=== PATIENT | female | born 1935 | race Caucasian/White ===

== ENCOUNTER → 2017-01-01 | Outpatient (CLI) | payer MEDICARE ==
[~2017-01-01] MED LIST: ASP81CT PO; ATOR40TA PO; BPR150TCR PO; BUPR300T PO; CARV12.53 PO; CLON0.5T3 PO; CLPD75T PO; DIGOXIN PO; ERGO400C PO; FOLI1TAB7 PO; FURO20TA4 PO; HYDR-34 PO; INSU100I23 SQ; INSU100V6 SC; LIOT25TA3 PO; LIOT25TA4 PO; LVT.112T PO; NAPR220T76 PO; NPH,100V SC; OMG1KC PO; RAMI10CA PO; VENL150C PO
--- NOTE | 2017-01-01 19:13 | Diagnostic Imaging Report ---
Bilateral hand radiographs. INDICATION: Pain. Arthritis. Three views of each hand performed. FINDINGS: There is prominent degenerative change at the DIP joints in the left hand with advanced osteoarthritic change at the carpometacarpal joint at the base of the thumb. Also in the left hand, there are arthritic changes at the PIP joint of the middle finger with subchondral erosions. The right hand demonstrates minimal osteoarthritic changes at the DIP joints and moderate OA at the interphalangeal joint of the thumb. There is moderate to severe osteoarthritis of the carpometacarpal joint. IMPRESSION: Osteoarthritis changes as described more prominent in the left hand. There is erosive component arthritic change at the PIP joint of the left middle finger. This could relate to secondary osteoarthritis from prior trauma or possible element of a monoarticular inflammatory arthritis. Dictated by: Dictated on workstation # [id number]
== END ==
LOC: RAD 14:23
PROVIDERS: ATTEND Internal Medicine
DX: M19.041 Primary osteoarthritis, right hand (principal); M19.042 Primary osteoarthritis, left hand

== ENCOUNTER 2018-11-11 11:00 | Outpatient (RCR) | payer MEDICARE | END 2018-11-11 11:17 | disposition home or self-care (01) | PROVIDERS: ATTEND Internal Medicine | DX: R33.9 Retention of urine, unspecified (principal) ==

== ENCOUNTER → 2018-11-18 | Outpatient (CLI) | payer MEDICARE ==
--- NOTE | 2018-11-18 16:29 | Diagnostic Imaging Report ---
Indication: Shortness breath PA and lateral chest Heart size and pulmonary vascular normal. Lungs are clear. There are no effusions or pneumothoraces. Impression: Negative chest Dictated by: Dictated on workstation # [id number]
[2018-11-18 16:36] LABS: HEMOGLOBIN 13.6 G/DL (11.5-16.0); MEAN PLATELET VOLUME 11.6 FL (7.4-10.4); RED CELL DISTRIBUTION WIDTH 12.9 % (10.0-14.5); WHITE BLOOD COUNT 10.2 10^3/uL (4.3-11.0)
[2018-11-18 16:43] LABS: BILIRUBIN,URINE NEGATIVE (NEGATIVE); CLARITY,URINE CLEAR; COLOR,URINE YELLOW; GLUCOSE, URINE (UA) NEGATIVE (NEGATIVE); KETONES,URINE NEGATIVE (NEGATIVE); LEUKOCYTE ESTERASE ,URINE 3+ (NEGATIVE); NITRITE,URINE NEGATIVE (NEGATIVE); PH,URINE 6.5 (5-9); PROTEIN,URINE NEGATIVE (NEGATIVE); UROBILINOGEN,URINE NORMAL (NORMAL)
[2018-11-18 16:53] LABS: ALBUMIN 4.1 GM/DL (3.2-4.5); BILIRUBIN,TOTAL 0.9 MG/DL (0.1-1.0); CALCIUM 10.6 MG/DL (8.5-10.1); CREATININE SERUM 1.48 MG/DL (0.60-1.30); POTASSIUM 4.6 MMOL/L (3.6-5.0); TOTAL PROTEIN 8.3 GM/DL (6.4-8.2)
[2018-11-18 16:54] LABS: BACTERIA,URINE MODERATE /HPF; WBC,URINE 25-50 /HPF
== END ==
LOC: RAD 16:10
PROVIDERS: ATTEND Physician Assistant
DX: R06.02 Shortness of breath (principal); R05 Cough
CPT/HCPCS: 36415; 71046; 80053; 81000; 85027; 86141; 87088

== ENCOUNTER 2018-11-25 10:06 | Outpatient (CLI) | payer MEDICARE ==
[~2018-11-25] VITALS: Ht 162.6 cm; Wt 59.2 kg
[2018-11-25] MEDS ORDERED: NS IV 1000 ML 1,000 ML ONE (10:31)
[2018-11-25 11:45] VITALS: BP 143/62
[2018-11-25] MEDS ORDERED: NS IV 1000 ML 1,000 ML IV ONE (13:00)
== END 2018-11-25 11:45 | disposition home or self-care (01) ==
LOC: SDC 10:06
PROVIDERS: ATTEND Nurse Practitioner
DX: N39.0 Urinary tract infection, site not specified (principal)
CPT/HCPCS: 96360

== ENCOUNTER → 2019-01-18 | Outpatient (CLI) | payer MEDICARE | LOC: CARD 08:29 | PROVIDERS: ATTEND Internal Medicine Cardiovascular Disease | DX: I42.9 Cardiomyopathy, unspecified (principal); I50.9 Heart failure, unspecified; E11.9 Type 2 diabetes mellitus without complications; I08.3 Combined rheumatic disorders of mitral, aortic and tricuspid valves | CPT/HCPCS: 93306 ==

== ENCOUNTER → 2019-01-20 | Outpatient (CLI) | payer MEDICARE ==
[~2019-01-20] VITALS: Ht 157.5 cm; Wt 58.5 kg
[~2019-01-20] MED LIST changes: +CATHETER FLUSH 10 ML SYR IV PRN; +REGADENOSON 0.4 MG/5 ML SYR (LEXISCAN) IV ONE
[2019-01-20 09:53] VITALS: BP 149/54
--- NOTE | 2019-01-20 15:34 | STRESS TEST ---
DATE OF SERVICE: 01/20/2019 LEXISCAN MYOVIEW STRESS TEST REPORT REFERRING PHYSICIAN: Dr. Brothers. Baseline heart rate is 81, baseline blood pressure is 157/72. Baseline EKG is sinus rhythm with left bundle branch block. In summary, the patient was injected with 10.24 mCi of technetium-99 Myoview and the resting images were obtained. Then, the patient received 0.4 mg of Lexiscan followed by 28.7 mCi of technetium-99 Myoview. Throughout the test, there were no EKG changes. The resting and stress images were reviewed and compared in the short axis, horizontal long axis, and vertical long axis views. Review of the images showed reversible decreased uptake involving the mid to apical anterior wall, true apex, anterior septum with mild reversibility. SSS is 12, SDS 5, TID value 0.96. On the gated images, the left ventricle is prominent with diffuse left ventricular hypokinesia, calculated ejection fraction 23%. CONCLUSION: 1. The patient tolerated Lexiscan well. 2. Decreased uptake involving the mid to apical anterior wall, true apex, anterior septum with mild reversibility. 3. Dilated left ventricle with diffuse left ventricular hypokinesia, calculated ejection fraction 23%. Job ID: [id number] DocumentID: [id number] Dictated Date: 01/20/2019 13:14:04 [employer] Room Date: 01/20/2019 15:33:52 Dictated By: LUISA MEADE MD
== END ==
LOC: RAD 07:05
PROVIDERS: ATTEND Internal Medicine Cardiovascular Disease
DX: I42.9 Cardiomyopathy, unspecified (principal); I50.9 Heart failure, unspecified; E11.9 Type 2 diabetes mellitus without complications; I51.89 Other ill-defined heart diseases; I51.7 Cardiomegaly
CPT/HCPCS: 78452; 93017

== ENCOUNTER 2019-04-02 11:13 | Outpatient (RCR) | payer MEDICARE ==
[~2019-04-02 11:13] MED LIST changes: +ACET-77 PO; +ARIP15TA4 PO; +ASPI-586 PO; +ATOR80TA76 PO; +BUPR300T43 PO; +CALC-823 PO; -CATHETER FLUSH 10 ML SYR IV PRN; +CHOL400C9 PO; +CLON0.5T13 PO; +CLOP75TA28 PO; +DIGO0.12 PO; +DIGO125T PO; +GABA-486 PO; +INSU100I14 SQ; +INSU100I32 SQ; +LEVO125T PO; +MULT-1112 PO; +NAPR-1033 PO; +PANT40SU PO; +POTA10TA10 PO; -REGADENOSON 0.4 MG/5 ML SYR (LEXISCAN) IV ONE; +SACU1TAB7 PO; +VENL150C98 PO
== END 2019-04-02 11:46 | disposition home or self-care (01) ==
PROVIDERS: ATTEND Internal Medicine
DX: R32 Unspecified urinary incontinence (principal)

== ENCOUNTER 2019-05-17 13:49 | Outpatient (RCR) | payer MEDICARE | END 2019-05-20 10:28 | disposition home or self-care (01) | PROVIDERS: ATTEND Anesthesiology Pain Medicine | DX: M19.90 Unspecified osteoarthritis, unspecified site (principal); M79.18 Myalgia, other site; E11.9 Type 2 diabetes mellitus without complications; M54.5 Low back pain; Z79.4 Long term (current) use of insulin; Z87.81 Personal history of (healed) traumatic fracture; Z96.641 Presence of right artificial hip joint; Z95.828 Presence of other vascular implants and grafts ==

== ENCOUNTER 2019-06-21 10:13 | Outpatient (RCR) | payer MEDICARE ==
[~2019-06-21 10:13] MED LIST changes: -ACET-77 PO; +ACET-78 PO; -CLON0.5T13 PO; +CLON0.5T4 PO; -DIGO125T PO; +DIGO125T3 PO
== END 2019-06-22 | disposition home or self-care (01) ==
LOC: CR 10:13
PROVIDERS: ATTEND Internal Medicine Cardiovascular Disease
DX: Z48.812 Encounter for surgical aftercare following surgery on the circulatory system (principal); Z98.61 Coronary angioplasty status
CPT/HCPCS: 82962; 93798

== ENCOUNTER 2019-07-05 10:26 | Outpatient (RCR) | payer MEDICARE | END 2019-09-21 | disposition home or self-care (01) | LOC: CR 10:26 | PROVIDERS: ATTEND Internal Medicine Cardiovascular Disease | DX: Z48.812 Encounter for surgical aftercare following surgery on the circulatory system (principal); Z98.61 Coronary angioplasty status | CPT/HCPCS: 93798 ==

== ENCOUNTER → 2019-08-20 | Outpatient (CLI) | payer MEDICARE ==
[2019-08-20 10:36] LABS: BILIRUBIN,URINE NEGATIVE (NEGATIVE); CLARITY,URINE CLEAR; COLOR,URINE YELLOW; GLUCOSE, URINE (UA) NEGATIVE (NEGATIVE); KETONES,URINE NEGATIVE (NEGATIVE); LEUKOCYTE ESTERASE ,URINE 1+ (NEGATIVE); NITRITE,URINE NEGATIVE (NEGATIVE); PROTEIN,URINE TRACE (NEGATIVE)
[2019-08-20 10:49] LABS: BACTERIA,URINE NEGATIVE /HPF; RBC,URINE RARE /HPF; SQUAMOUS EPITHELIAL CELL,UR 0-2 /HPF; WBC,URINE 0-2 /HPF
== END ==
LOC: MERGE 10:00 → LABNPT 10:00
PROVIDERS: ATTEND Internal Medicine
DX: R39.15 Urgency of urination (principal)
CPT/HCPCS: 81000

== ENCOUNTER 2020-01-01 12:01 | Inpatient (IN) | payer MEDICARE ==
[2020-01-01] VITALS (12 sets, daily range): BP systolic 136–166; BP diastolic 51–87
[~2020-01-01] VITALS: Ht 162.6 cm; Wt 60.2 kg
--- OUTSIDE RECORDS SUMMARY | 2020-01-01 12:07 | XMS REPORT | Encounter Summary ---
Author Author [facility] Organization [facility] Address Unknown Phone Unavailable Care Team Providers Care Heading Machine Operator Name Role Phone PCP Unavailable Encounter Details Care Team Description Date Type Department 02/25/2004 [facility] Visit Social History Date Tobacco Use Types Packs/Day Years Used Never Assessed Sex Assigned at Date Recorded Not on file Industry Job Start Date Occupation Not on file Not on file Not on file Travel End Travel History Travel Start No recent travel history available. documented as of this encounter Plan of Treatment Not on filedocumented as of this encounter Visit Diagnoses Not on filedocumented in this encounter
--- OUTSIDE RECORDS SUMMARY | 2020-01-01 12:07 | XMS REPORT | Encounter Summary ---
Author Author [facility] Organization [facility] Address Unknown Phone Unavailable Care Team Providers Care Worm Grower Name Role Phone PCP Unavailable Encounter Details Care Team Description Date Type Department 12/17/2010 [facility] [...]
--- OUTSIDE RECORDS SUMMARY | 2020-01-01 12:07 | XMS REPORT | Encounter Summary ---
Author Author [facility] Organization [facility] Address Unknown Phone Unavailable Care Team Providers Care Compounding Pharmacy Technician Name Role Phone PCP Unavailable Encounter Details Care Team Description Date Type Department 02/29/2004 [facility] [...]
--- OUTSIDE RECORDS SUMMARY | 2020-01-01 12:07 | XMS REPORT | Encounter Summary ---
Author Author [facility] Address Unknown Phone Unavailable Care Team Providers Care Ice House Supervisor Name Role Phone PCP Unavailable Encounter Details Care Team Description Date Type Department Sandeep Hewitt MD [address] [facility] [address] [place] [address] [phone] 11/15/2010 [facility] [...]
--- OUTSIDE RECORDS SUMMARY | 2020-01-01 12:07 | XMS REPORT | Encounter Summary ---
Author Author [facility] Address Unknown Phone Unavailable Care Team Providers Care Service Station Manager Name Role Phone PCP Unavailable Encounter Details Care Team Description Date Type Department Kwame Juarez MD [address] [facility] [address] [place] [address] [phone] 11/18/2010 [facility] [...]
--- OUTSIDE RECORDS SUMMARY | 2020-01-01 12:07 | XMS REPORT | Encounter Summary ---
Author Author [facility] Address Unknown Phone Unavailable Care Team Providers Care Counseling Specialist Name Role Phone PCP Unavailable Encounter Details Care Team Description Date Type Department Sandeep Hewitt MD [address] [facility] [address] [place] [address] [phone] 12/18/2010 [facility] [...]
--- OUTSIDE RECORDS SUMMARY | 2020-01-01 12:07 | XMS REPORT | Encounter Summary ---
Author Author [facility] Address Unknown Phone Unavailable Care Team Providers Care Patent Law Specialist Name Role Phone PCP Unavailable Encounter Details Care Team Description Date Type Department Tish Shea, RN ACNS- No Forwarding Address 12/19/2010 [facility] Visit Social History Date [...]
--- OUTSIDE RECORDS SUMMARY | 2020-01-01 12:07 | XMS REPORT | Encounter Summary ---
Author Author [facility] Address Unknown Phone Unavailable Care Team Providers Care Cupola Mechanic Name Role Phone PCP Unavailable Encounter Details Care Team Description Date Type Department Jose Manuel Godfrey MD No Forwarding Address 12/12/2010 [facility] Visit Social History Date [...]
--- OUTSIDE RECORDS SUMMARY | 2020-01-01 12:07 | XMS REPORT | Encounter Summary ---
Author Author [facility] Address Unknown Phone Unavailable Care Team Providers Care Robotype Operator Name Role Phone PCP Unavailable Encounter Details Care Team Description Date Type Department Gerson Skinner MD [address] [facility] [address] [place] [address] [phone] 12/18/2010 [facility] [...]
--- OUTSIDE RECORDS SUMMARY | 2020-01-01 12:07 | XMS REPORT | Encounter Summary ---
Author Author [facility] Organization [facility] Address Unknown Phone Unavailable Care Team Providers Care Optical Manager Name Role Phone PCP Unavailable Encounter Details Care Team Description Date Type Department Jose Manuel Godfrey MD No Forwarding Address 12/17/2010 [facility] - Hist [facility] Visit Social History Date Tobacco Use Types Packs/Day Years Used Never Assessed Sex Assigned at Date Recorded Not on file Industry Job Start Date Occupation Not on file Not on file Not on file Travel End Travel History Travel Start No recent travel history available. documented as of this encounter Last Filed Vital Signs Reading Time Taken Comments Vital Sign 134/68 12/17/2010 9:00 AM CDT Blood Pressure 69 12/17/2010 9:00 AM CDT Pulse - - Temperature - - Respiratory Rate - - Oxygen Saturation - - Inhaled Oxygen Concentration 59 kg (130 lb) 12/17/2010 9:00 AM CDT normal Weight 162.6 cm (5' 4") 12/17/2010 9:00 AM CDT Height 22.31 12/17/2010 9:00 AM CDT Body Mass Index documented in this encounter Progress Notes * Jose Manuel Godfrey MD - 12/17/2010 9:00 AM CDT [place] Office [address] [place] [id number] December 17, 2010 Mario Salinas MD [address] [facility] [address] [place] [address] RE: EDIE GONSALES : 1935 Chart #: [id number] Visit provider: Jose Manuel Godfrey M.D. Visit location: [place] office Dear Dr. Salinas: I had the pleasure of seeing EDIE GONSALES in the office today. She is 75 year s of age and presents with the following chief complaints: Chest pain, shortnes s of breath, and abnormal stress test. HPI: I had an opportunity to see her today in consultation regarding possible cardiac catheterization to define her coronary anatomy and left ventricular systolic fu nction and possible coronary intervention. As you know, she has a history of un derlying coronary artery disease and underwent drug-eluting stents with four minal nts in the LAD and a single drug-eluting stent to the right coronary artery in by Dr. Braxton Hubbard. You have followed her for a nonischemic cardiomyop athy even prior to the development of her underlying coronary disease. In 07/20 , I did call your office because her nuclear imaging revealed ischemia that was moderate in the septal and apical regions. Because of increasing chest pain and anginal symptoms, you recommended cardiac catheterization. She does describe chest pain with two episodes that she had while gardening that she felt very poorly with. She has some other left shoulder pain that appears to be musculoskeletal in nature. Problem List: LBBB 02/24/2004 PCI DELISA X4 to LAD from ostium to distal LAD, DELISA to RCA. Cardiomyopathy -Non-ischemic DM Type 2 11/18/2010 Dyslipidemia Hypertension Past Medical History: Enlarged thyroid Cardiomyopathy DM Manic-depressive disorder Past Surgical History: Cholecystectomy T & A 1944 Cyst removed 1957 Final Medications: Furosemide 20 Mg take 1 tablet (20MG) by oral route every other day Plavix 75 Mg take 1 tablet (75MG) by oral route every day Ramipril 10 Mg take 1 capsule (10MG) by oral route every day Bupropion HCl 150 Mg take 1 tablet (150MG) by oral route 2 times every day Effexor XR 150 Mg take 1 capsule (150MG) by oral route every day Clonazepam 1 Mg take 1/2 tablet by oral route in the evening Synthroid 112 Mcg take 1 tablet (112MCG) by oral route every day Digoxin 250 Mcg take 1 tablet (250MCG) by oral route every day Carvedilol 25 Mg take 1/2 tablet (12.5MG) by oral route 2 times every day with food Lipitor 40 Mg take 1 tablet (40MG) by oral route every day Humalog 100/ml inject by subcutaneous route as per insulin sliding scale protocol Lantus 100/ml inject by subcutaneous route as per insulin protocol Aspirin 81 Mg take 1 tablet (81MG) by oral route every day Aleve 220 Mg take 1 tablet (220MG) by oral route every 12 hours as needed Vitamin D 2000 Unit take 1 Tablet by Oral route every day Fish Oil 360-1200mg Centrum Silver Allergies/Intolerances: No Known Allergies Family History: Family history was reviewed today. Social History: Marital Status: Children: 3 Occupation: - Retired Advance Directives: The patient has a living will that was executed on 7 Diet: Low salt Exercise: Active Lifestyle. House/garden work, physical therapy, walks Smoking: Non-smoker Alcohol: Does not drink Comments: One child is . ROS: 12-point review of systems is negative with the following exceptions: Constitutional: Fatigue, Night sweats Pulmonary: Snore, Daytime drowsiness, Wake up unrefreshed Cardiovascular: Chest Discomfort, Shortness of breath /DELINQUENCY COUNSELOR: Postmenopausal Neuro: Numbness/Weakness, Disequilibrium Musculoskeletal/Dermatology: Myalgias, Arthralgias Hematology: Bleed or bruise easily Endocrine/Psych: Excessive thirst, Feeling depressed Physical Exam: Vital Signs The patient is 5ft 4in tall, and weighs 130lbs. The BMI is 22.30. B lood pressure taken in the left arm is 134/68 mmHg in the sitting position. The pulse is 69. The rhythm is regular. Const The patient is a well-developed, well-nourished female. HEENT The patient's neck veins are flat. Pulm Lungs are clear to auscultation. Cardiac The point of maximal impulse is normal. S1 is normal. S2 is normal. T here is no S3 gallop. There is no S4 gallop. No extra heart sounds are detected by auscultation. There is a 2/6 systolic ejection murmur. Abd The patient has no abdominal tenderness to palpation. The abdominal aorta i s not palpable. There is no abdominal aortic bruit detected by auscultation. Vasc The right and left carotid upstrokes are normal. There are normal right an d left femoral pulses. There are normal right and left posterior tibial pulses. The right and left dorsalis pedis pulses are normal. There is a right carotid bruit pres ent. EXT There is no edema noted. Skin The skin is warm and dry. Neuro/Psych The patient is alert and oriented to time, person and place. The pa tient's mood is normal. No aphasia is apparent by exam. EKG: Result: No change since last visit. Rhythm: Sinus Rate: 69 AV Conduction: Left bundle branch block Most Recent Lipids Available for Review: Date Collected: 12/17/2010 Fasting: Fasting ALT 22 Impression and Plan: 1. Increased anginal symptoms with abnormal myocardial perfusion imaging suggest ing septal and apical ischemia. Mildly depressed left ventricular systolic function. Your becky lópez is faxing over those records although they did read the reports to me in your letter over the phone. At this point I have recommended that she proceed with the cardiac catheterization that you have rec ommended to define her coronary anatomy and possible coronary intervention. I have explain ed to her the risks and benefits. She voices understanding and wishes to proceed. 2. Nonischemic cardiomyopathy that predates her underlying coronary artery disea se. She appears to be Class II. 3. Diabetes mellitus. 4. Dyslipidemia. 5. Hypertension. Follow up: Jose Manuel Godfrey M.D. 1 Year Thank you for allowing me to participate in EDIE GONSALES's care. If I can be of any further assistance, please do not hesitate to contact me. Sincerely, Jose Manuel LUCIO/mandy , 9:28 a.m. , 10:53 a.m. F: 12/17/2010 documented in this encounter Plan of Treatment Not on filedocumented as of this encounter Visit Diagnoses Not on filedocumented in this encounter
--- OUTSIDE RECORDS SUMMARY | 2020-01-01 12:07 | XMS REPORT | Clinical Summary ---
Author Author [facility] Organization [facility] Address Unknown Phone Unavailable Care Team Providers Care Classification Analyst Name Role Phone PCP Unavailable Allergies Not on File Medications Not on file Active Problems Not on file Family History Medical History Relation Name Comments Other Brother Diagnosed with CAD, Other Mother Diagnosed with CAD, Other Sister Diagnosed with CAD, Relation Name Status Comments Brother Cause of was MS at age 55. (Age 55) Brother Cause of was MS at age 65. (Age 65) Brother Cause of was MS at age 75. (Age 75) Brother Father Cause of was Cancer at age 70. (Age 70) Mother Cause of was MS at age 61. (Age 61) Sister Social History Date Tobacco Use Types Packs/Day Years Used Never Assessed Sex Assigned at Date Recorded Not on file Industry Job Start Date Occupation Not on file Not on file Not on file Travel End Travel History Travel Start No recent travel history available. Last Filed Vital Signs Reading Time Taken [...] 12/17/2010 9:00 AM CDT Body Mass Index Plan of Treatment Health Maintenance Due Date Last Done Comments Td # 1935 Zoster Vaccine# (1 of 2) 09/20/1987 Fall Risk Assessment # 2002 Osteoporosis Screening 2002 Influenza Vaccine (#1) 2020 04/02/2018, 05/14/2017, 05/19/2016, Additional history exists Results Not on filefrom Last 3 Months Advance Directives For more information, please contact: [phone] Patient Ham Sawyer Explanation Type Date Recorded Health Care 09/20/2013 9:58 PM Directive
--- OUTSIDE RECORDS SUMMARY | 2020-01-01 12:07 | XMS REPORT | Encounter Summary ---
Author Author [facility] Organization [facility] Address Unknown Phone Unavailable Care Team Providers Care Internet Marketer Name Role Phone PCP Unavailable Encounter Details Care Team Description Date Type Department [facility] Provider, MD Simi 12/14/2009 [facility] Result Social History Date Tobacco Use Types Packs/Day Years Used Never Assessed Sex Assigned at Date Recorded Not on file Industry Job Start Date Occupation Not on file Not on file Not on file Travel End Travel History Travel Start No recent travel history available. documented as of this encounter Plan of Treatment Not on filedocumented as of this encounter Procedures Comments Procedure Name Priority Date/Time Associated Diag nosis ECHO HISTORICAL Routine 12/14/2009 documented in this encounter Results * Echo historical (12/14/2009) Specimen Narrative Performed At Procedure Category: Echo NEXTGEN Procedure: 2D echo Procedure Summary: Left ventricular sys tolic dysfunction. Dyssynchronous septal wall motion, normal PAP, no sign ificant valvular dysfunction. Normal right ventricular function. EF=45-50% . Outside report. Procedure Note Interface, Rad Conversion - 12/27/2014 11:12 PM CDT Procedure Category: Echo Procedure: 2D echo Procedure Summary: Left ventricular systolic dysfunction. Dyssynchronous septal wall motion, normal PAP, no significant valvular dysfunction. Normal right ventricular function. EF=45-50%. Outside report. Performing Organization Address City/State/Zipcode Ph one Number NEXTGEN documented in this encounter Visit Diagnoses Not on filedocumented in this encounter
--- OUTSIDE RECORDS SUMMARY | 2020-01-01 12:07 | XMS REPORT | Encounter Summary ---
Author Author [facility] Address Unknown Phone Unavailable Care Team Providers Care Movement Therapist Name Role Phone PCP Unavailable Encounter Details Care Team Description Date Type Department Sandeep Hewitt MD [address] [facility] [address] [place] [address] [phone] 11/19/2010 [facility] [...]
--- OUTSIDE RECORDS SUMMARY | 2020-01-01 12:07 | XMS REPORT | Encounter Summary ---
Author Author [facility] Address Unknown Phone Unavailable Care Team Providers Care Hotel Manager Name Role Phone PCP Unavailable Encounter Details Care Team Description Date Type Department Jose Manuel Godfrey MD No Forwarding Address 12/11/2010 [facility] Visit Social History [...]
--- OUTSIDE RECORDS SUMMARY | 2020-01-01 12:07 | XMS REPORT | Encounter Summary ---
Author Author [facility] Address Unknown Phone Unavailable Care Team Providers Care Construction Representative Name Role Phone PCP Unavailable Encounter Details Care Team Description Date Type Department Jose Manuel Godfrey MD No Forwarding Address 01/18/2011 [facility] - Hist [facility] Visit Social History [...]
--- OUTSIDE RECORDS SUMMARY | 2020-01-01 12:07 | XMS REPORT | Encounter Summary ---
Author Author [facility] Address Unknown Phone Unavailable Care Team Providers Care Catering Staff Member Name Role Phone PCP Unavailable Encounter Details Care Team Description Date Type Department Gerson Skinner MD [address] [facility] [address] [place] [address] [phone] Yogesh Hewitt MD [address] [facility] [address] [place] [address] [phone] Coronary atherosclerosis of [place] coron reena [facility] Social History Date Tobacco Use Types Packs/Day Years Used Never Assessed Sex Assigned at Date Recorded Not on file Industry Job Start Date Occupation Not on file Not on file Not on file Travel End Travel History Travel Start No recent travel history available. documented as of this encounter Discharge Summaries * Tish Shea RN ACNS-BC - 08/07/2013 1:07 AM SAP FUNCTIONAL ANALYST REPORT Name: LAMAR GONSALES Date of : 1935 Attending Physician: YOGESH HEWITT Date of Admission: 12/17/2010 Date of Discharge: 12/18/[address] Salinas, I had the pleasure of participating in the dismissal of your patient from the [facility] [place] as directed by Dr. Gerson Skinner. The patient was admitted electively on December 17, 2010 to undergo cardiac catheterization and possible percutaneous revascularization. As you know, the patient was seen by Dr. Jose Manuel Godfrey on December 17, 2010 for an office evaluation. The patient described recent onset exertional angina and had an abnormal myocardial perfusion scan performed in July 2010. This demonstrated moderate ischemia in the septal and apical regions. Given her history of coronary artery disease and ischemic cardiomyopathy, it was decided that she would proceed with an invasive evaluation and possible percutaneous revascularization. The procedure was performed on 12/17/[address] Gerson Skinner and the following anatomy was identified: 1. Left main: Ostial 30% stenosis. 2. Left anterior descending: Proximal previously placed stent patent in this segment. Mid LAD with a 30% in-stent restenosis. There was a second lesion with an 80% stenosis and a third lesion that was 70% at the origin of the LAD second diagonal. 3. Left anterior descending second diagonal: 70% stenosis at the ostium. 4. Ramus intermedius: Proximal 60% stenosis. 5. Right coronary artery: Zero percent in-stent restenosis in the mid segment at the site of a prior stent. Fractional flow reserve was performed in the LAD to further evaluate the patient's hemodynamics. The FFR was 0.75 indicating that the 80% mid LAD lesion was hemodynamically significant. In the same setting, percutaneous revascularization was performed. The 80% lesion in the LAD was stented with a 2.5 x 12 mm Promus drug-eluting stent. This was deployed at maximum inflation of 16 hemispheres. The patient did remain hospitalized until dismissal in stable condition on the morning of 12/18/2010. She remains in a left bundle branch block, rate of 65 beats per minute without acute ischemic change. Blood pressure 148/45 with a systolic range in the 140s during the postprocedure time frame. Temperature 97.5. Right radial access site was stable. The patient did have a positive radial patency test. She denies pain or paresthesia. DISCHARGE LABORATORY STUDIES: CK-MB 3. Sodium 139, potassium 3.8, creatinine 0.8, GFR 70. Hemoglobin 9.5 (admission hemoglobin 10.3), platelets 227. Total cholesterol 143, triglycerides 142, HDL 41, LDL 74. Glucose 105. AST 26. DISCHARGE MEDICATIONS: 1. Aspirin 325 mg daily. 2. Plavix 75 mg daily x12 months. 3. Nitrostat 0.4 mg sublingual p.r.n. chest pain. 4. Multivitamin daily. 5. Effexor-XR 150 mg b.i.d. 6. Humalog 8 units a.c. t.i.d. 7. Lantus 28 units at bedtime. 8. Lipitor 40 mg daily. 9. Synthroid 112 mcg daily. 10. Vitamin D3 2000 international units daily. 11. Bupropion 150 mg b.i.d. 12. Coreg 12.5 mg b.i.d. 13. Clonazepam 0.5 mg at bedtime. 14. Digoxin 250 mcg daily. 15. Fish oil 1200 mg daily. 16. Lasix 20 mg daily. 17. Ramipril 10 mg daily. DISCHARGE DIAGNOSES: 1. Coronary artery disease with class II anginal symptoms and abnormal myocardial perfusion scan. 2. Dyslipidemia. 3. Hypertension. 4. Adult onset diabetes type 2. 5. Anemia. 6. Manic depression. PRINCIPAL PROCEDURES: Cardiac catheterization/percutaneous coronary intervention. DISCHARGE PLAN: Discharge plan is as directed by Dr. Gerson Skinner. The dismissal plan is as follows: 1. Dual antiplatelet therapy with aspirin 325 mg daily and Plavix 75 mg daily x12 months. This regimen is to prevent subacute thrombosis that can occur in drug-eluting stents. It is recommended that the patient defer any elective surgery for 12 months. If surgery is necessary, then consideration must be given to performing the surgery on antiplatelet therapy. At the time of the patient's annual evaluation, a decision will be made regarding the need to continue chronic dual antiplatelet therapy. 2. Antianginal/hypertension regimen. Continue beta aruna and PAMELA inhibitor. 3. Lipids. Goal LDL below 70. Continue statin and fish oil. 4. Cardiac rehabilitation prescription given. 5. Normocytic anemia. Referred to primary care physician for management. 6. Adult onset diabetes managed by primary care physician. 7. Office visit with primary endocrinology teacher in 7 to 14 days to assess the right radial access site. A CD of the procedure was given to the patient to give to her primary endocrinology teacher. Dr. Dr. Salinas, it has been a pleasure to be involved in this patient's care. Please feel free to contact Dr. Gerson Skinner or myself with questions or concerns. Dismissal coordination time was greater than 30 minutes. Tish Shea RN,ACNS- cc: Mario Salinas MD, [address] [facility], [address], [place] [id number] FUNCTIONAL ANALYST documented in this encounter Medications at Time of Discharge Start Date End Date Medication Sig Dispensed Refills 12/13/2010 01/10/2015 aspirin 81 MG EC tablet take 1 tablet 0 (81MG) by oral route every day 12/13/2010 01/13/2015 atorvastatin (LIPITOR) 40 take 1 tablet 0 MG tablet (40MG) by oral route every day 12/13/2010 01/13/2015 buPROPion (WELLBUTRIN SR) take 1 tablet 0 150 MG SR 12 hr tablet (150MG) by oral route 2 times every day 12/13/2010 01/13/2015 carvedilol (COREG) 25 MG take 1/2 0 0 tablet tablet (12.5MG) by oral route 2 times every day with food 12/13/2010 01/13/2015 cholecalciferol, vitamin take 1 Tablet 0 D3, (VITAMIN D3) 2,000 by Oral route unit Tab every day 12/13/2010 01/13/2015 clonazePAM (KLONOPIN) 1 take 1/2 0 0 MG tablet tablet by oral route in the evening 12/13/2010 01/13/2015 clopidogrel (PLAVIX) 75 take 1 tablet 0 mg tablet (75MG) by oral route every day 12/13/2010 01/13/2015 digoxin (LANOXIN) 250 mcg take 1 tablet 0 tablet (250MCG) by oral route every day 12/13/2010 01/13/2015 furosemide (LASIX) 20 MG take 1 tablet 0 0 tablet (20MG) by oral route every other day 12/13/2010 01/13/2015 insulin glargine (LANTUS) inject by 0 100 unit/mL injection subcutaneous route as per insulin protocol 12/13/2010 01/13/2015 insulin lispro (HUMALOG) inject by 0 100 unit/mL injection subcutaneous route as per insulin sliding scale protocol 12/13/2010 01/13/2015 levothyroxine (SYNTHROID) take 1 tablet 0 112 MCG tablet (112MCG) by oral route every day 12/13/2010 01/13/2015 tmigtooe-pnagyyk-ytea-lut 0 ein (CENTRUM SILVER ULTRA WOMEN'S) Tab 12/13/2010 01/13/2015 naproxen sodium (ALEVE) take 1 tablet 0 220 MG tablet (220MG) by oral route every 12 hours as needed 12/13/2010 01/13/2015 omega-3 fatty acids-fish 0 oil (FISH OIL) 360-1,200 mg cap 12/13/2010 01/13/2015 ramipril (ALTACE) 10 MG take 1 0 capsule capsule (10MG) by oral route every day 12/13/2010 01/13/2015 venlafaxine (EFFEXOR XR) take 1 0 150 MG ER 24 hr capsule capsule (150MG) by oral route every day documented as of this encounter Plan of Treatment Not on filedocumented as of this encounter Procedures Comments Procedure Name Priority Date/Time Associated Diag nosis GLUCOSE POINT OF CARE Routine 12/18/2010 7:27 AM CDT PLATELET Routine 12/18/2010 5:21 AM CDT LIPID PANEL Routine 12/18/2010 5:21 AM CDT HEMOGLOBIN AND HEMATOCRIT Routine 12/18/2010 5:21 AM CDT ELECTROLYTES Routine 12/18/2010 5:21 AM CDT CREATININE Routine 12/18/2010 5:21 AM CDT BLOOD UREA NITROGEN Routine 12/18/2010 5:21 AM CDT ASPARTATE Routine 12/18/2010 AMINOTRANSFERASE 5:21 AM CDT CK-MB Routine 12/17/2010 9:55 PM CDT GLUCOSE POINT OF CARE Routine 12/17/2010 5:40 PM CDT GLUCOSE POINT OF CARE Routine 12/17/2010 3:58 PM CDT INVASIVE CARDIOLOGY Routine 12/17/2010 REPORT 2:33 PM CDT GLUCOSE POINT OF CARE Routine 12/17/2010 11:29 AM CDT PROTHROMBIN TIME/INR Routine 12/17/2010 10:20 AM CDT POTASSIUM Routine 12/17/2010 10:20 AM CDT GLUCOSE Routine 12/17/2010 10:20 AM CDT CREATININE Routine 12/17/2010 10:20 AM CDT COMPLETE BLOOD COUNT Routine 12/17/2010 10:20 AM CDT documented in this encounter Results * Glucose Point of Care (12/18/2010 7:27 AM CDT) Only the most recent of 4 results within the time period is included. Glucose 105 (H) 65 - 100 MG/DL SUNQUEST Specimen Blood Performing Organization Address [facility] one Number [id number] [phone] SUNQUEST * Hemoglobin and Hematocrit (12/18/2010 5:21 AM CDT) Hemoglobin 9.5 (L) 12.0 - 15.0 G/DL SUNQUEST Hematocrit 30 (L) 36 - 45 % SUNQUEST Specimen Blood Performing Organization Address [facility] one Number [id number] [phone] 11 SUNQUEST * Platelet (12/18/2010 5:21 AM CDT) Platelet Count 227 140 - 400 TH/UL SUNQUEST Specimen Blood Performing Organization Address [facility] one Number [id number] [place] [phone] 11 SUNQUEST * Blood Urea Nitrogen (12/18/2010 5:21 AM CDT) Blood Urea 15 8 - 26 MG/DL SUNQUEST Nitrogen Specimen Blood Performing Organization Address [facility] one Number [id number] [phone] 11 SUNQUEST * Creatinine (12/18/2010 5:21 AM CDT) Only the most recent of 2 results within the time period is included. Creatinine 0.8 0.4 - 1.1 MG/DL SUNQUEST eGFR Female 70 SUNQUEST Non-AA Comment: Chronic Kidney Disease less than 60 mL/min/1.73 sq.m Kidney failure less than 15 mL/min/1.73 sq.m eGFR Female AA 84 SUNQUEST Comment: Chronic Kidney Disease less than 60 mL/min/1.73 sq.m Kidney failure less than 15 mL/min/1.73 sq.m Specimen Blood Performing Organization Address [facility] one Number [id number] [place] [phone] 11 SUNQUEST * Electrolytes (12/18/2010 5:21 AM CDT) Sodium 139 134 - 144 MEQ/L SUNQUEST Potassium 3.8 3.5 - 5.1 MEQ/L SUNQUEST Chloride 105 101 - 111 MEQ/L SUNQUEST Carbon Dioxide 28 23 - 32 MEQ/L SUNQUEST Anion Gap 6 3 - 15 SUNQUEST Specimen Blood Performing Organization Address [facility] one Number [id number] [place] [phone] 11 SUNQUEST * Aspartate Aminotransferase (12/18/2010 5:21 AM CDT) Aspartate 26 15 - 41 IU/L SUNQUEST Aminotransferas e Specimen Blood Performing Organization Address [facility] one Number [id number] [phone] 11 SUNQUEST * Lipid Panel (12/18/2010 5:21 AM CDT) Cholesterol 143 100 - 200 MG/DL SUNQUEST Triglycerides 142 0 - 150 MG/DL SUNQUEST HDL Cholesterol 41 40 - 110 MG/DL SUNQUEST LDL Cholesterol 74 0 - 99 MG/DL SUNQUEST Cholesterol/HDL 3.5 0.0 - 4.5 SUNQUEST Ratio Hours 12 SUNQUEST Postprandial Non-HDL 102 0 - 130 MG/DL SUNQUEST Cholesterol Specimen Blood Performing Organization Address [facility] one Number [id number] [phone] 11 SUNQUEST * CK-MB (12/17/2010 9:55 PM CDT) CK MB 3.0 0.0 - 6.3 NG/ML SUNQUEST Specimen Blood Performing Organization Address [facility] one Number [id number] [phone] 11 SUNQUEST * Invasive Cardiology Report (12/17/2010 2:33 PM CDT) Specimen Narrative Performed At [facility] , Complete Report Name:LAMAR GONSALES : 1935 Age: 75 years Gender: Female SSN: Study date: 12/17/2010 CPI number: [id number] CV Cath number: [id number] CLAIM ADJUSTER: Gerson Skinner M.D. VISUAL BASIC DEVELOPER: Julio Covarrubias M.D. INTERVENTIONAL FELLOW: Black Dallas M.D. INDICATIONS: Angina/NV: unstable angina . PROCEDURES PERFORMED: -- Left coronary angiography. -- Right coronary angiography. -- Intervention on mid LAD: stent ins ertion. PROCEDURE: The risks, benefits and alte rnatives of the procedure and conscious sedation were reviewed with the patient and informed consent was obtained. The patient was brought to the cardiac laborer driver and placed on the table. The planned access sites were prepped and d raped in the usual sterile fashion. Oxygen 2 L/min. -- Right radial artery access. The ac cess site was infiltrated with local anesthetic. The vessel was accessed usi ng the modified Seldinger technique, a wire was threaded into the vessel, and a catheter was advanced over the wire into the vessel. -- Left coronary artery angiography. A JL4 catheter was advanced to the aorta and positioned in the vessel ostium und er fluoroscopic guidance. Angiography was performed in multiple projections u sing hand-injection of contrast. -- Right coronary artery angiography. A JR4 catheter was advanced to the aorta and positioned in the vessel ostium und er fluoroscopic guidance. Angiography was performed in multiple projections u sing hand-injection of contrast. -- Sheath exchange. The sheath in the right radial artery was exchanged. LESION INTERVENTION: A stent insertion was performed on the 80 % lesion in the mid LAD. Following intervention there w as a 0 % residual stenosis. This was an ACC/AHA "non-high risk" lesion for inte rvention. There was KRYS 3 flow before the procedure and KRYS 3 flow after the procedure. There was no acute vessel closure. There was no perforation. Ther e was no dissection. -- A 6F EBU3.[address] was used to cannulate the vessel. -- Coronary flow reserve was measured . A Aeris 175 cm Pressure Doppler flow wire was advanced across the stenosis. -- A 2.5X12 Promus Monorail drug-elut ing stent was deployed in the lesion at a maximum inflation pressure of 16 poly. Lesion (initial) Lesion length 10 mm PROCEDURAL DATA: No significant blood l oss. TIMING: Test started at 14:34. Test concluded at 15:39. HEMOSTASIS: The sheath was removed. The site was compressed manually. Hemostasis was successful. MEDICATIONS GIVEN: Midazolam, 1 mg, IV, at 14:39. Fentanyl, 50 mcg, IV, at 14:39. Verapamil (Isoptin, Calan, Cover a), 3 mg IA, at 14:44. Nitroglycerin, 150 mcg intracoronary, at 14:57. Verapa mil (Isoptin, Calan, Covera), 2 mg IA, at 15:01. Adenosine (Adenocard), IV, in fusion rate of 297 ml/hr, at 15:18. Nitroglycerin, 150 mcg intracoronary, a t 15:19. Nitroglycerin, 150 mcg intracoronary, at 15:30. Verapamil (Iso ptin, Calan, Covera), 3 mg IA, at 15:33. Aspirin, 325 mg, PO, last dose at 12:23 . Clopidogrel (Plavix), 75 mg, PO, last dose at 12:24. Heparin, 3000 units, IV, last dose at 14:44. Heparin, 500 units, IV, last dose at 15:19. 2% Lidocaine, 3 ml subcutaneously, at 14:42. CONTRAST GIVEN: Visipaque 175 ml. CORONARY ANGIOGRAPHY: The coronary circ ulation is right dominant. Ostial left main: There was a 30 % stenosis. Proxim al LAD: There was a previously placed patent stent in the segment. Mid LAD: A ngiography showed moderate atherosclerosis. There was a previously placed patent stent in the segment 30 % stenosis. There was KRYS grade 3 flow t hrough the vessel (brisk flow). In a second lesion, there was a 80 % stenosi s. In a third lesion, there was a 70 % stenosis at the origin of D2. Distal LA D: The vessel was small sized. Angiography showed moderate atheroscler osis. 2nd diagonal: There was a 70 % stenosis at the ostium of the vessel se gment. Proximal ramus intermedius: There was a 60 % stenosis. Mid RCA: There was a previously placed patent stent in the segment. SUMMARY: -- 1ST LESION INTERVENTIONS: -- A stent insertion was performed on the 80 % lesion in the mid LAD. Following intervention there was a 0 % residual stenosis. IMPRESSIONS: Exertional angina and new onset left shoulder pain. Abnormal outside stress test with apical ischemi a. FFR in LAD = 0.75. PCI to mid LAD with 2.5 mm DELISA. FFR likely reflects hilliard m total of LAD lesions. Did not treat more distal bifurcation lesion. I performed the entire procedure and/or supervised the Fellow for guillen portions of the procedure performed by Black vernon M.D.. I interpreted all test results for this procedure and did not participate in any overlapping procedures. I performed the entire procedure and/or supervised the Fellow for guillen portions of the procedure performed by Julio Velasquez ch, M.D.. I interpreted all test results for this procedure and did not particip ate in any overlapping procedures. Authenticated by Gerson Skinner M.D. Signed 12/17/2010 15:51:31 HEMODYNAMIC TABLES Pressures: NO PHASE Pressures: - HR: 72 Pressures: - Rhythm: Pressures: -- Aortic Pressure (S/D/M) : 157/58/95 Outputs: NO PHASE Outputs: -- CALCULATIONS: [age] Outputs: -- CALCULATIONS: Body Surfac e Area: 1.62 Outputs: -- CALCULATIONS: Height in c m: 163.00 Outputs: -- CALCULATIONS: Sex: Female Outputs: -- CALCULATIONS: Weight in k .00 Procedure Note Interface, Rad Conversion - 08/17/2013 1:11 PM CDT REPORT , Complete Report Name:LAMAR GONSALES : 1935 Age: 75 years Gender: Female SSN: Study date: 12/17/2010 CPI number: [id number] CV Cath number: [id number] CLAIM ADJUSTER: Gerson Skinner M.D. VISUAL BASIC DEVELOPER: Julio Covarrubias M.D. INTERVENTIONAL FELLOW: Black Dallas M.D. INDICATIONS: Angina/NV: unstable angina. PROCEDURES PERFORMED: -- Left coronary angiography. -- Right coronary angiography. -- Intervention on mid LAD: stent inser tion. PROCEDURE: The risks, benefits and alternatives of the procedure and conscious sedation were reviewed with the patient and informed consent was obtained. The patient was brought to the cardiac laborer driver and placed on the table. The planned access sites were prepped and draped in the usual sterile fashion. Oxygen 2 L/min. -- Right radial artery access. The [facility] site was infiltrated with local anesthetic. The vessel was accessed using the modified Seldinger technique, a wire was threaded into the vessel, and a catheter was advanced over the wire into the vessel. -- Left coronary artery angiography. A JL4 catheter was advanced to the aorta and positioned in the vessel ostium under fluoroscopic guidance. Angiography was performed in multiple projections using hand-injection of contrast. -- Right coronary artery angiography. A JR4 catheter was advanced to the aorta and positioned in the vessel ostium under fluoroscopic guidance. Angiography was performed in multiple projections using hand-injection of contrast. -- Sheath exchange. The sheath in the r ight radial artery was exchanged. LESION INTERVENTION: A stent insertion was performed on the 80 % lesion in the mid LAD. Following intervention there was a 0 % residual stenosis. This was an ACC/AHA "non-high risk" lesion for intervention. There was KRYS 3 flow before the procedure and KRYS 3 flow after the procedure. There was no acute vessel closure. There was no perforation. There was no dissection. -- A 6F EBU3.5 Launcher guiding cathete r was used to cannulate the vessel. -- Coronary flow reserve was measured. A Aeris 175 cm Pressure Doppler flow wire was advanced across the stenosis. -- A 2.5X12 Promus Monorail drug-elutin g stent was deployed in the lesion at a maximum inflation pressure of 16 poly. Lesion (initial) Lesion length 10 mm PROCEDURAL DATA: No significant blood loss. TIMING: Test started at 14:34. Test concluded at 15:39. HEMOSTASIS: The sheath was removed. The site was compressed manually. Hemostasis was successful. MEDICATIONS GIVEN: Midazolam, 1 mg, IV, at 14:39. Fentanyl, 50 mcg, IV, at 14:39. Verapamil (Isoptin, Calan, Covera ), 3 mg IA, at 14:44. Nitroglycerin, 150 mcg intracoronary, at 14:57. Verapam il (Isoptin, Calan, Covera), 2 mg IA, at 15:01. Adenosine (Adenocard), IV, infusion rate of 297 ml/hr, at 15:18. Nitroglycerin, 150 mcg intracoronary, at 15:19. Nitroglycerin, 150 mcg intracoronary, at 15:30. Verapamil (Isoptin, Calan, Covera), 3 mg IA, at 15:33. Aspirin, 325 mg, PO, last dose at 12:23. Clopidogrel (Plavix), 75 mg, PO, last dose at 12:24. Heparin, 3000 units, IV, last dose at 14:44. Heparin, 500 units, IV, last dose at 15:19. 2% Lidocaine, 3 ml subcutaneously, at 14:42. CONTRAST GIVEN: Visipaque 175 ml. CORONARY ANGIOGRAPHY: The coronary circulation is right dominant. Ostial left main: There was a 30 % stenosis. Proximal LAD: There was a previously placed patent stent in the segment. Mid LAD: Angiography showed moderate atherosclerosis. There was a previously placed patent stent in the segment 30 % stenosis. There was KRYS grade 3 flow through the vessel (brisk flow). In a second lesion, there was a 80 % stenosis. In a third lesion, there was a 70 % stenosis at the origin of D2. Distal LAD: The vessel was small sized. Angiography showed moderate atherosclerosis. 2nd diagonal: There was a 70 % stenosis at the ostium of the vessel segment. Proximal ramus intermedius: There was a 60 % stenosis. Mid RCA: There was a previously placed patent stent in the segment. SUMMARY: -- 1ST LESION INTERVENTIONS: -- A stent insertion was performed on t he 80 % lesion in the mid LAD. Following intervention there was a 0 % residual stenosis. IMPRESSIONS: Exertional angina and new onset left shoulder pain. Abnormal outside stress test with apical ischemia. FFR in LAD = 0.75. PCI to mid LAD with 2.5 mm DELISA. FFR likely reflects sum total of LAD lesions. Did not treat more distal bifurcation lesion. I performed the entire procedure and/or supervised the Fellow for guillen portions of the procedure performed by Black Dallas M.D.. I interpreted all test results for this procedure and did not participate in any overlapping procedures. I performed the entire procedure and/or supervised the Fellow for guillen portions of the procedure performed by Julio Covarrubias M.D.. I interpreted all test results for this procedure and did not participate in any overlapping procedures. Authenticated by Gerson Skinner M.D. Signed 12/17/2010 15:51:31 HEMODYNAMIC TABLES Pressures: NO PHASE Pressures: - HR: 72 Pressures: - Rhythm: Pressures: -- Aortic Pressure (S/D/M): 157/58/95 Outputs: NO PHASE Outputs: -- CALCULATIONS: [age] Outputs: -- CALCULATIONS: Body Surface Area: 1.62 Outputs: -- CALCULATIONS: Height in cm: 163.00 Outputs: -- CALCULATIONS: Sex: Female Outputs: -- CALCULATIONS: Weight in k.00 Performing Organization Address [facility] one Number [facility] [address] [place] [address] * Complete Blood Count (12/17/2010 10:20 AM CDT) WBC 6.54 4.00 - 11.00 TH/UL SUNQUEST RBC 3.39 (L) 4.00 - 5.00 MIL/UL SUNQUEST Hemoglobin 10.0 (L) 12.0 - 15.0 G/DL SUNQUEST Hematocrit 31 (L) 36 - 45 % SUNQUEST MCV 91 80 - 99 FL SUNQUEST MCH 30 27 - 34 PG SUNQUEST MCHC 33 32 - 36 % SUNQUEST RDW 15.5 (H) 9.0 - 14.5 % SUNQUEST Platelet Count 259 140 - 400 TH/UL SUNQUEST MPV 11.7 9.4 - 12.3 FL SUNQUEST Specimen Blood Performing Organization [facility] one Number RL [phone] [phone] SUNQUEST * Glucose (12/17/2010 10:20 AM CDT) Glucose 193 (H) 65 - 100 MG/DL SUNQUEST Specimen Blood Performing Organization [facility] one Number RL [phone] [phone] SUNQUEST * Potassium (12/17/2010 10:20 AM CDT) Potassium 4.0 3.5 - 5.1 MEQ/L SUNQUEST Specimen Blood Performing Organization [facility] one Number [id number] [phone] SUNQUEST * Prothrombin Time/INR (12/17/2010 10:20 AM CDT) Protime 14.6 (H) 11.7 - 14.3 SEC SUNQUEST INR 1.2 (H) 0.9 - 1.1 SUNQUEST Specimen Blood Performing Organization Address City/State/Zipcode Ph one Number SLRL [address] [place], [place] [address] SUNQUEST documented in this encounter Visit Diagnoses Diagnosis Coronary atherosclerosis of [place] tri nary artery documented in this encounter
--- OUTSIDE RECORDS SUMMARY | 2020-01-01 12:08 | XMS REPORT | Encounter Summary ---
Author Author [facility] Address Unknown Phone Unavailable Care Team Providers Care Clinical Appeals Specialist Name Role Phone PCP Unavailable Encounter Details Care Team Description Date Type Department Quita Brown MD [address] [facility] [address] [place] [address] [phone] CORON ATHEROSCL [place] CORON VESSEL 02/24/2004 [facility] al - Encounter 02/25/2004 Social History Date Tobacco Use Types Packs/Day Years Used Never Assessed Sex Assigned at Date Recorded Not on file Industry Job Start Date Occupation Not on file Not on file Not on file Travel End Travel History Travel Start No recent travel history available. documented as of this encounter Miscellaneous Notes * Operative Note - Braxton Hubbard MD - 08/07/2013 5:08 PM RESOURCE ROOM SPECIAL EDUCATION TEACHER Report Name: EDIE GONSALES MRN/Unit #: [id number] Attending Physician: QUITA BROWN MD Date of : 1935 CV LAB NUMBER: DATE: 02/24/2004 PROCEDURE PERFORMED: Left heart catheterization, coronary angiogram, stenting of the left anterior descending and stenting of the right coronary artery. MANAGER TELEMARKETING: Braxton Hubbard M.D. DESCRIPTION OF PROCEDURE: Initial diagnostic procedure was done with 7 Barbadian catheters from the right femoral artery. There was no technical difficulty encountered. HEMODYNAMICS: Left ventricular end-diastolic pressure was 15 mmHg. No gradient across the aortic valve. LEFT VENTRICULOGRAM: The left ventricle was normal in size. It contracts symmetrically. I would bill clerk the ejection fraction to be in the range of 50%. CORONARY ANGIOGRAM: 1. Left main coronary artery - normal. 2. Left anterior descending - there were two sequential lesions of the proximal and mid left anterior descending narrowing the lumen by 80%. 3. Left circumflex - normal. 4. Right coronary artery - this vessel had a long zone of diffuse disease in its middle third. The distal vessel was normal. We did proceed ahead with stenting of the left anterior descending. The vessel was engaged with an SL4 #8 Barbadian guiding catheter. We crossed the lesion with an Asahi soft wire, and predilated with a 3 mm balloon. Following an initial inflation of the balloon in the more distal lesion, there was some intimal splitting of the vessel, which was very localized. We proceed ahead with stenting, deploying a 3.0 x 13 mm Cypher stent in the more distal lesion and a 3.0 x 18 mm Cypher in the more proximal lesion, deploying both stents at 14 atmospheres. There was some intimal dissection between the two stents, such that we placed a 3.0 x 8 mm Cypher drug eluting stent to cover the dissected zone and this was successfully achieved, and the result initially appeared satisfactory; however, with further angulated views, we did also note some dissection proximal to the most proximally deployed stent, and on the basis of this dissection, I elected to place a 3.0 x 18 mm Cypher stent from the ostium of the left anterior descending to the mid vessel, overlapping the previously deployed 3.0 x 18 Cypher stent. The final results after these four stents were placed, were satisfactory with good patency. There was still persisting, minimal edge dissection distal to the most distal stent. The runoff; however, to the left anterior descending did appear to be satisfactory. We then engaged the right coronary artery with a 6 Barbadian JR4 #8 Barbadian guiding catheter, and across the lesion of the mid vessel with an Asahi soft wire. We predilated with a 2.5 mm balloon, and then deployed a 2.5 x 28 mm Cypher drug eluting stent, deploying the stent at 10 atmospheres. Results were satisfactory with good patency and good runoff to the distal right coronary. Throughout this fairly complex procedure, the patient remained stable. She was returned to the floor in stable condition. Braxton Hubbard M.D. Dictated By: cc: URCE ROOM SPECIAL EDUCATION TEACHER documented in this encounter Plan of Treatment Not on filedocumented as of this encounter Procedures Comments Procedure Name Priority Date/Time Associated Diag nosis GLUCOSE POINT OF CARE Routine 02/25/2004 11:27 AM CDT CK-MB Routine 02/25/2004 8:00 AM CDT GLUCOSE POINT OF CARE Routine 02/25/2004 7:34 AM CDT PLATELET Routine 02/25/2004 4:30 AM CDT HEMOGLOBIN AND HEMATOCRIT Routine 02/25/2004 4:30 AM CDT ELECTROLYTES Routine 02/25/2004 4:30 AM CDT CREATININE Routine 02/25/2004 4:30 AM CDT BLOOD UREA NITROGEN Routine 02/25/2004 4:30 AM CDT CK-MB Routine 02/24/2004 11:55 PM CDT GLUCOSE POINT OF CARE Routine 02/24/2004 11:05 PM CDT PLATELET Routine 02/24/2004 7:20 PM CDT HEMOGLOBIN AND HEMATOCRIT Routine 02/24/2004 7:20 PM CDT ACTIVATED CLOTTING TIME Routine 02/24/2004 7:20 PM CDT GLUCOSE POINT OF CARE Routine 02/24/2004 6:20 PM CDT GLUCOSE POINT OF CARE Routine 02/24/2004 4:49 PM CDT GLUCOSE POINT OF CARE Routine 02/24/2004 4:20 PM CDT GLUCOSE POINT OF CARE Routine 02/24/2004 3:56 PM CDT GLUCOSE POINT OF CARE Routine 02/24/2004 2:09 PM CDT GLUCOSE POINT OF CARE Routine 02/24/2004 11:54 AM CDT documented in this encounter Results * Glucose Point of Care (02/25/2004 11:27 AM CDT) Only the most recent of 9 results within the time period is included. Glucose 181 (H) 65 - 100 MG/DL SUNQUEST Specimen Blood Performing Organization Address [facility] one Number [facility]RL [address] [address] SUNQUEST * CK-MB (02/25/2004 8:00 AM CDT) Only the most recent of 2 results within the time period is included. CK MB 10.6 (H) 0.0 - 5.0 NG/ML SUNQUEST Specimen Blood Performing Organization Address [facility] one Number [facility]RL [address] [phone] SUNQUEST * Electrolytes (02/25/2004 4:30 AM CDT) Sodium 139 134 - 144 MEQ/L SUNQUEST Potassium 3.8 3.6 - 5.0 MEQ/L SUNQUEST Chloride 102 98 - 107 MEQ/L SUNQUEST Carbon Dioxide 30 23 - 32 MEQ/L SUNQUEST Anion Gap 7 3 - 15 SUNQUEST Specimen Blood Performing Organization Address [facility] one Number [facility]RL [address] [address] SUNQUEST * Platelet (02/25/2004 4:30 AM CDT) Only the most recent of 2 results within the time period is included. Platelet Count 256 140 - 400 TH/UL SUNQUEST Specimen Blood Performing Organization Address [facility] one Number [address]RL [address] [address] SUNQUEST * Hemoglobin and Hematocrit (02/25/2004 4:30 AM CDT) Only the most recent of 2 results within the time period is included. Hemoglobin 11.8 (L) 12.0 - 15.0 G/DL SUNQUEST Hematocrit 35 (L) 36 - 45 % SUNQUEST Specimen Blood Performing Organization Address [facility] one Number [address] [address] SUNQUEST * Creatinine (02/25/2004 4:30 AM CDT) Creatinine 1.0 0.5 - 1.5 MG/DL SUNQUEST Specimen Blood Performing Organization Address [facility] Ph one Number SLRL [address] [address] SUNQUEST * Blood Urea Nitrogen (02/25/2004 4:30 AM CDT) Blood Urea 12 5 - 20 MG/DL SUNQUEST Nitrogen Specimen Blood Performing Organization Address [facility] one Number [facility] [address] SUNQUEST * Activated Clotting Time (02/24/2004 7:20 PM CDT) Activated 191 (H) 99 - 130 SEC SUNQUEST Clotting Time Specimen Blood Performing Organization Address [facility] one Number [address] [address] SUNQUEST documented in this encounter Visit Diagnoses Diagnosis Coronary atherosclerosis of [place] tri nary artery documented in this encounter
--- OUTSIDE RECORDS SUMMARY | 2020-01-01 12:08 | XMS REPORT | Encounter Summary ---
Author Author [facility] Organization [facility] Address Unknown Phone Unavailable Care Team Providers Care Fixed Income Director Name Role Phone PCP Unavailable Encounter Details Care Team Description Date Type Department [facility] Provider, MD Simi 06/09/1985 [facility]IC [facility] C Result Social History Date [...] Procedure Name Priority Date/Time Associated Diag nosis CATHETERIZATION Routine 06/09/1985 HISTORICAL documented in this encounter Results * Catheterization historical (06/09/1985) Specimen Narrative Performed At Procedure Category: Invasive NEXTGEN Procedure: Cardiac cath Procedure Summary: Normal coronaries. Procedure Note Interface, Rad Conversion - 12/27/2014 11:26 PM CDT Procedure Category: Invasive Procedure: Cardiac cath Procedure Summary: Normal coronaries. Performing Organization Address City/State/Zipcode Ph one Number NEXTGEN documented in this encounter Visit Diagnoses Not on filedocumented in this encounter
--- OUTSIDE RECORDS SUMMARY | 2020-01-01 12:08 | XMS REPORT | Encounter Summary ---
Author Author [facility] Organization [facility] Address Unknown Phone Unavailable Care Team Providers Care Mold Blower Name Role Phone PCP Unavailable Encounter Details Care Team Description Date Type Department [facility] Provider, MD Simi 02/24/2004 [facility]I C Result Social History [...] Priority Date/Time Associated Diag nosis CATHETERIZATION Routine 02/24/2004 HISTORICAL documented in this encounter Results * Catheterization historical (02/24/2004) Specimen Narrative Performed At Procedure Category: Invasive NEXTGEN Procedure: PCI Procedure Summary: DELISA -Cypher stent to th LAD and RCA. eft main coronary artery - normal. Left anterior descending - there were two sequential lesions of the proximal and mid left anterior desc ending narrowing the lumen by 80%. Left circumflex - normal. Right coronary artery - thi s vessel had a long zone of diffuse disease in its middle third. The dist al vessel was normal. Procedure Note Interface, Rad Conversion - 12/27/2014 11:26 PM CDT Procedure Category: Invasive Procedure: PCI Procedure Summary: DELISA -Cypher stent to th LAD and RCA. eft main coronary artery - normal. Left anterior descending - there were two sequential lesions of the proximal and mid left anterior descending narrowing the lumen by 80%. Left circumflex - normal. Right coronary artery - this vessel had a long zone of diffuse disease in its middle third. The distal vessel was normal. Performing Organization Address City/State/Zipcode Ph one Number NEXTGEN documented in this encounter Visit Diagnoses Not on filedocumented in this encounter
--- OUTSIDE RECORDS SUMMARY | 2020-01-01 12:08 | XMS REPORT | Encounter Summary ---
Author Author [facility] Organization [facility] Address Unknown Phone Unavailable Care Team Providers Care Plastic Tubing Insulation Supervisor Name Role Phone PCP Unavailable Encounter Details Care Team Description Date Type Department 02/24/2004 [facility] [...]
--- OUTSIDE RECORDS SUMMARY | 2020-01-01 12:08 | XMS REPORT | Clinical Summary ---
Author Author [facility] Organization [facility] Address Unknown Phone Unavailable Care Team Providers Care Signal Mechanic Name Role Phone Katya Olivares MD Unavailable Shaq Brothers MD PCP Arti Chase RN Unavailable Unavailable Marcela Reyes PA-C Unavailable Source Comments Some departments are not documenting in the electronic medical record. If you d o not see the information that you expected, contact Release of Information in [facility] [employer] Information Management department at [phone] for further assistan ce in locating additional records.[facility] Allergies Comments Active Allergy Reactions Severity Noted Date Pt reported Morphine HALLUCINATION High 10/20/2015 S Medications End Date Status Medication Sig Dispensed Refills Start Date Active atorvastatin (LIPITOR) 40 Take 80 mg by 0 mg tablet mouth daily. Active buPROPion SR(+) Take 150 mg 0 (WELLBUTRIN-SR) 150 mg by mouth tablet twice daily. Active carvedilol (COREG) 12.5 Take 12.5 mg 0 mg tablet by mouth twice daily with meals. Active clonazePAM (KLONOPIN) 0.5 Take 0.25 mg 0 mg tablet by mouth at bedtime daily. Active digoxin (LANOXIN) 125 mcg Take 0.125 mg 0 tablet by mouth daily. Active furosemide (LASIX) 20 mg Take 20 mg by 0 tablet mouth daily. Active potassium chloride(+) Take 10 mEq 0 (MICRO-K) 10 mEq capsule by mouth daily. Active ramipril (ALTACE) 10 mg Take 10 mg by 0 capsule mouth daily. Active cholecalciferol (VITAMIN Take 1,000 0 D-3) 1,000 units tablet Units by mouth daily. Active polyethylene glycol 3350 Take 17 g by 0 (GLYCOLAX; MIRALAX) 17 mouth at gram/dose powder bedtime as needed. Active acetaminophen (TYLENOL) Take 500 mg 0 500 mg tablet by mouth every 6 hours as needed for Pain. Active insulin aspart (NOVOLOG) Inject 12 0 100 unit/mL Units under flexPENIndications: 12-17 the skin UNITS three times daily with meals. Indications: 12-17 UNITS Active insulin glargine (LANTUS Inject 30 0 SOLOSTAR) 100 unit/mL (3 Units under mL) injection the skin at PENIndications: LEVEMIR bedtime FLEX' daily. Indications: LEVEMIR FLEX' Active venlafaxine XR (EFFEXOR Take 150 mg 0 XR) 150 mg capsule by mouth three times daily. Active Neabomqd-Rlsilvp-Lwsa-Lut Take 1 Tab by 0 ein tab mouth daily with breakfast. Active levothyroxine (SYNTHROID) Take 112 mcg 0 150 mcg tablet by mouth daily. Active aspirin EC 81 mg tablet Take 1 Tab by 90 Tab 3 mouth at 6 bedtime daily. Resume after Lovenox and Aspirin 325mg courses. 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 05/01/2015 coma Hypercholesteremia 05/01/2015 Essential hypertension 05/01/2015 Hypothyroidism 05/01/2015 Bipolar disorder, current episode mixed, mild 2014 Systolic congestive heart failure 05/01/2015 Cardiomyopathy 05/01/2015 Family History Medical History Relation Name Comments Stroke Brother Cancer Father Stroke Father Relation Name Status Comments Brother Father Social History Date Tobacco Use Types Packs/Day Years Used Never Smoker Smokeless Tobacco: Never Used Tobacco Cessation: Counseling Given: Yes Drinks/Week oz/Week Comments Alcohol Use 0 Standard drinks or equivalent 0.0 No Sex Assigned at Date Recorded Not on file Industry Job Start Date Occupation Not on file Not on file Not on file Travel End Travel History Travel Start No recent travel history available. Last Filed Vital Signs Reading Time Taken Comments Vital Sign 112/64 07/10/2016 1:07 PM ALMOND CUTTING MACHINE TENDER Blood Pressure 90 07/10/2016 1:07 PM ALMOND CUTTING MACHINE TENDER Pulse 36.5 C (97.7 F) 10/24/2015 5:32 AM CDT Temperature - - Respiratory Rate 92% 10/24/2015 1:40 PM CDT Oxygen Saturation - - Inhaled Oxygen Concentration 57.2 kg (126 lb) 07/10/2016 1:07 PM ALMOND CUTTING MACHINE TENDER Weight 162.6 cm (5' 4") 07/10/2016 1:07 PM ALMOND CUTTING MACHINE TENDER Height 21.63 07/10/2016 1:07 PM ALMOND CUTTING MACHINE TENDER Body Mass Index Plan of Treatment Health Maintenance Due Date Last Done Comments MEDICARE ANNUAL WELLNESS 1935 VISIT DTAP/TDAP VACCINES (1 - 09/20/1955 Tdap) PHYSICAL (COMPREHENSIVE) 09/20/1955 EXAM SHINGLES RECOMBINANT 09/20/1987 VACCINE (1 of 2) OSTEOPOROSIS 2002 SCREENING/MONITORING PNEUMONIA (PPSV23) 2002 VACCINE (1 of 1 - PPSV23) INFLUENZA VACCINE 03/09/2020 Implants Device Identifier Shelf Expiration Date Model / Serial / L ot Implanted Type Area Manufactur er 03/08/2025140 / NA / [id number] Dis Tap Ivan Hip Right: Hip Depuy Implanted: Qty: 1 on 10/20/2015 by Orthopedic Katya Olivares MD at [facility] 03/08/2025 [id number] / NA / [id number] Can Gregg Scr Right: Hip JandJ:DEPU Implanted: Qty: 1 on 10/20/2015 by Y:Katya Pelaez MD at [facility] 09/06/2020 [id number] / NA / [id number] Get Tatiana Right: Hip JandJ:DEPU Implanted: Qty: 1 on 10/20/2015 by Y:Katya Pelaez MD at [facility] 09/06/2025 [id number] / NA / [id number] Get She Sec Ii Right: Hip JandJ:DEPU Implanted: Qty: 1 on 10/20/2015 by Y:Katya Pelaez MD at [facility] 08/06/2020 [id number] / NA / [id number] Head Fem +1.5mm /14 36mm Hip Right: Hip JandJ: DEPU Implanted: Qty: 1 on 10/20/2015 by Y:Katya Pelaez MD at [facility] 08/06/2025 [id number] / NA / [id number] Body Bone 95x24 Proximal Hip Right: Hip JandJ:DE PU Implanted: Qty: 1 on 10/20/2015 by Y:Katya Pelaez MD at [facility] 08/06/2025 [id number] / NA / [id number] Elmntr Hl Drlc Pncl Hip Mrthn Right: Hip JandJ:D EPU Implanted: Qty: 1 on 10/20/2015 by Y:Katya Pelaez MD at [facility] Results Not on filefrom Last 3 Months Insurance Type Payer Benefit Subscriber ID Effective Phone Address Plan / Dates Group Medicare MEDICARE MEDICARE xxxxxxxxxx 2015- PART A AND Present B Medicare BCBS CHANDA BCBS xxxxxxxxxxxx 2014-P SUPPLEMENT resent [id number] Advance Directives Patient Denial Management Representative Explanation Type Date Recorded ImageNow Scan Advance 10/20/2015 6:03 AM Directive/DPOA Date Inactivated Comments Code Status Date Activated 10/24/2015 4:21 PM Full Code 10/20/2015 3:01 PM Provider has discussed Code Status No, discussion no t w/Patient or Family? necessary based on Dx
--- OUTSIDE RECORDS SUMMARY | 2020-01-01 12:08 | XMS REPORT | Encounter Summary ---
Author Author [facility] Organization [facility] Address Unknown Phone Unavailable Care Team Providers Care Top Former Name Role Phone PCP Unavailable Encounter Details Care Team Description Date Type Department [facility] Provider, MD Simi 01/09/2004 [facility]IC [facility]I C Result Social History [...] Procedure Name Priority Date/Time Associated Diag nosis CV MPI SPECT HISTORICAL Routine 01/09/2004 documented in this encounter Results * CV MPI SPECT historical (01/09/2004) Specimen Narrative Performed At Procedure Category: NUC NEXTGEN Procedure: Cardiolite Procedure Summary: Outside Report. An terior-anteroseptal infarct with rj-infarct ischemia. EF=43%. Hypo kinesia of left anterior wall and anteroseptal wall. Procedure Note Interface, Rad Conversion - 12/27/2014 11:26 PM CDT Procedure Category: NUC Procedure: Cardiolite Procedure Summary: Outside Report. Anterior-anteroseptal infarct with jr- infarct ischemia. EF=43%. Hypokinesia of left anterior wall and anteroseptal wall. Performing Organization Address City/State/Zipcode Ph one Number NEXTGEN documented in this encounter Visit Diagnoses Not on filedocumented in this encounter
--- OUTSIDE RECORDS SUMMARY | 2020-01-01 12:08 | XMS REPORT | Encounter Summary ---
Author Author [facility] Organization [facility] Address Unknown Phone Unavailable Care Team Providers Care Vmware Administrator Name Role Phone PCP Unavailable Encounter Details Care Team Description Date Type Department [facility] Provider, MD Simi 09/15/2003 [facility]OR[facility] C Result Social History Date [...] Date/Time Associated Diag nosis ECHO HISTORICAL Routine 09/15/2003 documented in this encounter Results * Echo historical (09/15/2003) Specimen Narrative Performed At Procedure Category: Echo NEXTGEN Procedure: 2D echo Procedure Summary: LVH associated with diastolic dysfunction, global systolic dysfunction with an EF=30-40%. Mild l eft atrial enlargement. No pulmonary hypertension. Outside report. Procedure Note Interface, Rad Conversion - 12/27/2014 11:26 PM CDT Procedure Category: Echo Procedure: 2D echo Procedure Summary: LVH associated with diastolic dysfunction, global systolic dysfunction with an EF=30-40%. Mild left atrial enlargement. No pulmonary hypertension. Outside report. Performing Organization Address City/State/Zipcode Ph one Number NEXTGEN documented in this encounter Visit Diagnoses Not on filedocumented in this encounter
--- OUTSIDE RECORDS SUMMARY | 2020-01-01 12:08 | XMS REPORT | Continuity of Care Document ---
Author Organization Unknown Address Unknown Phone Unavailable Allergies Active Description Code Type Severity Reaction Onset Reported/Identified Relationship to Patient Clinical Status Yes No Known Drug Allergies [id number] Drug Allergy Unknown N/A 07/19/2010 Medications There is no data. Problems Date Dx Coded Attending Type Code Diagnosis Diagnosed By 05/08/1027 ANGELA SANCHES MD, Ot E11.9 TYPE 2 DIABETES MELLITUS WITHOUT COMPLIC 05/08/1027 ANGELA SANCHES MD, Ot M19.90 UNSPECIFIED OSTEOARTHRITIS, UNSPECIFIED 05/08/1027 ANGELA SANCHES MD, Ot M54.5 LOW BACK PAIN 05/08/1027 ANGELA SANCHES MD, Ot M79.18 MYALGIA, OTHER SITE 05/08/1027 ANGELA SANCHES MD, Ot Z79.4 SENIOR LIVING (CURRENT) USE OF INSULIN 05/08/1027 ANGELA SANCHES MD, Ot Z87.81 PERSONAL HISTORY OF (HEALED) TRAUMATIC F 05/08/1027 ANGELA SANCHES MD Ot Z95.82 8 PRESENCE OF OTHER VASCULAR IMPLANTS AND 05/08/1027 ANGELA SANCHES MD Ot Z96.64 1 PRESENCE OF RIGHT ARTIFICIAL HIP JOINT 05/08/1116 ANGELA TELLO MD Ot R33.9 RETENTION OF URINE, UNSPECIFIED 05/08/1145 ANGELA TELLO MD Ot R32 UNSPECIFIED URINARY INCONTINENCE 04/22/2014 YOGESH LEACH MD Ot 719. 45 04/22/2014 YOGESH LEACH MD Ot 721. 3 04/22/2014 YOGESH LEACH MD Ot 722. 52 07/18/2014 TONY MINOR MD Ot 729.5 07/18/2014 TOYN MINOR MD Ot 790.6 07/20/2014 TONY MINOR MD Ot 729.5 07/20/2014 TONY MINOR MD Ot 790.6 10/10/2014 TONY MINOR MD Ot 719.45 JOINT PAIN-PELVIS 10/10/2014 IVÁN AGUILERA, TONY Allen Ot 780.79 OTH MALAISE FATIGUE 10/10/2014 IVÁN AGUILERA, TONY Allen Ot V57.1 PHYSICAL THERAPY NEC 10/11/2014 TONY MINOR MD Ot 719.45 10/11/2014 TONY MINOR MD Ot 780.79 10/11/2014 TONY MINOR MD Ot V57.1 02/20/2015 ANGELA TELLO MD Ot V76.1 2 02/23/2015 ANGELA TELLO MD Ot V76.1 2 03/08/2015 ANGELA TELLO MD Ot V76.1 2 04/10/2015 ANGELA TELLO MD Ot M25.5 51 04/10/2015 ANGELA TELLO MD Ot M79.6 04 04/10/2015 ANGELA TELLO MD Ot Z96.6 52 04/13/2015 ANGELA TELLO MD Ot M25.5 51 04/13/2015 ANGELA TELLO MD Ot M79.6 04 04/13/2015 ANGELA TELLO MD Ot Z96.6 52 05/09/2015 ANGELA TELLO MD Ot R60.0 05/09/2015 ANGELA TELLO MD Ot R61 05/11/2015 ANGELA TELLO MD Ot R60.0 05/11/2015 ANGELA TELLO MD Ot R61 05/17/2015 ALPHONSE GAMBLE MD Ot R93. 8 05/24/2015 DEISY BIRCH DO Ot G47. 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 8 01/07/2017 ANGELA TELLO MD Ot M19.0 41 PRIMARY OSTEOARTHRITIS, RIGHT HAND 01/07/2017 ANGELA TELLO MD Ot M19.0 42 PRIMARY OSTEOARTHRITIS, LEFT HAND 01/31/2017 ANGELA TELLO MD Ot M19.0 41 PRIMARY OSTEOARTHRITIS, RIGHT HAND 01/31/2017 ANGELA TELLO MD Ot M19.0 42 PRIMARY OSTEOARTHRITIS, LEFT HAND 02/03/2017 ANGELA TELLO MD Ot M19.0 41 PRIMARY OSTEOARTHRITIS, RIGHT HAND 02/03/2017 ANGELA TELLO MD Ot M19.0 42 PRIMARY OSTEOARTHRITIS, LEFT HAND 10/27/2018 ANGELA TELLO MD Ot R33.9 RETENTION OF URINE, UNSPECIFIED 10/27/2018 ANGELA TELLO MD Ot R33.9 RETENTION OF URINE, UNSPECIFIED 10/27/2018 TONY MINOR MD Ot 719.45 JOINT PAIN-PELVIS 10/27/2018 TONY MINOR MD Ot 807.01 FRACTURE ONE RIB-CLOSED 10/27/2018 TONY MINOR MD Ot E000.8 OTHER EXTERNAL CAUSE STATUS 10/27/2018 TONY MINOR MD Ot E849.0 ACCIDENT IN HOME 10/27/2018 TONY MINOR MD Ot E888.9 FALL NOS 10/27/2018 TONY MINOR MD Ot V43.64 HIP JOINT REPLACEMENT STATUS 10/27/2018 TONY MINOR MD Ot 719.45 JOINT PAIN-PELVIS 10/27/2018 TONY MINOR MD Ot V15.51 PERSONAL HISTORY OF TRAUMATIC FRACTURE 10/27/2018 TONY MINOR MD Ot V76.12 OTH SCREEN MAMMO-MALIGN NEOPLASM OF [place] 10/27/2018 YOGESH LEACH MD Ot 719. 45 JOINT PAIN-PELVIS 10/27/2018 YOGESH LEACH MD Ot 721. 3 LUMBOSACRAL SPONDYLOSIS 10/27/2018 YOGESH LEACH MD Ot 722. 52 LUMB/LUMBOSAC DISC DEGEN 10/27/2018 TONY MINOR MD Ot 729.5 PAIN IN LIMB 10/27/2018 TONY MINOR MD Ot 790.6 ABN BLOOD CHEMISTRY NEC 10/27/2018 ANGELA TELLO MD Ot V76.1 2 OTH SCREEN MAMMO-MALIGN NEOPLASM OF [place] 10/27/2018 ANGELA TELLO MD Ot M25.5 51 PAIN IN RIGHT HIP 10/27/2018 ANGELA TELLO MD Ot M79.6 04 PAIN IN RIGHT LEG 10/27/2018 ANGELA TELLO MD Ot Z96.6 52 PRESENCE OF LEFT ARTIFICIAL KNEE JOINT 10/27/2018 ANGELA TELLO MD Ot R60.0 LOCALIZED EDEMA 10/27/2018 ANGELA TELLO MD Ot R61 GENERALIZED HYPERHIDROSIS 10/27/2018 MAVIS AGUILERA, ALPHONSE Monteiro Ot R93. 8 ABNORMAL FINDINGS ON DIAGNOSTIC IMAGING 10/27/2018 ANGELA TELLO MD Ot M19.0 41 PRIMARY OSTEOARTHRITIS, RIGHT HAND 10/27/2018 ANGELA TELLO MD Ot M19.0 42 PRIMARY OSTEOARTHRITIS, LEFT HAND 10/27/2018 ANGELA TELLO MD Ot R33.9 RETENTION OF URINE, UNSPECIFIED 11/11/2018 ANGELA TELLO MD Ot R33.9 RETENTION OF URINE, UNSPECIFIED 11/22/2018 JANEY KAMARA L Ot R 05 COUGH 11/22/2018 JANEY KAMARA Ot R06.02 SHORTNESS OF BREATH 11/24/2018 JENNIFER KAMARAEN L Ot R 05 COUGH 11/24/2018 JENNIFER KAMARAEN Sonia Ot R06.02 SHORTNESS OF BREATH 11/25/2018 KAYLIN MONAHAN APRN Ot N39.0 URINARY TRACT INFECTION, SITE NOT SPECIF 12/14/2018 JANEY KAMARA Ot R 05 COUGH 12/14/2018 JANEY KAMARA Ot R06.02 SHORTNESS OF BREATH 12/16/2018 JANEY KAMARA Ot R 05 COUGH 12/16/2018 JENNIFER KAMARAEN Sonia Ot R06.02 SHORTNESS OF BREATH 01/20/2019 LUISA MEADE MD Ot E11. 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 9 CARDIOMYOPATHY, UNSPECIFIED 01/20/2019 LUISA MEADE MD Ot I50. 9 HEART FAILURE, UNSPECIFIED 01/25/2019 TONY MINOR MD Ot 719.45 JOINT PAIN-PELVIS 01/25/2019 TONY MINOR MD Ot V15.51 PERSONAL HISTORY OF TRAUMATIC FRACTURE 01/25/2019 TONY MINOR MD Ot V76.12 OTH SCREEN MAMMO-MALIGN NEOPLASM OF [place] 01/25/2019 YOGESH LEACH MD Ot 719. 45 JOINT PAIN-PELVIS 01/25/2019 YOGESH LEACH MD Ot 721. 3 LUMBOSACRAL SPONDYLOSIS 01/25/2019 YOGESH LEACH MD Ot 722. 52 LUMB/LUMBOSAC DISC DEGEN 01/25/2019 TONY MINOR MD Ot 729.5 PAIN IN LIMB 01/25/2019 TONY MINOR MD Ot 790.6 ABN BLOOD CHEMISTRY NEC 01/25/2019 ANGELA TELLO MD Ot V76.1 2 OTH SCREEN MAMMO-MALIGN NEOPLASM OF [place] 01/25/2019 ANGELA TELLO MD Ot M25.5 51 PAIN IN RIGHT HIP 01/25/2019 ANGELA TELLO MD Ot M79.6 04 PAIN IN RIGHT LEG 01/25/2019 ANGELA TELLO MD Ot Z96.6 52 PRESENCE OF LEFT ARTIFICIAL KNEE JOINT 01/25/2019 ANGELA TELLO MD Ot R60.0 LOCALIZED EDEMA 01/25/2019 ANGELA TELLO MD, Ot R61 GENERALIZED HYPERHIDROSIS 01/25/2019 MAVIS AGUILERA, ALPHONSE Monteiro Ot R93. 8 ABNORMAL FINDINGS ON DIAGNOSTIC IMAGING 01/25/2019 ANGELA TELLO MD Ot M19.0 41 PRIMARY OSTEOARTHRITIS, RIGHT HAND 01/25/2019 ANGELA TELLO MD Ot M19.0 42 PRIMARY OSTEOARTHRITIS, LEFT HAND 01/25/2019 LUISA MEADE MD Ot E11. 9 TYPE 2 DIABETES MELLITUS WITHOUT COMPLIC 01/25/2019 LUISA MEADE MD Ot I42. 9 CARDIOMYOPATHY, UNSPECIFIED 01/25/2019 LUISA MEADE MD Ot I50. 9 HEART FAILURE, UNSPECIFIED 01/25/2019 LUISA MEADE MD Ot I51. 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 9 CARDIOMYOPATHY, UNSPECIFIED 01/25/2019 LUISA MEADE MD Ot I50. 9 HEART FAILURE, UNSPECIFIED 01/25/2019 JANEY KAMARA Ot R 05 COUGH 01/25/2019 JANEY KAMARA Ot R06.02 SHORTNESS OF BREATH 01/26/2019 LUISA MEADE MD Ot E11. 9 TYPE 2 DIABETES MELLITUS WITHOUT COMPLIC 01/26/2019 LUISA MEADE MD Ot I42. 9 CARDIOMYOPATHY, UNSPECIFIED 01/26/2019 LUISA MEADE MD Ot I50. 9 HEART FAILURE, UNSPECIFIED 01/26/2019 LUISA MEADE MD Ot I51. 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 9 DISORDER OF THYROID, UNSPECIFIED 01/28/2019 LUISA MEADE MD Ot E11. 40 TYPE 2 DIABETES MELLITUS WITH DIABETIC N 01/28/2019 LUISA MEADE MD Ot E78. 5 HYPERLIPIDEMIA, UNSPECIFIED 01/28/2019 LUISA MEADE MD Ot F32. 9 MAJOR DEPRESSIVE DISORDER, SINGLE EPISOD 01/28/2019 LUISA MEADE MD Ot F41. 9 ANXIETY DISORDER, UNSPECIFIED 01/28/2019 LUISA MEADE MD Ot I11. 9 HYPERTENSIVE HEART DISEASE WITHOUT HEART 01/28/2019 LUISA MEADE MD Ot I25. 10 ATHSCL HEART DISEASE OF [place] CORONARY 01/28/2019 LUISA MEADE MD Ot I42. 9 CARDIOMYOPATHY, UNSPECIFIED 01/28/2019 LUISA MEADE MD Ot J30. 9 ALLERGIC RHINITIS, UNSPECIFIED 01/28/2019 LUISA MEADE MD Ot L01. 00 IMPETIGO, UNSPECIFIED 01/28/2019 LUISA MEADE MD Ot M19. 90 UNSPECIFIED OSTEOARTHRITIS, UNSPECIFIED 01/28/2019 LUISA MEADE MD Ot M48.061 SPINAL STENOSIS, LUMBAR REGION WITHOUT N 01/28/2019 LUISA MEADE MD Ot R06. 02 SHORTNESS OF BREATH 01/28/2019 LUISA MEADE MD Ot Z79. 82 HIGH RISK OB (CURRENT) USE OF ASPIRIN 01/28/2019 LUISA MEADE MD Ot Z79.899 OTHER HIGH RISK OB (CURRENT) DRUG THERAPY 01/28/2019 LUISA MEADE MD Ot Z80. 9 FAMILY HISTORY OF MALIGNANT NEOPLASM, UN 01/28/2019 LUISA MEADE MD Ot Z82. 49 FAMILY HX OF ISCHEM HEART DIS AND OTH DI 01/28/2019 LUISA MEADE MD Ot Z82. 69 FAMILY HISTORY OF DISEASES OF THE MS SYS 02/02/2019 LUISA MEADE MD Ot E07. 9 DISORDER OF THYROID, UNSPECIFIED 02/02/2019 LUISA MEADE MD Ot E11. 40 TYPE 2 DIABETES MELLITUS WITH DIABETIC N 02/02/2019 LUISA MEADE MD Ot E78. 5 HYPERLIPIDEMIA, UNSPECIFIED 02/02/2019 LUISA MEADE MD Ot F32. 9 MAJOR DEPRESSIVE DISORDER, SINGLE EPISOD 02/02/2019 LUISA MEADE MD Ot F41. 9 ANXIETY DISORDER, UNSPECIFIED 02/02/2019 LUSIA MEADE MD Ot I11. 9 HYPERTENSIVE HEART DISEASE WITHOUT HEART 02/02/2019 LUISA MEADE MD Ot I25. 10 ATHSCL HEART DISEASE OF [place] CORONARY 02/02/2019 LUISA MEADE MD Ot I42. 9 CARDIOMYOPATHY, UNSPECIFIED 02/02/2019 LUISA MEADE MD Ot J30. 9 ALLERGIC RHINITIS, UNSPECIFIED 02/02/2019 LUISA MEADE MD Ot L01. 00 IMPETIGO, UNSPECIFIED 02/02/2019 LUISA MEADE MD Ot M19. 90 UNSPECIFIED OSTEOARTHRITIS, UNSPECIFIED 02/02/2019 LUISA MEADE MD Ot M48.061 SPINAL STENOSIS, LUMBAR REGION WITHOUT N 02/02/2019 LUISA MEADE MD Ot R06. 02 SHORTNESS OF BREATH 02/02/2019 LUISA MEADE MD Ot Z79. 82 SENIOR LIVING (CURRENT) USE OF ASPIRIN 02/02/2019 LUISA MEADE MD Ot Z79.899 OTHER SENIOR LIVING (CURRENT) DRUG THERAPY 02/02/2019 LUISA MEADE MD Ot Z80. 9 FAMILY HISTORY OF MALIGNANT NEOPLASM, UN 02/02/2019 LUISA MEADE MD Ot Z82. 49 FAMILY HX OF ISCHEM HEART DIS AND OTH DI 02/02/2019 LUISA MEADE MD Ot Z82. 69 FAMILY HISTORY OF DISEASES OF THE MS SYS 02/11/2019 LUISA MEADE MD Ot E11. 9 TYPE 2 DIABETES MELLITUS WITHOUT COMPLIC 02/11/2019 LUISA MEADE MD Ot I08. 3 COMB RHEUMATIC DISORD OF MITRAL, AORTIC 02/11/2019 LUISA MEADE MD Ot I42. 9 CARDIOMYOPATHY, UNSPECIFIED 02/11/2019 LUISA MEADE MD Ot I50. 9 HEART FAILURE, UNSPECIFIED 02/11/2019 LUISA MEADE MD Ot E11. 9 TYPE 2 DIABETES MELLITUS WITHOUT COMPLIC 02/11/2019 LUISA MEADE MD Ot I42. 9 CARDIOMYOPATHY, UNSPECIFIED 02/11/2019 LUISA MEADE MD Ot I50. 9 HEART FAILURE, UNSPECIFIED 02/11/2019 LUISA MEADE MD Ot I51. 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 9 CARDIOMYOPATHY, UNSPECIFIED 02/18/2019 LUISA MEADE MD Ot I50. 9 HEART FAILURE, UNSPECIFIED 02/18/2019 LUISA MEADE MD Ot E11. 9 TYPE 2 DIABETES MELLITUS WITHOUT COMPLIC 02/18/2019 LUISA MEADE MD Ot I42. 9 CARDIOMYOPATHY, UNSPECIFIED 02/18/2019 LUISA MEADE MD Ot I50. 9 HEART FAILURE, UNSPECIFIED 02/18/2019 LUISA MEADE MD Ot I51. 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 05/20/2019 ANGELA SANCHES MD Ot E11.9 TYPE 2 DIABETES MELLITUS WITHOUT COMPLIC 05/20/2019 ANGELA SANCHES MD Ot M19.90 UNSPECIFIED OSTEOARTHRITIS, UNSPECIFIED 05/20/2019 ANGELA SANCHES MD Ot M54.5 LOW BACK PAIN 05/20/2019 ANGELA SANCHES MD Ot M79.18 MYALGIA, OTHER SITE 05/20/2019 ANGELA SANCHES MD Ot Z79.4 HIGH RISK OB (CURRENT) USE OF INSULIN 05/20/2019 ANGELA SANCHES MD Ot Z87.81 PERSONAL HISTORY OF (HEALED) TRAUMATIC F 05/20/2019 ANGELA SANCHES MD Ot Z95.82 8 PRESENCE OF OTHER VASCULAR IMPLANTS AND 05/20/2019 ANGELA SANCHES MD Ot Z96.64 1 PRESENCE OF RIGHT ARTIFICIAL HIP JOINT 06/11/2019 LUISA MEADE MD Ot Z48.812 ENCNTR FOR SURGICAL AFTCR FOLLOWING SURG 06/11/2019 LUISA MEADE MD Ot 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 61 CORONARY ANGIOPLASTY STATUS Procedures There is no data. Results Test Result Range Automated blood complete blood count (he mogram) panel - 11/18/18 16:30 Blood leukocytes automated count (number/volume) 10.2 10*3/uL 4.3-11.0 Blood erythrocytes automated count (number/volume) 4.63 10*6/uL 4.35-5.85 Venous blood hemoglobin measurement (mass/volume) 13.6 g/dL 11.5-16.0 Blood hematocrit (volume fraction) 42 % 35-52 Automated erythrocyte mean corpuscular volume 90 [ foz_us] 80-99 Automated erythrocyte mean corpuscular h emoglobin (mass per erythrocyte) 29 pg 25-34 Automated erythrocyte mean corpuscular h emoglobin concentration measurement (mass/volume) 33 g/dL 32-36 Automated erythrocyte distribution width ratio 12. 9 % 10.0- 14.5 Automated blood platelet count (count/volume) 318 10*3/uL 130-400 Automated blood platelet mean volume measurement 11.6 [foz_us] 7.4-10.4 Comprehensive metabolic panel - 11/18/18 16:30 Serum or plasma sodium measurement (moles/volume) 139 mmol/L 135-145 Serum or plasma potassium measurement (moles/volume) 4.6 mmol/L 3.6-5.0 Serum or plasma chloride measurement (moles/volume) 98 mmol/L 98-107 Carbon dioxide 28 mmol/L 21-32 Serum or plasma anion gap determination (moles/volume) 13 mmol/L 5-14 Serum or plasma urea nitrogen measurement (mass/volume ) 21 mg/dL 7-18 Serum or plasma creatinine measurement (mass/volume) 1.48 mg/dL 0.60-1.30 Serum or plasma urea nitrogen/creatinine mass ratio 14 NRG Serum or plasma creatinine measurement w ith calculation of estimated glomerular filtration rate 34 NRG Serum or plasma glucose measurement (mass/volume) 161 mg/dL 70-105 Serum or plasma calcium measurement (mass/volume) 10.6 mg/dL 8.5-10.1 Serum or plasma total bilirubin measurement (mass/volu me) 0.9 mg/dL 0.1-1.0 Serum or plasma alkaline phosphatase aisha surement (enzymatic activity/volume) 93 U/L 40-136 Serum or plasma aspartate aminotransfera se measurement (enzymatic activity/volume) 25 U/L 5-34 Serum or plasma alanine aminotransferase measurement (enzymatic activity/volume) 21 U/L 0-55 Serum or plasma protein measurement (mass/volume) 8.3 g/dL 6.4-8.2 Serum or plasma albumin measurement (mass/volume) 4.1 g/dL 3.2-4.5 CALCIUM CORRECTED 10.5 mg/dL 8.5-10.1 Serum or plasma C reactive protein measu rement (mass/volume) - 11/18/18 16:30 Serum or plasma C reactive protein measurement (mass/v olume) 0.14 mg/dL 0.00-0.50 Complete urinalysis with reflex to cultu re - 11/18/18 16:35 Urine color determination YELLOW NRG Urine clarity determination CLEAR NR G Urine pH measurement by test strip 6.5 5-9 Specific gravity of urine by test strip 1.010 1.016-1.022 Urine protein assay by test strip, semi-quantitative NEGATIVE NEGATIVE Urine glucose detection by automated test strip NE GATIVE NEGATIVE Erythrocytes detection in urine sediment by light micr oscopy 1+ NEGATIVE Urine ketones detection by automated test strip NE GATIVE NEGATIVE Urine nitrite detection by test strip NEGATIVE NEGATIVE Urine total bilirubin detection by test strip NEGA TIVE NEGATIVE Urine urobilinogen measurement by automated test strip (mass/volume) NORMAL NORMAL Urine leukocyte esterase detection by dipstick 3+ NEGATIVE Automated urine sediment erythrocyte cou nt by microscopy (number/high power field) NONE NRG Automated urine sediment leukocyte count by microscopy (number/high power field) [HPF] NRG Bacteria detection in urine sediment by light microsco py MODERATE NRG Squamous epithelial cells detection in u rine sediment by light microscopy 2-5 NRG Crystals detection in urine sediment by light microsco py NONE NRG Casts detection in urine sediment by light microscopy NONE NRG Mucus detection in urine sediment by light microscopy NEGATIVE NRG Complete urinalysis with reflex to culture YES NRG Bacterial urine culture - 11/18/18 16:35 Bacterial urine culture 3 OR MORE NRG COLONY COUNT 30,000 CFU/ML NRG FTX;REPORTABLE GRAM POSITIVES, SUGGESTING PROBABLE NRG FREE TEXT ENTRY 2 COLLECTION CONTAMINATION WITH SK IN NRG FREE TEXT ENTRY 3 JOCE. NO SUSCEPTIBILITY PERFOR MED. NRG Automated blood complete blood count (he mogram) panel - 01/27/19 08:48 Blood leukocytes automated count (number/volume) 5.7 10*3/uL 4.3-11.0 Blood erythrocytes automated count (number/volume) 4.30 10*6/uL 4.35-5.85 Venous blood hemoglobin measurement (mass/volume) 12.6 g/dL 11.5-16.0 Blood hematocrit (volume fraction) 39 % 35-52 Automated erythrocyte mean corpuscular volume 90 [ foz_us] 80-99 Automated erythrocyte mean corpuscular h emoglobin (mass per erythrocyte) 29 pg 25-34 Automated erythrocyte mean corpuscular h emoglobin concentration measurement (mass/volume) 33 g/dL 32-36 Automated erythrocyte distribution width ratio 13. 6 % 10.0- 14.5 Automated blood platelet count (count/volume) 234 10*3/uL 130-400 Automated blood platelet mean volume measurement 11.4 [foz_us] 7.4-10.4 PT panel in platelet poor plasma by coag ulation assay - 01/27/19 08:48 Prothrombin time (PT) in platelet poor plasma by coagu lation assay 13.6 s 12.2-14.7 INR in platelet poor plasma or blood by coagulation as say 1.0 0.8-1.4 Activated partial thromboplastin time (a PTT) in platelet poor plasma bycoagulation assay - 01/27/19 08:48 Activated partial thromboplastin time (a PTT) in platelet poor plasma bycoagulation assay 46 s 24-35 Comprehensive metabolic panel - 01/27/19 08:48 Serum or plasma sodium measurement (moles/volume) 141 mmol/L 135-145 Serum or plasma potassium measurement (moles/volume) 4.0 mmol/L 3.6-5.0 Serum or plasma chloride measurement (moles/volume) 103 mmol/L 98-107 Carbon dioxide 30 mmol/L 21-32 Serum or plasma anion gap determination (moles/volume) 8 mmol/L 5-14 Serum or plasma urea nitrogen measurement (mass/volume ) 19 mg/dL 7-18 Serum or plasma creatinine measurement (mass/volume) 1.43 mg/dL 0.60-1.30 Serum or plasma urea nitrogen/creatinine mass ratio 13 NRG Serum or plasma creatinine measurement w ith calculation of estimated glomerular filtration rate 35 NRG Serum or plasma glucose measurement (mass/volume) 116 mg/dL 70-105 Serum or plasma calcium measurement (mass/volume) 9.9 mg/dL 8.5-10.1 Serum or plasma total bilirubin measurement (mass/volu me) 1.1 mg/dL 0.1-1.0 Serum or plasma alkaline phosphatase aisha surement (enzymatic activity/volume) 84 U/L 40-136 Serum or plasma aspartate aminotransfera se measurement (enzymatic activity/volume) 27 U/L 5-34 Serum or plasma alanine aminotransferase measurement (enzymatic activity/volume) 20 U/L 0-55 Serum or plasma protein measurement (mass/volume) 7.9 g/dL 6.4-8.2 Serum or plasma albumin measurement (mass/volume) 4.0 g/dL 3.2-4.5 CALCIUM CORRECTED 9.9 mg/dL 8.5-10.1 Lipid 1996 panel - 01/27/19 08:48 Serum or plasma triglyceride measurement (mass/volume) 174 mg/dL <150 Serum or plasma cholesterol measurement (mass/volume) 143 mg/dL < 200 Serum or plasma cholesterol in HDL measurement (mass/v olume) 38 mg/dL 40-60 Cholesterol in LDL [mass/volume] in serum or plasma by direct assay 70 mg/dL 1-129 Serum or plasma cholesterol in VLDL measurement (mass/ volume) 35 mg/dL 5-40 Methicillin resistant Staphylococcus aur eus (MRSA) screening culture - 01/27/19 08:48 Methicillin resistant Staphylococcus aureus (MRSA) scr eening culture NEG NRG Capillary blood glucose measurement by g lucometer (mass/volume) - 01/27/19 17:48 Capillary blood glucose measurement by glucometer (mas s/volume) 61 mg/dL 70-110 Capillary blood glucose measurement by g lucometer (mass/volume) - 01/27/19 20:04 Capillary blood glucose measurement by glucometer (mas s/volume) 233 mg/dL 70-110 Automated blood complete blood count (he mogram) panel - 01/28/19 03:10 Blood leukocytes automated count (number/volume) 7.2 10*3/uL 4.3-11.0 Blood erythrocytes automated count (number/volume) 3.94 10*6/uL 4.35-5.85 Venous blood hemoglobin measurement (mass/volume) 11.5 g/dL 11.5-16.0 Blood hematocrit (volume fraction) 36 % 35-52 Automated erythrocyte mean corpuscular volume 91 [ foz_us] 80-99 Automated erythrocyte mean corpuscular h emoglobin (mass per erythrocyte) 29 pg 25-34 Automated erythrocyte mean corpuscular h emoglobin concentration measurement (mass/volume) 32 g/dL 32-36 Automated erythrocyte distribution width ratio 13. 3 % 10.0- 14.5 Automated blood platelet count (count/volume) 193 10*3/uL 130-400 Automated blood platelet mean volume measurement 11.8 [foz_us] 7.4-10.4 Whole blood basic metabolic panel - 01/08 07/28 03:10 Serum or plasma sodium measurement (moles/volume) 139 mmol/L 135-145 Serum or plasma potassium measurement (moles/volume) 3.5 mmol/L 3.6-5.0 Serum or plasma chloride measurement (moles/volume) 103 mmol/L 98-107 Carbon dioxide 25 mmol/L 21-32 Serum or plasma anion gap determination (moles/volume) 11 mmol/L 5-14 Serum or plasma urea nitrogen measurement (mass/volume ) 19 mg/dL 7-18 Serum or plasma creatinine measurement (mass/volume) 1.23 mg/dL 0.60-1.30 Serum or plasma urea nitrogen/creatinine mass ratio 15 NRG Serum or plasma creatinine measurement w ith calculation of estimated glomerular filtration rate 42 NRG Serum or plasma glucose measurement (mass/volume) 133 mg/dL 70-105 Serum or plasma calcium measurement (mass/volume) 8.9 mg/dL 8.5-10.1 Capillary blood glucose measurement by g lucometer (mass/volume) - 06/16/19 10:04 Capillary blood glucose measurement by glucometer (mas s/volume) 170 mg/dL 70-110 Complete urinalysis with reflex to cultu re - 08/20/19 10:00 Urine color determination YELLOW NRG Urine clarity determination CLEAR NR G Urine pH measurement by test strip 7.0 5-9 Specific gravity of urine by test strip <= 1.016-1.022 Urine protein assay by test strip, semi-quantitative TRACE NEGATIVE Urine glucose detection by automated test strip NE GATIVE NEGATIVE Erythrocytes detection in urine sediment by light micr oscopy TRACE-I NEGATIVE Urine ketones detection by automated test strip NE GATIVE NEGATIVE Urine nitrite detection by test strip NEGATIVE NEGATIVE Urine total bilirubin detection by test strip NEGA TIVE NEGATIVE Urine urobilinogen measurement by automated test strip (mass/volume) 0.2 mg/dL < = 1.0 Urine leukocyte esterase detection by dipstick 1+ NEGATIVE Automated urine sediment erythrocyte cou nt by microscopy (number/high power field) RARE NRG Automated urine sediment leukocyte count by microscopy (number/high power field) [HPF] NRG Bacteria detection in urine sediment by light microsco py NEGATIVE NRG Squamous epithelial cells detection in u rine sediment by light microscopy 0-2 NRG Crystals detection in urine sediment by light microsco py NONE NRG Casts detection in urine sediment by light microscopy NONE NRG Mucus detection in urine sediment by light microscopy NEGATIVE NRG Complete urinalysis with reflex to culture NO NRG Encounters ACCT No. Visit Date/Time Discharge Status Pt. Type Provider Facility Loc./Unit Complaint [id number] 07/05/2019 10:26:00 00:01:00 DIS Outpatient LUISA MEADE MD [facility] CR PTCA [id number] 06/21/2019 10:13:00 00:01:00 DIS Outpatient LUISA MEADE MD [facility] CR PTCA [id number] 05/17/2019 13:49:00 10:28:00 DIS Outpatient ANGELA SANCHES MD [facility] REHAB LOW BACK PAIN [id number] 04/02/2019 11:13:00 11:46:00 DIS Outpatient ANGELA TELLO MD [facility] REHAB URINARY INCONTINENCE [id number] 01/27/2019 07:59:00 08:55:00 DIS Outpatient LUISA MEADE MD [facility] CATH ABN STRESS TEST [id number] 01/20/2019 07:05:00 23:59:59 CLS Outpatient LUISA MEADE MD [facility] CARD CARDIOMYOPATHY [id number] 01/18/2019 08:29:00 23:59:59 CLS Outpatient LUISA MEADE MD [facility] CARD CARDIOMYOPATHY [id number] 11/25/2018 10:06:00 11:45:00 DIS Outpatient KAYLIN MONAHAN APRN [facility] SDC UTI [id number] 11/18/2018 16:10:00 23:59:59 CLS Outpatient JANEY KAMARA [facility] RAD SOB [id number] 11/11/2018 11:00:00 11:17:00 DIS Outpatient ANGELA TELLO MD [facility] REHAB URINARY INCONTINENCE [id number] 01/01/2017 14:23:00 23:59:59 CLS Outpatient ANGELA TELLO MD [facility] RAD B HAND ARTHRITIS [id number] 05/23/2015 21:20:00 07:19:00 DIS Outpatient DEISY BIRCH DO [facility] SLEEP SNORING,ISCHEMIC HEART DISEASE,HTN [id number] 04/25/2015 15:51:00 23:59:59 CLS Outpatient ALPHONSE GAMBLE MD [facility] RAD EDEMA [id number] 04/14/2015 14:35:00 23:59:59 CLS Outpatient ANGELA TELLO MD [facility] RAD EDEMA [id number] 03/15/2015 14:47:00 23:59:59 CLS Outpatient ANGELA TELLO MD [facility] RAD HIP AND LEG PAIN [id number] 02/15/2015 09:33:00 23:59:59 CLS Outpatient ANGELA TELLO MD [facility] RAD SCREENING [id number] 09/30/2014 14:23:00 15:46:00 DIS Outpatient TONY MINOR MD [facility] REHAB WEAKNESS AND HI P PAIN [id number] 06/23/2014 16:17:00 23:59:59 CLS Outpatient TONY MINOR MD [facility] RAD ELEVATED D-DIME R [id number] 04/28/2014 14:25:00 014 23:59:59 CLS Preadmit TONY MINOR MD [facility] REHAB [id number] 03/21/2014 15:35:00 23:59:59 CLS Outpatient HANY AGUILERA, YOGESH Leonard [facility] CARD DDD [id number] 02/02/2014 09:02:00 23:59:59 CLS Outpatient TONY MINOR MD [facility] RAD SCREENING,RIGHT HIP PAIN [id number] 06/22/2013 14:20:00 23:59:59 CLS Outpatient TONY MINOR MD [facility] RAD R HIP PAIN, R R IB PAIN/FALL [id number] 02/01/2013 10:29:00 23:59:59 CLS Outpatient [id number] 01/24/2013 22:35:00 01:30:00 DIS Emergency [id number] 11/05/2012 13:56:00 013 14:58:00 DIS Outpatient [id number] 08/20/2019 10:00:00 Document Registration [id number] 08/20/2019 10:00:00 020 23:59:59 CLS Outpatient ELISHA AGUILERA, ANGELA Gomez [facility] LABT
--- OUTSIDE RECORDS SUMMARY | 2020-01-01 12:08 | XMS REPORT | Encounter Summary ---
Author Author [facility] Address Unknown Phone Unavailable Care Team Providers Care Team Manager Name Role Phone PCP Unavailable Encounter Details Care Team Description Date Type Department Jose Manuel Godfrey MD No Forwarding Address 02/24/2004 [facility] [address] [place] [address] Social History Date Tobacco Use Types Packs/Day [...] Invasive NEXTGEN Procedure: PCI Procedure Summary: DELISA X4 to LAD from o stium to distal LAD, DELISA to RCA. Procedure Note Interface, Rad Conversion - 12/27/2014 11:10 PM CDT Procedure Category: Invasive Procedure: PCI Procedure Summary: DELISA X4 to LAD from ostium to distal LAD, DELISA to RCA. Performing Organization Address [place] [place] NEXTGEN documented in this encounter Visit Diagnoses Not on filedocumented in this encounter
[2020-01-01] MEDS ORDERED: ASPIRIN 81 MG CHEW (CHILDREN'S ASA) PO ONE (12:15)
--- NOTE | 2020-01-01 12:42 | ED Chest Pain ---
General Stated Complaint: CHEST TIGHTNESS / SOA Source: patient Exam Limitations: no limitations History of Present Illness Date Seen by Provider: Jan 01, 2020 Time Seen by Provider: 12:39 Initial Comments To ER with chest tightness and shortness of breath. The chest tightness began last night at about 6 pm While at rest. The shortness of breath has been getting progressively worse over the past few days, she has also noticed some increased swelling in her lower extremities. No fevers no cough no exposure to known ill contacts and she has not left her house in several weeks she states. She follows with Dr. Lorenzo for known congestive heart failure/CAD Timing/Duration: changing over time Severity/Quality: moderate Location: central Radiation: no radiation Activities at Onset: none ASA po JEWEL BEARING MAKER: No NTG SL JEWEL BEARING MAKER: No Associated Symptoms: shortness of breath Allergies and Home Medications Allergies Coded Allergies: No Known Drug Allergies (Unverified , 07/19/10) Home Medications Acetaminophen 500 Mg Tablet, 500 MG PO Q6H PRN for PAIN-MILD, (Reported) Aripiprazole 15 Mg Tablet, 15 MG PO DAILY, (Reported) Aspirin 81 Mg Tablet.dr, 81 MG PO HS, (Reported) Atorvastatin Calcium 80 Mg Tablet, 80 MG PO HS, (Reported) Bupropion HCl 300 Mg Tab.er.24h, 300 MG PO DAILY, (Reported) Calcium Carbonate 500 Mg Tablet, 500 MG PO DAILY, (Reported) Carvedilol 12.5 Mg Tablet, 12.5 MG PO BID, (Reported) Cholecalciferol (Vitamin D3) 400 Unit Capsule, 400 UNIT PO DAILY, (Reported) Clonazepam 0.5 Mg Tablet, 0.25 MG PO HS, (Reported) Clopidogrel Bisulfate 75 Mg Tablet, 75 MG PO DAILY Prescribed by: LUISA LORENZO on 01/28/19 0748 Digoxin 125 Mcg Tablet, 125 MCG PO DAILY, (Reported) Furosemide 20 Mg Tablet, 20 MG PO DAILY, (Reported) Gabapentin 100 Mg Capsule, 100 MG PO DAILY PRN for NERVE PAIN, (Reported) Insulin Aspart 300 Units/3 Ml Solution, 1 UNITS SQ TIDWM, (Reported) USES PER SLIDING SCALE Insulin Degludec 100 Unit/1 Ml Insuln.pen, 20 UNIT SQ HS, (Reported) Levothyroxine Sodium 125 Mcg Tablet, 125 MCG PO DAILY, (Reported) TAKES 1 HOUR BEFORE BREAKFAST Multivit-Min/Iron/Folic/Vit K1 1 Each Tab.chew, 1 EACH PO DAILY, (Reported) Naproxen Sodium 220 Mg Tablet, 220 MG PO DAILY PRN for PAIN-MILD, (Reported) Pantoprazole Sodium 40 Mg Granpkt.dr, 40 MG PO DAILY Prescribed by: LUISA LORENZO on 01/28/19 0748 Potassium Chloride 10 Meq Tablet.er, 10 MEQ PO DAILY, (Reported) Sacubitril/Valsartan 1 Each Tablet, 1 TAB PO BID, (Reported) Venlafaxine HCl 150 Mg Cap.er.24h, 150 MG PO DAILY, (Reported) Patient Home Medication List Home Medication List Reviewed: Yes Review of Systems Review of Systems Constitutional: see HPI; No chills, No diaphoresis, No fever EENTM: See HPI Respiratory: Denies See HPI, Denies Cough; Orthopnea, Shortness of Air, SOA With Exertion Cardiovascular: See HPI, Chest Pain, Edema Gastrointestinal: No Symptoms Reported Genitourinary: No Symptoms Reported Musculoskeletal: no symptoms reported Skin: no symptoms reported Psychiatric/Neurological: No Symptoms Reported Endocrine: No Symptoms Reported Hematologic/Lymphatic: No Symptoms Reported Past Keghzer-Ysxtwa-Xwhtsc Hx Patient Social History 2nd Hand Smoke Exposure: No Recent Foreign Travel: No Contact w/Someone Who Travel: No Recent Hopitalizations: No Immunizations Up To Date Date of Pneumonia Vaccine: Jan 27, 2017 Past Medical History Gallbladder Respiratory: No Sleep Apnea Currently Using CPAP: No (not for 4 years ) Currently Using BIPAP: No Cardiac: Yes Coronary Artery Disease, High Cholesterol, Hypertension Neurological: No Genitourinary: No Gastrointestinal: No Arthritis Diabetes, Insulin dep, Hypothyroidsim Cancer: No Anxiety, Depression Blood Disorders: No Adverse Reaction/Blood Tranf: No Physical Exam Vital Signs Vital Signs - First Documented 01/01/20 12:35 Pulse 96 Resp 29 Pulse Ox 96 O2 Flow Rate 50.00 Capillary Refill : Height, Weight, BMI Height: 5'2.00" Weight: 129lbs. 0.0oz. 58.817469xs; 23.6 BMI Method: General Appearance: No Apparent Distress, WD/WN, Other (and oriented speaks in full sentences. Oxygen is 71-72% on room air upon arrival. Increased to 91% on 8 L by nasal cannula. Transitioned to BiPAP settings 12/650% FiO2 and her oxygen is up to 96% SPO2 she is tolerating it well and feels better.) Neck: Full Range of Motion, Normal Inspection Respiratory: No Accessory Muscle Use, Crackles Cardiovascular: Regular Rate, Rhythm, Normal Peripheral Pulses Gastrointestinal: Normal Bowel Sounds, Non Tender, Soft Neurologic/Psychiatric: Alert, Oriented x3 Skin: Normal Color, Warm/Dry Progress/Results/Core Measures Results/Orders Lab Results Laboratory Tests Test 01/01/20 12:22 Range/Units My Orders Orders - QUYNH MAO APRN Cbc With Automated Diff (01/01/20 12:04) Magnesium (01/01/20 12:04) Chest 1 View, Ap/Pa Only (01/01/20 12:04) Ekg Tracing (01/01/20 12:04) Comprehensive Metabolic Panel (01/01/20 12:04) Myoglobin Serum (01/01/20 12:04) Protime With Inr (01/01/20 12:04) Partial Thromboplastin Time (01/01/20 12:04) O2 (01/01/20 12:04) Monitor-Rhythm Ecg Trace Only (01/01/20 12:04) Lipid Panel (01/02/20 06:00) Ed Iv/Invasive Line Start (01/01/20 12:04) BNP (01/01/20 12:04) Troponin I (01/01/20 12:04) Aspirin Chewable Tablet (Baby Aspirin Ch (01/01/20 12:15) Furosemide Injection (Lasix Injection) (01/01/20 13:00) Bipap (Bilevel) Set Up (01/01/20 12:51) Fibrin Degradation Products (01/01/20 12:22) Troponin I (01/01/20 12:22) Medications Given in ED Current Medications Medications Dose Ordered Sig/Amy Route Start Time Stop Time Status Last Admin Dose Admin Aspirin 324 mg ONCE ONCE PO 01/01/20 12:15 01/01/20 12:16 DC 01/01/20 12:49 324 MG Furosemide 40 mg ONCE ONCE IVP 01/01/20 13:00 01/01/20 13:01 DC 01/01/20 12:57 40 MG Vital Signs/I&O 01/01/20 12:35 Pulse 96 Resp 29 Pulse Ox 96 O2 Flow Rate 50.00 Diagnostic Imaging Diagonstic Imaging: Xray Plain Films/CT/US/NM/MRI: chest Comments NAME: LAMAR GONSALES [facility] REC#: [id number] PT STATUS: REG ER : 1935 PHYSICIAN: QUYNH MAO APRN ADMIT DATE: 01/01/20/ER Draft Date of Exam:01/01/20 CHEST 1 VIEW, AP/PA ONLY INDICATION: Chest pain COMPARISON: 01/27/2019 TECHNIQUE: Single radiograph of the chest dated January 01, 2020. FINDINGS: The cardiac silhouette is enlarged. Increased central pulmonary vascular congestion. Diffuse prominence of the pulmonary interstitium with Tres B lines bilaterally. Small bibasilar pleural effusions. No pneumothorax. Vascular calcifications within the carotid bulbs. No acute osseous abnormality. IMPRESSION: Constellation of findings is felt to relate to congestive heart failure with associated interstitial edema and small bibasilar pleural effusions. Dictated on workstation # [id number] Dict: 01/01/20 1250 Trans: 01/01/20 1258 [facility] [id number] Interpreted by: PAUL DALEY MD Electronically signed by: Departure Impression Primary Impression: Acute exacerbation of congestive heart failure Additional Impression: Hypoxia Disposition: ADMITTED INPATIENT Condition: Stable Admissions Decision to Admit Reason: Admit from ER (General) Decision to Admit/Date: Jan 01, 2020 Time/Decision to Admit Time: 12:50 Departure-Patient Inst. Referrals: ANGELA TELLO MD (PCP/Family) Primary Care Physician QUYNH MAO APRN Jan 01, 2020 12:42
--- NOTE | 2020-01-01 12:59 | Diagnostic Imaging Report ---
INDICATION: Chest pain COMPARISON: 01/27/2019 TECHNIQUE: Single radiograph of the chest dated January 01, 2020. FINDINGS: The cardiac silhouette is enlarged. Increased central pulmonary vascular congestion. Diffuse prominence of the pulmonary interstitium with Tres B lines bilaterally. Small bibasilar pleural effusions. No pneumothorax. Vascular calcifications within the carotid bulbs. No acute osseous abnormality. IMPRESSION: Constellation of findings is felt to relate to congestive heart failure with associated interstitial edema and small bibasilar pleural effusions. Dictated by: Dictated on workstation # [id number]
[2020-01-01] MEDS ORDERED: FUROSEMIDE 40 MG/4 ML INJ (LASIX) IVP ONE ×2 (13:00→14:15)
[2020-01-01 13:05] LABS: BASOPHILS # (AUTO) 0.1 10^3/uL (0.0-0.1); BASOPHILS % (AUTO) 1 % (0-10); EOSINOPHILS # (AUTO) 0.1 10^3/uL (0.0-0.3); EOSINOPHILS % (AUTO) 1 % (0-10); HEMATOCRIT 38 % (35-52); HEMOGLOBIN 12.5 G/DL (11.5-16.0); LYMPHOCYTES # (AUTO) 0.9 X 10^3 (1.0-4.0); LYMPHOCYTES % (AUTO) 6 % (12-44); MEAN CORPUSCULAR HEMOGLOBIN 30 PG (25-34); MEAN CORPUSCULAR HGB CONC 33 G/DL (32-36); MEAN CORPUSCULAR VOLUME 90 FL (80-99); MEAN PLATELET VOLUME 11.2 FL (7.4-10.4); MONOCYTES # (AUTO) 0.9 X 10^3 (0.0-1.0); MONOCYTES % (AUTO) 7 % (0-12); NEUTROPHILS # (AUTO) 11.6 X 10^3 (1.8-7.8); NEUTROPHILS % (AUTO) 85 % (42-75); PLATELET COUNT 319 10^3/uL (130-400); RED CELL DISTRIBUTION WIDTH 13.6 % (10.0-14.5); WHITE BLOOD COUNT 13.6 10^3/uL (4.3-11.0)
[2020-01-01 13:18] LABS: ALBUMIN 3.7 GM/DL (3.2-4.5)
[2020-01-01 13:19] LABS: POTASSIUM 3.5 MMOL/L (3.6-5.0)
[2020-01-01 13:20] LABS: FIBRIN DEGRADATION PRODUCTS 0.74 UG/ML (0.00-0.49); INR 1.1 (0.8-1.4); PROTHROMBIN TIME PATIENT 14.2 SEC (12.2-14.7)
[2020-01-01 13:21] LABS: TOTAL PROTEIN 7.7 GM/DL (6.4-8.2)
[2020-01-01 13:23] LABS: BILIRUBIN,TOTAL 1.1 MG/DL (0.1-1.0)
[2020-01-01 13:25] LABS: CREATININE SERUM 1.3 MG/DL (0.60-1.30)
[2020-01-01 13:26] LABS: EOSINOPHILS % (MANUAL) 1 %; LYMPHOCYTES % (MANUAL) 5 %; MONOCYTES % (MANUAL) 9 %; NEUTROPHILS % (MANUAL) 85 %; POIKILOCYTOSIS SLIGHT; SPHEROCYTES SLIGHT
[2020-01-01] MEDS ORDERED: KCL 10 MEQ TAB (MICRO K) PO ONE (14:15)
[2020-01-01] MEDS ORDERED: ENOXAPARIN 80 MG/0.8 ML (LOVENOX) SYR SC ONE (14:15)
[2020-01-01] MEDS ORDERED: RT-ALBUTEROL/IPRATROPIUM 3 ML (DUONEB) VIAL INH PRN (16:00)
[2020-01-01] MEDS ORDERED: ENOXAPARIN 40 MG/0.4 ML (LOVENOX) SYR SQ SCH (17:00)
--- NOTE | 2020-01-01 17:09 | NUR ---
PT ARRIVED TO CU8 VIA STRETCHER FROM ED WITH BIPAP IN PLACE. PT TRANSFERRED TO BED BY STAFF. PT ALERT AND ORIENTED, LABOR/EXCAVATOR EQUAL, DENIES PAIN OR DISCOMFORT AT THIS TIME. DENIES DIFFICULTY BREATHING OR SOA. ODEN CATHETER INSERTED PER DR. YAN ORDER. PT BELONGINGS INCLUDED: GLASSES, SHIRT, SHOES, AND CANE. PT SISTER AT BEDSIDE. PT AND SISTER EDUCATED ON VISITOR POLICY AND VERBALIZED UNDERSTANDING.
[2020-01-01] MEDS ORDERED: ONDANSETRON 4 MG/2 ML (SDV) Z0FRAN ONE ×2 (20:02→21:14)
[2020-01-01] MEDS ORDERED: meTOprolol TARTRATE 25 MG (LOPRESSOR) TABLET PO SCH (21:00)
[2020-01-01] MEDS: SACUBITRIL/VALSARTAN 24/26 MG (ENTRESTO) TABLET PO SCH (21:19)
[2020-01-01] MEDS: clonazePAM 0.5 MG (KlonoPIN) TAB PO SCH (21:19)
[2020-01-01] MEDS: CARVEDILOL 12.5 MG (COREG) TABLET PO SCH (21:19)
[2020-01-01] MEDS: ENOXAPARIN 40 MG/0.4 ML (LOVENOX) SYR SQ SCH (21:23)
[2020-01-01] MEDS: RT-ALBUTEROL/IPRATROPIUM 3 ML (DUONEB) VIAL INH SCH (21:36)
[2020-01-02] VITALS (15 sets, daily range): BP systolic 123–160; BP diastolic 43–91
--- NOTE | 2020-01-02 00:37 | NUR ---
Zofran pulled from [employer] on this patient but was intended for patient in ICU room 7. Zofran returned to [employer] and non-admin for this patient.
[2020-01-02] MEDS: RT-ALBUTEROL/IPRATROPIUM 3 ML (DUONEB) VIAL INH SCH ×4 (02:23→21:15)
[2020-01-02] MEDS ORDERED: DEXTROSE 50% 50 ML (IMS) SYR ONE (03:21)
--- NOTE | 2020-01-02 03:21 | NUR ---
Critical Glucose of 40 per finger stick called to E ICU, amp D50% administered.
[2020-01-02] MEDS ORDERED: DEXTROSE 50% 50 ML (IMS) SYR IV ONE (03:30)
[2020-01-02 03:37] LABS: BASOPHILS # (AUTO) 0.1 10^3/uL (0.0-0.1); BASOPHILS % (AUTO) 1 % (0-10); EOSINOPHILS # (AUTO) 0.2 10^3/uL (0.0-0.3); EOSINOPHILS % (AUTO) 2 % (0-10); HEMATOCRIT 38 % (35-52); HEMOGLOBIN 12.5 G/DL (11.5-16.0); LYMPHOCYTES # (AUTO) 1.6 X 10^3 (1.0-4.0); LYMPHOCYTES % (AUTO) 14 % (12-44); MEAN CORPUSCULAR HEMOGLOBIN 30 PG (25-34); MEAN CORPUSCULAR HGB CONC 33 G/DL (32-36); MEAN CORPUSCULAR VOLUME 90 FL (80-99); MEAN PLATELET VOLUME 11.4 FL (7.4-10.4); MONOCYTES # (AUTO) 1.2 X 10^3 (0.0-1.0); MONOCYTES % (AUTO) 11 % (0-12); NEUTROPHILS # (AUTO) 8.7 X 10^3 (1.8-7.8); NEUTROPHILS % (AUTO) 73 % (42-75); PLATELET COUNT 316 10^3/uL (130-400); RED CELL DISTRIBUTION WIDTH 13.6 % (10.0-14.5); WHITE BLOOD COUNT 11.9 10^3/uL (4.3-11.0)
[2020-01-02 03:42] LABS: POTASSIUM 2.9 MMOL/L (3.6-5.0)
[2020-01-02 03:43] LABS: ALBUMIN 3.5 GM/DL (3.2-4.5)
[2020-01-02 03:44] LABS: CALCIUM 9.1 MG/DL (8.5-10.1)
[2020-01-02 03:45] LABS: TOTAL PROTEIN 7.6 GM/DL (6.4-8.2)
[2020-01-02 03:47] LABS: BILIRUBIN,TOTAL 1.4 MG/DL (0.1-1.0)
[2020-01-02 03:49] LABS: CREATININE SERUM 1.22 MG/DL (0.60-1.30)
--- NOTE | 2020-01-02 04:06 | NUR ---
Am lab 2.9 potassium reported to E ICU at this time.
[2020-01-02] MEDS ORDERED: KCL 20 MEQ TAB (K-DUR) PO ONE (04:15)
[2020-01-02] MEDS: KCL 20 MEQ TAB (K-DUR) PO SCH (06:19)
[2020-01-02] MEDS: VENlafaxine XR 75 MG (EFFEXOR XR) CAP PO SCH (06:20)
[2020-01-02] MEDS: LEVOTHYROXINE 125 MCG (LEVOTHROID) TABLET PO SCH (06:20)
--- NOTE | 2020-01-02 06:37 | Diagnostic Imaging Report ---
EXAM: Portable erect AP chest at 3:24 AM INDICATION: CHF exacerbation FINDINGS: The appearance of the chest has improved since the prior exam of 01/01/2020 as there is much less pulmonary congestion. The central pulmonary vascularity remains only mildly prominent. The heart is also less striking than on the prior exam. There is still a moderate left pleural effusion present as well as a small amount of fluid in the right lung base. The mediastinum has not widened. The osseous structures are intact. IMPRESSION: The appearance of the chest has improved as there is much less pulmonary congestion and the heart has decreased in size. A follow-up study would be recommended for continued evaluation. Dictated by: Dictated on workstation # [id number]
[2020-01-02] MEDS: SACUBITRIL/VALSARTAN 24/26 MG (ENTRESTO) TABLET PO SCH ×2 (07:49→22:13)
[2020-01-02] MEDS: buPROPion SR 150 MG (WELLBUTRIN SR) TAB PO SCH ×2 (07:49→22:14)
[2020-01-02] MEDS: CARVEDILOL 12.5 MG (COREG) TABLET PO SCH ×2 (07:49→22:13)
[2020-01-02] MEDS: ASPIRIN 81 MG CHEW (CHILDREN'S ASA) PO SCH (07:49)
[2020-01-02] MEDS: DIGOXIN 0.125 MG (LANOXIN) TAB PO SCH (07:49)
[2020-01-02] MEDS: CLOPIDOGREL 75 MG (PLAVIX) TABLET PO SCH (07:49)
[2020-01-02] MEDS: ENOXAPARIN 40 MG/0.4 ML (LOVENOX) SYR SQ SCH (07:50)
[2020-01-02] MEDS ORDERED: FUROSEMIDE 40 MG/4 ML INJ (LASIX) IV SCH (09:00)
--- NOTE | 2020-01-02 12:41 | Consultation-Cardiology ---
HPI-Cardiology Cardiology Consultation: Date of Consultation 01/02/20 Time Seen by a Provider: 12:35 Date of Admission Attending Physician Xiomy Hooper MD Admitting Physician Shaq Brothers MD Consulting Physician DANISHA STEEN MD, MA, FACP, FACC, FSCAI, CCDS HPI: Chief Complaint: CC: Chest discomfort and shortness of breath HPI 84 yo woman with several days of increasing shortness of breath and vague chest discomfort that got worse on the evening of 12/31/19 and she came to the hospital on 01/01/20. Was treated for decompensated CHF and that has resulted in resolution of all symptoms. Feels better now than has felt in weeks/months. Denies fever or chills. Denies cough or sputum production. Denies change of smell or taste. Has noted mild ankle swelling that has resolved since hospitalization. Review of Systems-Cardiology Review of Systems Constitutional: malaise, tiredness; No weight loss, No weight gain Ears/Nose/Throat: No ear discharge, No nasal drainage, No recent hearing loss Respiratory: As described under HPI Cardiovascular: As described under HPI Gastrointestinal: No constipation, No diarrhea, No nausea, No vomiting Genitourinary: No dysuria, No hematuria, No urine frequency changes Musculoskeletal: joint pain (chronic) Skin: No rash, No rash on exposed areas Psychiatric/Neurological: No seizure, No focal weakness, No syncope Hematologic: No bleeding abnormalities WVA-Znjoqk-Ipivnm Hx Patient Social History 2nd Hand Smoke Exposure: No Recent Foreign Travel: No Immunizations Up To Date Date of Pneumonia Vaccine: Jan 27, 2017 Past Medical History PMH As described under Assessment. Family Medical History Family Medical History: Does not report fam h/o early CAD Allergies and Home Medications Allergies Coded Allergies: No Known Drug Allergies (Unverified , 07/19/10) Home Medications Acetaminophen 500 Mg Tablet, 500 MG PO Q6H PRN for PAIN-MILD, (Reported) Aripiprazole 15 Mg Tablet, 15 MG PO DAILY, (Reported) Aspirin 81 Mg Tablet.dr, 81 MG PO HS, (Reported) Atorvastatin Calcium 80 Mg Tablet, 80 MG PO HS, (Reported) Bupropion HCl 300 Mg Tab.er.24h, 300 MG PO DAILY, (Reported) Calcium Carbonate 500 Mg Tablet, 500 MG PO DAILY, (Reported) Carvedilol 12.5 Mg Tablet, 12.5 MG PO BID, (Reported) Cholecalciferol (Vitamin D3) 400 Unit Capsule, 400 UNIT PO DAILY, (Reported) Clonazepam 0.5 Mg Tablet, 0.25 MG PO HS, (Reported) Clopidogrel Bisulfate 75 Mg Tablet, 75 MG PO DAILY Prescribed by: LUISA LORENZO on 01/28/19747 Digoxin 125 Mcg Tablet, 125 MCG PO DAILY, (Reported) Furosemide 20 Mg Tablet, 20 MG PO DAILY, (Reported) Gabapentin 100 Mg Capsule, 100 MG PO DAILY PRN for NERVE PAIN, (Reported) Insulin Aspart 300 Units/3 Ml Solution, 1 UNITS SQ TIDWM, (Reported) USES PER SLIDING SCALE Insulin Degludec 100 Unit/1 Ml Insuln.pen, 20 UNIT SQ HS, (Reported) Levothyroxine Sodium 125 Mcg Tablet, 125 MCG PO DAILY, (Reported) TAKES 1 HOUR BEFORE BREAKFAST Multivit-Min/Iron/Folic/Vit K1 1 Each Tab.chew, 1 EACH PO DAILY, (Reported) Naproxen Sodium 220 Mg Tablet, 220 MG PO DAILY PRN for PAIN-MILD, (Reported) Pantoprazole Sodium 40 Mg Granpkt.dr, 40 MG PO DAILY Prescribed by: LUISA LORENZO on 01/28/19747 Potassium Chloride 10 Meq Tablet.er, 10 MEQ PO DAILY, (Reported) Sacubitril/Valsartan 1 Each Tablet, 1 TAB PO BID, (Reported) Venlafaxine HCl 150 Mg Cap.er.24h, 150 MG PO DAILY, (Reported) Patient Home Medication List Home Medication List Reviewed: Yes Physical Exam-Cardiology Physical Exam Vital Signs/I&O 01/02/20 01/02/20 01/02/20 01/02/20 01:00 01:00 02:00 02:23 Pulse 80 70 63 60 Resp 18 17 15 B/P (MAP) 148/54 (85) 146/52 (83) Pulse Ox 97 96 97 O2 Delivery NIV Bilevel NIV Bilevel O2 Flow Rate 35.00 35.00 30.00 01/02/20 01/02/20 01/02/20 01/02/20 03:00 03:30 03:40 04:00 Temp 36.5 Pulse 56 73 Resp 15 19 B/P (MAP) 150/54 (86) 157/60 (92) Pulse Ox 97 98 97 O2 Delivery NIV Bilevel High Flow N/C High Flow N/C High Flow N/C O2 Flow Rate 35.00 4.00 4.00 4.00 01/02/20 01/02/20 01/02/20 01/02/20 04:44 05:00 06:00 06:31 Pulse 79 72 Resp 13 13 B/P (MAP) 151/61 (91) 134/49 (77) Pulse Ox 97 97 97 O2 Delivery High Flow N/C High Flow N/C High Flow N/C High Flow N/C O2 Flow Rate 2.00 2.00 2.00 2.00 01/02/20 01/02/20 01/02/20 01/02/20 07:00 07:00 08:00 08:00 Temp 37.6 Pulse 79 76 67 Resp 15 31 B/P (MAP) 151/58 (89) 154/63 (93) Pulse Ox 96 94 O2 Delivery High Flow N/C High Flow N/C O2 Flow Rate 2.00 2.00 01/02/20 01/02/20 01/02/20 01/02/20 08:38 09:00 09:00 10:00 Pulse 75 75 Resp 13 B/P (MAP) 123/43 (69) 128/60 (82) Pulse Ox 91 95 O2 Delivery High Flow N/C High Flow N/C High Flow N/C High Flow N/C O2 Flow Rate 2.00 2.00 2.00 2.00 01/02/20 01/02/20 01/02/20 01/02/20 10:52 11:00 11:03 11:45 Pulse 75 Resp 20 B/P (MAP) 143/49 (80) Pulse Ox 94 96 O2 Delivery High Flow N/C Room Air Room Air Room Air O2 Flow Rate 2.00 01/02/20 01/02/20 12:00 12:00 Temp 37.0 Pulse 79 Resp 20 B/P (MAP) Pulse Ox 92 O2 Delivery Room Air 01/02/20 00:00 Intake Total 800 ml Output Total 3305 ml Balance -2505 ml Capillary Refill : Less Than 3 Seconds Constitutional: AAO x 3, well-developed, well-nourished HEENT: EOMI, hearing is well preserved; No xanthelasmas are seen Neck: carotid pulses are 2 + bilaterally, with good upstrokes Respiratory: No accessory muscle use; other (good bilat air entry, a few basal crackles (fine and coarse)) Cardiovascular: regular rate-rhythm, S1 and S2, systolic murmur (soft KHANG at card base) Gastrointestinal: No tender; soft; No guarding, No rebound; audible bowel sounds Extremities: No clubbing, No cyanosis, No significant edema Neurologic/Psychiatric: oriented x 3, other (moves all limbs equally) Skin: No rash on exposed areas, No ulcerations on exposed areas Data Review Labs Laboratory Tests 01/01/20 17:53: 01/01/20 17:56: Troponin I 0.511*H 01/01/20 21:11: Glucometer 128H 01/02/20 03:10: Troponin I 0.560*H, White Blood Count 11.9H, Red Blood Count 4.20L, Hemoglobin 1 2.5, Hematocrit 38, Mean Corpuscular Volume 90, Mean Corpuscular Hemoglobin 30, Mean Corpuscular Hemoglobin Concent 33, Red Cell Distribution Width 13.6, Platelet Count 316, Mean Platelet Volume 11.4H, Neutrophils (%) (Auto) 73, Lymphocytes (%) (Auto) 14, Monocytes (%) (Auto) 11, Eosinophils (%) (Auto) 2, Basophils (%) (Auto) 1, Neutrophils # (Auto) 8.7H, Lymphocytes # (Auto) 1.6, Monocytes # (Auto) 1.2H, Eosinophils # (Auto) 0.2, Basophils # (Auto) 0.1, Sodium Level 141, Potassium Level 2.9L, Chloride Level 102, Carbon Dioxide Level 27, Anion Gap 12, Blood Urea Nitrogen 21H, Creatinine 1.22, Estimat Glomerular Filtration Rate 42, BUN/Creatinine Ratio 17, Glucose Level 32*L, Calcium Level 9.1, Corrected Calcium 9.5, Total Bilirubin 1.4H, Aspartate Amino Transf (AST/SGOT) 34, Alanine Aminotransferase (ALT/SGPT) 27, Alkaline Phosphatase 94, Total Protein 7.6, Albumin 3.5, Triglycerides Level 68, Cholesterol Level 124, LDL Cholesterol Direct 63, VLDL Cholesterol 14, HDL Cholesterol 47 01/02/20 03:21: Glucometer 40*L 01/02/20 03:44: Glucometer 157H 01/02/20 05:24: Glucometer 95 01/02/20 11:02: Glucometer 206H Laboratory Tests 01/01/20 12:22 01/02/20 03:10 A/P-Cardiology Assessment/Admission Diagnosis Ac systolic CHF Mild troponin elevation, likely related to CHF (type 2 [place]) Ischemic cardiomyopathy. LVEF 35-40 percent per echo in January 2019 Coronary artery disease, had multiple interventions in 1999 for in [facility] a total of 5 stents, cardiac catheterization done in 2014 showing riev-yt-cmunozbc disease. Most recent cardiac catheterization done January 27, 2019: multiple stents in the proximal, mid and distal LAD with multiple segment of severe in- stent restenosis, successful balloon angioplasty. Mild disease in the distal LAD. Long stent in the mid small nondominant right coronary artery which is patent with mild disease proximal to stent nonobstructive disease. Dominant circumflex artery with mild to moderate disease nonobstructive disease Chronic stable angina Chronic LBBB. QRS 165. Dr Lorenzo has discussed the possibility of biventricular pacemaker Hypertension Diabetes mellitus II, insulin requiring CKD 4, likely due to diabetic nephropathy H/o hypothyroidism Hyperlipidemia, treated with statin therapy Moderate bilateral carotid stenosis per u/s of October 2018 Degenerative joint disease, monitored and managed by primary care physician Discussion and Recomendations * Increase carvedilol * Continue sacubitril/valsartan * D/c NSAIDs in home regimen * Change furosemide to oral * Replenish K * She would like to be managed conservatively. That appears reasonable to do, given CKD-4 and that meds have controlled symptoms * Monitor labs Clinical Quality Measures AMI/AHF: ASA po Prior to arrival: No DVT/VTE Risk/Contraindication: Risk Factor Score Per Nursin RFS Level Per Nursing on Admit: 3=High DANISHA STEEN MD FACP FAC CCDS Jan 02, 2020 12:41
[2020-01-02] MEDS ORDERED: ENOXAPARIN 40 MG/0.4 ML (LOVENOX) SYR SQ SCH (14:00)
--- NOTE | 2020-01-02 14:01 | NUR ---
PT TRANSFERRED TO ROOM 408 VIA W/ STAFF AND PERSONAL BELONGINGS. REPORT GIVEN TO GEOVANNY DAS. NO QUESTIONS/CONCERNS VOICED.
--- NOTE | 2020-01-02 14:10 | NUR ---
TRANSFERRED FROM ICU TO ROOM 408. ALERT AND COOPERATIVE. COLOR ASHEN. RESP. REGULAR. LUNGS DIMINISHED BARBARA. HEART RATE REGULAR AND WEAK. . AT BEDSIDE. TELEMETRY IN PLACE. LEFT AC SALINE LOCK SITE CLEAR. ODEN CATH WITH LT. SHARON URINE. O2 SAT 93 % ON R/A. SCD'S ON. DENIES DISCOMFORT AT THIS TIME.
--- NOTE | 2020-01-02 14:15 | History & Physical-Hospitalist ---
History of Present Illness HPI/Chief Complaint Edie Gallo is an 84-year-old female with past medical history of hypertension, hyperlipidemia, coronary artery disease, hypothyroidism, atrial fibrillation, who presented with shortness of breath. She reports that this has been worsening over the recent weeks. She also reports having chest tightness. She denies any radiation of the chest tightness to her neck or her arm. She denies any associated nausea or vomiting. She denies any associated diaphoresis. She does report orthopnea and PND. She reports increased leg swelling. She has been compliant with her medications including her Lasix. She has not noticed any change in her urination. She does not weigh herself daily. She says that she has been drinking more water lately as well as a eating tomatoes and watermelon with salt added. Source: patient, family Date Seen 01/02/20 Time Seen by a Provider: 11:00 Attending Physician Karyna Yan MD PCP Shaq Brothers MD Referring Physician Date of Admission Jan 01, 2020 at 13:57 Home Medications & Allergies Home Medications Reviewed patient Home Medication Reconciliation performed by pharmacy medication reconciliations manufacturing technician and/or nursing. Patients Allergies have been reviewed. Allergies Allergies Coded Allergies No Known Drug Allergies (Unverified07/19/10) Past Rkzruia-Sszqqm-Eafhrd Hx Past Med/Social Hx: Reviewed Nursing Past Med/Soc Hx Patient Social History 2nd Hand Smoke Exposure: No Recent Foreign Travel: No Contact w/other who traveled: No Recent Hopitalizations: No Immunizations Up To Date Date of Pneumonia Vaccine: Jan 27, 2017 Past Medical History Surgeries: Gallbladder Currently Using CPAP: No (not for 4 years ) Currently Using BIPAP: No Cardiac: Coronary Artery Disease, High Cholesterol, Hypertension : No Musculoskeletal: Arthritis Endocrine: Diabetes, Insulin dep, Hypothyroidsim Psychosocial: Anxiety, Depression History of Blood Disorders: No Adverse Reaction to Blood Hodges: No Review of Systems Constitutional: no symptoms reported EENTM: no symptoms reported Respiratory: orthopnea, short of breath Cardiovascular: chest pain Gastrointestinal: no symptoms reported Genitourinary: no symptoms reported Musculoskeletal: no symptoms reported Skin: no symptoms reported Psychiatric/Neurological: No Symptoms Reported Physical Exam Physical Exam Vital Signs Vital Signs - First Documented 01/01/20 01/01/20 01/01/20 01/01/20 12:35 15:06 15:42 19:29 Temp 37.0 Pulse 96 Resp 29 B/P (MAP) 159/70 Pulse Ox 96 O2 Delivery NIV Bilevel O2 Flow Rate 50.00 FiO2 50 Capillary Refill : Less Than 3 Seconds Height, Weight, BMI Height: 5'2.00" Weight: 129lbs. 0.0oz. 58.384674oj; 22.31 BMI Method: General Appearance: No Apparent Distress, WD/WN HEENT: PERRL/EOMI, Pharynx Normal Neck: Normal Inspection, Supple Respiratory: Lungs Clear, Normal Breath Sounds, No Respiratory Distress Cardiovascular: Regular Rate, Rhythm, No Edema, No Murmur Gastrointestinal: Normal Bowel Sounds, Non Tender, Soft Extremity: Normal Inspection, Non Tender, No Pedal Edema Neurologic/Psychiatric: Alert, No Motor/Sensory Deficits, Normal Mood/Affect Skin: Normal Color, Warm/Dry Results Results/Procedures Labs Laboratory Tests 01/01/20 12:22 01/02/20 03:10 Patient resulted labs reviewed. Imaging: Reviewed Imaging Report Assessment/Plan Admission Diagnosis Acute on chronic heart failure with reduced ejection fraction Admission Status: Inpatient Order (span 2 midnights) Reason for Inpatient Admission: Heart failure requiring further evaluation and treatment Assessment and Plan Acute on chronic heart failure with reduced ejection fraction NSTEMI Coronary artery disease Hypertension Hyperlipidemia Chest x-ray with pulmonary congestion BNP elevated at 1100, unknown baseline, partially elevated due to Entresto Started on IV Lasix Down 2500 mL since admission Transitioned to oral Lasix Troponin elevated, likely type II NSTEMI Continue Coreg and Entresto for heart failure Continue aspirin and Plavix for coronary artery disease Continue Lipitor for hyperlipidemia Type II diabetes mellitus with hypoglycemia Blood sugar down in 30s this morning Started on decreased dose of Levemir last night Decrease to Levemir 6 units nightly Sliding scale insulin A Hypothyroidism Continue levothyroxine DVT prophylaxis: Lovenox Diagnosis/Problems Diagnosis/Problems (1) Acute on chronic HFrEF (heart failure with reduced ejection fraction) Status: Acute (2) NSTEMI (non-ST elevation myocardial infarction) Status: Acute (3) Coronary artery disease Status: Chronic (4) Hypertension Status: Chronic (5) Hyperlipidemia Status: Chronic (6) Hypothyroidism Status: Chronic (7) T2DM (type 2 diabetes mellitus) Status: Chronic Qualifiers: Diabetes mellitus terminologist insulin use: with terminologist use Diabetes mellitus complication status: with hypoglycemia Diabetes mellitus complication detail: without coma Qualified Codes: E11.649 - Type 2 diabetes mellitus with hypoglycemia without coma; Z79.4 - intermediate (current) use of insulin Clinical Quality Measures AMI/AHF: ASA po Prior to arrival: No DVT/VTE Risk/Contraindication: Risk Factor Score Per Nursin RFS Level Per Nursing on Admit: 3=High KARYNA YAN MD Jan 02, 2020 14:15
[2020-01-02] MEDS: FUROSEMIDE 40 MG (LASIX) TAB PO SCH (16:40)
[2020-01-02] MEDS: inSUlin ASPART (NovoLOG) 1 UNIT/0.01 ML (CHARGE PER UNIT) SC SCH (20:33)
[2020-01-02] MEDS: clonazePAM 0.5 MG (KlonoPIN) TAB PO SCH (22:15)
[2020-01-03] VITALS: BP 140/60
[2020-01-03] MEDS: RT-ALBUTEROL/IPRATROPIUM 3 ML (DUONEB) VIAL INH SCH ×2 (02:48→09:44)
[2020-01-03 04:00] VITALS: BP 120/57
[2020-01-03 05:28] LABS: BASOPHILS # (AUTO) 0.1 10^3/uL (0.0-0.1); BASOPHILS % (AUTO) 1 % (0-10); EOSINOPHILS # (AUTO) 0.2 10^3/uL (0.0-0.3); EOSINOPHILS % (AUTO) 2 % (0-10); HEMATOCRIT 36 % (35-52); HEMOGLOBIN 11.6 G/DL (11.5-16.0); LYMPHOCYTES # (AUTO) 1.6 X 10^3 (1.0-4.0); LYMPHOCYTES % (AUTO) 17 % (12-44); MEAN CORPUSCULAR HEMOGLOBIN 29 PG (25-34); MEAN CORPUSCULAR HGB CONC 32 G/DL (32-36); MEAN CORPUSCULAR VOLUME 90 FL (80-99); MEAN PLATELET VOLUME 11.4 FL (7.4-10.4); MONOCYTES # (AUTO) 1.4 X 10^3 (0.0-1.0); MONOCYTES % (AUTO) 15 % (0-12); NEUTROPHILS # (AUTO) 6.1 X 10^3 (1.8-7.8); NEUTROPHILS % (AUTO) 65 % (42-75); PLATELET COUNT 261 10^3/uL (130-400); RED CELL DISTRIBUTION WIDTH 13.6 % (10.0-14.5); WHITE BLOOD COUNT 9.3 10^3/uL (4.3-11.0)
[2020-01-03 05:38] LABS: POTASSIUM 3.3 MMOL/L (3.6-5.0)
[2020-01-03 05:40] LABS: CALCIUM 8.7 MG/DL (8.5-10.1)
[2020-01-03 05:44] LABS: CREATININE SERUM 1.37 MG/DL (0.60-1.30)
[2020-01-03 05:47] LABS: MAGNESIUM 1.7 MG/DL (1.6-2.4)
[2020-01-03] MEDS: inSUlin ASPART (NovoLOG) 1 UNIT/0.01 ML (CHARGE PER UNIT) SC SCH (05:49)
[2020-01-03] MEDS: FUROSEMIDE 40 MG (LASIX) TAB PO SCH (06:26)
[2020-01-03] MEDS: KCL 20 MEQ TAB (K-DUR) PO SCH (06:27)
[2020-01-03] MEDS: LEVOTHYROXINE 125 MCG (LEVOTHROID) TABLET PO SCH (06:27)
[2020-01-03] MEDS: VENlafaxine XR 75 MG (EFFEXOR XR) CAP PO SCH (06:27)
[2020-01-03 08:00] VITALS: BP 124/69
[2020-01-03] MEDS: DIGOXIN 0.125 MG (LANOXIN) TAB PO SCH (08:06)
[2020-01-03] MEDS: SACUBITRIL/VALSARTAN 24/26 MG (ENTRESTO) TABLET PO SCH (08:06)
[2020-01-03] MEDS: buPROPion SR 150 MG (WELLBUTRIN SR) TAB PO SCH (08:06)
[2020-01-03] MEDS: ASPIRIN 81 MG CHEW (CHILDREN'S ASA) PO SCH (08:07)
[2020-01-03] MEDS: CARVEDILOL 12.5 MG (COREG) TABLET PO SCH (08:07)
[2020-01-03] MEDS: CLOPIDOGREL 75 MG (PLAVIX) TABLET PO SCH (08:15)
[2020-01-03] MEDS ORDERED: PATIENT MAY USE OWN MED,SINGLE MED PO SCH (08:30)
[2020-01-03] MEDS ORDERED: ENOXAPARIN 30 MG/0.3 ML (LOVENOX) SYR SC SCH (09:00)
[2020-01-03] MEDS ORDERED: busPIRone 10 MG (BUSPAR) TAB PO SCH (09:00)
[2020-01-03] MEDS ORDERED: KCL 20 MEQ TAB (K-DUR) PO ONE (09:30)
--- NOTE | 2020-01-03 09:36 | Progress Note - Cardiology ---
Cardiology SOAP Progress Note Subjective: Notes significant improvement of stamina and exertional shortness of breath No cp or palp or syncope or shortness of breath at rest No focal weakness No n/v/d A sister who was by her bedside today that Mrs Gallo drinks large quantities of water to keep bowel regulated Objective: I&O/Vital Signs 01/03/20 01/03/20 01/03/20 01/03/20 00:00 01:00 02:49 04:00 Temp 36.7 36.8 Pulse 82 79 67 Resp 19 19 B/P (MAP) 140/60 (86) 120/57 (78) Pulse Ox 92 90 95 O2 Delivery Room Air Room Air Room Air 01/03/20 01/03/20 07:00 08:00 Temp 36.4 Pulse 73 68 Resp 18 B/P (MAP) 124/69 (87) Pulse Ox 93 O2 Delivery Room Air 01/03/20 00:00 Intake Total 1820 ml Output Total 1875 ml Balance -55 ml Weight (Pounds): 129 Weight (Ounces): 0.0 Weight (Calculated Kilograms): 58.434758 Constitutional: AAO x 3, well-developed, well-nourished Respiratory: No accessory muscle use; other (good bilat air entry, a few basal crackles (fine and coarse)) Cardiovascular: regular rate-rhythm, S1 and S2, systolic murmur (soft KHANG at card base) Gastrointestional: No tender; soft; No guarding, No rebound; audible bowel sounds Extremities: No clubbing, No cyanosis, No significant edema Neurologic/Psychiatric: oriented x 3, other (moves all limbs equally) Skin: No rash on exposed areas, No ulcerations on exposed areas Results/Procedures: Labs Laboratory Tests 01/02/20 11:02: Glucometer 206H 01/02/20 16:12: Glucometer 145H 01/02/20 20:30: Glucometer 184H 01/03/20 04:50: White Blood Count 9.3, Red Blood Count 3.98L, Hemoglobin 11.6, Hematocrit 36, Mean Corpuscular Volume 90, Mean Corpuscular Hemoglobin 29, Mean Corpuscular Hemoglobin Concent 32, Red Cell Distribution Width 13.6, Platelet Count 261, Mean Platelet Volume 11.4H, Neutrophils (%) (Auto) 65, Lymphocytes (%) (Auto) 17, Monocytes (%) (Auto) 15H, Eosinophils (%) (Auto) 2, Basophils (%) (Auto) 1, Neutrophils # (Auto) 6.1, Lymphocytes # (Auto) 1.6, Monocytes # (Auto) 1.4H, Eosinophils # (Auto) 0.2, Basophils # (Auto) 0.1, Sodium Level 134L, Potassium Level 3.3L, Chloride Level 96L, Carbon Dioxide Level 28, Anion Gap 10, Blood Urea Nitrogen 17, Creatinine 1.37H, Estimat Glomerular Filtration Rate 37, BUN/Creatinine Ratio 12, Glucose Level 135H, Calcium Level 8.7, Magnesium Level 1.7, Digoxin Level 0.53L 01/03/20 06:05: Glucometer 122H Laboratory Tests 01/01/20 12:22 01/02/20 03:10 01/03/20 04:50 A/P: Assessment: Ac systolic CHF Mild troponin elevation, likely related to CHF (type 2 CT) Ischemic cardiomyopathy. LVEF 35-40 percent per echo in January 2019 Coronary artery disease, had multiple interventions in 1999 for in [facility]'s a total of 5 stents, cardiac catheterization done in 2014 showing [id number] disease. Most recent cardiac catheterization done January 27, 2019: multiple stents in the proximal, mid and distal LAD with multiple segment of severe in- stent restenosis, successful balloon angioplasty. Mild disease in the distal LAD. Long stent in the mid small nondominant right coronary artery which is patent with mild disease proximal to stent nonobstructive disease. Dominant circumflex artery with mild to moderate disease nonobstructive disease Chronic stable angina Chronic LBBB. QRS 165. Dr Lorenzo has discussed the possibility of biventricular pacemaker Hypertension Diabetes mellitus II, insulin requiring CKD 4, likely due to diabetic nephropathy H/o hypothyroidism Hyperlipidemia, treated with statin therapy Moderate bilateral carotid stenosis per u/s of October 2018 Degenerative joint disease, monitored and managed by primary care physician Plan: * I had a long and detailed discussion with her regarding fluid management. She drinks large amounts of water at home to keep bowels regulated. We have advised her thirst to direct water intake and to avoid large quantities of water intake just for perceived health benefits of water * Carvedilol and furosemide increased during this hospitalization * Continue sacubitril/valsartan * D/c NSAIDs in home regimen * Replenish K * She would like to be managed conservatively. That appears reasonable to do, given CKD-4 and that meds have controlled symptoms * Ok to d/c on current cardiac regimen. We have advised closed outpt cardiac f/u (with Dr Lorenzo) * I discussed her case with Dr Urban this am Clinical Quality Measures AMI/AHF: ASA po Prior to arrival: DANISHA Mccann MD FACP FAC CCDS Jan 03, 2020 09:36
--- NOTE | 2020-01-03 10:11 | Discharge Summary ---
Diagnosis/Chief Complaint Date of Admission Jan 01, 2020 at 13:57 Date of Discharge Discharge Date: Jan 03, 2020 Admission Diagnosis Acute on chronic heart failure with reduced ejection fraction Primary Care Shaq Brothers MD Discharge Diagnosis (1) Acute on chronic HFrEF (heart failure with reduced ejection fraction) Status: Acute (2) NSTEMI (non-ST elevation myocardial infarction) Status: Acute (3) Coronary artery disease Status: Chronic (4) Hypertension Status: Chronic (5) Hyperlipidemia Status: Chronic (6) Hypothyroidism Status: Chronic (7) T2DM (type 2 diabetes mellitus) Status: Chronic Discharge Summary Discharge Physical Exam Allergies: Coded Allergies: No Known Drug Allergies (Unverified , 07/19/10) Vitals & I&Os Vital Signs Date Time Temp Pulse Resp B/P (MAP) Pulse Ox O2 Delivery O2 Flow Rate FiO2 01/03/20 13:10 36.6 80 16 149/70 97 Room Air 2.00 01/01/20 23:25 35 General Appearance: No Apparent Distress, WD/WN Cardiovascular: Regular Rate, Rhythm, No Murmur Neurologic/Psychiatric: Alert, Oriented x3 Hospital Course Pt [facility] an 84[facility] who was admitted for acutely decompensated heart failure. She was treated with IV Lasix and did very well. She had an uneventful hospital stay and as transitioned to oral medications. Her home lasix was increased for discharge. She was discharged home in stable condition to follow up this hospital stay with her primary care doctor and with her primary clinical lab specialist Dr Lorenzo. Labs (last 24 hrs) Patient resulted labs reviewed. Pending Labs Imaging: Reviewed Imaging Report Discussion & Recommendations Discharge Planning: >30 minutes discharge planning Discharge Home Medications: Active Scripts Active Furosemide 20 Mg Tablet 40 Mg PO DAILY Reported Claritin (Loratadine) 10 Mg Tablet 10 Mg PO DAILY Vitamin C (Ascorbic Acid) 250 Mg Tab 250 Mg PO 1200 Calcium 500 + Vit D Caplet (Calcium Carbonate/Vitamin D3) 1 Each Tablet 1 Each PO 1200 Tylenol Arthritis (Acetaminophen) 650 Mg Tablet.er 650 Mg PO Q8H PRN Vitamin D-400 (Cholecalciferol (Vitamin D3)) 10 Mcg Tablet 10 Mcg PO 1200 K-Tab ER (Potassium Chloride) 10 Meq Tablet.er 10 Meq PO DAILY Buspirone HCl 10 Mg Tablet 20 Mg PO BID Carbidopa-Levodopa 25-100 Tab (Carbidopa/Levodopa) 1 Each Tablet 2 Each PO TID Miralax (Polyethylene Glycol 3350) 17 Gm Powd.pack 17 Gm PO 1200,HS Amlodipine Besylate 5 Mg Tablet 5 Mg PO DAILY Clopidogrel (Clopidogrel Bisulfate) 75 Mg Tablet 75 Mg PO DAILY Entresto 49 mg-51 mg Tablet (Sacubitril/Valsartan) 1 Each Tablet 1 Tab PO BID Latuda (Lurasidone HCl) 40 Mg Tablet 40 Mg PO DAILY Pantoprazole Sodium 40 Mg Tablet.dr 40 Mg PO HS Novolog Flexpen (Insulin Aspart) 300 Units/3 Ml Solution 4 Units SQ 1200,1800 Carvedilol 25 Mg Tablet 25 Mg PO BID Bupropion Xl (Bupropion HCl) 150 Mg Tab.er.24h 450 Mg PO DAILY TAKES 3 150MG TABLETS DAILY Digoxin 125 Mcg Tablet 125 Mcg PO DAILY Centrum Chewables Adults Tab (Multivit-Min/Iron/Folic/Vit K1) 1 Each Tab.chew 1 Each PO 1200 Tresiba Flextouch U-100 (Insulin Degludec) 100 Unit/1 Ml Insuln.pen 20 Unit SQ DAILY Novolog Flexpen (Insulin Aspart) 300 Units/3 Ml Solution 14 Units SQ DAILY 14 UNITS IN THE MORNING AND 4 UNITS AT NOON AND BEDTIME Atorvastatin Calcium 80 Mg Tablet 80 Mg PO DAILY Venlafaxine HCl ER (Venlafaxine HCl) 150 Mg Cap.er.24h 150 Mg PO DAILY Clonazepam 0.5 Mg Tablet 0.25 Mg PO DAILY TAKES HALF A OF TABLET ONCE DAILY Aspir 81 (Aspirin) 81 Mg Tablet.dr 81 Mg PO HS Synthroid (Levothyroxine Sodium) 125 Mcg Tablet 125 Mcg PO HS Instructions to patient/family Please see electronic discharge instructions given to patient. 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
--- NOTE | 2020-01-03 11:03 | Discharge Inst-Simple/Standard ---
Discharge Inst-Standard Patient Instructions/Follow Up Plan of Care/Instructions/FU: Please continue to take your medications as written. Please follow up with your primary care doctor, Dr Brothers, and with your terrazzo worker apprentice, Dr Lorenzo, within the next 1-2 weeks. Activity as Tolerated: Yes Discharge Diet: Low Sodium Diet, Cardiac Diet Return to The Hospital For: Chest pain, shortness of breath, leg swelling or weight gain, heart racing, if you feel you are getting worse. ZACHARY MITCHELL MD Jan 03, 2020 11:03
--- NOTE | 2020-01-03 11:25 | Physical Therapy Evaluation ---
PT Evaluation-General Medical Diagnosis Admission Date Jan 01, 2020 at 13:57 Medical Diagnosis: CHF exacerbation Onset Date: Jan 01, 2020 Therapy Diagnosis Therapy Diagnosis: debility Height/Weight Height (Feet): 5 Height (Inches): 2.00 Weight (Pounds): 129 Weight (Ounces): 0.0 Precautions Precautions/Isolations: Fall Prevention, Standard Precautions Weight Bear Status Right Lower Extremity: Right Weight Bearing/Tolerated Left Lower Extremity: Left Weight Bearing/Tolerated Referral Physician: Wilmar Reason for Referral: Evaluation/Treatment Medical History Pertinent Medical History: CAD, DM, Heart Failure, HTN, Hypothroidism Current History ER secondary to chest tightness and SOA Reviewed History: Yes Social History Home: Single Level Current Living Status: Spouse Entry Into Home: Stairs With Railing PT Steps Into Home: 2 Prior Prior Level of Function SCALE: Activities may be completed with or without assistive devices. 8-Jybylulyyi-okqltwh completes the activity by him/herself with no assistance from a helper. 5-Set-up or Clean-up Assistance-helper sets up or cleans up; patient completes activity. [place] assists only prior to or following the activity. 4-Supervision or Touching Assistance-helper provides verbal cues and/or touching/steadying and/or contact guard assistance as patient completes activity. Assistance may be provided throughout the activity or intermittently. 3-Partial/Moderate Assistance-helper does LESS THAN HALF the effort. [place] lifts, holds or supports trunk or limbs, but provides less than half the effort. 2-Substantial/Maximal Assistance-helper does MORE THAN HALF the effort. [place] lifts or holds trunk or limbs and provides more than half the effort. 3-Docdaxmkd-rbpvzp does ALL the effort. Patient does none of the effort to complete the activity. Or, the assistance of 2 or more helpers is required for the patient to complete the activity. If activity was not attempted, code reason: 7-Patient Refused. 9-Not Applicable-not attempted and the patient did not perform the activity before the current illness, exacerbation or injury. 10-Not Attempted due to Environmental Limitations-(lack of equipment, weather restraints, etc.). 88-Not Attempted due to Medical Conditions or Safety Concerns. Bed Mobility: 6 Transfers (B,C,W/C): 6 Gait: 6 Stairs: 5 Indoor Mobility (Ambulation): Independent Stairs: Independent Prior Devices Use: Walker PT Evaluation-Current Subjective Patient agrees to PT. She report she is going home today. Sister present and confirms. Pain Numeric Pain Scale: 0-No Pain Location: No Pain Reported Objective Patient Orientation: Normal For Age Attachments: Flower Catheter ROM/Strength ROM Lower Extremities bilateral LE WFL Strength Lower Extremities 4/5 grossly bilateral LE Integumentary/Posture Integumentary refer to nursing notes Bowel Incontinence: No Bladder Incontinence: Flower Cath Posture WFL Neuromuscular (Tone, Coordination, Reflexes) grossly intact Sensory Vision: Wears Glasses Hearing: Functional Sensation Right Lower Extremit: Intact Sensation Left Lower Extremity: Intact Transfers Roll Left to Right (QC): 6 Sit to Lying (QC): 6 Lying to Sitting/Side of Bed(Q: 6 Sit to Stand (QC): 6 Chair/Sxb-sc-Pzztc Xfer(QC): 6 Gait Does the Patient Walk?: Yes Mode of Locomotion: Walk Anticipated Mode of Locomotion: Walk Walk 10 feet (QC): 6 Walk 50 ft with 2 Turns(QC): 6 Walk 150 ft (QC): 6 Gait Assistive Device: FWW Comments/Gait Description safe and functional with no deviation Balance Sitting Static: Normal Sitting Dynamic: Normal Standing Static: Normal Standing Dynamic: Normal Assessment/Needs 84 y.o. female, is currently at [facility] with all gross motor skills and will dismiss to home on this date. Rehab Potential: Fair PT Plan Treatment/Plan Treatment Plan: Discontinue PT, goals met Treatment Duration: Jan 03, 2020 Frequency: 1 time per week Estimated Hrs Per Day: .25 hour per day Patient and/or Family Agrees t: Yes Time/GCodes Time In: 1026 Time Out: 1036 Total Billed Treatment Time: 10 Total Billed Treatment 1 visit EVLowC 10 min VALENCIA MOMIN PT Jan 03, 2020 11:24
[2020-01-03 11:58] VITALS: BP 149/70
[2020-01-03] MEDS ORDERED: PANT40TA3 PO (12:06)
[2020-01-03] MEDS ORDERED: LURA40TA3 PO (12:06)
[2020-01-03] MEDS ORDERED: SACU1TAB7 PO (12:06)
[2020-01-03] MEDS ORDERED: BUPR150T7 PO (12:06)
[2020-01-03] MEDS ORDERED: CLOP75TA28 PO (12:06)
[2020-01-03] MEDS ORDERED: CARV25TA PO (12:06)
[2020-01-03] MEDS ORDERED: AMLO5TAB9 PO (12:06)
[2020-01-03] MEDS ORDERED: INSU100I14 SQ (12:06)
[2020-01-03] MEDS ORDERED: BUSP10TA95 PO (12:10)
[2020-01-03] MEDS ORDERED: POLY17PO6 PO (12:10)
[2020-01-03] MEDS ORDERED: CARB1TAB19 PO (12:10)
[2020-01-03] MEDS ORDERED: POTA10TA PO (12:15)
[2020-01-03] MEDS ORDERED: ACET-2650 PO (12:18)
[2020-01-03] MEDS ORDERED: ASCO250T16 PO (12:18)
[2020-01-03] MEDS ORDERED: CALC-78 PO (12:18)
[2020-01-03] MEDS ORDERED: LORA10TA76 PO (12:18)
[2020-01-03] MEDS ORDERED: CHOL400T29 PO (12:18)
--- NOTE | 2020-01-03 12:19 | NUR ---
I TALKED WITH THE PATIENT AND HER SISTER, WENT THROUGH THE MED LIST THEY PROVIDED, CALLED THEIR MAIN [facility] HERE IN [place], AND WENT THROUGH THE EXTERNAL MED HISTORY TO COMPLETE THE MED REC. 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
[2020-01-03] MEDS ORDERED: FURO20TA4 PO (12:47)
[2020-01-03 13:10] VITALS: BP 149/70
--- NOTE | 2020-01-03 15:27 | NUR ---
"RD ASSESSMENT PMHx: HLD; HTN; CAD; hypothyroidism; afib; DM; PT INTERACTION: Pt was awake and pleasant during nutrition assessment. Pt states current appetite is good. Note avg PO intake 50-75% x2d, per chart review. Pt following regular diet at home, and has no issues with chewing/swallowing food. Pt states no recent issues with nausea, vomiting, or constipation. Pt states some recent issues with constipation. Note last BM was 01/01, and pt not currently on bowel regimen per chart review. Pt states no recent wt changes. Note unable to determine recent wt hx, per chart review. Pt states current DM management is pretty good. Note unable to determine recent HbA1c, per chart review. ABNORMAL NUTRITION-RELATED LAB VALUES LOW: Na 134; K 3.3; Cl 96 HIGH: cr 1.37; glu 135 Est. kcal needs: 1500 kcal | 25 kcal/kg Est. Pro needs: 60 g Pro | 1.0 g Pro/kg PES STATEMENT: Inadequate oral intake (NI-2.1) related to constipation as evidenced by pt interview | avg PO intake 50-75% x2d INTERVENTION: Continue with current diet order of 2000mg Na diet. Pt may benefit from consistent CHO restriction if blood glucose levels become elevated. Discussed and reinforced DM management education on portion control and CHO counting. Pt verbalized understanding of material presented. Will continue to follow and reassess as pt needs, intake, and status change. MONITOR/EVALUATE: PO Intake; Plan of Care; Hydration Status; Weight Status; Lab Values Yasmani Moon, MS, RD, LD"
== END 2020-01-03 13:12 | disposition home or self-care (01) | DRG 280 ==
LOC: EDUNIT# 12:01 → ER 12:03 → ICU 13:57 → 4TH 01-02 14:00
PROVIDERS: ADMIT Internal Medicine; ATTEND Internal Medicine
DX: I13.0 Hypertensive heart and chronic kidney disease with heart failure and stage 1 through stage 4 chronic kidney disease, or unspecified chronic kidney disease (principal); I50.23 Acute on chronic systolic (congestive) heart failure; I21.A1 Myocardial infarction type 2; N18.4 Chronic kidney disease, stage 4 (severe); I25.5 Ischemic cardiomyopathy; I25.10 Atherosclerotic heart disease of native coronary artery without angina pectoris; I25.110 Atherosclerotic heart disease of native coronary artery with unstable angina pectoris; I44.7 Left bundle-branch block, unspecified; E11.22 Type 2 diabetes mellitus with diabetic chronic kidney disease; M19.90 Unspecified osteoarthritis, unspecified site; Z95.0 Presence of cardiac pacemaker
CPT/HCPCS: 36415; 71045; 80048; 80053; 80061; 80162; 82962; 83036; 83735; 83874; 83880; 84484; 85007; 85025; 85027; 85379; 85610; 85730; 93005; 93306; 94640; 94660

== ENCOUNTER 2020-01-29 12:37 | Observation (INO) | payer MEDICARE ==
[~2020-01-29] VITALS: Ht 160 cm; Wt 55.9 kg
[~2020-01-29 12:37] MED LIST changes: +ACET-2650 PO; +AMLO5TAB9 PO; +ASCO250T16 PO; +BUPR150T7 PO; +BUSP10TA95 PO; +CALC-78 PO; +CARB1TAB19 PO; +CARV25TA PO; +CHOL400T29 PO; +LORA10TA76 PO; +LURA40TA3 PO; +PANT40TA3 PO; +POLY17PO6 PO; +POTA10TA PO
[2020-01-29] MEDS ORDERED: D5 NS 1000 ML IV SOLUTION 1,000 ML IV ONE (12:42)
[2020-01-29 12:52] LABS: BASOPHILS # (AUTO) 0.1 10^3/uL (0.0-0.1); BASOPHILS % (AUTO) 1 % (0-10); EOSINOPHILS # (AUTO) 0.2 10^3/uL (0.0-0.3); EOSINOPHILS % (AUTO) 2 % (0-10); HEMATOCRIT 36 % (35-52); HEMOGLOBIN 11.9 G/DL (11.5-16.0); LYMPHOCYTES # (AUTO) 1.1 X 10^3 (1.0-4.0); LYMPHOCYTES % (AUTO) 14 % (12-44); MEAN CORPUSCULAR HEMOGLOBIN 30 PG (25-34); MEAN CORPUSCULAR HGB CONC 33 G/DL (32-36); MEAN CORPUSCULAR VOLUME 89 FL (80-99); MEAN PLATELET VOLUME 11.2 FL (7.4-10.4); MONOCYTES # (AUTO) 0.8 X 10^3 (0.0-1.0); MONOCYTES % (AUTO) 11 % (0-12); NEUTROPHILS # (AUTO) 5.4 X 10^3 (1.8-7.8); NEUTROPHILS % (AUTO) 72 % (42-75); PLATELET COUNT 239 10^3/uL (130-400); WHITE BLOOD COUNT 7.5 10^3/uL (4.3-11.0)
--- NOTE | 2020-01-29 12:52 | ED General ---
General Chief Complaint: Glucose Problems Stated Complaint: HYPOGLYCEMIA Nursing Triage Note: Patient brought in by EMS, as her reports patient was having a hypoglycemic emergency. EMS reported that glucose was 20 on their arrival. Patient alert and oriented on arrival to ER. Nursing Sepsis Screen: No Definite Risk Source of Information: Patient, EMS Exam Limitations: Other History of Present Illness Date Seen by Provider: Jan 29, 2020 Time Seen by Provider: 12:32 Initial Comments Patient arrives the ER by EMS from her house where she was noted to be having a hypoglycemic episode. She takes Tresiba and usually 4-14 units of short-acting insulin. She notes that her sugars lately have been normal and she's not had any low or significantly high. She cannot recall her latest fasting blood sugars nor can she recall her A1c. She denies having any pain nausea fever chills, dysuria, diarrhea. She says 3 weeks ago she was in the hospital for a heart attack and had a stent placed. She follows with Dr. Iglesias and Dr. Tello. EMS reports when they arrived her blood sugar was 20 and after getting some D5 her sugar was up to 99. They said she had normal vital signs and was not mentating normally but improving by the time they arrived to the hospital. Allergies and Home Medications Allergies Coded Allergies: No Known Drug Allergies (Unverified , 07/19/10) Home Medications Acetaminophen 650 Mg Tablet.er, 650 MG PO Q8H PRN for PAIN-MILD (1-4), (Reported) Amlodipine Besylate 5 Mg Tablet, 5 MG PO DAILY, (Reported) Ascorbic Acid 250 Mg Tab, 250 MG PO 1200, (Reported) Aspirin 81 Mg Tablet.dr, 81 MG PO HS, (Reported) Atorvastatin Calcium 80 Mg Tablet, 80 MG PO DAILY, (Reported) Bupropion HCl 150 Mg Tab.er.24h, 450 MG PO DAILY, (Reported) TAKES 3 150MG TABLETS DAILY Buspirone HCl 10 Mg Tablet, 20 MG PO BID, (Reported) Calcium Carbonate/Vitamin D3 1 Each Tablet, 1 EACH PO 1200, (Reported) Carbidopa/Levodopa 1 Each Tablet, 2 EACH PO TID, (Reported) Carvedilol 25 Mg Tablet, 25 MG PO BID, (Reported) Cholecalciferol (Vitamin D3) 10 Mcg Tablet, 10 MCG PO 1200, (Reported) Clonazepam 0.5 Mg Tablet, 0.25 MG PO DAILY, (Reported) TAKES HALF A OF TABLET ONCE DAILY Clopidogrel Bisulfate 75 Mg Tablet, 75 MG PO DAILY, (Reported) Digoxin 125 Mcg Tablet, 125 MCG PO DAILY, (Reported) Furosemide 20 Mg Tablet, 40 MG PO DAILY Prescribed by: ZACHARY MITCHELL on 01/03/20 1247 Insulin Aspart 300 Units/3 Ml Solution, 14 UNITS SQ DAILY, (Reported) 14 UNITS IN THE MORNING AND 4 UNITS AT NOON AND BEDTIME Insulin Aspart 300 Units/3 Ml Solution, 4 UNITS SQ 1200,1800, (Reported) Insulin Degludec 100 Unit/1 Ml Insuln.pen, 20 UNIT SQ DAILY, (Reported) Levothyroxine Sodium 125 Mcg Tablet, 125 MCG PO HS, (Reported) Loratadine 10 Mg Tablet, 10 MG PO DAILY, (Reported) Lurasidone HCl 40 Mg Tablet, 40 MG PO DAILY, (Reported) Multivit-Min/Iron/Folic/Vit K1 1 Each Tab.chew, 1 EACH PO 1200, (Reported) Pantoprazole Sodium 40 Mg Tablet.dr, 40 MG PO HS, (Reported) Polyethylene Glycol 3350 17 Gm Powd.pack, 17 GM PO 1200,HS, (Reported) Potassium Chloride 10 Meq Tablet.er, 10 MEQ PO DAILY, (Reported) Sacubitril/Valsartan 1 Each Tablet, 1 TAB PO BID, (Reported) Venlafaxine HCl 150 Mg Cap.er.24h, 150 MG PO DAILY, (Reported) Patient Home Medication List Home Medication List Reviewed: Yes Review of Systems Review of Systems Constitutional: see HPI; No chills, No diaphoresis EENTM: No ear discharge, No ear pain Respiratory: No cough, No short of breath Cardiovascular: No chest pain, No edema; Hx of Intervention; No palpitations, No syncope; vascular heart diseas Gastrointestinal: No abdominal pain, No constipation, No diarrhea, No nausea Genitourinary: No discharge, No dysuria Musculoskeletal: No back pain, No joint pain Skin: No pruritus, No rash All Other Systems Reviewed Negative Unless Noted: Yes Past Wagyvqc-Uyimsl-Funsqt Hx Patient Social History Alcohol Use: Denies Use Recreational Drug Use: No 2nd Hand Smoke Exposure: No Recent Foreign Travel: No Contact w/Someone Who Travel: No Recent Infectious Disease Expo: No Recent Hopitalizations: No Immunizations Up To Date Date of Pneumonia Vaccine: Jan 27, 2017 Past Medical History Surgeries: Yes (Hi) Gallbladder Respiratory: No Sleep Apnea Currently Using CPAP: No (not for 4 years ) Currently Using BIPAP: No Cardiac: Yes Coronary Artery Disease, High Cholesterol, Hypertension Neurological: No Sexually Transmitted Disease: No HIV/AIDS: No Genitourinary: No Gastrointestinal: No Musculoskeletal: Yes Arthritis Endocrine: Yes Diabetes, Insulin dep, Hypothyroidsim Cancer: No Psychosocial: Yes Anxiety, Depression Integumentary: No Blood Disorders: No Adverse Reaction/Blood Tranf: No Physical Exam Vital Signs Vital Signs - First Documented 01/29/20 12:41 Temp 36.6 Pulse 67 Resp 18 B/P (MAP) 141/58 (85) Pulse Ox 97 O2 Delivery Room Air Capillary Refill : Less Than 3 Seconds Height, Weight, BMI Height: 5'2.00" Weight: 129lbs. 0.0oz. [id number]; 24.00 BMI Method: General Appearance: WD/WN, Mild Distress Eyes: Bilateral Eye Normal Inspection, Bilateral Eye PERRL, Bilateral Eye EOMI HEENT: PERRL/EOMI, TMs Normal, Normal ENT Inspection; No Pharynx Normal, No Moist Mucous Membranes Neck: Full Range of Motion, Normal Inspection Respiratory: Lungs Clear, Normal Breath Sounds, No Accessory Muscle Use, No Respiratory Distress Cardiovascular: Regular Rate, Rhythm, No Murmur, Normal Peripheral Pulses Gastrointestinal: Normal Bowel Sounds, Non Tender, Soft Back: Normal Inspection, No Vertebral Tenderness Extremity: Normal Capillary Refill, Normal Inspection, Non Tender, No Calf Tenderness, No Pedal Edema Neurologic/Psychiatric: Alert, Oriented x3, No Motor/Sensory Deficits, Normal Mood/Affect, 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 Says that she routinely does take him) Skin: Normal Color, Damp Progress/Results/Core Measures Suspected Sepsis Recent Fever Within 48 Hours: No Infection Criteria Present: None New/Unexplained Altered Menta: No Sepsis Screen: No Definite Risk SIRS Temperature: Pulse: 67 Respiratory Rate: 18 Laboratory Tests 01/29/20 12:40: White Blood Count 7.5 Blood Pressure 141 /58 Mean: 85 Laboratory Tests 01/29/20 12:40: Creatinine 1.41H, INR Comment 1.1, Platelet Count 239, Total Bilirubin 0.5 Results/Orders Lab Results Laboratory Tests Test 01/29/20 12:40 01/29/20 14:00 Range/Units White Blood Count 7.5 4.3-11.0 10^3/uL Red Blood Count 4.04 L 4.35-5.85 10^6/uL Hemoglobin 11.9 11.5-16.0 G/DL Hematocrit 36 35-52 % Mean Corpuscular Volume 89 80-99 FL Mean Corpuscular Hemoglobin 30 25-34 PG Mean Corpuscular Hemoglobin Concent 33 32-36 G/DL Red Cell Distribution Width 12.7 10.0-14.5 % Platelet Count 239 130-400 10^3/uL Mean Platelet Volume 11.2 H 7.4-10.4 FL Neutrophils (%) (Auto) 72 42-75 % Lymphocytes (%) (Auto) 14 12-44 % Monocytes (%) (Auto) 11 0-12 % Eosinophils (%) (Auto) 2 0-10 % Basophils (%) (Auto) 1 0-10 % Neutrophils # (Auto) 5.4 1.8-7.8 X 10^3 Lymphocytes # (Auto) 1.1 1.0-4.0 X 10^3 Monocytes # (Auto) 0.8 0.0-1.0 X 10^3 Eosinophils # (Auto) 0.2 0.0-0.3 10^3/uL Basophils # (Auto) 0.1 0.0-0.1 10^3/uL Prothrombin Time 14.3 12.2-14.7 SEC INR Comment 1.1 0.8-1.4 Activated Partial Thromboplast Time 48 H 24-35 SEC Sodium Level 137 135-145 MMOL/L Potassium Level 3.2 L 3.6-5.0 MMOL/L Chloride Level 99 98-107 MMOL/L Carbon Dioxide Level 30 21-32 MMOL/L Anion Gap 8 5-14 MMOL/L Blood Urea Nitrogen 22 H 7-18 MG/DL Creatinine 1.41 H 0.60-1.30 MG/DL Estimat Glomerular Filtration Rate 36 BUN/Creatinine Ratio 16 Glucose Level 139 H 70-105 MG/DL Calcium Level 8.9 8.5-10.1 MG/DL Corrected Calcium 9.3 8.5-10.1 MG/DL Magnesium Level 2.0 1.6-2.4 MG/DL Total Bilirubin 0.5 0.1-1.0 MG/DL Aspartate Amino Transf (AST/SGOT) 29 5-34 U/L Alanine Aminotransferase (ALT/SGPT) 7 0-55 U/L Alkaline Phosphatase 77 40-136 U/L Myoglobin 103.0 H 10.0-92.0 NG/ML Troponin I 0.036 H <0.028 NG/ML Total Protein 7.5 6.4-8.2 GM/DL Albumin 3.5 3.2-4.5 GM/DL Urine Color YELLOW Urine Clarity SL CLOUDY Urine pH 7.0 5-9 Urine Specific [place] 1.015 L 1.016-1.022 Urine Protein NEGATIVE NEGATIVE Urine Glucose (UA) NEGATIVE NEGATIVE Urine Ketones NEGATIVE NEGATIVE Urine Nitrite NEGATIVE NEGATIVE Urine Bilirubin NEGATIVE NEGATIVE Urine Urobilinogen 0.2 < = 1.0 MG/DL Urine Leukocyte Esterase TRACE H NEGATIVE Urine RBC (Auto) NEGATIVE NEGATIVE Urine RBC RARE /HPF Urine WBC NONE /HPF Urine Squamous Epithelial Cells NONE /HPF Urine Crystals NONE /LPF Urine Bacteria TRACE /HPF Urine Casts NONE /LPF Urine Mucus NEGATIVE /LPF Urine Culture Indicated NO My Orders Orders - STEPHANIEINOCENCIO J D5 Ns 1000 Ml Iv Solution (Dextrose 5%/0 (01/29/20 13:00) D5 Ns 1000 Ml Iv Solution (Dextrose 5%/0 (01/29/20 12:42) Cbc With Automated Diff (01/29/20 12:46) Magnesium (01/29/20 12:46) Chest 1 View, Ap/Pa Only (01/29/20 12:46) Ekg Tracing (01/29/20 12:46) Comprehensive Metabolic Panel (01/29/20 12:46) Myoglobin Serum (01/29/20 12:46) Protime With Inr (01/29/20 12:46) Partial Thromboplastin Time (01/29/20 12:46) O2 (01/29/20 12:46) Monitor-Rhythm Ecg Trace Only (01/29/20 12:46) Ed Iv/Invasive Line Start (01/29/20 12:46) Troponin I (01/29/20 12:46) Aspirin Chewable Tablet (Baby Aspirin Ch (01/29/20 13:00) Ua Culture If Indicated (01/29/20 12:46) Potassium Cl 10meq/50ml Ivpb (Kcl 10 Meq (01/29/20 13:30) Accucheck Stat ONCE (01/29/20 13:26) General/Regular (01/29/20 Lunch) Potassium Chloride (Tablet) (K Dur Table (01/29/20 13:30) Clopidogrel Tablet (Plavix Tablet) (01/29/20 13:45) Medications Given in ED Current Medications Medications Dose Ordered Sig/Amy Route Start Time Stop Time Status Last Admin Dose Admin Aspirin 324 mg ONCE ONCE PO 01/29/20 13:00 01/29/20 13:01 DC 01/29/20 12:53 324 MG Clopidogrel Bisulfate 75 mg ONCE ONCE PO 01/29/20 13:45 01/29/20 13:46 DC 01/29/20 13:59 75 MG Potassium Chloride 20 meq ONCE ONCE PO 01/29/20 13:30 01/29/20 13:31 DC 01/29/20 13:59 20 MEQ Vital Signs/I&O 01/29/20 12:41 Temp 36.6 Pulse 67 Resp 18 B/P (MAP) 141/58 (85) Pulse Ox 97 O2 Delivery Room Air Capillary Refill : Less Than 3 Seconds Blood Pressure Mean: 85 Point of Care Testing Finger Stick Blood Glucose: 138 Blood Glucose Action Taken: RN notified Progress Note #1: Time: 13:21 Progress Note Started some D5 normal saline and will check labs, urinalysis, EKG and troponin. Progress Note #2: Time: 14:26 Progress Note No source of infection discovered. Patient still in no acute distress. Plan to observe her overnight for hypoglycemia of unknown origin. Perhaps She took too much insulin but she denies anorexia, dental pain etc. Repeat blood sugar 81 despite D5 sugar water. ECG Initial ECG Impression Date: Jan 29, 2020 Initial ECG Impression Time: 12:45 Initial ECG Rate: 68 Initial ECG Rhythm: Normal Sinus Initial ECG Intervals: QT (514) Initial ECG Impression: Nonspecific Changes Comment Left bundle branch block. Negative for any Sgarbossa's criteria. No clinically relevant ST elevation or depression. Diagnostic Imaging Diagonstic Imaging: Xray Plain Films/CT/US/NM/MRI: chest (1v) Comments No acute cardiopulmonary process on one view chest x-ray. Reviewed: Reviewed by Me Consults Consults : Consulting Physician: DANISHA IGLESIAS MD FACP FAC CCDS Consults Notes He recommends that she continue to take her Plavix and aspirin daily. Departure Communication (Admissions) Time/Spoke to Admitting Phy: 14:20 Discussed the case with Dr. Hooper and he agrees to observe the patient for hypoglycemia. Impression Primary Impression: Hypoglycemia associated with diabetes Additional Impression: Status post coronary artery stent placement Disposition: ADMITTED INPATIENT Condition: Stable Admissions Decision to Admit Reason: Admit from ER (General) Decision to Admit/Date: Jan 29, 2020 Time/Decision to Admit Time: 13:15 Departure-Patient Inst. Referrals: ANGELA TELLO MD (PCP/Family) Primary Care Physician INOCENCIO BROWN Jan 29, 2020 12:52
[2020-01-29] MEDS ORDERED: D5 NS 1000 ML IV SOLUTION 1,000 ML IV SCH (13:00)
[2020-01-29] MEDS ORDERED: ASPIRIN 81 MG CHEW (CHILDREN'S ASA) PO ONE (13:00)
[2020-01-29 13:02] LABS: INR 1.1 (0.8-1.4); PROTHROMBIN TIME PATIENT 14.3 SEC (12.2-14.7)
[2020-01-29 13:16] LABS: ALBUMIN 3.5 GM/DL (3.2-4.5); BILIRUBIN,TOTAL 0.5 MG/DL (0.1-1.0); CALCIUM 8.9 MG/DL (8.5-10.1); CREATININE SERUM 1.41 MG/DL (0.60-1.30); POTASSIUM 3.2 MMOL/L (3.6-5.0); TOTAL PROTEIN 7.5 GM/DL (6.4-8.2)
[2020-01-29] MEDS ORDERED: KCL 20 MEQ TAB (K-DUR) PO ONE (13:30)
[2020-01-29] MEDS ORDERED: POTASSIUM CL 10MEQ/50ML IVPB 50 ML IV ONE (13:30)
[2020-01-29] MEDS ORDERED: CLOPIDOGREL 75 MG (PLAVIX) TABLET PO ONE (13:45)
--- NOTE | 2020-01-29 13:59 | Diagnostic Imaging Report ---
EXAM: CHEST 1 VIEW, AP/PA ONLY INDICATION: Chest pain. Low blood sugar. COMPARISON: Chest radiograph 01/02/2020. FINDINGS: Normal heart size and central pulmonary vascularity. Calcified aorta. No focal pulmonary opacity, pleural effusion or pneumothorax. No acute osseous findings. IMPRESSION: No acute cardiopulmonary findings. Dictated by: Dictated on workstation # [id number]
[2020-01-29 14:04] LABS: BILIRUBIN,URINE NEGATIVE (NEGATIVE); CLARITY,URINE SL CLOUDY; COLOR,URINE YELLOW; GLUCOSE, URINE (UA) NEGATIVE (NEGATIVE); KETONES,URINE NEGATIVE (NEGATIVE); LEUKOCYTE ESTERASE ,URINE TRACE (NEGATIVE); NITRITE,URINE NEGATIVE (NEGATIVE); PROTEIN,URINE NEGATIVE (NEGATIVE)
[2020-01-29 14:16] LABS: BACTERIA,URINE TRACE /HPF; RBC,URINE RARE /HPF
[2020-01-29 15:07] VITALS: BP 149/63
[2020-01-29 15:11] VITALS: BP 149/63
[2020-01-29] MEDS ORDERED: ACETAMINOPHEN 500 MG TAB (TYLENOL) PO PRN (15:45)
[2020-01-29] MEDS ORDERED: ONDANSETRON 4 MG/2 ML (SDV) Z0FRAN IV PRN (15:45)
[2020-01-29] MEDS: D5 NS 1000 ML IV SOLUTION 1,000 ML IV SCH (15:57)
[2020-01-29] MEDS: inSUlin ASPART (NovoLOG) 1 UNIT/0.01 ML (CHARGE PER UNIT) SC SCH ×2 (15:57→22:15)
[2020-01-29 20:26] VITALS: BP 147/61
[2020-01-29] MEDS: KCL 20 MEQ TAB (K-DUR) PO SCH (22:03)
[2020-01-30 00:09] VITALS: BP 134/54
[2020-01-30 00:55] LABS: BASOPHILS % (AUTO) 0 % (0-10); EOSINOPHILS # (AUTO) 0.1 10^3/uL (0.0-0.3); EOSINOPHILS % (AUTO) 1 % (0-10); HEMATOCRIT 33 % (35-52); HEMOGLOBIN 10.7 G/DL (11.5-16.0); LYMPHOCYTES # (AUTO) 1.6 X 10^3 (1.0-4.0); LYMPHOCYTES % (AUTO) 20 % (12-44); MEAN CORPUSCULAR HEMOGLOBIN 29 PG (25-34); MEAN CORPUSCULAR HGB CONC 33 G/DL (32-36); MEAN CORPUSCULAR VOLUME 89 FL (80-99); MEAN PLATELET VOLUME 11.1 FL (7.4-10.4); MONOCYTES % (AUTO) 13 % (0-12); NEUTROPHILS # (AUTO) 5.2 X 10^3 (1.8-7.8); NEUTROPHILS % (AUTO) 66 % (42-75); PLATELET COUNT 222 10^3/uL (130-400); WHITE BLOOD COUNT 7.9 10^3/uL (4.3-11.0)
[2020-01-30 01:11] LABS: ALBUMIN 3.1 GM/DL (3.2-4.5); BILIRUBIN,TOTAL 0.5 MG/DL (0.1-1.0); CALCIUM 8.3 MG/DL (8.5-10.1); CREATININE SERUM 1.39 MG/DL (0.60-1.30); POTASSIUM 3.5 MMOL/L (3.6-5.0); TOTAL PROTEIN 6.6 GM/DL (6.4-8.2)
[2020-01-30] MEDS: D5 NS 1000 ML IV SOLUTION 1,000 ML IV SCH ×2 (02:04→11:31)
[2020-01-30 04:00] VITALS: BP 138/66
[2020-01-30] MEDS: inSUlin ASPART (NovoLOG) 1 UNIT/0.01 ML (CHARGE PER UNIT) SC SCH ×2 (06:49→11:31)
[2020-01-30] MEDS: KCL 20 MEQ TAB (K-DUR) PO SCH (07:49)
[2020-01-30 07:50] VITALS: BP 138/56
[2020-01-30] MEDS ORDERED: CLOPIDOGREL 75 MG (PLAVIX) TABLET PO SCH (09:00)
[2020-01-30] MEDS ORDERED: ASPIRIN 81 MG CHEW (CHILDREN'S ASA) PO SCH (09:00)
[2020-01-30] MEDS ORDERED: INSU100I14 SQ (11:50)
[2020-01-30] MEDS ORDERED: INSU100I32 SQ (11:50)
[2020-01-30 13:04] VITALS: BP 138/56
--- NOTE | 2020-02-08 17:27 | Discharge Summary ---
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 Her most recent hemoglobin A1c was 5.4 percent. It appears that her blood sugars are being too well-controlled. She has likely been having intermittent hypoglycemia for some time at home. She was instructed to decrease her long-acting insulin from 20 units to 10 units daily. She had been taking NovoLog 14 units in the morning and 4 units with lunch and dinner. She was instructed to decrease this to 3 units with meals. She will also do a sliding scale with meals and at bedtime. She was instructed to follow-up with her primary care physician. She was also instructed to keep a log of her blood sugars. Labs and Pending Lab Test: Home Meds Active Tresiba Flextouch U-100 (Insulin Degludec) 100 Unit/1 Ml Insuln.pen 10 Unit SQ DAILY 30 Days Novolog Flexpen (Insulin Aspart) 300 Units/3 Ml Solution 3 Units SQ DAILY 30 Days 3 UNITS WITH MEALS PLUS SLIDING SCALE Furosemide 20 Mg Tablet 40 Mg PO DAILY Reported Claritin (Loratadine) 10 Mg Tablet 10 Mg PO DAILY Vitamin C (Ascorbic Acid) 250 Mg Tab 250 Mg PO 1200 Calcium 500 + Vit D Caplet (Calcium Carbonate/Vitamin D3) 1 Each Tablet 1 Each PO 1200 Tylenol Arthritis (Acetaminophen) 650 Mg Tablet.er 650 Mg PO Q8H PRN Vitamin D-400 (Cholecalciferol (Vitamin D3)) 10 Mcg Tablet 10 Mcg PO 1200 K-Tab ER (Potassium Chloride) 10 Meq Tablet.er 10 Meq PO DAILY Buspirone HCl 10 Mg Tablet 20 Mg PO BID Carbidopa-Levodopa 25-100 Tab (Carbidopa/Levodopa) 1 Each Tablet 2 Each PO TID Miralax (Polyethylene Glycol 3350) 17 Gm Powd.pack 17 Gm PO 1200,HS Amlodipine Besylate 5 Mg Tablet 5 Mg PO DAILY Clopidogrel (Clopidogrel Bisulfate) 75 Mg Tablet 75 Mg PO DAILY Entresto 49 mg-51 mg Tablet (Sacubitril/Valsartan) 1 Each Tablet 1 Tab PO BID Latuda (Lurasidone HCl) 40 Mg Tablet 40 Mg PO DAILY Pantoprazole Sodium 40 Mg Tablet.dr 40 Mg PO HS Carvedilol 25 Mg Tablet 25 Mg PO BID Bupropion Xl (Bupropion HCl) 150 Mg Tab.er.24h 450 Mg PO DAILY TAKES 3 150MG TABLETS DAILY Digoxin 125 Mcg Tablet 125 Mcg PO DAILY Centrum Chewables Adults Tab (Multivit-Min/Iron/Folic/Vit K1) 1 Each Tab.chew 1 Each PO 1200 Atorvastatin Calcium 80 Mg Tablet 80 Mg PO DAILY Venlafaxine HCl ER (Venlafaxine HCl) 150 Mg Cap.er.24h 150 Mg PO DAILY Clonazepam 0.5 Mg Tablet 0.25 Mg PO DAILY TAKES HALF A OF TABLET ONCE DAILY Aspir 81 (Aspirin) 81 Mg Tablet.dr 81 Mg PO HS Synthroid (Levothyroxine Sodium) 125 Mcg Tablet 125 Mcg PO HS Assessment/Pt Instructions take medications as prescribed. Decrease insulin as instructed. Closely monitor your blood sugars checking 3 times daily before meals and at bedtime. Keep a log of your blood sugars. Follow-up with your primary care physician. Discharge Planning: >30 minutes discharge planning Discharge Instructions Discharge Diet: ADA Diet Activity as Tolerated: Yes Discharge Physical Examination Allergies: Coded Allergies: No Known Drug Allergies (Unverified , 07/19/10) Discharge Summary Date of Admission Jan 29, 2020 at 15:05 Date of Discharge Jan 30, 2020 at 11:46 Discharge Date: Jan 30, 2020 Discharge Time: 11:46 Admission Diagnosis type II diabetes mellitus with hypoglycemia Discharge Diagnosis (1) T2DM (type 2 diabetes mellitus) Status: Chronic Qualifiers: Qualified Codes: E11.649 - Type 2 diabetes mellitus with hypoglycemia without coma; 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
== END 2020-01-30 11:46 | disposition home or self-care (01) ==
LOC: EDUNIT# 12:37 → ER 12:38 → UNDOADMOB 13:30 → CSD 13:30 → UNDODISOB 01-30 13:04
PROVIDERS: ADMIT Internal Medicine; ATTEND Internal Medicine
DX: E11.649 Type 2 diabetes mellitus with hypoglycemia without coma (principal); I25.10 Atherosclerotic heart disease of native coronary artery without angina pectoris; I10 Essential (primary) hypertension; E78.00 Pure hypercholesterolemia, unspecified; G47.30 Sleep apnea, unspecified; E03.9 Hypothyroidism, unspecified; M19.90 Unspecified osteoarthritis, unspecified site; F41.9 Anxiety disorder, unspecified; F32.9 Major depressive disorder, single episode, unspecified; Z79.4 Long term (current) use of insulin; Z79.899 Other long term (current) drug therapy; Z79.82 Long term (current) use of aspirin
CPT/HCPCS: 71045; 80053 ×2; 81000; 82962 ×2; 83735; 83874; 84484 ×2; 85025 ×2; 85610; 85730; 93005; 93041; 96360; 96361; 99284; G0378; 36415

== ENCOUNTER → 2020-10-24 | Outpatient (CLI) | payer MEDICARE ==
[~2020-10-24] MED LIST changes: +AMLO-250 PO; -AMLO5TAB9 PO; +BUPR150T24 PO; -BUPR150T7 PO; -PANT40TA3 PO; +PANT40TA52 PO
== END ==
LOC: CARD 09:45
PROVIDERS: ATTEND Internal Medicine Cardiovascular Disease
DX: I10 Essential (primary) hypertension (principal); I25.10 Atherosclerotic heart disease of native coronary artery without angina pectoris; I08.0 Rheumatic disorders of both mitral and aortic valves
CPT/HCPCS: 93306

== ENCOUNTER 2021-09-07 09:57 | Day surgery (SDC) | payer MEDICARE ==
[~2021-09-07] VITALS: Ht 157.5 cm; Wt 53.1 kg
[~2021-09-07 09:57] MED LIST changes: +LURA40TA2 PO; -LURA40TA3 PO
[2021-09-07] MEDS ORDERED: LACTATED RINGERS 1,000 ML IV STA (10:12)
[2021-09-07] MEDS ORDERED: LACTATED RINGERS 1,000 ML IV ONE (10:15)
[2021-09-07] MEDS ORDERED: LIDOCAINE JELLY 2% 6 ML SYRINGE MM PRN (10:15)
[2021-09-07] MEDS ORDERED: HURRICAINE EXT TUBE (BENZOCAINE) XX PRN (10:15)
[2021-09-07 10:29] VITALS: BP 171/56
[2021-09-07] MEDS ORDERED: inSUlin ASPART (NovoLOG) 1 UNIT/0.01 ML (CHARGE PER UNIT) ONE (10:52)
[2021-09-07] MEDS ORDERED: inSUlin ASPART (NovoLOG) 1 UNIT/0.01 ML (CHARGE PER UNIT) IV ONE (11:00)
--- NOTE | 2021-09-07 11:03 | Pre-Op Note & Conscious Sedat ---
Pre-Operative Progress Note H&P Reviewed The H&P was reviewed, patient examined and no changes noted. Date H&P Reviewed: Sep 07, 2021 Time H&P Reviewed: 11:03 Conscious Sedation Pre-Proced ASA Score 3 For ASA 3 and 4: Consider anesthesia and medical clearance. Also, for patients with a history of failed moderate sedation consider anesthesia. Airway Lungs Heart ASA score ASA 1: a normal healthy patient ASA 2: a patient with a mild systemic disease (mid diabetes, controlled hypertension, obesity ASA 3: a patient with a severe systemic disease that limits activity (angina, COPD, prior Myocardial infarction) ASA 4: a patient with an incapacitating disease that is a constant threat to life (CHF, renal failure) ASA 5: a moribund patient not expected to survive 24 hrs. (ruptured aneurysm) ASA 6: a declared brain- patient whose organs are being harvested. For emergent operations, add the letter E after the classification Mallampati Classification Grade 2 Sedation Plan Analgesia, Amnesia, Plan communicated to team members, Discussed options with patient/fam, Discussed risks with patient/fam The patient is an appropriate candidate to undergo the planned procedure, sedation, and anesthesia. The patient immediately re-assessed prior to indication. SELENE GUDINO MD Sep 07, 2021 11:03
[2021-09-07] MEDS ORDERED: proPOfol 200 MG/20 ML (DIPRIVAN) VIAL IV ONE (11:44)
[2021-09-07 12:06] VITALS: BP 138/62
[2021-09-07 12:10] VITALS: BP 132/59
[2021-09-07 12:36] VITALS: BP 132/59
--- NOTE | 2021-09-07 13:52 | Anesthesia-General Post-Op ---
MAC Patient Condition Mental Status/LOC: Same as Preop Cardiovascular: Satisfactory Nausea/Vomiting: Absent Respiratory: Satisfactory Pain: Controlled Complications: Absent Post Op Complications Complications None Follow Up Care/Instructions Patient Instructions None needed. Anesthesiology Discharge Order Discharge Order Patient is doing well, no complaints, stable vital signs, no apparent adverse anesthesia problems. No complications reported per nursing. ROMAN MAHAJAN CRNA Sep 07, 2021 13:52
--- NOTE | 2021-09-14 09:28 | HISTORY AND PHYSICAL ---
Date of Exam:09/10/21 CT ABDOMEN/PELVIS WO PROCEDURE: CT abdomen and pelvis without contrast. TECHNIQUE: Multiple contiguous axial images were obtained through the abdomen and pelvis without the use of intravenous contrast. Auto Exposure Controls were utilized during the CT exam to meet ALARA standards for radiation dose reduction. INDICATION: Abdominal pain and decreased appetite for 2 weeks. COMPARISON: No prior studies are available for comparison. The lung bases are clear. No discrete liver mass is detected. There is no biliary ductal dilatation. Pancreas and spleen are unremarkable. No adrenal mass is identified. The right kidney is small. Left kidney is unremarkable. No calculi or hydronephrosis is detected. Aorta and iliac vessels are heavily calcified but nonaneurysmal. Bowel loops appear to be normal caliber. There is no obstruction. No free fluid is seen. There is a cyst in the right pelvis measuring 18 mm. This may be ovarian in etiology. There is large amount of artifact through the pelvis from the patient's right hip prosthesis. Bladder is unremarkable. There appear to be healed left inferior pubic and superior pubic rami fractures. Lumbar spine demonstrates scoliotic curvature as well as multilevel degenerative disc disease. There appears to be an old compression fracture involving T12. IMPRESSION: 1. No acute feature in the abdomen or pelvis is identified. Dictated by: Dictated on workstation # [id number] Dict: 09/10/21 0927 Trans: 09/10/21 1553 Interpreted by: CYRIL BERMUDEZ MD Electronically signed by: CYRIL BERMUDEZ MD 09/10/21 1558 [facility]
--- NOTE | 2021-09-19 19:47 | OPERATIVE REPORT ---
DATE OF SERVICE: EGD SUMMARY INDICATION FOR THE PROCEDURE: Epigastric pain and anemia. DESCRIPTION OF PROCEDURE: The patient was placed in the left lateral decubitus position. The endoscope was inserted in the oral cavity and under direct visualization, esophagus was intubated. Endoscope was passed down the esophagus through stomach and second portion of the duodenum. Careful inspection was made as the endoscope was withdrawn. FINDINGS: Posterior pharynx, epiglottis, arytenoid aperture and true and false vocal folds were unremarkable to visual inspection. Proximal, mid and distal esophagus were unremarkable. There was no evidence for erosive esophagitis. There were findings compatible with lower esophageal sphincter laxity. No evidence for Clements's change was noted. There was a small amount of solid retained food in the stomach with confirmed last meal at least 14 hours prior to the procedure, suggesting a component of gastroparesis with a long-standing history of diabetes. The stomach was otherwise unremarkable with no evidence for erosions, ulcerations, or potential bleeding sites. The pylorus, pyloric channel, duodenal bulb and second portion of duodenum were unremarkable as well. ASSESSMENT: No potential bleeding sites were identified today. Exam findings are compatible with lower esophageal sphincter incompetence, but without evidence for erosive esophagitis or Clements's change. Reflux may also be aggravated by likely diabetic related gastroparesis as there was a small amount of solid food retained in the stomach, reportedly 14 hours after last solid food intake. No potential bleeding sites were identified on today's procedure as noted above. I thank you for the referral of this pleasant lady. Job ID: [id number] DocumentID: [id number] Dictated Date: 09/19/2021 15:50:35 Senior Program Analyst Date: 09/19/2021 19:46:30 Dictated By: SELENE GUDINO MD [facility]
== END 2021-09-07 12:38 | disposition home or self-care (01) ==
LOC: ENDO 09:57
PROVIDERS: ATTEND Internal Medicine
DX: R10.13 Epigastric pain (principal); D64.9 Anemia, unspecified; K31.89 Other diseases of stomach and duodenum
CPT/HCPCS: 82947

== ENCOUNTER → 2021-09-10 | Outpatient (CLI) | payer MEDICARE ==
--- NOTE | 2021-09-06 17:10 | HISTORY AND PHYSICAL ---
DATE OF SERVICE: EGD HISTORY AND PHYSICAL HISTORY OF PRESENT ILLNESS: The patient is an 85-year-old white female referred by Dr. Brothers for urgent EGD for evaluation of anemia and epigastric pain. The patient has a history of coronary artery disease, underwent cardiac stenting. She reports a total of 4, the last was over [address] Lorenzo. She takes aspirin and Plavix for this. She reports epigastric discomfort that has been intermittent for the past week. It does not wake her up at night. A little bit better after meals, worse several hours later, although as far as I can tell, she is a rather poor historian and comes with her daughter. She reports no past history of peptic ulcer disease. She is unsure as to whether or not she has had any associated weight loss. Denies melena or bright red blood per rectum. She had blood work done in Dr. Brothers's office for which we were able on 08/30/2021 and her hemoglobin was down to 10.8. Half a gram lower than it had been 2 months ago and down 1.5 grams from March of last year. Her MCV was normal at 91.2 and the remainder of her white count was normal. Her blood sugar was elevated and she has a history of type 2 diabetes at 285 with a creatinine of 1.3 and a BUN of 33. This has been at her baseline over the past several years in regards to renal function. PAST SURGICAL HISTORY: Significant for a distant history of cholecystectomy. She reports she had a colonoscopy 3 or 4 years ago that was unremarkable. PAST MEDICAL HISTORY: Rather extensive other than coronary artery disease and Parkinson's disease. She has bipolar disorder type 1, hypertension, type 2 diabetes mellitus and hyperlipidemia. FAMILY HISTORY: One brother had a stroke. She has had 3 brothers with heart disease. Three sisters with heart disease. Her father had a stroke. SOCIAL HISTORY: She is retired. No past alcohol history. She did have a past history of what sounds like an intermittent small volume smoking. PHYSICAL EXAMINATION: GENERAL: Reveals a white female, appearing pallorous with conjunctival pallor and pallor of the palms. VITAL SIGNS: Her blood pressure was 130/52 with a heart rate of 70 and regular, weight 119.4 pounds. CHEST: Clear to auscultation. CARDIOVASCULAR: Reveals a regular rate and rhythm without significant murmur, S3 or S4. She has epigastric pain to palpation without rebound or guarding. No mass or organomegaly is noted. Bowel sounds are positive. No evidence for abdominal aortic aneurysm to palpation. EXTREMITIES: Reveal no cyanosis, clubbing or edema. ASSESSMENT AND PLAN: For evaluation of epigastric pain with anemia, the patient is undergoing EGD evaluation. She is to hold aspirin and Plavix in the interim. I suspect that her hemoglobin may be lower based on physical exam findings and it was one week ago at 10.4, but she is hemodynamically stable and denying melena or bright red blood per rectum. She is to remain n.p.o. after midnight. Job ID: [id number] DocumentID: [id number] Dictated Date: 09/06/2021 16:48:36 Floor Plan Adjuster Date: 09/06/2021 17:09:32 Dictated By: SELENE GUDINO MD
--- NOTE | 2021-09-10 09:49 | Diagnostic Imaging Report ---
PROCEDURE: CT abdomen and pelvis without contrast. TECHNIQUE: Multiple contiguous axial images were obtained through the abdomen and pelvis without the use of intravenous contrast. Auto Exposure Controls were utilized during the CT exam to meet ALARA standards for radiation dose reduction. INDICATION: Abdominal pain and decreased appetite for 2 weeks. COMPARISON: No prior studies are available for comparison. The lung bases are clear. No discrete liver mass is detected. There is no biliary ductal dilatation. Pancreas and spleen are unremarkable. No adrenal mass is identified. The right kidney is small. Left kidney is unremarkable. No calculi or hydronephrosis is detected. Aorta and iliac vessels are heavily calcified but nonaneurysmal. Bowel loops appear to be normal caliber. There is no obstruction. No free fluid is seen. There is a cyst in the right pelvis measuring 18 mm. This may be ovarian in etiology. There is large amount of artifact through the pelvis from the patient's right hip prosthesis. Bladder is unremarkable. There appear to be healed left inferior pubic and superior pubic rami fractures. Lumbar spine demonstrates scoliotic curvature as well as multilevel degenerative disc disease. There appears to be an old compression fracture involving T12. IMPRESSION: 1. No acute feature in the abdomen or pelvis is identified. Dictated by: Dictated on workstation # [id number]
== END ==
LOC: RAD 08:45
PROVIDERS: ATTEND Internal Medicine
DX: R10.9 Unspecified abdominal pain (principal); Z96.641 Presence of right artificial hip joint
CPT/HCPCS: 74176

== ENCOUNTER → 2021-10-19 | Outpatient (CLI) | payer MEDICARE | LOC: CARD 14:30 | PROVIDERS: ATTEND Physician Assistant | DX: I08.0 Rheumatic disorders of both mitral and aortic valves (principal); I11.9 Hypertensive heart disease without heart failure | CPT/HCPCS: 93306 ==

== ENCOUNTER → 2021-11-06 | Outpatient (RCR) | payer MEDICARE | END | disposition home or self-care (01) | PROVIDERS: ATTEND Physician Assistant | DX: R53.1 Weakness (principal); M54.9 Dorsalgia, unspecified ==

== ENCOUNTER → 2021-12-06 | Outpatient (RCR) | payer MEDICARE | END | disposition home or self-care (01) | PROVIDERS: ATTEND Physician Assistant | DX: M62.81 Muscle weakness (generalized) (principal); E11.9 Type 2 diabetes mellitus without complications; G20 Parkinson's disease ==

== ENCOUNTER 2021-12-21 14:15 | Outpatient (RCR) | payer MEDICARE | END 2021-12-21 16:21 | disposition home or self-care (01) | PROVIDERS: ATTEND Physician Assistant | DX: M62.81 Muscle weakness (generalized) (principal); E11.9 Type 2 diabetes mellitus without complications ==

== ENCOUNTER → 2022-04-10 | Outpatient (CLI) | payer MEDICARE ==
[~2022-04-10] MED LIST changes: -CARB1TAB19 PO; +CARB1TAB32 PO
--- NOTE | 2022-04-10 15:33 | Diagnostic Imaging Report ---
INDICATION: Fall 11 days ago. Hip pain. FINDINGS: Total arthroplasty noted with long stem femoral component. There are no fractures demonstrated. No lucencies are seen that would indicate loosening of the components at this time. Knee shows good alignment with moderate arthritic change. IMPRESSION: No evidence of fractures or hardware loosening. Dictated by: Dictated on workstation # [id number]
--- NOTE | 2022-04-10 15:35 | Diagnostic Imaging Report ---
INDICATION: Fell 11 days ago. Hip pain. Patient has had revision of the arthroplasty of the hip twice. COMPARISON: 03/15/2015. FINDINGS: There has been revision in the interim. The large caliber long stem femoral component appears in good position without loosening. There are no cortical fractures. The acetabular components in good position. The femoral and acetabular components are in good alignment. No cortical fractures are seen of the pelvis. IMPRESSION: Total arthroplasty in good alignment with no fractures demonstrated. Dictated by: Dictated on workstation # [id number]
== END ==
LOC: RAD 10:45
PROVIDERS: ATTEND Internal Medicine
DX: M25.551 Pain in right hip (principal); Z96.641 Presence of right artificial hip joint; W19.XXXA Unspecified fall, initial encounter
CPT/HCPCS: 73502; 73552

== ENCOUNTER 2022-04-25 13:38 | Outpatient (RCR) | payer MEDICARE | END 2022-05-08 | disposition home or self-care (01) | PROVIDERS: ATTEND Internal Medicine | DX: M25.551 Pain in right hip (principal); M79.604 Pain in right leg ==

== ENCOUNTER 2022-09-01 17:20 | Inpatient (IN) | payer MEDICARE ==
[~2022-09-01] VITALS: Ht 157.5 cm; Wt 64.1 kg
[2022-09-01 17:45] LABS: BASOPHILS # (AUTO) 0.1 10^3/uL (0.0-0.1); BASOPHILS % (AUTO) 0 % (0-10); EOSINOPHILS % (AUTO) 0 % (0-10); HEMATOCRIT 29 % (35-52); LYMPHOCYTES # (AUTO) 0.8 10^3/uL (1.0-4.0); LYMPHOCYTES % (AUTO) 5 % (12-44); MEAN CORPUSCULAR HEMOGLOBIN 32 pg (25-34); MEAN CORPUSCULAR HGB CONC 34 g/dL (32-36); MEAN CORPUSCULAR VOLUME 93 fL (80-99); MEAN PLATELET VOLUME 11.2 fL (9.0-12.2); MONOCYTES # (AUTO) 1.9 10^3/uL (0.0-1.0); MONOCYTES % (AUTO) 12 % (0-12); NEUTROPHILS # (AUTO) 12.7 10^3/uL (1.8-7.8); NEUTROPHILS % (AUTO) 81 % (42-75); PLATELET COUNT 209 10^3/uL (130-400); WHITE BLOOD COUNT 15.6 10^3/uL (4.3-11.0)
[2022-09-01 17:54] LABS: ALBUMIN 3.5 GM/DL (3.2-4.5)
[2022-09-01 17:55] LABS: CHLORIDE 93 MMOL/L (98-107); INR 1.1 (0.8-1.4); POTASSIUM 3.5 MMOL/L (3.6-5.0); PROTHROMBIN TIME PATIENT 14.3 SEC (12.2-14.7); SODIUM 128 MMOL/L (135-145)
[2022-09-01 17:56] LABS: CALCIUM 8.9 MG/DL (8.5-10.1)
[2022-09-01 17:57] LABS: GLUCOSE 299 MG/DL (70-105); TOTAL PROTEIN 7.6 GM/DL (6.4-8.2)
[2022-09-01 17:58] LABS: CARBON DIOXIDE 21 MMOL/L (21-32)
[2022-09-01 17:59] LABS: BILIRUBIN,TOTAL 1.7 MG/DL (0.1-1.0)
[2022-09-01 18:01] LABS: ALKALINE PHOSPHATASE 76 U/L (40-136); GFR ESTIMATED 27
[2022-09-01 18:02] LABS: BUN/CREATININE RATIO 16
[2022-09-01 18:03] LABS: MAGNESIUM 1.9 MG/DL (1.6-2.4)
[2022-09-01 18:04] LABS: ALANINE AMINOTRANSFERASE < 6 U/L (0-55)
[2022-09-01 18:06] LABS: AMYLASE 33 U/L (25-125)
[2022-09-01 18:08] LABS: BAND NEUTROPHILS 1 %; BASOPHILS % (MANUAL) 0 %; EOSINOPHILS % (MANUAL) 0 %; LYMPHOCYTES % (MANUAL) 5 %; MONOCYTES % (MANUAL) 9 %; NEUTROPHILS % (MANUAL) 85 %; RBC MORPH NORMAL
--- NOTE | 2022-09-01 18:13 | ED General ---
General Chief Complaint: Chest Pain Stated Complaint: CP, SOB, WEAKNESS Nursing Triage Note: PATIENT TO ER VIA WC WITH SISTER AND W C/O CHEST PAIN THAT STARTED YESTERDAY. PATIENTS STATES IN 2003 PATIENT HAD 5 STENTS PLACED. 2010 HAD SOME REPAIR WORK ON HEART. PT TOOK EXTRA STRENGTH TYLENOL THIS AM. HX HEART DISEASE, TYPE II DIABETES, BIPOLAR, PARKINSONS. DR. MEADE IS DIRECTOR SALES AND MARKETING. SCHEDULED FOR AN ECHO ON FRIDAY. [id number] PATIENT STATES SHE'S ALSO FEELING WEEK. WEAKNESS STARTED TODAY. Source of Information: Patient History of Present Illness Date Seen by Provider: Sep 01, 2022 Time Seen by Provider: 17:55 Initial Comments PT ARRIVES VIA POV FROM HOME WITH 2 SISTERS ( PT LIVES AT HOME WITH HER , SISTERS STAY WITH HER DURING THE DAY), IN WHEELCHAIR ON ARRIVAL C/O CHEST PAIN SINCE YESTERDAY--NO PAIN AT THIS TIME C/O SHORTNESS OF BREATH C/O SWEATS, HAS NOT CHECKED TEMP NO EDEMA HAS HAD SLIGHT COUGH NO GI SYMPTOMS PT HAS HAD COVID VACCINE X 4, AND FLU [id number] PT HAS HISTORY OF CAD WITH STENTS X 5 IN 2003, AND HEART SURGERY IN 2010 Allergies and Home Medications Allergies Coded Allergies: morphine (Verified Allergy, Mild, 09/01/22) hallucinations Patient Home Medication List Acetaminophen (Tylenol Arthritis) 650 Mg Tablet.er, 650 MG PO Q8H PRN for PAIN- MILD (1-4), (Reported) Entered as Reported by: CEFERINO BENAVIDES on 01/03/20 1218 Amlodipine Besylate (Amlodipine Besylate) 5 Mg Tablet, 5 MG PO DAILY, (Reported) Entered as Reported by: CEFERINO BENAVIDES on 01/03/20 1206 Ascorbic Acid (Vitamin C) 250 Mg Tab, 250 MG PO 1200, (Reported) Entered as Reported by: CEFERINO BENAVIDES on 01/03/20 1218 Atorvastatin Calcium (Atorvastatin Calcium) 80 Mg Tablet, 80 MG PO DAILY, (Reported) Entered as Reported by: JULIANA TSANG on 01/27/19 0927 Bupropion HCl (Bupropion Xl) 150 Mg Tab.er.24h, 450 MG PO DAILY, (Reported) Entered as Reported by: CEFERINO BENAVIDES on 01/03/20 1206 Buspirone HCl (Buspirone HCl) 10 Mg Tablet, 20 MG PO BID, (Reported) Entered as Reported by: CEFERINO BENAVIDES on 01/03/20 1210 Calcium Carbonate/Vitamin D3 (Calcium 500 + Vit D Caplet) 1 Each Tablet, 1 EACH PO 1200, (Reported) Entered as Reported by: CEFERINO BENAVIDES on 01/03/20 1218 Carbidopa/Levodopa (Carbidopa-Levodopa 25-100 Tab) 1 Each Tablet, 2 EACH PO TID, (Reported) Entered as Reported by: CEFERINO BENAVIDES on 01/03/20 1210 Carvedilol (Carvedilol) 25 Mg Tablet, 25 MG PO BID, (Reported) Entered as Reported by: CEFERINO BENAVIDES on 01/03/20 1206 Cholecalciferol (Vitamin D3) (Vitamin D-400) 10 Mcg Tablet, 10 MCG PO 1200, (Reported) Entered as Reported by: CEFERINO BENAVIDES on 01/03/20 1218 Clonazepam (Clonazepam) 0.5 Mg Tablet, 0.25 MG PO DAILY, (Reported) Entered as Reported by: JULIANA TSANG on 01/27/19 09 Digoxin (Digoxin) 125 Mcg Tablet, 125 MCG PO DAILY, (Reported) Entered as Reported by: JULIANA TSANG on 01/27/19 0939 Furosemide (Furosemide) 20 Mg Tablet, 40 MG PO DAILY Prescribed by: ZACHARY MITCHELL on 01/03/20 1247 Insulin Aspart (Novolog Flexpen) 300 Units/3 Ml Solution, 3 UNITS SQ DAILY Prescribed by: KARYNA YAN on 01/30/20 1150 Insulin Degludec (Tresiba Flextouch U-100) 100 Unit/1 Ml Insuln.pen, 10 UNIT SQ DAILY Prescribed by: KARYNA YAN on 01/30/20 1150 Levothyroxine Sodium (Synthroid) 125 Mcg Tablet, 125 MCG PO HS, (Reported) Entered as Reported by: JULIANA TSANG on 01/27/19 0912 Loratadine (Claritin) 10 Mg Tablet, 10 MG PO DAILY, (Reported) Entered as Reported by: CEFERINO BENAVIDES on 01/03/20 1218 Lurasidone HCl (Latuda) 40 Mg Tablet, 40 MG PO DAILY, (Reported) Entered as Reported by: CEFERINO BENAVIDES on 01/03/20 1206 Multivit-Min/Iron/Folic/Vit K1 (Centrum Chewables Adults Tab) 1 Each Tab.chew, 1 EACH PO 1200, (Reported) Entered as Reported by: JULIANA TSANG on 01/27/19 0930 Pantoprazole Sodium (Pantoprazole Sodium) 40 Mg Tablet.dr, 40 MG PO HS, (Reported) Entered as Reported by: CEFERINO BENAVIDES on 01/03/20 1206 Polyethylene Glycol 3350 (Miralax) 17 Gm Powd.pack, 17 GM PO 1200,HS, (Reported) Entered as Reported by: CEFERINO BENAVIDES on 01/03/20 1210 Potassium Chloride (K-Tab ER) 10 Meq Tablet.er, 10 MEQ PO DAILY, (Reported) Entered as Reported by: CEFERINO BENAVIDES on 01/03/20 1215 Sacubitril/Valsartan (Entresto 49 mg-51 mg Tablet) 1 Each Tablet, 1 TAB PO BID, (Reported) Entered as Reported by: CEFERINO BENAVIDES on 01/03/20 1206 Venlafaxine HCl (Venlafaxine HCl ER) 150 Mg Cap.er.24h, 150 MG PO DAILY, (Reported) Entered as Reported by: JULIANA TSANG on 01/27/19 09 Past Hhmqwzb-[id number] Hx Patient Social History Tobacco Use?: No Substance use?: No Alcohol Use?: No Immunizations Up To Date First/Initial COVID19 Vaccinat: UNKNOWN Second COVID19 Vaccination Ramírez: YES Third COVID19 Vaccination Date: NO COVID19 Vaccine Floor Waxer: Kathleen Past Medical History Surgeries: Yes Gallbladder Respiratory: No Sleep Apnea Currently Using CPAP: No (not for 4 years ) Currently Using BIPAP: No Cardiac: Yes (RBBB) Coronary Artery Disease, High Cholesterol, Hypertension Neurological: No Sexually Transmitted Disease: No HIV/AIDS: No Genitourinary: No Gastrointestinal: No Musculoskeletal: Yes Arthritis Endocrine: Yes Diabetes, Insulin dep, Hypothyroidsim Cancer: No Psychosocial: Yes Anxiety, Depression Integumentary: No Blood Disorders: No Adverse Reaction/Blood Tranf: No Physical Exam Vital Signs Vital Signs - First Documented 09/01/22 17:27 Pulse 72 Resp 17 Pulse Ox 93 O2 Delivery Nasal Cannula O2 Flow Rate 3.00 Capillary Refill : Less Than 3 Seconds Height, Weight, BMI Height: 5'2.00" Weight: 129lbs. 0.0oz. [id number]; 22.00 BMI Method: Focused Exam Sepsis Stage: Sepsis Possible Source: Genitouriary Lactate Level 09/01/22 18:15: Lactic Acid Level 1.85 Time of Focused Exam: 19:00 Respiratory: No Accessory Muscle Use, No Respiratory Distress, Rales Cardiovascular: Regular Rate, Rhythm, No Edema Capillary Refill: Less Than 3 Seconds Skin: normal color, warm/dry Lactic Acid Level Laboratory Tests Test 09/01/22 18:15 Lactic Acid Level 1.85 MMOL/L (0.50-2.00) Within 3hrs of presentation: Admin fluids (NO AGGRESSIVE FLUIDS GIVEN DUE TO PT BEING IN OVERT CHF, WITH HYPOXIA), Admin ABX, Blood cultures prior to ABX's, Focus exam, Lactate level Progress/Results/Core Measures Suspected Sepsis SIRS Temperature: Pulse: 72 Respiratory Rate: 17 Laboratory Tests 09/01/22 17:30: White Blood Count 15.6H Blood Pressure / Mean: 09/01/22 18:15: Lactic Acid Level 1.85 Laboratory Tests 09/01/22 17:30: Creatinine 1.80H, INR Comment 1.1, Platelet Count 209, Total Bilirubin 1.7H Results/Orders Lab Results Laboratory Tests Test 09/01/22 17:30 09/01/22 17:59 09/01/22 18:13 09/01/22 18:15 Range/Units White Blood Count 15.6 H 4.3-11.0 10^3/uL Red Blood Count 3.15 L 3.80-5.11 10^6/uL Hemoglobin 10.0 L 11.5-16.0 g/dL Hematocrit 29 L 35-52 % Mean Corpuscular Volume 93 80-99 fL Mean Corpuscular Hemoglobin 32 25-34 pg Mean Corpuscular Hemoglobin Concent 34 32-36 g/dL Red Cell Distribution Width 12.0 10.0-14.5 % Platelet Count 209 130-400 10^3/uL Mean Platelet Volume 11.2 9.0-12.2 fL Immature Granulocyte % (Auto) 1 % Neutrophils (%) (Auto) 81 H 42-75 % Lymphocytes (%) (Auto) 5 L 12-44 % Monocytes (%) (Auto) 12 0-12 % Eosinophils (%) (Auto) 0 0-10 % Basophils (%) (Auto) 0 0-10 % Neutrophils # (Auto) 12.7 H 1.8-7.8 10^3/uL Lymphocytes # (Auto) 0.8 L 1.0-4.0 10^3/uL Monocytes # (Auto) 1.9 H 0.0-1.0 10^3/uL Eosinophils # (Auto) 0.0 0.0-0.3 10^3/uL Basophils # (Auto) 0.1 0.0-0.1 10^3/uL Immature Granulocyte # (Auto) 0.1 0.0-0.1 10^3/uL Neutrophils % (Manual) 85 % Lymphocytes % (Manual) 5 % Monocytes % (Manual) 9 % Eosinophils % (Manual) 0 % Basophils % (Manual) 0 % Band Neutrophils 1 % Blood Morphology Comment NORMAL Prothrombin Time 14.3 12.2-14.7 SEC INR Comment 1.1 0.8-1.4 Activated Partial Thromboplast Time 52 H 24-35 SEC D-Dimer 0.64 H 0.00-0.49 UG/ML Sodium Level 128 L 135-145 MMOL/L Potassium Level 3.5 L 3.6-5.0 MMOL/L Chloride Level 93 L 98-107 MMOL/L Carbon Dioxide Level 21 21-32 MMOL/L Anion Gap 14 5-14 MMOL/L Blood Urea Nitrogen 28 H 7-18 MG/DL Creatinine 1.80 H 0.60-1.30 MG/DL Estimat Glomerular Filtration Rate 27 BUN/Creatinine Ratio 16 Glucose Level 299 H 70-105 MG/DL Calcium Level 8.9 8.5-10.1 MG/DL Corrected Calcium 9.3 8.5-10.1 MG/DL Magnesium Level 1.9 1.6-2.4 MG/DL Total Bilirubin 1.7 H 0.1-1.0 MG/DL Aspartate Amino Transf (AST/SGOT) 20 5-34 U/L Alanine Aminotransferase (ALT/SGPT) < 6 0-55 U/L Alkaline Phosphatase 76 40-136 U/L Troponin I 1.774 *H <0.028 NG/ML B-Type Natriuretic Peptide 1329.2 H <100.0 PG/ML Total Protein 7.6 6.4-8.2 GM/DL Albumin 3.5 3.2-4.5 GM/DL Total Creatine Kinase 115 29-168 U/L Creatine Kinase MB 7.3 *H <6.6 NG/ML Amylase Level 33 25-125 U/L Lipase < 4 L 8-78 U/L Influenza Type A (RT-PCR) Not Detected Not Detecte Influenza Type B (RT-PCR) Not Detected Not Detecte SARS-CoV-2 RNA (RT-PCR) Negative Not Detecte Lactic Acid Level 1.85 0.50-2.00 MMOL/L Test 09/01/22 18:20 09/01/22 18:35 Range/Units Blood Gas Puncture Site L RAD Blood Gas Patient Temperature 36.7 Arterial Blood pH 7.44 H 7.37-7.43 Arterial Blood Partial Pressure CO2 37 35-45 MMHG Arterial Blood Partial Pressure O2 55 L 79-93 MMHG Arterial Blood HCO3 25 23-27 MMOL/L Arterial Blood Total CO2 26.2 21.0-31.0 MMOL/L Arterial Blood Oxygen Saturation 91 L 94-100 % Arterial Blood Base Excess 1.2 -2.5-2.5 MMOL/L Michael Test YES-POS Blood Gas Ventilator Setting NO Blood Gas Inspired Oxygen 5.5 L Urine Color YELLOW Urine Clarity SL CLOUDY Urine pH 5.5 5-9 Urine Specific [place] 1.025 H 1.016-1.022 Urine Protein NEGATIVE NEGATIVE Urine Glucose (UA) NEGATIVE NEGATIVE Urine Ketones TRACE H NEGATIVE Urine Nitrite NEGATIVE NEGATIVE Urine Bilirubin NEGATIVE NEGATIVE Urine Urobilinogen 0.2 < = 1.0 MG/DL Urine Leukocyte Esterase 1+ H NEGATIVE Urine RBC (Auto) TRACE-I H NEGATIVE Urine RBC RARE /HPF Urine WBC 10-25 H /HPF Urine Squamous Epithelial Cells 0-2 /HPF Urine Crystals NONE /LPF Urine Bacteria MODERATE H /HPF Urine Casts PRESENT /LPF Urine Hyaline Casts 2-5 H /LPF Urine Mucus NEGATIVE /LPF Urine Culture Indicated CULTURE PENDING My Orders Orders - INESSA BEAVER DO Bnp Alvin (09/01/22 17:54) Amylase (09/01/22 17:59) Arterial Blood Gas (09/01/22 17:59) Creatine Kinase (09/01/22 17:59) Creatine Kinase Mb (09/01/22 17:59) Fibrin Degradation Products (09/01/22 17:59) Lipase (09/01/22 17:59) Covid 19 Inhouse Test (09/01/22 17:59) Influenza A And B By Pcr (09/01/22 17:59) Isolation Central Supply Req (09/01/22 17:59) Aspirin Chewable Tablet (Baby Aspirin Ch (09/01/22 18:15) Ed Iv/Invasive Line Start (09/01/22 18:06) Ns Iv 1000 Ml (Sodium Chloride 0.9%) (09/01/22 18:15) Blood Culture (09/01/22 18:06) Sputum Culture (09/01/22 18:06) Urinalysis (09/01/22 18:06) Urine Culture (09/01/22 18:06) Ed Iv/Invasive Line Start (09/01/22 18:06) Ed Iv/Invasive Line Start (09/01/22 18:06) Vital Signs Adult Sepsis Patie Q15M (09/01/22 18:06) O2 (09/01/22 18:06) Remove Rings In Anticipation O (09/01/22 18:06) Lactic Acid Analyzer (09/01/22 18:06) Catheter(Urinary) Insert & Ass 03,15 (09/01/22 18:26) Lidocaine 2% (Urojet) (Xylocaine Urojet) (09/01/22 18:30) Furosemide Injection (Lasix Injection) (09/01/22 18:30) Furosemide Injection (Lasix Injection) (09/01/22 18:30) Enoxaparin Injection (Lovenox Injection) (09/01/22 18:30) Insulin (Regular) Human (Novolin R (Per (09/01/22 18:45) Arterial Blood Draw - Obtain (09/01/22 18:25) Ceftriaxone 1 Gm Pre-Mix (Rocephin 1 Gm (09/01/22 18:59) Medications Given in ED Current Medications Medications Dose Ordered Sig/Amy Route Start Time Stop Time Status Last Admin Dose Admin Aspirin 324 mg ONCE ONCE PO 09/01/22 18:15 09/01/22 18:16 DC 09/01/22 18:21 324 MG Enoxaparin Sodium 60 mg ONCE ONCE SC 09/01/22 18:30 09/01/22 18:31 DC 09/01/22 18:54 60 MG Furosemide 40 mg ONCE ONCE IVP 09/01/22 18:30 09/01/22 18:31 DC 09/01/22 18:55 40 MG Insulin Human Regular 10 unit ONCE ONCE IV 09/01/22 18:45 09/01/22 18:46 DC 09/01/22 18:54 10 UNIT Vital Signs/I&O 09/01/22 17:27 Pulse 72 Resp 17 B/P (MAP) Pulse Ox 93 O2 Delivery Nasal Cannula O2 Flow Rate 3.00 Capillary Refill : Less Than 3 Seconds Progress Note : Progress Note COMPLEX MANAGEMENT DUE MULTIPLE CURRENT ISSUES AND CO-MORBIDITIES: -PT WITH NSTEMI WITH SIGNIFICANT CHF WITH HYPOXIA -UNCONTROLLED DIABETES WITHOUT OVER KETOACIDOSIS, BUT HYPEROSMOLAR NON-KETOSIS--UNABLE TO DO AGGRESSIVE HYDRATION DUE TO CHF -SEPSIS WITH LEUKOCYTOSIS WITH HYPOTENSION, DUE TO UTI--UNABLE TO DO AGGRESSIVE AGGRESSIVE HYDRATION DUE TO CHF Diagnostic Imaging Comments CXR--PER RADIOLOGIST REPORT AT 1840 FINDINGS: Heart size is normal with prominence of pulmonary vasculature. There are diffuse interstitial opacities throughout both lungs. No significant pleural effusion or pneumothorax. The osseous structures are intact. IMPRESSION: Diffuse interstitial opacities throughout both lungs which is concerning for pulmonary edema or multifocal pneumonia. Reviewed: Reviewed by Tn Departure Communication (Admissions) 1826--SPOKE WITH DR. MEADE, DIRECTOR SALES AND MARKETING, WILL SEE PT IN CONSULT, RECOMMENDATIONS NOTED 1832--SPOKE WITH DR. MITCHELL, HOSPITALIST, ACCEPTS PT FOR ADMIT 1908--CALLED E-ICU TO GIVE REPORT, PHYSICIAN BUSY WITH ANOTHER PT AT THIS TIME. Impression Primary Impression: NSTEMI (non-ST elevation myocardial infarction) Additional Impressions: Acute on chronic HFrEF (heart failure with reduced ejection fraction) Acute respiratory failure Uncontrolled diabetes mellitus Electrolyte imbalance UTI (urinary tract infection) Sepsis Disposition: ADMITTED INPATIENT Condition: Stable Admissions Decision to Admit Reason: Admit from ER (General) Decision to Admit/Date: Sep 01, 2022 Time/Decision to Admit Time: 18:30 Departure-Patient Inst. Referrals: ANGELA TELLO MD (PCP/Family) Primary Care Physician INESSA BEAVER DO Sep 01, 2022 18:13
[2022-09-01 18:15] LABS: CREATINE KINASE 115 U/L (29-168); LIPASE < 4 U/L (8-78)
[2022-09-01] MEDS ORDERED: ASPIRIN 81 MG CHEW (CHILDREN'S ASA) PO ONE (18:15)
[2022-09-01] MEDS ORDERED: NS IV 1000 ML 1,000 ML IV SCH (18:15)
[2022-09-01 18:23] LABS: CREATINE KINASE MB 7.3 NG/ML (<6.6)
[2022-09-01] MEDS ORDERED: FUROSEMIDE 40 MG/4 ML INJ (LASIX) IVP ONE ×2 (18:30)
[2022-09-01] MEDS ORDERED: LIDOCAINE UROJET 2% GEL 10 ML PKG TOP ONE (18:30)
[2022-09-01] MEDS ORDERED: ENOXAPARIN 60 MG/0.6 ML (LOVENOX) SYR SC ONE (18:30)
[2022-09-01 18:33] LABS: ABG BASE EXCESS 1.2 MMOL/L (-2.5-2.5); ABG OXYGEN SATURATION 91 % (94-100); ABG PCO2 37 MMHG (35-45); ABG PH 7.44 (7.37-7.43); ABG PO2 55 MMHG (79-93); ABG TCO2 26.2 MMOL/L (21.0-31.0)
--- NOTE | 2022-09-01 18:33 | Diagnostic Imaging Report ---
EXAMINATION: Chest 1 view. HISTORY: Chest pain. COMPARISON: 01/29/2020. FINDINGS: Heart size is normal with prominence of pulmonary vasculature. There are diffuse interstitial opacities throughout both lungs. No significant pleural effusion or pneumothorax. The osseous structures are intact. IMPRESSION: Diffuse interstitial opacities throughout both lungs which is concerning for pulmonary edema or multifocal pneumonia. Dictated by: Dictated on workstation # [id number]
[2022-09-01 18:39] LABS: ALLENS TEST YES-POS; INSPIRED O2 5.5 L; PATIENT TEMP 36.7; VENTILATOR NO
[2022-09-01] MEDS ORDERED: inSUlin (REGULAR) HUMAN 1 UNIT/0.01 ML (CHARGE PER UNIT) IV ONE (18:45)
[2022-09-01 18:47] LABS: BILIRUBIN,URINE NEGATIVE (NEGATIVE); CLARITY,URINE SL CLOUDY; COLOR,URINE YELLOW; GLUCOSE, URINE (UA) NEGATIVE (NEGATIVE); KETONES,URINE TRACE (NEGATIVE); LEUKOCYTE ESTERASE ,URINE 1+ (NEGATIVE); NITRITE,URINE NEGATIVE (NEGATIVE); PH,URINE 5.5 (5-9); PROTEIN,URINE NEGATIVE (NEGATIVE)
[2022-09-01 18:56] LABS: BACTERIA,URINE MODERATE /HPF; RBC,URINE RARE /HPF; SQUAMOUS EPITHELIAL CELL,UR 0-2 /HPF
[2022-09-01] MEDS ORDERED: cefTRIAXone 1 GM PRE-MIX 50 ML IV STA (18:59)
[2022-09-01] MEDS: NS IV 1000 ML 1,000 ML IV SCH (21:15)
[2022-09-01] MEDS ORDERED: ONDANSETRON 4 MG/2 ML (SDV) Z0FRAN IVP PRN (21:15)
[2022-09-02] MEDS ORDERED: FUROSEMIDE 40 MG/4 ML INJ (LASIX) IV SCH (01:00)
[2022-09-02 04:51] LABS: BASOPHILS # (AUTO) 0.1 10^3/uL (0.0-0.1); BASOPHILS % (AUTO) 1 % (0-10); EOSINOPHILS # (AUTO) 0.1 10^3/uL (0.0-0.3); EOSINOPHILS % (AUTO) 1 % (0-10); HEMATOCRIT 28 % (35-52); HEMOGLOBIN 9.5 g/dL (11.5-16.0); LYMPHOCYTES # (AUTO) 1.9 10^3/uL (1.0-4.0); LYMPHOCYTES % (AUTO) 15 % (12-44); MEAN CORPUSCULAR HEMOGLOBIN 32 pg (25-34); MEAN CORPUSCULAR HGB CONC 35 g/dL (32-36); MEAN CORPUSCULAR VOLUME 93 fL (80-99); MEAN PLATELET VOLUME 11.4 fL (9.0-12.2); MONOCYTES # (AUTO) 1.6 10^3/uL (0.0-1.0); MONOCYTES % (AUTO) 12 % (0-12); NEUTROPHILS # (AUTO) 9.4 10^3/uL (1.8-7.8); NEUTROPHILS % (AUTO) 72 % (42-75); PLATELET COUNT 179 10^3/uL (130-400); WHITE BLOOD COUNT 13.1 10^3/uL (4.3-11.0)
[2022-09-02 05:32] LABS: ALBUMIN 2.9 GM/DL (3.2-4.5); BILIRUBIN,TOTAL 0.8 MG/DL (0.1-1.0); CALCIUM 8.4 MG/DL (8.5-10.1); CREATININE SERUM 1.65 MG/DL (0.60-1.30); MAGNESIUM 1.9 MG/DL (1.6-2.4); PHOSPHORUS 3.2 MG/DL (2.3-4.7); POTASSIUM 3.1 MMOL/L (3.6-5.0); TOTAL PROTEIN 6.5 GM/DL (6.4-8.2)
[2022-09-02] MEDS: MAGNESIUM 1 GM/100 ML IVPB 100 ML IV SCH ×3 (06:00→07:25)
[2022-09-02] MEDS: inSUlin ASPART (NovoLOG) 1 UNIT/0.01 ML (CHARGE PER UNIT) SC SCH ×4 (06:00→21:12)
[2022-09-02] MEDS: KCL 20 MEQ TAB (K-DUR) PO SCH (06:00)
[2022-09-02] MEDS: POTASSIUM CL 10MEQ/50ML IVPB 50 ML IV SCH ×9 (06:00→19:46)
[2022-09-02] MEDS ORDERED: HEParin (CATH LAB) 2,000 ML IV ONE (07:39)
[2022-09-02] MEDS ORDERED: LIDOCAINE 1% INJ 20 ML VIAL ONE (07:39)
[2022-09-02] MEDS ORDERED: MIDAZOLAM 5 MG/5 ML (VERSED) VIAL ONE (07:42)
[2022-09-02] MEDS ORDERED: fentaNYL INJ 100 MCG/2 ML AMP ONE (07:43)
--- NOTE | 2022-09-02 08:00 | Consultation-Cardiology ---
HPI-Cardiology Cardiology Consultation Date of Consultation 09/02/22 Date of Admission Time Seen by Provider: 07:55 Indication: Chest pain HPI 86-year-old lady with history of congestive heart failure, coronary artery disease, multiple intervention in the past. Has been doing well until yesterday morning when she woke up with generalized weakness, loss of energy, had some sharp chest pain, continue to deteriorate and came into the emergency room for evaluation. On arrival she was feeling better, no active chest pain, has underlying left bundle branch block, had elevation in troponin which continue to rise. On my evaluation she was feeling better, denied any active chest pain. Home Medications & Allergies Allergies: Coded Allergies: morphine (Verified Allergy, Mild, 09/01/22) hallucinations Home Medication List Reviewed: Yes PNT-Pxlief-Stkddi Hx Patient Social History Marital Status: Employed/Student: retired Smoking Status: Never a Smoker 2nd Hand Smoke Exposure: No Recent Hopitalizations: No Have you traveled recently?: No Alcohol Use?: No Immunizations Up To Date Date of Pneumonia Vaccine: Mar 09, 2019 Date of Influenza Vaccine: Mar 09, 2021 Past Medical History Discussed below Family Medical History Significant Family History: No Pertinent Family Hx Review of Systems-General Review of Systems Constitutional: no symptoms reported, see HPI, malaise, weakness EENTM: see HPI, no symptoms reported Respiratory: see HPI; No cough; dyspnea on exertion; No hemoptysis, No orthopnea, No phlegm; short of breath; No stridor, No wheezing, No other Cardiovascular: see HPI, chest pain; No edema, No Hx of Intervention, No palpitations, No syncope, No vascular heart diseas, No other Gastrointestinal: no symptoms reported, see HPI Genitourinary: no symptoms reported, see HPI Musculoskeletal: no symptoms reported, see HPI Skin: no symptoms reported, see HPI Psychiatric/Neurological: No Symptoms Reported, See HPI Reviewed Test Results Reviewed Test Results Lab Laboratory Tests Test 09/01/22 17:30 09/01/22 17:59 09/01/22 18:13 09/01/22 18:15 Range/Units White Blood Count 15.6 H 4.3-11.0 10^3/uL Red Blood Count 3.15 L 3.80-5.11 10^6/uL Hemoglobin 10.0 L 11.5-16.0 g/dL Hematocrit 29 L 35-52 % Mean Corpuscular Volume 93 80-99 fL Mean Corpuscular Hemoglobin 32 25-34 pg Mean Corpuscular Hemoglobin Concent 34 32-36 g/dL Red Cell Distribution Width 12.0 10.0-14.5 % Platelet Count 209 130-400 10^3/uL Mean Platelet Volume 11.2 9.0-12.2 fL Immature Granulocyte % (Auto) 1 % Neutrophils (%) (Auto) 81 H 42-75 % Lymphocytes (%) (Auto) 5 L 12-44 % Monocytes (%) (Auto) 12 0-12 % Eosinophils (%) (Auto) 0 0-10 % Basophils (%) (Auto) 0 0-10 % Neutrophils # (Auto) 12.7 H 1.8-7.8 10^3/uL Lymphocytes # (Auto) 0.8 L 1.0-4.0 10^3/uL Monocytes # (Auto) 1.9 H 0.0-1.0 10^3/uL Eosinophils # (Auto) 0.0 0.0-0.3 10^3/uL Basophils # (Auto) 0.1 0.0-0.1 10^3/uL Immature Granulocyte # (Auto) 0.1 0.0-0.1 10^3/uL Neutrophils % (Manual) 85 % Lymphocytes % (Manual) 5 % Monocytes % (Manual) 9 % Eosinophils % (Manual) 0 % Basophils % (Manual) 0 % Band Neutrophils 1 % Blood Morphology Comment NORMAL Prothrombin Time 14.3 12.2-14.7 SEC INR Comment 1.1 0.8-1.4 Activated Partial Thromboplast Time 52 H 24-35 SEC D-Dimer 0.64 H 0.00-0.49 UG/ML Sodium Level 128 L 135-145 MMOL/L Potassium Level 3.5 L 3.6-5.0 MMOL/L Chloride Level 93 L 98-107 MMOL/L Carbon Dioxide Level 21 21-32 MMOL/L Anion Gap 14 5-14 MMOL/L Blood Urea Nitrogen 28 H 7-18 MG/DL Creatinine 1.80 H 0.60-1.30 MG/DL Estimat Glomerular Filtration Rate 27 BUN/Creatinine Ratio 16 Glucose Level 299 H 70-105 MG/DL Calcium Level 8.9 8.5-10.1 MG/DL Corrected Calcium 9.3 8.5-10.1 MG/DL Magnesium Level 1.9 1.6-2.4 MG/DL Total Bilirubin 1.7 H 0.1-1.0 MG/DL Aspartate Amino Transf (AST/SGOT) 20 5-34 U/L Alanine Aminotransferase (ALT/SGPT) < 6 0-55 U/L Alkaline Phosphatase 76 40-136 U/L Troponin I 1.774 *H <0.028 NG/ML B-Type Natriuretic Peptide 1329.2 H <100.0 PG/ML Total Protein 7.6 6.4-8.2 GM/DL Albumin 3.5 3.2-4.5 GM/DL Total Creatine Kinase 115 29-168 U/L Creatine Kinase MB 7.3 *H <6.6 NG/ML Amylase Level 33 25-125 U/L Lipase < 4 L 8-78 U/L Influenza Type A (RT-PCR) Not Detected Not Detecte Influenza Type B (RT-PCR) Not Detected Not Detecte SARS-CoV-2 RNA (RT-PCR) Negative Not Detecte Lactic Acid Level 1.85 0.50-2.00 MMOL/L Test 09/01/22 18:20 09/01/22 18:35 09/01/22 20:53 09/01/22 21:25 Range/Units Blood Gas Puncture Site L RAD Blood Gas Patient Temperature 36.7 Arterial Blood pH 7.44 H 7.37-7.43 Arterial Blood Partial Pressure CO2 37 35-45 MMHG Arterial Blood Partial Pressure O2 55 L 79-93 MMHG Arterial Blood HCO3 25 23-27 MMOL/L Arterial Blood Total CO2 26.2 21.0-31.0 MMOL/L Arterial Blood Oxygen Saturation 91 L 94-100 % Arterial Blood Base Excess 1.2 -2.5-2.5 MMOL/L Michael Test YES-POS Blood Gas Ventilator Setting NO Blood Gas Inspired Oxygen 5.5 L Urine Color YELLOW Urine Clarity SL CLOUDY Urine pH 5.5 5-9 Urine Specific [place] 1.025 H 1.016-1.022 Urine Protein NEGATIVE NEGATIVE Urine Glucose (UA) NEGATIVE NEGATIVE Urine Ketones TRACE H NEGATIVE Urine Nitrite NEGATIVE NEGATIVE Urine Bilirubin NEGATIVE NEGATIVE Urine Urobilinogen 0.2 < = 1.0 MG/DL Urine Leukocyte Esterase 1+ H NEGATIVE Urine RBC (Auto) TRACE-I H NEGATIVE Urine RBC RARE /HPF Urine WBC 10-25 H /HPF Urine Squamous Epithelial Cells 0-2 /HPF Urine Crystals NONE /LPF Urine Bacteria MODERATE H /HPF Urine Casts PRESENT /LPF Urine Hyaline Casts 2-5 H /LPF Urine Mucus NEGATIVE /LPF Urine Culture Indicated CULTURE PENDING Troponin I 2.442 *H <0.028 NG/ML Glucometer 311 H 70-110 MG/DL Test 09/01/22 23:35 09/02/22 04:39 Range/Units Troponin I 3.007 *H <0.028 NG/ML White Blood Count 13.1 H 4.3-11.0 10^3/uL Red Blood Count 2.95 L 3.80-5.11 10^6/uL Hemoglobin 9.5 L 11.5-16.0 g/dL Hematocrit 28 L 35-52 % Mean Corpuscular Volume 93 80-99 fL Mean Corpuscular Hemoglobin 32 25-34 pg Mean Corpuscular Hemoglobin Concent 35 32-36 g/dL Red Cell Distribution Width 12.2 10.0-14.5 % Platelet Count 179 130-400 10^3/uL Mean Platelet Volume 11.4 9.0-12.2 fL Immature Granulocyte % (Auto) 1 % Neutrophils (%) (Auto) 72 42-75 % Lymphocytes (%) (Auto) 15 12-44 % Monocytes (%) (Auto) 12 0-12 % Eosinophils (%) (Auto) 1 0-10 % Basophils (%) (Auto) 1 0-10 % Neutrophils # (Auto) 9.4 H 1.8-7.8 10^3/uL Lymphocytes # (Auto) 1.9 1.0-4.0 10^3/uL Monocytes # (Auto) 1.6 H 0.0-1.0 10^3/uL Eosinophils # (Auto) 0.1 0.0-0.3 10^3/uL Basophils # (Auto) 0.1 0.0-0.1 10^3/uL Immature Granulocyte # (Auto) 0.1 0.0-0.1 10^3/uL Sodium Level 132 L 135-145 MMOL/L Potassium Level 3.1 L 3.6-5.0 MMOL/L Chloride Level 98 98-107 MMOL/L Carbon Dioxide Level 21 21-32 MMOL/L Anion Gap 13 5-14 MMOL/L Blood Urea Nitrogen 30 H 7-18 MG/DL Creatinine 1.65 H 0.60-1.30 MG/DL Estimat Glomerular Filtration Rate 30 BUN/Creatinine Ratio 18 Glucose Level 95 70-105 MG/DL Calcium Level 8.4 L 8.5-10.1 MG/DL Corrected Calcium 9.3 8.5-10.1 MG/DL Phosphorus Level 3.2 2.3-4.7 MG/DL Magnesium Level 1.9 1.6-2.4 MG/DL Total Bilirubin 0.8 0.1-1.0 MG/DL Aspartate Amino Transf (AST/SGOT) 27 5-34 U/L Alanine Aminotransferase (ALT/SGPT) 7 0-55 U/L Alkaline Phosphatase 66 40-136 U/L Total Protein 6.5 6.4-8.2 GM/DL Albumin 2.9 L 3.2-4.5 GM/DL Triglycerides Level 79 <150 MG/DL Cholesterol Level 111 < 200 MG/DL LDL Cholesterol Direct 57 1-129 MG/DL VLDL Cholesterol 16 5-40 MG/DL HDL Cholesterol 31 L 40-60 MG/DL Physical Exam Physical Exam Vital Signs Vital Signs - First Documented 09/01/22 09/01/22 17:27 19:20 Pulse 72 Resp 17 B/P (MAP) 114/88 Pulse Ox 92 O2 Delivery Nasal Cannula O2 Flow Rate 3.00 FiO2 92 Capillary Refill : Less Than 3 Seconds Height, Weight, BMI Height: 5'2.00" Weight: 129lbs. 0.0oz. [id number]; 25.39 BMI Method: General Appearance: No Apparent Distress, WD/WN Eyes: Bilateral Eye Normal Inspection, Bilateral Eye PERRL, Bilateral Eye EOMI HEENT: PERRL/EOMI, TMs Normal, Normal ENT Inspection, Pharynx Normal, Moist Mucous Membranes Neck: Full Range of Motion, Normal Inspection, Non Tender, Supple, Carotid Bruit Respiratory: No Accessory Muscle Use, No Respiratory Distress, Rales Cardiovascular: Regular Rate, Rhythm, No Edema, Systolic Murmur, Gallop/S3 Gastrointestinal: Normal Bowel Sounds, No Organomegaly, No Pulsatile Mass, Non Tender, Soft Back: Normal Inspection, No CVA Tenderness, No Vertebral Tenderness Extremity: Normal Capillary Refill, Normal Inspection, Normal Range of Motion, Non Tender, No Calf Tenderness, No Pedal Edema Neurologic/Psychiatric: Alert, Oriented x3, No Motor/Sensory Deficits, Normal Mood/Affect Skin: Normal Color, Warm/Dry Lymphatic: No Adenopathy A/P-Cardiology Admission Diagnosis Non-ST elevation myocardial infarction Coronary artery disease Congestive heart failure, acute on chronic left ventricular systolic dysfunction, dilated cardiomyopathy Acute renal failure Assessment/Plan Acute chest pain, non-ST elevation myocardial infarction, underlying left bundle branch block Continue to have rise in troponin We will proceed with cardiac catheterization possible PTCA Coronary artery disease, Had multiple interventions in [address] [facility] a total of 5 stents, Cardiac catheterization done in 2014 showing [id number] disease. Cardiac catheterization done January 27, 2019 revealing multiple stents in the proximal, mid and distal LAD with multiple segment of severe in-stent restenosis successful balloon angioplasty. Mild disease in the distal LAD. Long stent in the mid small nondominant right coronary artery which is patent with mild disease proximal to stent nonobstructive disease. Dominant circumflex artery with [id number] disease nonobstructive disease. Maintained on Plavix and aspirin. I am proceeding with cardiac catheterization possible PTCA Congestive heart failure, chronic compensated left ventricular systolic dysfunction ejection fraction. 2D echocardiogram done on October 24, 2020 showing normal LV size, EF 45 to 50%, grade 1 diastolic dysfunction, mild mitral regurgitation, aortic valve sclerosis, mild to moderate aortic regurgitation, PA pressure 45 to 50 mmHg. Improvement compared to the previous echocardiogram from December 2019 and January 2019. Maintained on Coreg 25 mg daily and Entresto 45 mg / 51 mg twice daily. I will reevaluate 2D Echo. Hypertension, patient has been borderline hypotensive, monitor blood pressure Acute on chronic renal failure, significant deterioration in renal function We discussed the possibility of progressing to end-stage kidney disease with the use of contrast and patient understand the risks and benefits of the procedure Diabetes mellitus, followed and monitored by primary care physician Diabetic neuropathy, continue to monitor Hypothyroidism, managed and followed by primary care physician Hyperlipidemia, maintained on Lipitor 40 mg daily I will evaluate lipid profile Moderate bilateral carotid stenosis, ultrasound was done in October 2021, continue to monitor Degenerative joint disease, monitored and managed by primary care physician Parkinson's, follows with Dr. Andrews Abnormal EKG with left bundle branch block, chronic, no change from baseline. Continue to monitor Generalized weakness/debility, chronic Has some deterioration yesterday morning Mild venous insufficiency, recommend compression stocking.LUISA Soliz MD Sep 02, 2022 08:00
--- NOTE | 2022-09-02 08:01 | Tele-ICU Consult ---
History of Present Illness History of Present Illness Date Seen by Provider: Sep 02, 2022 Time Seen by Provider: 07:56 History of Present Illness 86 yo F admitted with NSTEMI, has CAD with multiple stents, CXR showed pulm edema with pO2 55, given IV Lasix, BNP was 1329, trop 1.7, EKG LBBB On 4 lpm oxymask No CP today, Breathing is fair, on 7 lpm, SpO2 in low 90's, not working hard to breathe, pt is not as awake and snoring, will get ABG Mg 1.9, being replaced just came back from CCL had PCTA of LAD stent Allergies and Home Medications Allergies Coded Allergies: morphine (Verified Allergy, Mild, 09/01/22) hallucinations Home Medications Acetaminophen 650 Mg Tablet.er, 650 MG PO Q8H PRN for PAIN-MILD (1-4), (Reported) Amlodipine Besylate 5 Mg Tablet, 5 MG PO DAILY, (Reported) Ascorbic Acid 250 Mg Tab, 250 MG PO 1200, (Reported) Atorvastatin Calcium 80 Mg Tablet, 80 MG PO DAILY, (Reported) Bupropion HCl 150 Mg Tab.er.24h, 450 MG PO DAILY, (Reported) TAKES 3 150MG TABLETS DAILY Buspirone HCl 10 Mg Tablet, 20 MG PO BID, (Reported) Calcium Carbonate/Vitamin D3 1 Each Tablet, 1 EACH PO 1200, (Reported) Carbidopa/Levodopa 1 Each Tablet, 2 EACH PO TID, (Reported) Carvedilol 25 Mg Tablet, 25 MG PO BID, (Reported) Cholecalciferol (Vitamin D3) 10 Mcg Tablet, 10 MCG PO 1200, (Reported) Clonazepam 0.5 Mg Tablet, 0.25 MG PO DAILY, (Reported) TAKES HALF A OF TABLET ONCE DAILY Digoxin 125 Mcg Tablet, 125 MCG PO DAILY, (Reported) Furosemide 20 Mg Tablet, 40 MG PO DAILY Prescribed by: ZACHARY MITCHELL on 01/03/20 1247 Insulin Aspart 300 Units/3 Ml Solution, 3 UNITS SQ DAILY 3 UNITS WITH MEALS PLUS SLIDING SCALE Prescribed by: KARYNA YAN on 01/30/20 1150 Insulin Degludec 100 Unit/1 Ml Insuln.pen, 10 UNIT SQ DAILY Prescribed by: KARYNA YAN on 01/30/20 1150 Levothyroxine Sodium 125 Mcg Tablet, 125 MCG PO HS, (Reported) Loratadine 10 Mg Tablet, 10 MG PO DAILY, (Reported) Lurasidone HCl 40 Mg Tablet, 40 MG PO DAILY, (Reported) Multivit-Min/Iron/Folic/Vit K1 1 Each Tab.chew, 1 EACH PO 1200, (Reported) Pantoprazole Sodium 40 Mg Tablet.dr, 40 MG PO HS, (Reported) Polyethylene Glycol 3350 17 Gm Powd.pack, 17 GM PO 1200,HS, (Reported) Potassium Chloride 10 Meq Tablet.er, 10 MEQ PO DAILY, (Reported) Sacubitril/Valsartan 1 Each Tablet, 1 TAB PO BID, (Reported) Venlafaxine HCl 150 Mg Cap.er.24h, 150 MG PO DAILY, (Reported) Past Medical/Social/Family Hx Patient Social History Tobacco Use?: No Smoking Status: Never a Smoker Smokeless Tobacco Frequency: Never a User Use of E-Cig and/or Vaping dev: No Substance use?: No Alcohol Use?: No Pt stated abuse/neglect: No Immunizations Up To Date Influenza Vaccine Up-to-Date: Yes; Up-to-Date First/Initial COVID19 Vaccinat: UNKNOWN Second COVID19 Vaccination Ramírez: YES Tetanus Booster (TDap): More Than 5 Years Hepatitis A: No Hepatitis B: No TB Skin Test: None Date of Pneumonia Vaccine: Mar 09, 2019 Current Status status: No status: No Advance Directives: No Communicates: Verbally Primary Language: Romanian Preferred Spoken Language: Romanian Is interpretation needed?: No Sensory deficits: Vision impairment Implanted or Applied Medical D: Orthopedic hardware, Stents Focused Exam Lactate Level 09/01/22 18:15: Lactic Acid Level 1.85 Height, Weight, BMI Height: 5'2.00" Weight: 129lbs. 0.0oz. 58.456743tf; 25.39 BMI Method: Time of Focused Exam: 19:00 Exam Exam Patient acknowledged, consented, and participated in this virtual visit which was conducted using real time audio/video Vital Signs Date Time Temp Pulse Resp B/P (MAP) Pulse Ox O2 Delivery O2 Flow Rate FiO2 09/02/22 06:00 62 14 101/45 (66) 93 Nasal Cannula 5.00 09/02/22 05:31 61 15 105/48 (70) 94 Nasal Cannula 5.00 09/02/22 05:00 62 11 77/54 (66) 93 Nasal Cannula 5.00 09/02/22 04:00 94 Nasal Cannula 5.00 09/02/22 04:00 59 20 113/51 (71) 95 Nasal Cannula 5.00 09/02/22 03:00 57 13 97/46 (63) 95 Nasal Cannula 5.00 09/02/22 02:00 60 21 113/51 (69) 95 Nasal Cannula 5.00 09/02/22 01:00 60 13 114/48 (79) 96 Nasal Cannula 5.00 09/02/22 01:00 60 09/02/22 00:00 60 14 104/44 (72) 92 Nasal Cannula 5.00 09/01/22 23:59 92 Nasal Cannula 5.00 09/01/22 23:45 61 14 109/48 (79) 96 Nasal Cannula 5.00 09/01/22 23:00 65 13 95/35 (55) 95 Nasal Cannula 5.00 09/01/22 22:00 66 10 100/42 (61) 95 Nasal Cannula 5.00 09/01/22 21:41 Nasal Cannula 5.00 09/01/22 21:00 67 10 101/59 (88) 93 Nasal Cannula 5.00 09/01/22 20:45 67 12 114/47 (64) 92 Nasal Cannula 5.00 09/01/22 20:30 69 11 116/51 (69) 92 Nasal Cannula 5.00 09/01/22 20:15 70 12 112/48 (76) 93 Nasal Cannula 5.00 09/01/22 20:00 70 12 117/47 (73) 95 Nasal Cannula 5.00 09/01/22 19:45 71 16 98/50 (62) 95 Nasal Cannula 5.00 09/01/22 19:40 94 Nasal Cannula 5.00 09/01/22 19:33 71 09/01/22 19:29 82 16 108/62 (66) 95 Nasal Cannula 5.00 09/01/22 19:20 72 20 114/88 96 OxyMask 5.50 09/01/22 17:27 72 17 93 Nasal Cannula 3.00 09/01/22 17:27 92 Nasal Cannula 3.00 92 I & O 09/02/22 07:00 Intake Total 450 ml Output Total 575 ml Balance -125 ml Height & Weight Height: 5'2.00" Weight: 129lbs. 0.0oz. 58.281685xl; 25.39 BMI Method: Respiratory: No Accessory Muscle Use, No Respiratory Distress, Rales, Rhonci Cardiovascular: Regular Rate, Rhythm, No Edema Capillary Refill: Less Than 3 Seconds Gastrointestinal: normal bowel sounds, non tender, soft Extremity: Other (had CCL catheter in right groin, now our, site looks ok no bleeding) Neurologic/Psychiatric: Other (somewhat lethargic) Results Lab Laboratory Tests 09/01/22 17:30 09/02/22 04:39 Assessment/Plan Assessment/Plan NSTEMI with Hx of CAD/stents continue ASA, Lovenox, cardiology to see , Lasix PRN will get ABG for snoring, mild lethargy to re start home meds, coreg, lipitor, amlodipine, ASA, to get Plavix per cardiology note Critical Care: Critically Ill Patient SARBJIT OLIVEIRA MD Sep 02, 2022 08:01
[2022-09-02] MEDS ORDERED: NS IV 1000 ML 1,000 ML ONE (08:03)
--- NOTE | 2022-09-02 08:05 | Cardiac Procedure Note-CS/ASA ---
Pre-Procedure Note Pre-Op Procedure Note Date of Available H&P: Sep 02, 2022 Date H&P Reviewed: Sep 02, 2022 Time H&P Reviewed: 08:04 History & Physical: H&P Reviewed, Patient Examed, No changes noted Pre-Operative Diagnosis: coronary artery disease Moderate Sedation PreProcedure Time 08:04 ASA Score 3 Airway Lungs Heart ASA score ASA 1: a normal healthy patient ASA 2: a patient with a mild systemic disease (mid diabetes, controlled hypertension, obesity ASA 3: a patient with a severe systemic disease that limits activity (angina, COPD, prior Myocardial infarction) ASA 4: a patient with an incapacitating disease that is a constant threat to life (CHF, renal failure) ASA 5: a moribund patient not expected to survive 24 hrs. (ruptured aneurysm) ASA 6: a declared brain- patient whose organs are being harvested. For emergent operations, add the letter E after the classification Mallampati Classification Grade 3 Sedation Plan Analgesia, Amnesia, Plan communicated to team members, Discussed options with patient/fam, Discussed risks with patient/fam The patient is an appropriate candidate to undergo the planned procedure, sedation, and anesthesia. The patient immediately re-assessed prior to indication. LUISA MEADE MD Sep 02, 2022 08:05
[2022-09-02] MEDS ORDERED: HEParin 1000 UNIT/ML (10ML VIAL) FOR BOLUS ONE (08:23)
[2022-09-02] MEDS ORDERED: PATIENT MAY USE OWN MEDS, ALL PO SCH (08:45)
[2022-09-02] MEDS ORDERED: NS IV 1000 ML 1,000 ML IV SCH (08:45)
--- NOTE | 2022-09-02 08:46 | Cardiac Cath Report ---
Cardiac Cath Report Physician (s)/Accounting Officer (s) Physician LUISA MEADE MD Pre-Procedure Diagnosis Pre-Procedure Diagnosis: coronary artery disease Post-Procedure Note Procedure Start Date: Sep 02, 2022 Procedure Start Time: 08:40 Name of Procedure: Left heart cath PTCA to the LAD Findings/Procedure Note PROCEDURE NOTE: 86-year-old lady with history of coronary artery disease, multiple intervention, congestive heart failure, admitted with non-ST elevation myocardial infarction, cardiac catheterization was advised. After explaining the procedure to the patient, all pros and cons were explained, all questions were answered. The patient signed the consent and then she was placed in the cardiac catheterization laboratory. Groin was prepped in SL fashion local anesthesia was used. Sheath placed in the right femoral artery, Gricel right was advanced and prolapsed to the left ventricular cavity, pressure was measured, pullback LV to aorta was done, engage the right coronary artery and angiogram was done then I used Gricel left 3.5 guide and engaged the left coronary system. Angiogram was done. Patient had 95% in-stent restenosis in the mid LAD. BMW wire was attempted then I used whisper extra-support and advanced it in the LAD. Noncompliant trek 3.5 x 20 mm balloon was used, multiple inflation up to 16 poly was done. Angiogram showed excellent results. At the end of the procedure the sheath was removed. Closure device was deployed FINDINGS: Hemodynamics LV 114/21, end-diastolic pressure of 21 Aorta 111/41 mean of 63 ANATOMY: Left Main is free of obstructive disease Left Anterior Descending had multiple stents in the proximal and mid LAD, 95% stenosis within the stent in the mid LAD successful balloon angioplasty with noncompliant balloon 3.5 x 20 mm with multiple inflation with 0% residual stenosis Left Circumflex is dominant artery with 10% stenosis nonobstructive disease Right Coronary Artery is tortuous artery with patent stent in the mid right coronary artery, nondominant artery, ostial right coronary artery has 95% stenosis in proximal RCA has 70% stenosis that will be staged for intervention a t a later point LV Gram was not done, pressure was measured PERCUTANEOUS INTERVENTION: Pre stenosis 95% Post Stenosis 0% Pre KRYS flow 2 Post KRYS flow 3 Dominance left circumflex artery CONCLUSION: 95% in-stent restenosis in the mid LAD with successful balloon angioplasty with noncompliant 3.5 x 20 mm trek balloon with excellent result no residual stenosis Small nondominant right coronary artery with patent stent in the mid right coronary artery, ostial 95% stenosis and proximal 70% stenosis that will be staged at a later point due to her renal failure Dominant circumflex artery with nonobstructive disease Elevated left ventricular end-diastolic pressure DISCUSSION AND RECOMMENDATION: Patient will continue on aspirin and Plavix and continue to maximize medical therapy Arrange for intervention on the right coronary artery at a tertiary care center Anesthesia Type: Conscious Sedation Estimated blood loss (mL): 25 ml Contrast Amount: 17 ml Total Radiation Dose: 293 mGy Post-Procedure Diagnosis Post-operative diagnosis: Non-ST elevation myocardial infarction Coronary artery disease Hypotension Congestive heart failure, acute on chronic left ventricular systolic dysfunction, ischemic cardiomyopathy LUISA MEADE MD Sep 02, 2022 08:46
[2022-09-02] MEDS ORDERED: CLOPIDOGREL 300 MG (PLAVIX) TABLET PO ONE (08:49)
[2022-09-02] MEDS ORDERED: ASPIRIN 81 MG CHEW (CHILDREN'S ASA) ONE (08:49)
[2022-09-02] MEDS: CLOPIDOGREL 75 MG (PLAVIX) TABLET PO SCH (09:00)
[2022-09-02] MEDS: ASPIRIN E.C. 81 MG (ECOTRIN) TAB PO SCH (09:00)
[2022-09-02] MEDS ORDERED: ASPIRIN E.C. 81 MG (ECOTRIN) TAB PO SCH (09:00)
[2022-09-02] MEDS ORDERED: polyethylene glycoL POWDER 17 GM (MIRALAX) PACK PO PRN (09:30)
[2022-09-02] MEDS ORDERED: DOCUSATE SODIUM 100 MG (COLACE) CAP PO NR (10:00)
[2022-09-02] MEDS ORDERED: polyethylene glycoL POWDER 17 GM (MIRALAX) PACK PO NR (10:00)
[2022-09-02] MEDS ORDERED: SENNA W/DOCUSATE (SENOKOT S) TABLET PO NR (10:00)
[2022-09-02] MEDS: NS IV 1000 ML 1,000 ML IV SCH (10:30)
[2022-09-02 10:48] LABS: ABG BASE EXCESS -0.1 MMOL/L (-2.5-2.5); ABG OXYGEN SATURATION 89 % (94-100); ABG PCO2 39 MMHG (35-45); ABG PH 7.41 (7.37-7.43); ABG PO2 52 MMHG (79-93); ABG TCO2 25.3 MMOL/L (21.0-31.0); ALLENS TEST YES-POS; INSPIRED O2 7
[2022-09-02 10:49] LABS: PATIENT TEMP 36.3; VENTILATOR NO
[2022-09-02] MEDS: PANTOPRAZOLE 40 MG (PROTONIX) TAB PO SCH (11:59)
[2022-09-02] MEDS: fentaNYL INJ 100 MCG/2 ML AMP IV PRN (13:15)
[2022-09-02] MEDS ORDERED: BUPR300T98 PO (14:33)
[2022-09-02] MEDS ORDERED: OLAN7.5T18 PO (14:33)
[2022-09-02] MEDS ORDERED: LEVO125T6 PO (14:33)
[2022-09-02] MEDS ORDERED: CA C1TAB66 PO (14:33)
[2022-09-02] MEDS ORDERED: ENTA200T6 PO (14:33)
[2022-09-02] MEDS ORDERED: INSU100I32 SQ (14:33)
[2022-09-02] MEDS ORDERED: INSU100I40 SC (14:33)
[2022-09-02] MEDS ORDERED: ASPI-1238 PO (14:33)
[2022-09-02] MEDS ORDERED: VENL75CA93 PO (14:33)
[2022-09-02] MEDS ORDERED: FURO40TA4 PO (14:33)
[2022-09-02] MEDS ORDERED: CLOP75TA28 PO (14:33)
[2022-09-02] MEDS ORDERED: VITA1TAB17 PO (14:33)
[2022-09-02] MEDS ORDERED: GABA300C PO (14:33)
[2022-09-02] MEDS ORDERED: ACET-93 PO (14:33)
[2022-09-02] MEDS ORDERED: DOCU100C37 PO (14:33)
[2022-09-02] MEDS ORDERED: CETI10TA17 PO (14:33)
--- NOTE | 2022-09-02 15:27 | Tele-ICU Progress Note ---
Subjective Date Seen by a Provider: Sep 02, 2022 Time Seen by a Provider: 15:25 Subjective/Events-last exam called for increased work of breathing, wheezing, increased oxygen needs, had cardiac cath today, Will give albuterol, get CXR and if sign of CHF, give IV Eligio Oliveira MD Sepsis Event Evaluation Height, Weight, BMI Height: 5'2.00" Weight: 129lbs. 0.0oz. 58.003635ab; 25.39 BMI Method: Focused Exam Lactate Level 09/01/22 18:15: Lactic Acid Level 1.85 Time of Focused Exam: 19:00 Exam Exam Patient acknowledged, consented, and participated in this virtual visit which was conducted using real time audio/video Vital Signs Date Time Temp Pulse Resp B/P (MAP) Pulse Ox O2 Delivery O2 Flow Rate FiO2 09/02/22 15:00 77 15 125/52 (76) 95 OxyMask 15.00 09/02/22 14:00 74 12 114/46 (68) 94 OxyMask 15.00 09/02/22 13:05 70 19 106/38 (60) 90 OxyMask 15.00 09/02/22 13:00 72 28 84/65 (71) 91 OxyMask 15.00 09/02/22 13:00 72 09/02/22 12:45 72 12 133/61 (85) 94 OxyMask 15.00 09/02/22 12:00 14 118/59 (78) 91 Nasal Cannula 7.00 09/02/22 12:00 91 Nasal Cannula 7.00 09/02/22 11:00 69 8 114/59 (77) 90 Nasal Cannula 7.00 09/02/22 10:30 66 10 115/101 (106) 92 Nasal Cannula 7.00 09/02/22 10:00 63 18 104/47 (66) 95 Nasal Cannula 5.00 09/02/22 09:50 36.3 64 11 112/58 (76) 90 Nasal Cannula 7.00 09/02/22 09:35 65 10 103/58 (73) 91 Nasal Cannula 7.00 09/02/22 09:20 36.6 67 11 111/42 (65) 92 Nasal Cannula 7.00 09/02/22 09:05 66 12 86/66 (73) 86 Nasal Cannula 5.00 09/02/22 09:00 103/58 (73) Nasal Cannula 5.00 09/02/22 08:00 65 20 94 Nasal Cannula 5.00 09/02/22 07:45 93 Nasal Cannula 5.00 09/02/22 07:00 63 09/02/22 07:00 62 20 105/46 (65) 94 Nasal Cannula 5.00 09/02/22 06:00 62 14 101/45 (66) 93 Nasal Cannula 5.00 09/02/22 05:31 61 15 105/48 (70) 94 Nasal Cannula 5.00 09/02/22 05:00 62 11 77/54 (66) 93 Nasal Cannula 5.00 09/02/22 04:00 94 Nasal Cannula 5.00 09/02/22 04:00 59 20 113/51 (71) 95 Nasal Cannula 5.00 09/02/22 03:00 57 13 97/46 (63) 95 Nasal Cannula 5.00 09/02/22 02:00 60 21 113/51 (69) 95 Nasal Cannula 5.00 09/02/22 01:00 60 13 114/48 (79) 96 Nasal Cannula 5.00 09/02/22 01:00 60 09/02/22 00:00 60 14 104/44 (72) 92 Nasal Cannula 5.00 09/01/22 23:59 92 Nasal Cannula 5.00 09/01/22 23:45 61 14 109/48 (79) 96 Nasal Cannula 5.00 09/01/22 23:00 65 13 95/35 (55) 95 Nasal Cannula 5.00 09/01/22 22:00 66 10 100/42 (61) 95 Nasal Cannula 5.00 09/01/22 21:41 Nasal Cannula 5.00 09/01/22 21:00 67 10 101/59 (88) 93 Nasal Cannula 5.00 09/01/22 20:45 67 12 114/47 (64) 92 Nasal Cannula 5.00 09/01/22 20:30 69 11 116/51 (69) 92 Nasal Cannula 5.00 09/01/22 20:15 70 12 112/48 (76) 93 Nasal Cannula 5.00 09/01/22 20:00 70 12 117/47 (73) 95 Nasal Cannula 5.00 09/01/22 19:45 71 16 98/50 (62) 95 Nasal Cannula 5.00 09/01/22 19:40 94 Nasal Cannula 5.00 09/01/22 19:33 71 09/01/22 19:29 82 16 108/62 (66) 95 Nasal Cannula 5.00 09/01/22 19:20 72 20 114/88 96 OxyMask 5.50 09/01/22 17:27 72 17 93 Nasal Cannula 3.00 09/01/22 17:27 92 Nasal Cannula 3.00 92 I & O 09/02/22 07:00 Intake Total 450 ml Output Total 575 ml Balance -125 ml Height & Weight Height: 5'2.00" Weight: 129lbs. 0.0oz. 58.542499gy; 25.39 BMI Method: General Appearance: No Apparent Distress, WD/WN HEENT: PERRL/EOMI, TMs Normal, Normal ENT Inspection, Pharynx Normal, Moist Mucous Membranes Neck: Full Range of Motion, Normal Inspection, Non Tender, Supple, Carotid Bruit Respiratory: No Accessory Muscle Use, No Respiratory Distress, Rales, Rhonci Cardiovascular: Regular Rate, Rhythm, No Edema Capillary Refill: Less Than 3 Seconds Gastrointestinal: normal bowel sounds, non tender, soft Extremity: Other (had CCL catheter in right groin, now our, site looks ok no bleeding) Neurologic/Psychiatric: Other (somewhat lethargic) Skin: Normal Color, Warm/Dry Lymphatic: No Adenopathy Results Lab Laboratory Tests 09/01/22 17:30 09/02/22 04:39 Assessment/Plan Assessment/Plan chf vs bronospasm, give albuterol, get CXR, may also need lasix Critical Care: Critically Ill Patient Time spent with patient (mins): 15 SARBJIT OLIVEIRA MD Sep 02, 2022 15:27
[2022-09-02] MEDS ORDERED: RT-ALBUTEROL/IPRATROPIUM 3 ML (DUONEB) VIAL INH NR (15:45)
--- NOTE | 2022-09-02 15:52 | Diagnostic Imaging Report ---
INDICATION: Shortness of breath. Comparison is made with prior exam of 09/01/2022. FINDINGS: The heart size is normal. There is moderate central pulmonary venous congestion. No pleural effusion or pneumothorax. Mediastinum unremarkable. IMPRESSION: Moderate central pulmonary venous congestion. Dictated by: Dictated on workstation # [id number]
--- NOTE | 2022-09-02 16:12 | Tele-ICU Progress Note ---
Subjective Date Seen by a Provider: Sep 02, 2022 Time Seen by a Provider: 16:08 Subjective/Events-last exam CXR reviewed looks congested, albuterol, did not help, will give 40 mg IVP Lasix, Cr 1.63, SpO2 89% on 15 lpm oxymask, will place on BiPAP 03/13, Matty Oliveira MD Sepsis Event Evaluation Height, Weight, BMI Height: 5'2.00" Weight: 129lbs. 0.0oz. 58.119846cm; 25.39 BMI Method: Focused Exam Lactate Level 09/01/22 18:15: Lactic Acid Level 1.85 Time of Focused Exam: 19:00 Exam Exam Patient acknowledged, consented, and participated in this virtual visit which was conducted using real time audio/video Vital Signs Date Time Temp Pulse Resp B/P (MAP) Pulse Ox O2 Delivery O2 Flow Rate FiO2 09/02/22 15:50 91 OxyMask 15.00 09/02/22 15:00 77 15 125/52 (76) 95 OxyMask 15.00 09/02/22 14:00 74 12 114/46 (68) 94 OxyMask 15.00 09/02/22 13:05 70 19 106/38 (60) 90 OxyMask 15.00 09/02/22 13:00 72 28 84/65 (71) 91 OxyMask 15.00 09/02/22 13:00 72 09/02/22 12:45 72 12 133/61 (85) 94 OxyMask 15.00 09/02/22 12:00 14 118/59 (78) 91 Nasal Cannula 7.00 09/02/22 12:00 91 Nasal Cannula 7.00 09/02/22 11:00 69 8 114/59 (77) 90 Nasal Cannula 7.00 09/02/22 10:30 66 10 115/101 (106) 92 Nasal Cannula 7.00 09/02/22 10:00 63 18 104/47 (66) 95 Nasal Cannula 5.00 09/02/22 09:50 36.3 64 11 112/58 (76) 90 Nasal Cannula 7.00 09/02/22 09:35 65 10 103/58 (73) 91 Nasal Cannula 7.00 09/02/22 09:20 36.6 67 11 111/42 (65) 92 Nasal Cannula 7.00 09/02/22 09:05 66 12 86/66 (73) 86 Nasal Cannula 5.00 09/02/22 09:00 103/58 (73) Nasal Cannula 5.00 09/02/22 08:00 65 20 94 Nasal Cannula 5.00 09/02/22 07:45 93 Nasal Cannula 5.00 09/02/22 07:00 63 09/02/22 07:00 62 20 105/46 (65) 94 Nasal Cannula 5.00 09/02/22 06:00 62 14 101/45 (66) 93 Nasal Cannula 5.00 09/02/22 05:31 61 15 105/48 (70) 94 Nasal Cannula 5.00 09/02/22 05:00 62 11 77/54 (66) 93 Nasal Cannula 5.00 09/02/22 04:00 94 Nasal Cannula 5.00 09/02/22 04:00 59 20 113/51 (71) 95 Nasal Cannula 5.00 09/02/22 03:00 57 13 97/46 (63) 95 Nasal Cannula 5.00 09/02/22 02:00 60 21 113/51 (69) 95 Nasal Cannula 5.00 09/02/22 01:00 60 13 114/48 (79) 96 Nasal Cannula 5.00 09/02/22 01:00 60 09/02/22 00:00 60 14 104/44 (72) 92 Nasal Cannula 5.00 09/01/22 23:59 92 Nasal Cannula 5.00 09/01/22 23:45 61 14 109/48 (79) 96 Nasal Cannula 5.00 09/01/22 23:00 65 13 95/35 (55) 95 Nasal Cannula 5.00 09/01/22 22:00 66 10 100/42 (61) 95 Nasal Cannula 5.00 09/01/22 21:41 Nasal Cannula 5.00 09/01/22 21:00 67 10 101/59 (88) 93 Nasal Cannula 5.00 09/01/22 20:45 67 12 114/47 (64) 92 Nasal Cannula 5.00 09/01/22 20:30 69 11 116/51 (69) 92 Nasal Cannula 5.00 09/01/22 20:15 70 12 112/48 (76) 93 Nasal Cannula 5.00 09/01/22 20:00 70 12 117/47 (73) 95 Nasal Cannula 5.00 09/01/22 19:45 71 16 98/50 (62) 95 Nasal Cannula 5.00 09/01/22 19:40 94 Nasal Cannula 5.00 09/01/22 19:33 71 09/01/22 19:29 82 16 108/62 (66) 95 Nasal Cannula 5.00 09/01/22 19:20 72 20 114/88 96 OxyMask 5.50 09/01/22 17:27 72 17 93 Nasal Cannula 3.00 09/01/22 17:27 92 Nasal Cannula 3.00 92 I & O 09/02/22 07:00 Intake Total 450 ml Output Total 575 ml Balance -125 ml Height & Weight Height: 5'2.00" Weight: 129lbs. 0.0oz. 58.294818ma; 25.39 BMI Method: General Appearance: No Apparent Distress, WD/WN HEENT: PERRL/EOMI, TMs Normal, Normal ENT Inspection, Pharynx Normal, Moist Mucous Membranes Neck: Full Range of Motion, Normal Inspection, Non Tender, Supple, Carotid Bruit Respiratory: No Accessory Muscle Use, No Respiratory Distress, Rales, Rhonci Cardiovascular: Regular Rate, Rhythm, No Edema Capillary Refill: Less Than 3 Seconds Gastrointestinal: normal bowel sounds, non tender, soft Extremity: Other (had CCL catheter in right groin, now our, site looks ok no bleeding) Neurologic/Psychiatric: Other (somewhat lethargic) Skin: Normal Color, Warm/Dry Lymphatic: No Adenopathy Results Lab Laboratory Tests 09/01/22 17:30 09/02/22 04:39 Assessment/Plan Assessment/Plan CHF, will give IV Lasix 30 and BiPAP 10/5 Matty Oliveira MD Critical Care: Critically Ill Patient SARBJIT OLIVEIRA MD Sep 02, 2022 16:12
[2022-09-02 16:24] VITALS: BP 123/71
[2022-09-02] MEDS ORDERED: FUROSEMIDE 40 MG/4 ML INJ (LASIX) IVP NR ×2 (16:45→18:00)
[2022-09-02] MEDS: ENOXAPARIN 60 MG/0.6 ML (LOVENOX) SYR SC SCH (18:04)
--- NOTE | 2022-09-02 18:42 | Tele-ICU Progress Note ---
Progress Note History of Present Illness History of Present Illness History of Present Illness Date Seen by Provider: Sep 02, 2022 Time Seen by Provider: 07:56 History of Present Illness 86 yo F admitted with NSTEMI, has CAD with multiple stents, CXR showed pulm edema with pO2 55, given IV Lasix, BNP was 1329, trop 1.7, EKG LBBB On 4 lpm oxymask No CP today, Breathing is fair, on 7 lpm, SpO2 in low 90's, not working hard to breathe, pt is not as awake and snoring, will get ABG Mg 1.9, being replaced just came back from CCL had PCTA of LAD stent Allergies & Home Medications-C Allergies and Home Medications Allergies Coded Allergies: morphine (Verified Allergy, Mild, 09/01/22) hallucinations Home Medications Acetaminophen 650 Mg Tablet.er, 650 MG PO Q8H PRN for PAIN-MILD (1-4), (Reported) Amlodipine Besylate 5 Mg Tablet, 5 MG PO DAILY, (Reported) Ascorbic Acid 250 Mg Tab, 250 MG PO 1200, (Reported) Atorvastatin Calcium 80 Mg Tablet, 80 MG PO DAILY, (Reported) Bupropion HCl 150 Mg Tab.er.24h, 450 MG PO DAILY, (Reported) TAKES 3 150MG TABLETS DAILY Buspirone HCl 10 Mg Tablet, 20 MG PO BID, (Reported) Calcium Carbonate/Vitamin D3 1 Each Tablet, 1 EACH PO 1200, (Reported) Carbidopa/Levodopa 1 Each Tablet, 2 EACH PO TID, (Reported) Carvedilol 25 Mg Tablet, 25 MG PO BID, (Reported) Cholecalciferol (Vitamin D3) 10 Mcg Tablet, 10 MCG PO 1200, (Reported) Clonazepam 0.5 Mg Tablet, 0.25 MG PO DAILY, (Reported) TAKES HALF A OF TABLET ONCE DAILY Digoxin 125 Mcg Tablet, 125 MCG PO DAILY, (Reported) Furosemide 20 Mg Tablet, 40 MG PO DAILY Prescribed by: ZACHARY MITCHELL on 01/03/20 1247 Insulin Aspart 300 Units/3 Ml Solution, 3 UNITS SQ DAILY 3 UNITS WITH MEALS PLUS SLIDING SCALE Prescribed by: KARYNA YAN on 01/30/20 1150 Insulin Degludec 100 Unit/1 Ml Insuln.pen, 10 UNIT SQ DAILY Prescribed by: KARYNA YAN on 01/30/20 1150 Levothyroxine Sodium 125 Mcg Tablet, 125 MCG PO HS, (Reported) Loratadine 10 Mg Tablet, 10 MG PO DAILY, (Reported) Lurasidone HCl 40 Mg Tablet, 40 MG PO DAILY, (Reported) Multivit-Min/Iron/Folic/Vit K1 1 Each Tab.chew, 1 EACH PO 1200, (Reported) Pantoprazole Sodium 40 Mg Tablet.dr, 40 MG PO HS, (Reported) Polyethylene Glycol 3350 17 Gm Powd.pack, 17 GM PO 1200,HS, (Reported) Potassium Chloride 10 Meq Tablet.er, 10 MEQ PO DAILY, (Reported) Sacubitril/Valsartan 1 Each Tablet, 1 TAB PO BID, (Reported) Venlafaxine HCl 150 Mg Cap.er.24h, 150 MG PO DAILY, (Reported) Past Medical/Social/Family Hx Past Medical/Social/Family Hx Patient Social History Tobacco Use?: No Smoking Status: Never a Smoker Smokeless Tobacco Frequency: Never a User Use of E-Cig and/or Vaping dev: No Substance use?: No Alcohol Use?: No Pt stated abuse/neglect: No Immunizations Up To Date Influenza Vaccine Up-to-Date: Yes; Up-to-Date First/Initial COVID19 Vaccinat: UNKNOWN Second COVID19 Vaccination Ramírez: YES Tetanus Booster (TDap): More Than 5 Years Hepatitis A: No Hepatitis B: No TB Skin Test: None Date of Pneumonia Vaccine: Mar 09, 2019 Current Status status: No status: No Advance Directives: No Communicates: Verbally Primary Language: Citizen Of [place] Preferred Spoken Language: Citizen Of [place] Is interpretation needed?: No Sensory deficits: Vision impairment Implanted or Applied Medical D: Orthopedic hardware, Stents Review of Systems-Hospitalist Review of Systems Focused Exam Focused Exam Lactate Level 09/01/22 18:15: Lactic Acid Level 1.85 Height, Weight, BMI Height: 5'2.00" Weight: 129lbs. 0.0oz. 58.162651rl; 25.39 BMI Method: Time of Focused Exam: 19:00 Exam-Pulmonary/CC Exam Exam Patient acknowledged, consented, and participated in this virtual visit which was conducted using real time audio/video Vital Signs Date Time Temp Pulse Resp B/P (MAP) Pulse Ox O2 Delivery O2 Flow Rate FiO2 09/02/22 06:00 62 14 101/45 (66) 93 Nasal Cannula 5.00 09/02/22 05:31 61 15 105/48 (70) 94 Nasal Cannula 5.00 09/02/22 05:00 62 11 77/54 (66) 93 Nasal Cannula 5.00 09/02/22 04:00 94 Nasal Cannula 5.00 09/02/22 04:00 59 20 113/51 (71) 95 Nasal Cannula 5.00 09/02/22 03:00 57 13 97/46 (63) 95 Nasal Cannula 5.00 09/02/22 02:00 60 21 113/51 (69) 95 Nasal Cannula 5.00 09/02/22 01:00 60 13 114/48 (79) 96 Nasal Cannula 5.00 09/02/22 01:00 60 09/02/22 00:00 60 14 104/44 (72) 92 Nasal Cannula 5.00 09/01/22 23:59 92 Nasal Cannula 5.00 09/01/22 23:45 61 14 109/48 (79) 96 Nasal Cannula 5.00 09/01/22 23:00 65 13 95/35 (55) 95 Nasal Cannula 5.00 09/01/22 22:00 66 10 100/42 (61) 95 Nasal Cannula 5.00 09/01/22 21:41 Nasal Cannula 5.00 09/01/22 21:00 67 10 101/59 (88) 93 Nasal Cannula 5.00 09/01/22 20:45 67 12 114/47 (64) 92 Nasal Cannula 5.00 09/01/22 20:30 69 11 116/51 (69) 92 Nasal Cannula 5.00 09/01/22 20:15 70 12 112/48 (76) 93 Nasal Cannula 5.00 09/01/22 20:00 70 12 117/47 (73) 95 Nasal Cannula 5.00 09/01/22 19:45 71 16 98/50 (62) 95 Nasal Cannula 5.00 09/01/22 19:40 94 Nasal Cannula 5.00 09/01/22 19:33 71 09/01/22 19:29 82 16 108/62 (66) 95 Nasal Cannula 5.00 09/01/22 19:20 72 20 114/88 96 OxyMask 5.50 09/01/22 17:27 72 17 93 Nasal Cannula 3.00 09/01/22 17:27 92 Nasal Cannula 3.00 92 I & O 09/02/22 07:00 Intake Total 450 ml Output Total 575 ml Balance -125 ml Height & Weight Height: 5'2.00" Weight: 129lbs. 0.0oz. 58.343810kd; 25.39 BMI Method: Respiratory: No Accessory Muscle Use, No Respiratory Distress, Rales, Rhonci Cardiovascular: Regular Rate, Rhythm, No Edema Capillary Refill: Less Than 3 Seconds Gastrointestinal: normal bowel sounds, non tender, soft Extremity: Other (had CCL catheter in right groin, now our, site looks ok no bleeding) Neurologic/Psychiatric: Other (somewhat lethargic) Results Lab Laboratory Tests 09/01/22 17:30 09/02/22 04:39 Assessment/Plan Assessment/Plan Assessment/Plan NSTEMI with Hx of CAD/stents continue ASA, Lovenox, cardiology to see , Lasix PRN will get ABG for snoring, mild lethargy to re start home meds, coreg, lipitor, amlodipine, ASA, to get Plavix per cardiology note Critical Care: Critically Ill Patient Problem List Diagnosis/Problems Copy To: Copy SARBJIT OLIVEIRA MD Sep 02, 2022 08:01 Focused Exam Lactate Level 09/01/22 18:15: Lactic Acid Level 1.85 Height, Weight, BMI Height: 5'2.00" Weight: 129lbs. 0.0oz. 58.175440qx; 25.39 BMI Method: Time of Focused Exam: 19:00 SARBJIT OLIVEIRA MD Sep 02, 2022 18:42
[2022-09-02 19:09] VITALS: BP 134/74
--- NOTE | 2022-09-02 20:03 | History & Physical-Hospitalist ---
History of Present Illness HPI/Chief Complaint Edie Gallo is an 86 year old female with PMH HTN, T2DM, HLD, CAD, hypothyroidism, AFib, HFrEF, who presented with weakness. She had also been feeling fatigued. She had some chest pain. Upon my exam she is no longer having any symptoms. She denies chest pain. She denies shortness of breath. She denies nausea, vomiting, abdominal pain. She has not had any leg swelling. Source: patient Exam Limitations: no limitations Date Seen 09/02/22 Time Seen by a Provider: 09:10 Attending Physician Shaq Brothers MD PCP Admitting Physician: Gricelda Urban MD Attending Physician: Xiomy Yan MD Referring Physician Date of Admission Sep 01, 2022 at 19:24 Home Medications & Allergies Home Medications Reviewed patient Home Medication Reconciliation performed by pharmacy medication reconciliations reprographics technician and/or nursing. Patients Allergies have been reviewed. Allergies Allergies Coded Allergies morphine (Verified Allergy, Mild, 09/01/22) hallucinations Past Xekpwyt-Fxfqtp-Yqleaz Hx Patient Social History Marrital Status: Employed/Student: retired Tobacco Use?: No Smoking Status: Never a Smoker Smokeless Tobacco Frequency: Never a User Use of E-Cig and/or Vaping dev: No Substance use?: No Alcohol Use?: No Pt feels they are or have been: No Immunizations Up To Date Date of Influenza Vaccine: Mar 09, 2021 First/Initial COVID19 Vaccinat: UNKNOWN Second COVID19 Vaccination Ramírez: YES Tetanus Booster (TDap): More Than 5 Years Hepatitis A: No Hepatitis B: No Date of Pneumonia Vaccine: Mar 09, 2019 Current Status status: No status: No Advance Directives: No Communicates: Verbally Primary Language: Latvian Preferred Spoken Language: Latvian Is interpretation needed?: No Sensory deficits: Vision impairment Implanted or Applied Medical D: Orthopedic hardware, Stents Past Medical History Surgeries: Gallbladder Sleep Apnea Currently Using CPAP: No (not for 4 years ) Currently Using BIPAP: No Coronary Artery Disease, High Cholesterol, Hypertension Sexually Transmitted Disease: No HIV/AIDS: No Arthritis Diabetes, Insulin dep, Hypothyroidsim Anxiety, Depression Blood Disorders: No Adverse Reaction/Blood Tranf: No Family Medical History No Pertinent Family Hx Review of Systems Constitutional: weakness Respiratory: no symptoms reported Cardiovascular: chest pain Gastrointestinal: no symptoms reported Physical Exam Physical Exam Vital Signs Vital Signs - First Documented 09/01/22 09/01/22 09/02/22 17:27 19:20 09:20 Temp 36.6 Pulse 72 Resp 17 B/P (MAP) 114/88 Pulse Ox 92 O2 Delivery Nasal Cannula O2 Flow Rate 3.00 FiO2 92 Capillary Refill : Less Than 3 Seconds Height, Weight, BMI Height: 5'2.00" Weight: 129lbs. 0.0oz. 58.573165ny; 25.39 BMI Method: General Appearance: No Apparent Distress, WD/WN HEENT: PERRL/EOMI, Pharynx Normal Neck: Normal Inspection, Supple Respiratory: Lungs Clear, Normal Breath Sounds, No Respiratory Distress Cardiovascular: Regular Rate, Rhythm, No Edema, No Murmur Gastrointestinal: Normal Bowel Sounds, Non Tender, Soft Extremity: Normal Inspection, No Pedal Edema Neurologic/Psychiatric: Alert, No Motor/Sensory Deficits, Normal Mood/Affect Skin: Normal Color, Warm/Dry Results Results/Procedures Labs Laboratory Tests 09/01/22 17:30 09/02/22 04:39 Patient resulted labs reviewed. Imaging: Reviewed Imaging Report Assessment/Plan Admission Diagnosis NSTEMI Admission Status: Inpatient Order (span 2 midnights) Reason for Inpatient Admission: Cardiology intervention Assessment and Plan NSTEMI CAD Acute on chronic HFrEF Acute respiratory failure with hypoxia Acute postoperative respiratory insufficiency TAMMY on CKD3b HTN HLD AFib LBBB Cardiology consulted EKG with known LBBB Troponin trending up Left heart cath with 95% in-stent stenosis of LAD, stent placed Also with 70% stensosis right coronary artery, staged PCI recommended ASA Plavix Statin TeleICU consulted Stop fluids Lasix BiPAP as needed Hold sedating home meds as able UTI Rocephin T2DM Sliding scale insulin Hypothyroidism GERD Continue home meds DVT prophylaxis: Lovenox Critical Care Critically Ill Patient Diagnosis/Problems Diagnosis/Problems (1) NSTEMI (non-ST elevation myocardial infarction) Status: Acute (2) Acute on chronic HFrEF (heart failure with reduced ejection fraction) Status: Acute (3) Acute postoperative respiratory insufficiency Status: Acute (4) Acute respiratory failure with hypoxia Status: Acute (5) Acute kidney injury superimposed on chronic kidney disease Status: Acute (6) UTI (urinary tract infection) Status: Acute (7) T2DM (type 2 diabetes mellitus) Status: Chronic (8) Coronary artery disease Status: Chronic (9) Hypertension Status: Chronic (10) Hyperlipidemia Status: Chronic (11) Hypothyroidism Status: Chronic XIOMY YAN MD Sep 02, 2022 20:03
[2022-09-02] MEDS: GABAPENTIN 100 MG (NEURONTIN) CAP PO SCH (21:11)
[2022-09-02] MEDS: SENNA W/DOCUSATE (SENOKOT S) TABLET PO SCH (21:11)
[2022-09-02] MEDS: DOCUSATE SODIUM 100 MG (COLACE) CAP PO SCH (21:11)
[2022-09-02] MEDS: cefTRIAXone 1 GM IV (PRE-MIX) 50 ML IV SCH (21:11)
[2022-09-02] MEDS: SINEMET 25/100 (CARBIDOPA/LEVODOPA) TAB PO SCH (21:12)
[2022-09-02] MEDS: OLANZapine 2.5 MG (ZyPREXA) TAB PO SCH (21:12)
[2022-09-02 21:28] VITALS: BP 124/65
[2022-09-03 01:46] VITALS: BP 132/73
[2022-09-03] MEDS ORDERED: FUROSEMIDE 40 MG/4 ML INJ (LASIX) IVP ONE (03:45)
[2022-09-03] MEDS ORDERED: RT-ALBUTEROL SULF 2.5 MG/3 ML PRE-MIX VIAL INH ONE (03:45)
[2022-09-03] MEDS ORDERED: RT-ALBUTEROL SULF 2.5 MG/3 ML PRE-MIX VIAL ONE (04:05)
[2022-09-03 04:13] VITALS: BP 131/61
[2022-09-03 04:15] LABS: ABG BASE EXCESS -2.4 MMOL/L (-2.5-2.5); ABG OXYGEN SATURATION 51 % (94-100); ABG PCO2 43 MMHG (35-45); ABG TCO2 23.7 MMOL/L (21.0-31.0)
[2022-09-03 04:16] LABS: ALLENS TEST YES-POS; INSPIRED O2 60%; PATIENT TEMP 37.2; VENTILATOR NO
[2022-09-03 04:17] LABS: ABG PH 7.34 (7.37-7.43); ABG PO2 37 MMHG (79-93)
[2022-09-03] MEDS: inSUlin ASPART (NovoLOG) 1 UNIT/0.01 ML (CHARGE PER UNIT) SC SCH ×4 (05:42→21:28)
[2022-09-03] MEDS: LEVOTHYROXINE 125 MCG (LEVOTHROID) TABLET PO SCH (05:42)
[2022-09-03 05:44] LABS: BASOPHILS # (AUTO) 0.1 10^3/uL (0.0-0.1); BASOPHILS % (AUTO) 0 % (0-10); EOSINOPHILS % (AUTO) 0 % (0-10); HEMATOCRIT 29 % (35-52); HEMOGLOBIN 9.8 g/dL (11.5-16.0); LYMPHOCYTES # (AUTO) 0.6 10^3/uL (1.0-4.0); LYMPHOCYTES % (AUTO) 4 % (12-44); MEAN CORPUSCULAR HEMOGLOBIN 32 pg (25-34); MEAN CORPUSCULAR HGB CONC 34 g/dL (32-36); MEAN CORPUSCULAR VOLUME 94 fL (80-99); MEAN PLATELET VOLUME 11.7 fL (9.0-12.2); MONOCYTES # (AUTO) 1.7 10^3/uL (0.0-1.0); MONOCYTES % (AUTO) 11 % (0-12); NEUTROPHILS # (AUTO) 13.8 10^3/uL (1.8-7.8); NEUTROPHILS % (AUTO) 85 % (42-75); PLATELET COUNT 213 10^3/uL (130-400); WHITE BLOOD COUNT 16.3 10^3/uL (4.3-11.0)
[2022-09-03 05:47] LABS: ALBUMIN 3.2 GM/DL (3.2-4.5); CHLORIDE 100 MMOL/L (98-107); POTASSIUM 4.2 MMOL/L (3.6-5.0); SODIUM 130 MMOL/L (135-145)
[2022-09-03 05:48] LABS: CALCIUM 8.7 MG/DL (8.5-10.1)
[2022-09-03 05:49] LABS: GLUCOSE 217 MG/DL (70-105)
[2022-09-03 05:50] LABS: TOTAL PROTEIN 7.2 GM/DL (6.4-8.2)
[2022-09-03 05:51] LABS: BILIRUBIN,TOTAL 0.9 MG/DL (0.1-1.0); CARBON DIOXIDE 19 MMOL/L (21-32)
[2022-09-03] MEDS: KCL 20 MEQ TAB (K-DUR) PO SCH (05:51)
[2022-09-03] MEDS: POTASSIUM CL 10MEQ/50ML IVPB 50 ML IV SCH (05:51)
[2022-09-03 05:53] LABS: ALKALINE PHOSPHATASE 68 U/L (40-136); CREATININE SERUM 1.67 MG/DL (0.60-1.30); GFR ESTIMATED 30
[2022-09-03 05:54] LABS: BUN/CREATININE RATIO 20
[2022-09-03 05:56] LABS: ALANINE AMINOTRANSFERASE < 6 U/L (0-55); MAGNESIUM 2.2 MG/DL (1.6-2.4)
[2022-09-03] MEDS: MAGNESIUM 1 GM/100 ML IVPB 100 ML IV SCH (05:59)
--- NOTE | 2022-09-03 08:03 | Cardiology Progress Note ---
Subjective Date Seen by Provider: Sep 03, 2022 Time Seen by Provider: 07:58 Subjective/Events-last exam Patient has worsening shortness of breath, started on BiPAP and currently on Vapotherm Still having dyspnea with hypoxemia Review of Systems General: No Chills, No Night Sweats; Fatigue, Malaise; No Appetite, No Other HEENT: No Head Aches, No Visual Changes, No Eye Pain, No Ear Pain, No Dysphasia, No Sinus Congestion, No Post Nasal Drip, No Sore Throat, No Other Pulmonary: Dyspnea; No Cough, No Pleuritic Chest Pain, No Other Cardiovascular: No: Chest Pain, Palpitations, Orthopnea, Paroxysmal Noc. Dyspnea, Edema, Lt Headedness, Other Focused Exam Lactate Level 09/01/22 18:15: Lactic Acid Level 1.85 Time of Focused Exam: 19:00 Objective-Cardiology Exam Last Set of Vital Signs Vital Signs 09/03/22 09/03/22 09/03/22 03:41 07:00 07:11 Temp 37.0 Pulse 82 Resp 22 B/P (MAP) 129/51 (77) Pulse Ox 90 O2 Delivery Vapotherm O2 Flow Rate 35.00 FiO2 80 I&O Intake and Output 09/03/22 00:00 Intake Total 1800 ml Output Total 2750 ml Balance -950 ml Intake Oral 1200 ml IV Total 600 ml Output Urine Total 2750 ml # Bowel Movements 1 General: Alert, Oriented X3, Cooperative HEENT: Atraumatic, PERRLA Neck: Supple, No JVD, No Thyromegaly Lungs: Normal Air Movement, Other (Bilateral rhonchi) Heart: Regular Rate, Normal S1, Normal S2, No Murmurs Abdomen: Normal Bowel Sounds, Soft, No Tenderness, No Hepatosplenomegaly, No Masses Extremities: No Clubbing, No Cyanosis, Normal Pulses, No Tenderness/Swelling, Other (Mild edema) Skin: No Rashes, No Breakdown, No Significant Lesion Neuro: Normal Speech, Normal Tone, Sensation Intact Psych/Mental Status: Mental Status NL, Mood NL Results Lab Laboratory Tests 09/03/22 05:24 A/P-Cardiology Admission Diagnosis Non-ST elevation myocardial infarction Coronary artery disease Congestive heart failure, acute on chronic left ventricular systolic dysfunction, dilated cardiomyopathy Acute renal failure Assessment/Plan Acute chest pain, non-ST elevation myocardial infarction, underlying left bundle branch block Status postcardiac catheterization and balloon angioplasty to the LAD Coronary artery disease, [facility], Cardiac catheterization done in 2014 showing [id number] disease. Cardiac catheterization done January 27, 2019 revealing multiple stents in the proximal, mid and distal LAD with multiple segment of severe in-stent restenosis successful balloon angioplasty. Mild disease in the distal LAD. Long stent in the mid small nondominant right coronary artery which is patent with mild disease proximal to stent nonobstructive disease. Dominant circumflex artery with [id number] disease nonobstructive disease. Cardiac catheterization was carried out on September 02, 2022, 95% stenosis within the stent in the mid LAD successful balloon angioplasty using noncompliant balloon 3.5 x 20 mm up to 16 poly with excellent results, no residual stenosis. The right coronary artery has a patent stent, at the ostium there is 95% lesion which need to be addressed at a later point. Continue on aspirin and Plavix Acute respiratory failure, pulmonary edema. Receiving Lasix. Continue to monitor tolerance and response Currently on Vapotherm and we will try to wean her off. Congestive heart failure, chronic compensated left ventricular systolic dysfunction ejection fraction. 2D echocardiogram done on October 24, 2020 showing normal LV size, EF 45 to 50%, grade 1 diastolic dysfunction, mild mitral regurgitation, aortic valve sclerosis, mild to moderate aortic regurgitation, PA pressure 45 to 50 mmHg. Improvement compared to the previous echocardiogram from December 2019 and January 2019. Maintained on Coreg 25 mg daily and Entresto 45 mg / 51 mg twice daily. 2D echo was done on September 02, 2022 with moderate LVH, hypokinesia at the anterior wall, ejection fraction 45 to 50%, grade 2 diastolic dysfunction, mild to moderate mitral regurgitation, aortic valve sclerosis with no aortic stenosis, PA pressure 35 to 40 mmHg Receiving diuretics. Continue to monitor UTI, patient was started on Rocephin. Managed by primary care physician Hypertension, patient has been borderline hypotensive, monitor blood pressure Acute on chronic renal failure, significant deterioration in renal function We discussed the possibility of progressing to end-stage kidney disease with the use of contrast and patient understand the risks and benefits of the procedure Diabetes mellitus, followed and monitored by primary care physician Diabetic neuropathy, continue to monitor Hypothyroidism, managed and followed by primary care physician Hyperlipidemia, maintained on Lipitor 40 mg daily LDL 111. Increase Lipitor to 80 mg daily Moderate bilateral carotid stenosis, ultrasound was done in October 2021, continue to monitor Degenerative joint disease, monitored and managed by primary care physician Parkinson's, follows with Dr. Andrews Abnormal EKG with left bundle branch block, chronic, no change from baseline. Continue to monitor Generalized weakness/debility, chronic Has some deterioration yesterday morning Mild venous insufficiency, recommend compression stocking.LUISA Soliz MD Sep 03, 2022 08:03
[2022-09-03] MEDS: CLOPIDOGREL 75 MG (PLAVIX) TABLET PO SCH (08:23)
[2022-09-03] MEDS: ASPIRIN E.C. 81 MG (ECOTRIN) TAB PO SCH (08:23)
[2022-09-03] MEDS: DOCUSATE SODIUM 100 MG (COLACE) CAP PO SCH ×2 (08:23→20:46)
[2022-09-03] MEDS: SINEMET 25/100 (CARBIDOPA/LEVODOPA) TAB PO SCH ×4 (08:23→20:56)
[2022-09-03] MEDS: SENNA W/DOCUSATE (SENOKOT S) TABLET PO SCH ×2 (08:23→20:46)
[2022-09-03] MEDS: GABAPENTIN 100 MG (NEURONTIN) CAP PO SCH ×2 (08:23→20:56)
[2022-09-03] MEDS: PANTOPRAZOLE 40 MG (PROTONIX) TAB PO SCH (08:23)
[2022-09-03] MEDS ORDERED: FUROSEMIDE 40 MG/4 ML INJ (LASIX) IVP NR ×2 (08:30→15:00)
--- NOTE | 2022-09-03 08:36 | Diagnostic Imaging Report ---
EXAMINATION: Chest 1 view HISTORY: Heart failure. Respiratory distress. COMPARISON: 09/02/2022. FINDINGS: Worsening interstitial and alveolar opacities are seen throughout both lungs. Stable cardiac silhouette. Small pleural effusions are seen. No pneumothorax. IMPRESSION: 1. Findings suggestive of worsening pulmonary edema. Dictated by: Dictated on workstation # [id number]
[2022-09-03] MEDS ORDERED: FUROSEMIDE 40 MG/4 ML INJ (LASIX) IVP SCH (09:00)
[2022-09-03 09:43] VITALS: BP 129/116
[2022-09-03] MEDS ORDERED: clonazePAM 0.5 MG (KlonoPIN) TAB PO SCH (09:45)
--- NOTE | 2022-09-03 11:04 | Tele-ICU Progress Note ---
Subjective Date Seen by a Provider: Sep 03, 2022 Time Seen by a Provider: 11:04 Subjective/Events-last exam (Tele-ICU Physician , Progress Note ) Service provided via interactive audio and video telecommunications E-CARE system to a patient admitted to ICU bed in [facility]. Patient is seen today due to persistent need of ICU care Available chart/ vitals / labs / Images reviewed Video assessment done using teleICU camera, rest of exam as per RN Discussed with RN Events overnight : Afebrile hemodynamically stable Respiratory - I/O = Drips: Pressors- no Hospital course: (09/01) 86/F- C.P., Hypoxia, pna on imaging, nstemi, chf, //incr.- trop, gluc. ashly. (09/02) to CCL for successful PTCA to stenosis mid LAD A/P Acute resp failure. hypoxic - suspected pulm edema -cont diuresis with lasix - on VT 40 L 90 % to eat , now on BIPAP 15/8 70 % , rr 22 tv 500 TV 12 L CAD, NSTEMI on admission Status postcardiac catheterization and balloon angioplasty to the LAD - card follow - right coronary artery has a patent stent, at the ostium there is 95% lesion which need to be addressed at a later point. - on aspirin and Plavix Congestive heart failure, chronic compensated left ventricular systolic dysfunction ejection fraction. - as per cards - ECHO September 02, 2022 with moderate LVH, hypokinesia at the anterior wall, ejection fraction 45 to 50%, grade 2 diastolic dysfunction, mild to moderate mitral regurgitation, aortic valve sclerosis with no aortic stenosis, PA pr essure 35 to 40 mmHg UTI -Rocephin. DM II - levemir , ISS - po diet Parkinson's - mental status baseline Lines : , (Central Line Necessity Reviewed) Flower: + OG: Nutrition: PO Analgesia: Anxiety/ delirium VTE Prophylaxis: carlos 60 Stress Ulcer Prophylaxis: Plans in collaboration with bedside consultants and IM MDs. Discussed with RN to reach out if any questions or concerns Case and care daily discussed on multidisciplinary rounds ( RN, PharmD, Bag Presser , Respiratory Therapy, pin worker ) A total of 31 minutes of critical care time was devoted to this patient today, required to treat and/or prevent further deterioration of critical care condition ( as above ) . I am remotely monitoring this patient from another state. I am unable to do the bedside exam, and history/physical and pertinent information is taken from other notes in the computer and bedside staff. Sepsis Event Evaluation Height, Weight, BMI Height: 5'2.00" Weight: 129lbs. 0.0oz. 58.596177xa; 25.15 BMI Method: Focused Exam Lactate Level 09/01/22 18:15: Lactic Acid Level 1.85 Time of Focused Exam: 19:00 Exam Exam Patient acknowledged, consented, and participated in this virtual visit which was conducted using real time audio/video Vital Signs Date Time Temp Pulse Resp B/P (MAP) Pulse Ox O2 Delivery O2 Flow Rate FiO2 09/03/22 10:00 87 26 113/57 (75) 96 NIV Bilevel 70.00 09/03/22 09:43 85 21 98 70.00 09/03/22 09:30 NIV Bilevel 70.00 09/03/22 09:00 86 39 129/116 (120) 90 Vapotherm 35.00 80.00 09/03/22 08:00 93 22 140/61 (87) 90 Vapotherm 35.00 80.00 09/03/22 07:11 90 Vapotherm 35.00 80 09/03/22 07:10 Vapotherm 35.00 80.00 09/03/22 07:00 82 09/03/22 07:00 82 22 129/51 (77) 92 NIV Bilevel 70.00 09/03/22 06:00 90 20 140/69 (92) 89 NIV Bilevel 70.00 09/03/22 05:00 84 24 133/60 (84) 90 NIV Bilevel 70.00 09/03/22 04:22 NIV Bilevel 70.00 09/03/22 04:22 91 NIV Bilevel 70 09/03/22 04:13 83 87 88 60.00 09/03/22 04:00 92 21 131/65 (87) 86 NIV Bilevel 60.00 09/03/22 03:41 37.0 NIV Bilevel 60.00 09/03/22 03:32 82 High Flow N/C 15.00 09/03/22 03:00 92 20 126/43 (70) 91 NIV Bilevel 50.00 09/03/22 02:00 88 21 137/53 (81) 93 NIV Bilevel 50.00 09/03/22 01:46 88 21 94 50.00 09/03/22 01:00 90 09/03/22 01:00 90 15 132/73 (85) 96 NIV Bilevel 50.00 09/03/22 00:07 95 NIV Bilevel 50 09/03/22 00:00 83 21 134/60 (84) 96 NIV Bilevel 50.00 09/02/22 23:00 91 26 128/62 (84) 94 NIV Bilevel 50.00 09/02/22 22:36 37.2 NIV Bilevel 50.00 09/02/22 22:00 91 26 127/59 (81) 96 NIV Bilevel 50.00 09/02/22 21:28 92 23 97 50.00 09/02/22 21:00 90 15 133/58 (83) 95 NIV Bilevel 50.00 09/02/22 20:51 92 NIV Bilevel 50 09/02/22 20:00 92 15 131/72 (91) 96 NIV Bilevel 50.00 09/02/22 19:55 37.0 NIV Bilevel 50.00 09/02/22 19:09 83 17 95 50.00 09/02/22 19:00 90 09/02/22 19:00 90 15 126/54 (78) 96 NIV Bilevel 50.00 09/02/22 18:00 82 12 103/79 (87) 98 NIV Bilevel 50.00 09/02/22 17:00 82 14 121/49 (73) 99 NIV Bilevel 50.00 09/02/22 16:50 37.9 80 10 124/52 (76) 98 NIV Bilevel 50.00 09/02/22 16:32 NIV Bilevel 50.00 09/02/22 16:24 83 21 96 70.00 09/02/22 16:00 91 OxyMask 15.00 09/02/22 16:00 37.9 09/02/22 16:00 82 35 124/52 (76) 92 OxyMask 15.00 09/02/22 15:50 91 OxyMask 15.00 09/02/22 15:45 84 24 108/64 (79) 91 OxyMask 15.00 09/02/22 15:00 77 15 125/52 (76) 95 OxyMask 15.00 09/02/22 14:30 78 22 119/48 (71) 90 OxyMask 15.00 09/02/22 14:00 74 12 114/46 (68) 94 OxyMask 15.00 09/02/22 13:05 70 19 106/38 (60) 90 OxyMask 15.00 09/02/22 13:00 72 28 84/65 (71) 91 OxyMask 15.00 09/02/22 13:00 72 09/02/22 12:45 72 12 133/61 (85) 94 OxyMask 15.00 09/02/22 12:00 14 118/59 (78) 91 Nasal Cannula 7.00 09/02/22 12:00 91 Nasal Cannula 7.00 I & O 09/03/22 07:00 Intake Total 1960 ml Output Total 3200 ml Balance -1240 ml Height & Weight Height: 5'2.00" Weight: 129lbs. 0.0oz. 58.947663xt; 25.15 BMI Method: General Appearance: No Apparent Distress, WD/WN HEENT: PERRL/EOMI, Pharynx Normal Neck: Normal Inspection, Supple Respiratory: Lungs Clear, Normal Breath Sounds, No Respiratory Distress Cardiovascular: Regular Rate, Rhythm, No Edema, No Murmur Capillary Refill: Less Than 3 Seconds Gastrointestinal: normal bowel sounds, non tender, soft Extremity: Normal Inspection, No Pedal Edema Neurologic/Psychiatric: Alert, No Motor/Sensory Deficits, Normal Mood/Affect Skin: Normal Color, Warm/Dry Lymphatic: No Adenopathy Results Lab Laboratory Tests 09/01/22 17:30 09/02/22 04:39 09/03/22 05:24 Assessment/Plan Assessment/Plan 1 VASILE MCGEE MD Sep 03, 2022 11:04
--- NOTE | 2022-09-03 15:11 | Progress Note - Hospitalist ---
Subjective HPI/CC On Admission Date Seen by Provider: Sep 03, 2022 Time Seen by Provider: 09:50 Edie Gallo is an 86 year old female with PMH HTN, T2DM, HLD, CAD, hypothyroidism, AFib, HFrEF, who presented with weakness. She had also been feeling fatigued. She had some chest pain. Upon my exam she is no longer having any symptoms. She denies chest pain. She denies shortness of breath. She denies nausea, vomiting, abdominal pain. She has not had any leg swelling. Subjective/Events-last exam She is laying in bed wearing BiPAP. She is feeling better. She is not short of breath. She denies pain. Her family is at the bedside and their questions were answered and concerns addressed. Focused Exam Lactate Level 09/01/22 18:15: Lactic Acid Level 1.85 Time of Focused Exam: 19:00 Objective Exam Vital Signs Vital Signs Date Time Temp Pulse Resp B/P (MAP) Pulse Ox O2 Delivery O2 Flow Rate FiO2 09/03/22 14:14 85 29 91 70.00 09/03/22 14:00 NIV Bilevel 09/03/22 12:00 80 09/03/22 03:41 37.0 Capillary Refill : Less Than 3 Seconds General Appearance: No Apparent Distress, WD/WN Respiratory: Lungs Clear, No Respiratory Distress; No Crackles Cardiovascular: Regular Rate, Rhythm, No Murmur Gastrointestinal: Normal Bowel Sounds, Soft Extremity: Normal Inspection, No Pedal Edema Neurologic/Psychiatric: Alert, Normal Mood/Affect Skin: Normal Color, Warm/Dry Results/Procedures Lab Laboratory Tests 09/03/22 05:24 Patient resulted labs reviewed. 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 HTN HLD AFib LBBB Cardiology following s/p left heart cath 09/02 with 95% in-stent stenosis of LAD, stent placed Also with 70% stensosis right coronary artery, staged PCI recommended ASA and Plavix Statin TeleICU following Continue Lasix BiPAP as needed E coli UTI Rocephin T2DM Sliding scale insulin Hypothyroidism GERD Continue home meds DVT prophylaxis: Lovenox Critical Care Critically Ill Patient Diagnosis/Problems Diagnosis/Problems (1) NSTEMI (non-ST elevation myocardial infarction) Status: Acute (2) Acute on chronic HFrEF (heart failure with reduced ejection fraction) Status: Acute (3) Acute postoperative respiratory insufficiency Status: Acute (4) Acute respiratory failure with hypoxia Status: Acute (5) Acute kidney injury superimposed on chronic kidney disease Status: Acute (6) UTI (urinary tract infection) Status: Acute (7) T2DM (type 2 diabetes mellitus) Status: Chronic (8) Coronary artery disease Status: Chronic (9) Hypertension Status: Chronic (10) Hyperlipidemia Status: Chronic (11) Hypothyroidism Status: Chronic KARYNA YAN MD Sep 03, 2022 15:11
[2022-09-03] MEDS: clonazePAM 0.5 MG (KlonoPIN) TAB PO PRN (18:23)
[2022-09-03] MEDS: ENOXAPARIN 60 MG/0.6 ML (LOVENOX) SYR SC SCH (18:24)
[2022-09-03 18:57] VITALS: BP 145/60
[2022-09-03] MEDS: OLANZapine 2.5 MG (ZyPREXA) TAB PO SCH (20:55)
[2022-09-03] MEDS: cefTRIAXone 1 GM IV (PRE-MIX) 50 ML IV SCH (20:56)
[2022-09-03] MEDS: clonazePAM 0.5 MG (KlonoPIN) TAB PO SCH (20:56)
[2022-09-03 22:15] VITALS: BP 149/59
[2022-09-04] MEDS: clonazePAM 0.5 MG (KlonoPIN) TAB PO PRN (01:38)
[2022-09-04] MEDS ORDERED: DexMEDEtomidine 250 ML DRIP 250 ML IV ONE (03:11)
[2022-09-04] MEDS: DexMEDEtomidine 250 ML DRIP 250 ML IV SCH (03:23)
[2022-09-04 05:06] LABS: BASOPHILS # (AUTO) 0.1 10^3/uL (0.0-0.1); BASOPHILS % (AUTO) 0 % (0-10); EOSINOPHILS % (AUTO) 0 % (0-10); HEMATOCRIT 26 % (35-52); HEMOGLOBIN 8.9 g/dL (11.5-16.0); LYMPHOCYTES # (AUTO) 0.7 10^3/uL (1.0-4.0); LYMPHOCYTES % (AUTO) 4 % (12-44); MEAN CORPUSCULAR HEMOGLOBIN 31 pg (25-34); MEAN CORPUSCULAR HGB CONC 34 g/dL (32-36); MEAN CORPUSCULAR VOLUME 92 fL (80-99); MEAN PLATELET VOLUME 11.9 fL (9.0-12.2); MONOCYTES # (AUTO) 2.2 10^3/uL (0.0-1.0); MONOCYTES % (AUTO) 12 % (0-12); NEUTROPHILS # (AUTO) 14.7 10^3/uL (1.8-7.8); NEUTROPHILS % (AUTO) 83 % (42-75); PLATELET COUNT 232 10^3/uL (130-400); WHITE BLOOD COUNT 17.8 10^3/uL (4.3-11.0)
[2022-09-04 05:13] LABS: ALBUMIN 3.2 GM/DL (3.2-4.5); CHLORIDE 96 MMOL/L (98-107); POTASSIUM 3.9 MMOL/L (3.6-5.0); SODIUM 127 MMOL/L (135-145)
[2022-09-04 05:15] VITALS: BP 131/59
[2022-09-04 05:15] LABS: GLUCOSE 169 MG/DL (70-105); TOTAL PROTEIN 7.1 GM/DL (6.4-8.2)
[2022-09-04 05:17] LABS: BILIRUBIN,TOTAL 1.1 MG/DL (0.1-1.0); CARBON DIOXIDE 17 MMOL/L (21-32)
[2022-09-04 05:19] LABS: ALKALINE PHOSPHATASE 68 U/L (40-136); CREATININE SERUM 1.69 MG/DL (0.60-1.30); GFR ESTIMATED 30; PHOSPHORUS 4.2 MG/DL (2.3-4.7)
[2022-09-04 05:20] LABS: BUN/CREATININE RATIO 24
[2022-09-04 05:22] LABS: ALANINE AMINOTRANSFERASE < 6 U/L (0-55)
[2022-09-04] MEDS: MAGNESIUM 1 GM/100 ML IVPB 100 ML IV SCH (05:25)
[2022-09-04] MEDS: KCL 20 MEQ TAB (K-DUR) PO SCH (05:25)
[2022-09-04] MEDS: NS IV 500 ML 500 ML IV PRN (05:41)
[2022-09-04] MEDS: inSUlin ASPART (NovoLOG) 1 UNIT/0.01 ML (CHARGE PER UNIT) SC SCH ×4 (05:42→20:45)
[2022-09-04] MEDS: POTASSIUM CL 10MEQ/50ML IVPB 50 ML IV SCH ×3 (05:42→06:36)
[2022-09-04 07:10] VITALS: BP 118/60
--- NOTE | 2022-09-04 07:58 | Tele-ICU Progress Note ---
Subjective Date Seen by a Provider: Sep 04, 2022 Time Seen by a Provider: 11:28 Subjective/Events-last exam (Tele-ICU Physician , Progress Note ) Service provided via interactive audio and video telecommunications E-CARE system to a patient admitted to ICU bed in [facility]. Patient is seen today due to persistent need of ICU care Available chart/ vitals / labs / Images reviewed Video assessment done using teleICU camera, rest of exam as per RN She is admitted with generalized weakness and sharp chest pain and found to have a non-ST elevation myocardial infarction. She has underlying history of congestive heart failure and coronary artery disease and underwent multiple intervention in the past. She also developed atrial fibrillation. She has hx of PAF. She underwent a cardiac catheterization on 09/02/2022 and found to have LAD in-stent stenosis which was intervened with balloon angioplasty. Today she is resting well and has a atrial fibrillation with rapid ventricular rate ranging from 1 10-130. Currently denies any chest pain. She is currently on BiPAP ventilation. Impression 1. Non-ST elevation myocardial infarction. 2. Congestive heart failure acute on chronic systolic and diastolic. 3. Atrial fibrillation with rapid ventricular rate 4. Status post cardiac catheterization and dilatation of the LAD in-stent stenosis with balloon angioplasty. Acute hypoxic respiratory failure requiring BiPAP ventilation 5. Acute and chronic kidney disease 6. History of hypertension 7. History of chronic left bundle branch block. Recommendations 1. We will give him 1 dose of 4 digoxin 0.5 mg IV push and see the response 2. Continue diuretic therapy per cardiology 3. BiPAP ventilation will be continued and try to wean as much as possible 4. We will continue statins 5. Continue Rocephin for E. coli urinary tract infection 6. She will be given sliding scale with the insulin for her diabetes mellitus per primary care physician. Plans in collaboration with bedside consultants and IM MDs. Discussed with RN to reach out if any questions or concerns Case and care daily discussed on multidisciplinary rounds ( RN, PharmD, Waste Picker , Respiratory Therapy, construction worker ) I am remotely monitoring this patient from Tele icu station in [place]. I am unable to do the bedside exam, and history/physical and pertinent information is taken from other notes in the computer and bedside staff. Certain portions of this document may have been dictated utilizing voice recognition technology such as [employer] Inherent to this technology, typographical and grammatical errors may exist. As much as I am diligent to identify and correct to these mistakes, some errors may remain in the document. Critical care time due to gated to this patient today is-25 minutes approximately. Sepsis Event Evaluation Height, Weight, BMI Height: 5'2.00" Weight: 129lbs. 0.0oz. 58.548463my; 25.51 BMI Method: Focused Exam Lactate Level 09/01/22 18:15: Lactic Acid Level 1.85 Time of Focused Exam: 19:00 Exam Exam Patient acknowledged, consented, and participated in this virtual visit which was conducted using real time audio/video Vital Signs Date Time Temp Pulse Resp B/P (MAP) Pulse Ox O2 Delivery O2 Flow Rate FiO2 09/04/22 07:10 101 21 97 70.00 09/04/22 07:00 96 21 118/60 (79) 96 NIV Bilevel 70.00 09/04/22 06:54 102 09/04/22 06:40 102 09/04/22 06:00 98 21 114/54 (74) 96 NIV Bilevel 70.00 09/04/22 05:26 106 09/04/22 05:15 106 22 131/59 (84) 97 NIV Bilevel 70.00 09/04/22 05:15 108 24 97 70.00 09/04/22 05:03 108 09/04/22 05:00 107 23 128/107 (119) 94 NIV Bilevel 70.00 09/04/22 04:28 114 09/04/22 04:00 36.9 09/04/22 04:00 92 NIV Bilevel 70 09/04/22 04:00 85 10 100/75 (82) 91 NIV Bilevel 70.00 09/04/22 03:56 89 09/04/22 03:23 90 120/81 09/04/22 03:17 89 20 120/81 (85) 90 NIV Bilevel 70.00 09/04/22 03:00 90 13 82/63 (68) 91 NIV Bilevel 70.00 09/04/22 02:00 85 27 149/66 (88) 93 NIV Bilevel 70.00 09/04/22 01:57 90 09/04/22 01:00 82 16 148/68 (84) 94 NIV Bilevel 70.00 09/04/22 00:00 82 29 148/66 (93) 96 NIV Bilevel 70.00 09/04/22 00:00 36.8 09/03/22 23:59 96 NIV Bilevel 70 09/03/22 23:00 81 20 145/64 (91) 97 NIV Bilevel 70.00 09/03/22 22:15 84 26 97 70.00 09/03/22 22:00 84 25 149/59 (89) 95 NIV Bilevel 70.00 09/03/22 21:00 95 NIV Bilevel 70 09/03/22 21:00 82 29 109/65 (71) 96 NIV Bilevel 70.00 09/03/22 20:00 36.9 09/03/22 20:00 87 40 120/45 (58) 95 NIV Bilevel 70.00 09/03/22 19:00 90 09/03/22 19:00 90 37 145/60 (91) 87 NIV Bilevel 70.00 09/03/22 18:57 89 19 83 70.00 09/03/22 18:00 111 30 123/74 (90) 94 NIV Bilevel 70.00 09/03/22 17:00 125 21 123/67 (85) 96 NIV Bilevel 70.00 09/03/22 16:40 NIV Bilevel 70.00 09/03/22 16:20 Vapotherm 40.00 100 09/03/22 16:00 90 21 148/63 (91) 87 Vapotherm 40.00 100.00 09/03/22 15:09 Vapotherm 40.00 100.00 09/03/22 15:00 86 25 136/55 (82) 91 NIV Bilevel 70.00 09/03/22 14:14 85 29 91 70.00 09/03/22 14:00 89 23 98 NIV Bilevel 70.00 09/03/22 13:00 92 10 126/87 (100) 92 NIV Bilevel 70.00 09/03/22 12:35 95 09/03/22 12:00 91 23 126/90 (102) 96 NIV Bilevel 70.00 09/03/22 12:00 85 Vapotherm 40.00 80 09/03/22 11:05 147 09/03/22 11:00 89 19 117/60 (79) 96 NIV Bilevel 70.00 09/03/22 10:09 125 09/03/22 10:02 88 09/03/22 10:01 118 09/03/22 10:00 87 26 113/57 (75) 96 NIV Bilevel 70.00 09/03/22 09:43 85 21 98 70.00 09/03/22 09:30 NIV Bilevel 70.00 09/03/22 09:00 86 39 129/116 (120) 90 Vapotherm 35.00 80.00 09/03/22 08:00 93 22 140/61 (87) 90 Vapotherm 35.00 80.00 09/03/22 08:00 94 NIV Bilevel 70 I & O 09/04/22 06:59 Intake Total 1320 ml Output Total 1225 ml Balance 95 ml Height & Weight Height: 5'2.00" Weight: 129lbs. 0.0oz. 58.715941fy; 25.51 BMI Method: General Appearance: No Apparent Distress, WD/WN HEENT: PERRL/EOMI, Pharynx Normal Neck: Normal Inspection, Supple Respiratory: Lungs Clear, No Respiratory Distress; No Crackles Cardiovascular: Regular Rate, Rhythm, No Murmur Capillary Refill: Less Than 3 Seconds Gastrointestinal: normal bowel sounds, non tender, soft Extremity: Normal Inspection, No Pedal Edema Neurologic/Psychiatric: Alert, Normal Mood/Affect Skin: Normal Color, Warm/Dry Lymphatic: No Adenopathy Results Lab Laboratory Tests 09/03/22 05:24 09/04/22 04:16 Assessment/Plan Assessment/Plan as above Critical Care: Critically Ill Patient Time spent with patient (mins): 25 RK BRADY MD Sep 04, 2022 07:58
[2022-09-04] MEDS ORDERED: DIGOXIN 0.25 MG/ML (LANOXIN) 2 ML AMP IV NR (08:00)
[2022-09-04] MEDS: SENNA W/DOCUSATE (SENOKOT S) TABLET PO SCH ×2 (08:06→20:44)
[2022-09-04] MEDS: DOCUSATE SODIUM 100 MG (COLACE) CAP PO SCH ×2 (08:06→20:44)
[2022-09-04] MEDS: VENlafaxine XR 75 MG (EFFEXOR XR) CAP PO SCH (08:14)
[2022-09-04] MEDS: SINEMET 25/100 (CARBIDOPA/LEVODOPA) TAB PO SCH ×4 (08:14→20:45)
[2022-09-04] MEDS: FUROSEMIDE 40 MG/4 ML INJ (LASIX) IVP SCH ×2 (08:15→17:16)
[2022-09-04] MEDS: ASPIRIN E.C. 81 MG (ECOTRIN) TAB PO SCH (08:15)
[2022-09-04] MEDS: CLOPIDOGREL 75 MG (PLAVIX) TABLET PO SCH (08:17)
[2022-09-04] MEDS: PANTOPRAZOLE 40 MG (PROTONIX) TAB PO SCH (08:17)
[2022-09-04] MEDS: clonazePAM 0.5 MG (KlonoPIN) TAB PO SCH ×2 (08:17→20:45)
[2022-09-04] MEDS: buPROPion SR 150 MG (WELLBUTRIN SR) TAB PO SCH ×2 (08:17→20:45)
[2022-09-04] MEDS: GABAPENTIN 100 MG (NEURONTIN) CAP PO SCH ×2 (08:17→20:45)
[2022-09-04] MEDS ORDERED: dilTIAZem DRIP PRE-MIX 125 ML IV ONE (08:20)
[2022-09-04] MEDS: LEVOTHYROXINE 125 MCG (LEVOTHROID) TABLET PO SCH (08:21)
[2022-09-04] MEDS ORDERED: dilTIAZem DRIP PRE-MIX 125 ML IV SCH (08:30)
[2022-09-04 08:56] VITALS: BP 132/69
[2022-09-04] MEDS ORDERED: NON-FORMULARY MEDICATION 1 EA EA (Bupropion HCl (Bupropion Xl) 300 MG) PO SCH (09:00)
[2022-09-04] MEDS ORDERED: APIXABAN 5 MG (ELIQUIS) TABLET PO SCH (09:00)
[2022-09-04] MEDS ORDERED: FUROSEMIDE 40 MG/4 ML INJ (LASIX) ONE (09:27)
[2022-09-04] MEDS ORDERED: FUROSEMIDE 40 MG/4 ML INJ (LASIX) IVP ONE (09:30)
--- NOTE | 2022-09-04 10:22 | Cardiology Progress Note ---
Subjective Date Seen by Provider: Sep 04, 2022 Time Seen by Provider: 10:19 Subjective/Events-last exam Patient was seen at bedside, currently on BiPAP, fairly anxious. Was alternating between Vapotherm and BiPAP yesterday. Has deterioration, responding to aggressive diuresis Has been in and out of atrial fibrillation currently in atrial fibrillation with rapid ventricular response Review of Systems General: No Chills, No Night Sweats; Fatigue, Malaise; No Appetite, No Other HEENT: No Head Aches, No Visual Changes, No Eye Pain, No Ear Pain, No Dysphasia, No Sinus Congestion, No Post Nasal Drip, No Sore Throat, No Other Pulmonary: Dyspnea; No Cough, No Pleuritic Chest Pain, No Other Cardiovascular: No: Chest Pain, Palpitations, Orthopnea, Paroxysmal Noc. Dyspnea, Edema, Lt Headedness, Other Focused Exam Lactate Level 09/01/22 18:15: Lactic Acid Level 1.85 Time of Focused Exam: 19:00 Objective-Cardiology Exam Last Set of Vital Signs Vital Signs 09/04/22 09/04/22 09/04/22 04:00 08:00 10:00 Temp 37.3 Pulse 102 Resp 33 B/P (MAP) 126/57 (80) Pulse Ox 100 O2 Delivery NIV Bilevel O2 Flow Rate 70.00 FiO2 70 I&O Intake and Output 09/04/22 00:00 Intake Total 1480 ml Output Total 1925 ml Balance -445 ml Intake Oral 1280 ml IV Total 200 ml Output Urine Total 1925 ml # Bowel Movements 3 General: Alert, Oriented X3, Cooperative HEENT: Atraumatic, PERRLA Neck: Supple, No JVD, No Thyromegaly Lungs: Normal Air Movement, Other (Bilateral rhonchi) Heart: Normal S1, Normal S2, No Murmurs, Other (Atrial fibrillation) Abdomen: Normal Bowel Sounds, Soft, No Tenderness, No Hepatosplenomegaly, No Masses Extremities: No Clubbing, No Cyanosis, Normal Pulses, No Tenderness/Swelling, Other (Mild edema) Skin: No Rashes, No Breakdown, No Significant Lesion Neuro: Normal Speech, Normal Tone, Sensation Intact Psych/Mental Status: Mental Status NL, Mood NL Results Lab Laboratory Tests 09/04/22 04:16 A/P-Cardiology Admission Diagnosis Non-ST elevation myocardial infarction Coronary artery disease Congestive heart failure, acute on chronic left ventricular systolic dysfunction, dilated cardiomyopathy Acute renal failure Assessment/Plan Acute chest pain, non-ST elevation myocardial infarction, underlying left bundle branch block Status postcardiac catheterization and balloon angioplasty to the LAD Coronary artery disease, Had multiple interventions in [address] [facility] a total of 5 stents, Cardiac catheterization done in 2014 showing [id number] disease. Cardiac catheterization done January 27, 2019 revealing multiple stents in the proximal, mid and distal LAD with multiple segment of severe in-stent restenosis successful balloon angioplasty. Mild disease in the distal LAD. Long stent in the mid small nondominant right coronary artery which is patent with mild disease proximal to stent nonobstructive disease. Dominant circumflex artery with itbz-wf-mlmchfdf disease nonobstructive disease. Cardiac catheterization was carried out on September 02, 2022, 95% stenosis within the stent in the mid LAD successful balloon angioplasty using noncompliant balloon 3.5 x 20 mm up to 16 poly with excellent results, no residual stenosis. The right coronary artery has a patent stent, at the ostium there is 95% lesion, I forwarded her cath films to Richie and discussed the with Dr. Mathias. Due to the small to intermediate size of that right coronary artery recommendation is conservative management. We will continue maximizing medical therapy. Paroxysmal atrial fibrillation, started to have multiple episodes of atrial fibrillation with rapid ventricular response. I will start Cardizem drip and Eliquis Acute respiratory failure, pulmonary edema. Started on IV Lasix. We will continue monitor response closely Congestive heart failure, chronic compensated left ventricular systolic dysfunction ejection fraction. 2D echocardiogram done on October 24, 2020 showing normal LV size, EF 45 to 50%, grade 1 diastolic dysfunction, mild mitral regurgitation, aortic valve sclerosis, mild to moderate aortic regurgitation, PA pressure 45 to 50 mmHg. Improvement compared to the previous echocardiogram from December 2019 and January 2019. Maintained on Coreg 25 mg daily and Entresto 45 mg / 51 mg twice daily. 2D echo was done on September 02, 2022 with moderate LVH, hypokinesia at the anterior wall, ejection fraction 45 to 50%, grade 2 diastolic dysfunction, mild to moderate mitral regurgitation, aortic valve sclerosis with no aortic stenosis, PA pressure 35 to 40 mmHg Receiving diuretics. Continue to monitor UTI, patient was started on Rocephin. Managed by primary care physician Hypertension, patient has been borderline hypotensive, monitor blood pressure Acute on chronic renal failure, significant deterioration in renal function We discussed the possibility of progressing to end-stage kidney disease with the use of contrast and patient understand the risks and benefits of the procedure Diabetes mellitus, followed and monitored by primary care physician Diabetic neuropathy, continue to monitor Hypothyroidism, managed and followed by primary care physician Hyperlipidemia, maintained on Lipitor 40 mg daily LDL 111. Increase Lipitor to 80 mg daily Moderate bilateral carotid stenosis, ultrasound was done in October 2021, continue to monitor Anxiety, history of bipolar disorder, Parkinson, patient and family are very anxious, requesting to allow family member to stay with the patient overnight. I discussed it with the ICU supervisor dumping Degenerative joint disease, monitored and managed by primary care physician Parkinson's, follows with Dr. Andrews Abnormal EKG with left bundle branch block, chronic, no change from baseline. Continue to monitor Generalized weakness/debility, chronic Has some deterioration yesterday morning Mild venous insufficiency, recommend compression stocking.LUISA Soliz MD Sep 04, 2022 10:22
[2022-09-04] MEDS: ENTACAPONE 200 MG TABLET PO SCH ×3 (13:24→20:46)
--- NOTE | 2022-09-04 16:21 | Progress Note - Hospitalist ---
Subjective HPI/CC On Admission Date Seen by Provider: Sep 04, 2022 Time Seen by Provider: 09:10 Edie Gallo is an 86 year old female with PMH HTN, T2DM, HLD, CAD, hypothyroidism, AFib, HFrEF, who presented with weakness. She had also been feeling fatigued. She had some chest pain. Upon my exam she is no longer having any symptoms. She denies chest pain. She denies shortness of breath. She denies nausea, vomiting, abdominal pain. She has not had any leg swelling. Subjective/Events-last exam She is still feeling anxious. She is not short of breath. She is wearing BiPAP. She denies pain. Her family is at the bedside and are updated. Focused Exam Lactate Level 09/01/22 18:15: Lactic Acid Level 1.85 Time of Focused Exam: 19:00 Objective Exam Vital Signs Vital Signs Date Time Temp Pulse Resp B/P (MAP) Pulse Ox O2 Delivery O2 Flow Rate FiO2 09/04/22 16:08 36.0 09/04/22 16:00 54 18 134/53 (80) 96 Vapotherm 40.00 85.00 09/04/22 15:17 85 Capillary Refill : Less Than 3 Seconds General Appearance: No Apparent Distress, WD/WN, Anxious Respiratory: No Accessory Muscle Use, No Respiratory Distress, Crackles Cardiovascular: No Murmur, Irregularly Irregular, Tachycardia Gastrointestinal: Normal Bowel Sounds, Soft Extremity: Normal Inspection, No Pedal Edema Neurologic/Psychiatric: Alert Skin: Normal Color, Warm/Dry Results/Procedures Lab Laboratory Tests 09/04/22 04:16 Patient resulted labs reviewed. 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 HTN HLD AFib with RVR LBBB Cardiology following s/p left heart cath 09/02 with 95% in-stent stenosis of LAD, stent placed Also with 70% stensosis right coronary artery, staged PCI recommended ASA and Plavix Statin TeleICU following Continue Lasix BiPAP as needed E coli UTI Rocephin T2DM Sliding scale insulin Hypothyroidism GERD Continue home meds DVT prophylaxis: Lovenox Critical Care Critically Ill Patient Diagnosis/Problems Diagnosis/Problems (1) NSTEMI (non-ST elevation myocardial infarction) Status: Acute (2) Acute on chronic HFrEF (heart failure with reduced ejection fraction) Status: Acute (3) Acute postoperative respiratory insufficiency Status: Acute (4) Acute respiratory failure with hypoxia Status: Acute (5) Acute kidney injury superimposed on chronic kidney disease Status: Acute (6) UTI (urinary tract infection) Status: Acute (7) T2DM (type 2 diabetes mellitus) Status: Chronic (8) Coronary artery disease Status: Chronic (9) Hypertension Status: Chronic (10) Hyperlipidemia Status: Chronic (11) Hypothyroidism Status: Chronic (12) Pulmonary edema Status: Acute Qualifiers: Chronicity: acute Qualified Codes: J81.0 - Acute pulmonary edema KARYNA YAN MD Sep 04, 2022 16:21
[2022-09-04] MEDS: cefTRIAXone 1 GM IV (PRE-MIX) 50 ML IV SCH (20:43)
[2022-09-04] MEDS: APIXABAN 2.5 MG (ELIQUIS) TABLET PO SCH (20:44)
[2022-09-04] MEDS: OLANZapine 2.5 MG (ZyPREXA) TAB PO SCH (20:45)
[2022-09-04 21:45] VITALS: BP 148/129
[2022-09-05 02:33] VITALS: BP 120/52
[2022-09-05 05:40] LABS: BASOPHILS % (AUTO) 0 % (0-10); EOSINOPHILS # (AUTO) 0.1 10^3/uL (0.0-0.3); EOSINOPHILS % (AUTO) 1 % (0-10); HEMATOCRIT 24 % (35-52); HEMOGLOBIN 8.2 g/dL (11.5-16.0); LYMPHOCYTES % (AUTO) 7 % (12-44); MEAN CORPUSCULAR HEMOGLOBIN 31 pg (25-34); MEAN CORPUSCULAR HGB CONC 35 g/dL (32-36); MEAN CORPUSCULAR VOLUME 89 fL (80-99); MEAN PLATELET VOLUME 11.6 fL (9.0-12.2); MONOCYTES # (AUTO) 1.6 10^3/uL (0.0-1.0); MONOCYTES % (AUTO) 12 % (0-12); NEUTROPHILS # (AUTO) 10.5 10^3/uL (1.8-7.8); NEUTROPHILS % (AUTO) 79 % (42-75); PLATELET COUNT 255 10^3/uL (130-400); WHITE BLOOD COUNT 13.2 10^3/uL (4.3-11.0)
[2022-09-05 05:55] LABS: POTASSIUM 3.3 MMOL/L (3.6-5.0)
[2022-09-05 05:57] LABS: CALCIUM 8.5 MG/DL (8.5-10.1)
[2022-09-05 05:58] LABS: TOTAL PROTEIN 6.3 GM/DL (6.4-8.2)
[2022-09-05 06:00] LABS: BILIRUBIN,TOTAL 0.7 MG/DL (0.1-1.0)
[2022-09-05 06:02] LABS: CREATININE SERUM 1.5 MG/DL (0.60-1.30)
[2022-09-05] MEDS: MAGNESIUM 1 GM/100 ML IVPB 100 ML IV SCH (07:47)
[2022-09-05] MEDS: KCL 20 MEQ TAB (K-DUR) PO SCH (07:47)
[2022-09-05] MEDS ORDERED: FUROSEMIDE 40 MG/4 ML INJ (LASIX) IVP NR (08:00)
[2022-09-05 08:16] LABS: ALBUMIN 2.7 GM/DL (3.2-4.5)
[2022-09-05] MEDS ORDERED: KCL 20 MEQ TAB (K-DUR) PO ONE (08:30)
[2022-09-05] MEDS: inSUlin ASPART (NovoLOG) 1 UNIT/0.01 ML (CHARGE PER UNIT) SC SCH ×4 (08:31→20:24)
[2022-09-05] MEDS: ENTACAPONE 200 MG TABLET PO SCH ×4 (08:31→20:24)
[2022-09-05] MEDS: GABAPENTIN 100 MG (NEURONTIN) CAP PO SCH ×2 (08:32→20:25)
[2022-09-05] MEDS: buPROPion SR 150 MG (WELLBUTRIN SR) TAB PO SCH ×2 (08:32→20:25)
[2022-09-05] MEDS: APIXABAN 2.5 MG (ELIQUIS) TABLET PO SCH ×2 (08:33→20:25)
[2022-09-05] MEDS: VENlafaxine XR 75 MG (EFFEXOR XR) CAP PO SCH (08:33)
[2022-09-05] MEDS: LEVOTHYROXINE 125 MCG (LEVOTHROID) TABLET PO SCH (08:33)
[2022-09-05] MEDS: ASPIRIN E.C. 81 MG (ECOTRIN) TAB PO SCH (08:33)
[2022-09-05] MEDS: CLOPIDOGREL 75 MG (PLAVIX) TABLET PO SCH (08:33)
[2022-09-05] MEDS: PANTOPRAZOLE 40 MG (PROTONIX) TAB PO SCH (08:33)
[2022-09-05] MEDS: clonazePAM 0.5 MG (KlonoPIN) TAB PO SCH ×2 (08:33→20:26)
[2022-09-05] MEDS: SINEMET 25/100 (CARBIDOPA/LEVODOPA) TAB PO SCH ×4 (08:33→20:25)
[2022-09-05] MEDS: SENNA W/DOCUSATE (SENOKOT S) TABLET PO SCH ×2 (08:34→20:48)
[2022-09-05] MEDS: DOCUSATE SODIUM 100 MG (COLACE) CAP PO SCH ×2 (08:34→20:48)
[2022-09-05] MEDS: POTASSIUM CL 10MEQ/50ML IVPB 50 ML IV SCH (08:35)
--- NOTE | 2022-09-05 08:43 | Diagnostic Imaging Report ---
EXAMINATION: Chest 1 view HISTORY: Pulmonary edema COMPARISON: 09/03/2022 FINDINGS: There are severe bilateral interstitial and airspace opacities. Many of these opacities appear nodular in the right lung. There are small pleural effusions. No pneumothorax. Heart size is enlarged. IMPRESSION: 1. Severe bilateral interstitial opacities with many of these opacities appearing nodular. Differential includes multifocal pneumonia and edema but underlying metastatic process could also be considered. Dictated by: Dictated on workstation # [id number]
--- NOTE | 2022-09-05 10:38 | Cardiology Progress Note ---
Subjective Date Seen by Provider: Sep 05, 2022 Time Seen by Provider: 10:34 Subjective/Events-last exam Patient was seen at bedside, currently on Vapotherm Feeling better, reporting improvement in her symptoms. Still short of breath Review of Systems General: No Chills, No Night Sweats, No Fatigue, No Malaise, No Appetite, No Other HEENT: No Head Aches, No Visual Changes, No Eye Pain, No Ear Pain, No Dysphasia, No Sinus Congestion, No Post Nasal Drip, No Sore Throat, No Other Pulmonary: Dyspnea; No Cough, No Pleuritic Chest Pain, No Other Cardiovascular: No: Chest Pain, Palpitations, Orthopnea, Paroxysmal Noc. Dyspn ea, Edema, Lt Headedness, Other Focused Exam Time of Focused Exam: 19:00 Objective-Cardiology Exam Last Set of Vital Signs Vital Signs 09/04/22 09/05/22 20:06 10:00 Temp 36.3 Pulse 71 Resp 18 B/P (MAP) 131/56 (81) Pulse Ox 96 O2 Delivery Vapotherm O2 Flow Rate 40.00 80.00 I&O Intake and Output 09/05/22 00:00 Intake Total 650 ml Output Total 1975 ml Balance -1325 ml Intake Oral 450 ml IV Total 200 ml Output Urine Total 1975 ml General: Alert, Oriented X3, Cooperative HEENT: Atraumatic, PERRLA Neck: Supple, No JVD, No Thyromegaly Lungs: Normal Air Movement, Other (Bilateral rhonchi) Heart: Normal S1, Normal S2, No Murmurs, Other (Atrial fibrillation) Abdomen: Normal Bowel Sounds, Soft, No Tenderness, No Hepatosplenomegaly, No Masses Extremities: No Clubbing, No Cyanosis, Normal Pulses, No Tenderness/Swelling, Other (Mild edema) Skin: No Rashes, No Breakdown, No Significant Lesion Neuro: Normal Speech, Normal Tone, Sensation Intact Psych/Mental Status: Mental Status NL, Mood NL Results Lab Laboratory Tests 09/05/22 04:43 A/P-Cardiology Admission Diagnosis Non-ST elevation myocardial infarction Coronary artery disease Congestive heart failure, acute on chronic left ventricular systolic dysfunc tion, dilated cardiomyopathy Acute renal failure Assessment/Plan Acute chest pain, non-ST elevation myocardial infarction, underlying left bundle branch block Status post cardiac catheterization and balloon angioplasty to the LAD Coronary artery disease, Had multiple interventions in [address] [facility] a total of 5 stents, Cardiac catheterization done in 2014 showing ocwa-yv-uuacenal disease. Cardiac catheterization done January 27, 2019 revealing multiple stents in the proximal, mid and distal LAD with multiple segment of severe in-stent restenosis successful balloon angioplasty. Mild disease in the distal LAD. Long stent in the mid small nondominant right coronary artery which is patent with mild disease proximal to stent nonobstructive disease. Dominant circumflex artery with sdza-kv-wzgordmh disease nonobstructive disease. Cardiac catheterization was carried out on September 02, 2022, 95% stenosis within the stent in the mid LAD successful balloon angioplasty using noncompliant balloon 3.5 x 20 mm up to 16 poly with excellent results, no residual stenosis. The right coronary artery has a patent stent, at the ostium there is 95% lesion, I forwarded her cath films to Richie and discussed the with Dr. Mathias. Due to the small to intermediate size of that right coronary artery recommendation is conservative management. We will continue maximizing medical therapy. Paroxysmal atrial fibrillation, started to have multiple episodes of atrial fibrillation with rapid ventricular response. Back to sinus rhythm on Cardizem drip, Cardizem was discontinued and she was started on Eliquis, monitor tolerance and response Acute respiratory failure, pulmonary edema. Responding to IV diuretics Chest x-ray suggestive of multifocal pneumonia versus metastatic disease. Patient is having CT scan done Continue on diuretics and monitor Hypokalemia, replace and monitor Congestive heart failure, chronic compensated left ventricular systolic dysfunction ejection fraction. 2D echocardiogram done on October 24, 2020 showing normal LV size, EF 45 to 50%, grade 1 diastolic dysfunction, mild mitral regurgitation, aortic valve sclerosis, mild to moderate aortic regurgitation, PA pressure 45 to 50 mmHg. Improvement compared to the previous echocardiogram from December 2019 and January 2019. Maintained on Coreg 25 mg daily and Entresto 45 mg / 51 mg twice daily. 2D echo was done on September 02, 2022 with moderate LVH, hypokinesia at the anterior wall, ejection fraction 45 to 50%, grade 2 diastolic dysfunction, mild to moderate mitral regurgitation, aortic valve sclerosis with no aortic stenosis, PA pressure 35 to 40 mmHg Receiving diuretics. Continue to monitor Hypertension, patient has been borderline hypotensive, monitor blood pressure Acute on chronic renal failure, significant deterioration in renal function We discussed the possibility of progressing to end-stage kidney disease with the use of contrast and patient understand the risks and benefits of the procedure Diabetes mellitus, followed and monitored by primary care physician Diabetic neuropathy, continue to monitor Hypothyroidism, managed and followed by primary care physician Hyperlipidemia, maintained on Lipitor 40 mg daily LDL 111. Increase Lipitor to 80 mg daily Moderate bilateral carotid stenosis, ultrasound was done in October 2021, continue to monitor Anxiety, history of bipolar disorder, Parkinson, patient and family are very anxious, requesting to allow family member to stay with the patient overnight. I discussed it with the ICU compounding and finishing supervisor Degenerative joint disease, monitored and managed by primary care physician Parkinson's, follows with Dr. Andrews Abnormal EKG with left bundle branch block, chronic, no change from baseline. Continue to monitor Generalized weakness/debility, chronic Has some deterioration yesterday morning Mild venous insufficiency, recommend compression stocking.LUISA Soliz MD Sep 05, 2022 10:38
--- NOTE | 2022-09-05 12:28 | Tele-ICU Progress Note ---
Subjective Date Seen by a Provider: Sep 05, 2022 Time Seen by a Provider: 10:27 Subjective/Events-last exam (Tele-ICU Physician , Progress Note ) Service provided via interactive audio and video telecommunications E-CARE system to a patient admitted to ICU bed in [facility]. Patient is seen today due to persistent need of ICU care Available chart/ vitals / labs / Images reviewed Video assessment done using teleICU camera, rest of exam as per RN Discussed with RN Events overnight : Afebrile hemodynamically stable Respiratory - VT I/O = negative Drips: Pressors- no Hospital course: (09/01) 86/F- C.P., Hypoxia, pna on imaging, nstemi, chf, //incr.- trop, gluc. ashly. (09/02) to CCL for successful PTCA to stenosis mid LAD 09/03 - VT 40 L 90 % to eat , now on BIPAP 15/8 70 % , rr 22 tv 500 TV 12 L . - A fib RVR- cardizen gtt , VT 09/05 - VT 40 L 80% A/P Acute resp failure. hypoxic - suspected pulm edema -cont diuresis with lasix - on VT 40 L 90 % to eat , now on BIPAP 15/8 70 % , rr 22 tv 500 TV 12 L - precedex prn , OFF since 11 am - C T chest 09/05 pending --? PNA A fib RVR 09/03 - rate controlled cardizem gtt OFF 09/04 - AC with eliquis CAD, NSTEMI on admission Status postcardiac catheterization and balloon angioplasty to the LAD - card follow -RCA has a patent stent, at the ostium there is 95% lesion which need to be addressed at a later point. - on aspirin and Plavix Congestive heart failure, chronic compensated left ventricular systolic dysfunction ejection fraction. - as per cards - ECHO September 02, 2022 with moderate LVH, hypokinesia at the anterior wall, ejection fraction 45 to 50%, grade 2 diastolic dysfunction, mild to moderate mitral regurgitation, aortic valve sclerosis with no aortic stenosis, PA pressure 35 to 40 mmHg UTI -Rocephin 09/02--31 DM II - levemir , ISS - po diet Parkinson's - mental status baseline Lines : , (Central Line Necessity Reviewed) Flower: + OG: Nutrition: PO Analgesia: Anxiety/ delirium VTE Prophylaxis: carlos 60 Stress Ulcer Prophylaxis: Plans in collaboration with bedside consultants and IM MDs. Discussed with RN to reach out if any questions or concerns Case and care daily discussed on multidisciplinary rounds ( RN, PharmD, E Merchant , Respiratory Therapy, sugar mill worker ) A total of 31 minutes of critical care time was devoted to this patient today, required to treat and/or prevent further deterioration of critical care condition ( as above ) . I am remotely monitoring this patient from another state. I am unable to do the bedside exam, and history/physical and pertinent information is taken from other notes in the computer and bedside staff. Sepsis Event Evaluation Height, Weight, BMI Height: 5'2.00" Weight: 129lbs. 0.0oz. [id number]; 24.67 BMI Method: Focused Exam Time of Focused Exam: 19:00 Exam Exam Patient acknowledged, consented, and participated in this virtual visit which was conducted using real time audio/video Vital Signs Date Time Temp Pulse Resp B/P (MAP) Pulse Ox O2 Delivery O2 Flow Rate FiO2 09/05/22 11:00 112 20 110/51 (70) 96 Vapotherm 40.00 80.00 09/05/22 10:58 96 Vapotherm 40.00 85 09/05/22 10:02 75 09/05/22 10:00 71 18 131/56 (81) 96 Vapotherm 40.00 80.00 09/05/22 09:45 Vapotherm 40.00 90.00 09/05/22 09:30 Vapotherm 40.00 100.00 09/05/22 09:00 102 20 133/80 (97) 99 NIV Bilevel 100.00 09/05/22 08:55 NIV Bilevel 100.00 09/05/22 08:00 79 21 114/69 (84) 95 Vapotherm 40.00 80.00 09/05/22 07:35 98 Vapotherm 40.00 85 09/05/22 07:35 Vapotherm 40.00 80.00 09/05/22 07:32 74 09/05/22 07:00 73 18 125/48 (73) 99 Vapotherm 40.00 85.00 09/05/22 04:49 93 Vapotherm 40.00 85 09/05/22 04:17 Vapotherm 40.00 85.00 09/05/22 03:00 74 20 123/46 (71) 95 NIV Bilevel 40.00 09/05/22 02:33 75 21 96 40.00 09/05/22 02:00 74 21 120/52 (74) 95 NIV Bilevel 40.00 09/05/22 01:00 74 21 126/46 (72) 93 NIV Bilevel 40.00 09/05/22 01:00 80 09/05/22 00:00 91 NIV Bilevel 40 09/05/22 00:00 78 21 132/51 (78) 93 NIV Bilevel 40.00 09/04/22 23:00 82 23 130/48 (75) 92 NIV Bilevel 40.00 09/04/22 22:00 80 23 127/64 (85) 92 NIV Bilevel 40.00 09/04/22 21:45 79 27 93 40.00 09/04/22 21:00 99 25 148/129 (135) 95 NIV Bilevel 40.00 09/04/22 20:59 NIV Bilevel 40.00 09/04/22 20:06 36.3 09/04/22 20:00 92 Vapotherm 40.00 85 09/04/22 20:00 74 19 131/62 (85) 96 Vapotherm 40.00 85.00 09/04/22 19:00 73 09/04/22 19:00 72 20 124/48 (73) 97 Vapotherm 40.00 85.00 09/04/22 18:00 74 18 133/53 (79) 96 Vapotherm 40.00 85.00 09/04/22 17:00 72 21 126/44 (71) 97 Vapotherm 40.00 85.00 09/04/22 16:08 36.0 09/04/22 16:00 54 18 134/53 (80) 96 Vapotherm 40.00 85.00 09/04/22 15:17 92 Vapotherm 40.00 85 09/04/22 15:00 61 18 123/47 (72) 95 Vapotherm 40.00 85.00 09/04/22 14:40 95 Vapotherm 40.00 85 09/04/22 14:00 66 18 125/46 (72) 100 Vapotherm 40.00 85.00 09/04/22 13:00 68 18 126/51 (76) 100 Vapotherm 40.00 100.00 I & O 09/05/22 07:00 Intake Total 530 ml Output Total 2300 ml Balance -1770 ml Height & Weight Height: 5'2.00" Weight: 129lbs. 0.0oz. 58.892125ud; 24.67 BMI Method: General Appearance: No Apparent Distress, WD/WN, Anxious HEENT: PERRL/EOMI, Pharynx Normal Neck: Normal Inspection, Supple Respiratory: No Accessory Muscle Use, No Respiratory Distress, Crackles Cardiovascular: No Murmur, Irregularly Irregular, Tachycardia Capillary Refill: Less Than 3 Seconds Gastrointestinal: normal bowel sounds, non tender, soft Extremity: Normal Inspection, No Pedal Edema Neurologic/Psychiatric: Alert Skin: Normal Color, Warm/Dry Lymphatic: No Adenopathy Results Lab Laboratory Tests 09/04/22 04:16 09/05/22 04:43 Assessment/Plan Assessment/Plan 1 VASILE MCGEE MD Sep 05, 2022 12:28
--- NOTE | 2022-09-05 17:21 | Diagnostic Imaging Report ---
EXAMINATION: CT chest without contrast. TECHNIQUE: Multiple contiguous axial images were obtained through the chest without the use of intravenous contrast. All CT scans use one or more of the following dose optimizing techniques: automated exposure control, MA and/or KvP adjustment based on patient size and exam type or iterative reconstruction. HISTORY: Respiratory failure. COMPARISON: None available. FINDINGS: Thyroid: The thyroid is normal. Mediastinum: Heart size is normal without significant pericardial effusion. The aorta is normal in caliber. There are mildly enlarged mediastinal lymph nodes present which may be reactive. Lungs and airways: There are bilateral pleural effusions with bibasilar atelectasis or consolidation. There are patchy areas of consolidation throughout the lungs. No pneumothorax. There are air bronchograms within the lung bases. The airways are otherwise patent. Upper abdomen: The subphrenic structures are normal. Musculoskeletal: Degenerative changes of the spine without suspicious osseous lesion. There is a T12 compression deformity. IMPRESSION: 1. Bilateral pleural effusions with bilateral lower lung atelectasis or consolidation. 2. Patchy consolidation throughout both lungs concerning for multifocal pneumonia. Dictated by: Dictated on workstation # [id number]
[2022-09-05] MEDS: clonazePAM 0.5 MG (KlonoPIN) TAB PO PRN (17:31)
[2022-09-05] MEDS: FUROSEMIDE 40 MG/4 ML INJ (LASIX) IVP SCH (17:32)
--- NOTE | 2022-09-05 18:40 | Progress Note - Hospitalist ---
Subjective HPI/CC On Admission Date Seen by Provider: Sep 05, 2022 Time Seen by Provider: 09:20 Edie Gallo is an 86 year old female with PMH HTN, T2DM, HLD, CAD, hypothyroidism, AFib, HFrEF, who presented with weakness. She had also been feeling fatigued. She had some chest pain. Upon my exam she is no longer having any symptoms. She denies chest pain. She denies shortness of breath. She denies nausea, vomiting, abdominal pain. She has not had any leg swelling. Subjective/Events-last exam She is still short of breath. She is still anxious. She slept better last night. She denies pain. She has been able to eat and drink. Focused Exam Time of Focused Exam: 19:00 Objective Exam Vital Signs Vital Signs Date Time Temp Pulse Resp B/P (MAP) Pulse Ox O2 Delivery O2 Flow Rate FiO2 09/05/22 18:00 86 19 140/56 (84) 90 Vapotherm 40.00 80.00 09/05/22 15:33 85 09/05/22 15:31 36.6 Capillary Refill : Less Than 3 Seconds General Appearance: No Apparent Distress, WD/WN Respiratory: No Accessory Muscle Use, No Respiratory Distress, Crackles, Other (wearing BiPAP) Cardiovascular: No Murmur, Irregularly Irregular Gastrointestinal: Normal Bowel Sounds, Soft Extremity: Normal Inspection, No Pedal Edema Neurologic/Psychiatric: Alert, Normal Mood/Affect Skin: Normal Color, Warm/Dry Results/Procedures Lab Laboratory Tests 09/05/22 04:43 Patient resulted labs reviewed. Imaging: Reviewed Imaging Report Assessment/Plan Assessment and Plan Assess & Plan/Chief Complaint NSTEMI CAD Acute on chronic HFrEF Pulmonary edema Bilateral pleural effusions Acute respiratory failure with hypoxia Acute postoperative respiratory insufficiency Multifocal pneumonia TAMMY on CKD3b HTN HLD AFib with RVR LBBB E coli UTI Cardiology following s/p left heart cath 09/02 with 95% in-stent stenosis of LAD, stent placed Also with 70% stensosis right coronary artery, staged PCI recommended ASA and Plavix Statin TeleICU following Continue Lasix BiPAP as needed Procal elevated CT chest concerning for multifocal pneumonia Stop Rocephin Begin Vancomycin and Cefepime T2DM Sliding scale insulin Hypothyroidism GERD Continue home meds DVT prophylaxis: Lovenox Critical Care Critically Ill Patient Diagnosis/Problems Diagnosis/Problems (1) NSTEMI (non-ST elevation myocardial infarction) Status: Acute (2) Acute on chronic HFrEF (heart failure with reduced ejection fraction) Status: Acute (3) Acute postoperative respiratory insufficiency Status: Acute (4) Acute respiratory failure with hypoxia Status: Acute (5) Acute kidney injury superimposed on chronic kidney disease Status: Acute (6) UTI (urinary tract infection) Status: Acute (7) T2DM (type 2 diabetes mellitus) Status: Chronic (8) Coronary artery disease Status: Chronic (9) Hypertension Status: Chronic (10) Hyperlipidemia Status: Chronic (11) Hypothyroidism Status: Chronic (12) Pulmonary edema Status: Acute Qualifiers: Chronicity: acute Qualified Codes: J81.0 - Acute pulmonary edema (13) Multifocal pneumonia KARYNA YAN MD Sep 05, 2022 18:40
[2022-09-05] MEDS ORDERED: VANCOMYCIN INJECTION 0.1 MG in NS (IVPB) 250 ML IV SCH (18:45)
[2022-09-05] MEDS ORDERED: VANCOMYCIN 1250 MG/NS 250 ML PREMIX IV NR (19:00)
[2022-09-05] MEDS: OLANZapine 2.5 MG (ZyPREXA) TAB PO SCH (20:25)
[2022-09-05] MEDS: CEFEPIME INJECTION 1,000 MG in NS (IVPB) 50 ML IV SCH (20:26)
[2022-09-05 22:43] VITALS: BP 143/53
[2022-09-06 03:06] VITALS: BP 120/52
[2022-09-06 05:51] LABS: BASOPHILS % (AUTO) 0 % (0-10); EOSINOPHILS # (AUTO) 0.1 10^3/uL (0.0-0.3); EOSINOPHILS % (AUTO) 1 % (0-10); HEMATOCRIT 24 % (35-52); HEMOGLOBIN 8.3 g/dL (11.5-16.0); LYMPHOCYTES # (AUTO) 0.8 10^3/uL (1.0-4.0); LYMPHOCYTES % (AUTO) 7 % (12-44); MEAN CORPUSCULAR HEMOGLOBIN 31 pg (25-34); MEAN CORPUSCULAR HGB CONC 35 g/dL (32-36); MEAN CORPUSCULAR VOLUME 90 fL (80-99); MEAN PLATELET VOLUME 10.9 fL (9.0-12.2); MONOCYTES # (AUTO) 1.5 10^3/uL (0.0-1.0); MONOCYTES % (AUTO) 12 % (0-12); NEUTROPHILS # (AUTO) 9.6 10^3/uL (1.8-7.8); NEUTROPHILS % (AUTO) 79 % (42-75); PLATELET COUNT 265 10^3/uL (130-400); WHITE BLOOD COUNT 12.1 10^3/uL (4.3-11.0)
[2022-09-06 05:59] LABS: ALBUMIN 2.7 GM/DL (3.2-4.5); CHLORIDE 100 MMOL/L (98-107); POTASSIUM 3.2 MMOL/L (3.6-5.0); SODIUM 132 MMOL/L (135-145)
[2022-09-06 06:00] LABS: CALCIUM 8.5 MG/DL (8.5-10.1)
[2022-09-06 06:01] LABS: GLUCOSE 180 MG/DL (70-105)
[2022-09-06 06:02] LABS: CARBON DIOXIDE 19 MMOL/L (21-32); TOTAL PROTEIN 6.4 GM/DL (6.4-8.2)
[2022-09-06 06:03] LABS: BILIRUBIN,TOTAL 0.8 MG/DL (0.1-1.0)
[2022-09-06 06:05] LABS: ALKALINE PHOSPHATASE 67 U/L (40-136); CREATININE SERUM 1.47 MG/DL (0.60-1.30); GFR ESTIMATED 35; PHOSPHORUS 2.8 MG/DL (2.3-4.7)
[2022-09-06 06:06] LABS: BUN/CREATININE RATIO 29
[2022-09-06 06:08] LABS: ALANINE AMINOTRANSFERASE < 6 U/L (0-55); MAGNESIUM 1.9 MG/DL (1.6-2.4)
[2022-09-06] MEDS ORDERED: POTASSIUM CL 10MEQ/50ML IVPB 50 ML IV SCH (06:30)
[2022-09-06] MEDS ORDERED: MAGNESIUM 1 GM/100 ML IVPB 100 ML IV ONE (06:30)
[2022-09-06] MEDS: VENlafaxine XR 75 MG (EFFEXOR XR) CAP PO SCH (06:32)
[2022-09-06] MEDS: LEVOTHYROXINE 125 MCG (LEVOTHROID) TABLET PO SCH (06:33)
[2022-09-06] MEDS: FUROSEMIDE 40 MG/4 ML INJ (LASIX) IVP SCH ×2 (06:33→16:06)
[2022-09-06] MEDS: CEFEPIME INJECTION 1,000 MG in NS (IVPB) 50 ML IV SCH ×2 (06:33→18:38)
[2022-09-06] MEDS: KCL 20 MEQ TAB (K-DUR) PO SCH (06:34)
[2022-09-06] MEDS: POTASSIUM CL 10MEQ/50ML IVPB 50 ML IV SCH (06:34)
[2022-09-06] MEDS: MAGNESIUM 1 GM/100 ML IVPB 100 ML IV SCH (06:34)
[2022-09-06] MEDS: inSUlin ASPART (NovoLOG) 1 UNIT/0.01 ML (CHARGE PER UNIT) SC SCH ×4 (06:34→20:15)
[2022-09-06] MEDS ORDERED: KCL 20 MEQ TAB (K-DUR) PO ONE (06:45)
[2022-09-06 07:45] VITALS: BP 140/45
--- NOTE | 2022-09-06 08:05 | Cardiology Progress Note ---
Subjective Date Seen by Provider: Sep 06, 2022 Time Seen by Provider: 08:04 Subjective/Events-last exam Patient is laying down in bed, tired, currently on BiPAP Slept well last night Review of Systems General: No Chills, No Night Sweats; Fatigue, Malaise; No Appetite, No Other HEENT: No Head Aches, No Visual Changes, No Eye Pain, No Ear Pain, No Dysphasia, No Sinus Congestion, No Post Nasal Drip, No Sore Throat, No Other Pulmonary: Dyspnea; No Cough, No Pleuritic Chest Pain, No Other Cardiovascular: No: Chest Pain, Palpitations, Orthopnea, Paroxysmal Noc. Dyspnea, Edema, Lt Headedness, Other Focused Exam Time of Focused Exam: 19:00 Objective-Cardiology Exam Last Set of Vital Signs Vital Signs 09/06/22 09/06/22 09/06/22 09/06/22 04:00 06:00 07:33 07:45 Temp 36.0 Pulse 55 Resp 21 B/P (MAP) 131/45 (73) Pulse Ox 100 O2 Delivery NIV Bilevel O2 Flow Rate 50.00 FiO2 100 I&O Intake and Output 09/06/22 00:00 Intake Total 2205 ml Output Total 2950 ml Balance -745 ml Intake Oral 1880 ml IV Total 325 ml Output Urine Total 2950 ml General: Alert, Oriented X3, Cooperative HEENT: Atraumatic, PERRLA Neck: Supple, No JVD, No Thyromegaly Lungs: Normal Air Movement, Other (Bilateral rhonchi) Heart: Normal S1, Normal S2, No Murmurs, Other (Atrial fibrillation) Abdomen: Normal Bowel Sounds, Soft, No Tenderness, No Hepatosplenomegaly, No Masses Extremities: No Clubbing, No Cyanosis, Normal Pulses, No Tenderness/Swelling, Other (Mild edema) Skin: No Rashes, No Breakdown, No Significant Lesion Neuro: Normal Speech, Normal Tone, Sensation Intact Psych/Mental Status: Mental Status NL, Mood NL Results Lab Laboratory Tests 09/06/22 05:22 A/P-Cardiology Admission Diagnosis Non-ST elevation myocardial infarction Coronary artery disease Congestive heart failure, acute on chronic left ventricular systolic dysfunction, dilated cardiomyopathy Acute renal failure Assessment/Plan Acute chest pain, non-ST elevation myocardial infarction, underlying left bundle branch block Status post cardiac catheterization and balloon angioplasty to the LAD Coronary artery disease, Had multiple interventions in [address] [facility] a total of 5 stents, Cardiac catheterization done in 2014 showing [id number] disease. Cardiac catheterization done January 27, 2019 revealing multiple stents in the proximal, mid and distal LAD with multiple segment of severe in-stent restenosis successful balloon angioplasty. Mild disease in the distal LAD. Long stent in the mid small nondominant right coronary artery which is patent with mild disease proximal to stent nonobstructive disease. Dominant circumflex artery with [id number] disease nonobstructive disease. Cardiac catheterization was carried out on September 02, 2022, 95% stenosis within the stent in the mid LAD successful balloon angioplasty using noncompliant balloon 3.5 x 20 mm up to 16 poly with excellent results, no residual stenosis. The right coronary artery has a patent stent, at the ostium there is 95% lesion, I forwarded her cath films to Richie and discussed the with Dr. Mathias. Due to the small to intermediate size of that right coronary artery recommendation is conservative management. We will continue maximizing medical therapy. Paroxysmal atrial fibrillation, started to have multiple episodes of atrial fibrillation with rapid ventricular response. Converted to sinus rhythm on Cardizem drip Had few breakthrough atrial fibrillation, maintained on oral Cardizem at this time and tolerating it well. Probably secondary to respiratory failure Started on Eliquis and tolerating it well Acute respiratory failure, pulmonary edema, bilateral pneumonia. CT scan of the chest showing bilateral infiltrate. Receiving Lasix and antibiotics, improving. Managed by medical team Congestive heart failure, chronic compensated left ventricular systolic dysfunction ejection fraction. 2D echocardiogram done on October 24, 2020 showing normal LV size, EF 45 to 50%, grade 1 diastolic dysfunction, mild mitral regurgitation, aortic valve sclerosis, mild to moderate aortic regurgitation, PA pressure 45 to 50 mmHg. Improvement compared to the previous echocardiogram from December 2019 and January 2019. Maintained on Coreg 25 mg daily and Entresto 45 mg / 51 mg twice daily. 2D echo was done on September 02, 2022 with moderate LVH, hypokinesia at the anterior wall, ejection fraction 45 to 50%, grade 2 diastolic dysfunction, mild to moderate mitral regurgitation, aortic valve sclerosis with no aortic stenosis, PA pressure 35 to 40 mmHg Receiving diuretics. Continue to monitor Hypertension, patient has been borderline hypotensive, monitor blood pressure Acute on chronic renal failure, significant deterioration in renal function We discussed the possibility of progressing to end-stage kidney disease with the use of contrast and patient understand the risks and benefits of the procedure Diabetes mellitus, followed and monitored by primary care physician Diabetic neuropathy, continue to monitor Hypothyroidism, managed and followed by primary care physician Hyperlipidemia, maintained on Lipitor 40 mg daily LDL 111. Increase Lipitor to 80 mg daily Moderate bilateral carotid stenosis, ultrasound was done in October 2021, continue to monitor Anxiety, history of bipolar disorder, Parkinson, patient and family are very anxious, requesting to allow family member to stay with the patient overnight. 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 Andrews Abnormal EKG with left bundle branch block, chronic, no change from baseline. Continue to monitor Generalized weakness/debility, chronic Has some deterioration yesterday morning Mild venous insufficiency, recommend compression stocking.LUISA Soliz MD Sep 06, 2022 08:05
[2022-09-06] MEDS: GABAPENTIN 100 MG (NEURONTIN) CAP PO SCH ×2 (08:48→20:13)
[2022-09-06] MEDS: SINEMET 25/100 (CARBIDOPA/LEVODOPA) TAB PO SCH ×4 (08:48→20:15)
[2022-09-06] MEDS: buPROPion SR 150 MG (WELLBUTRIN SR) TAB PO SCH ×2 (08:48→20:15)
[2022-09-06] MEDS: ASPIRIN E.C. 81 MG (ECOTRIN) TAB PO SCH (08:48)
[2022-09-06] MEDS: ENTACAPONE 200 MG TABLET PO SCH ×4 (08:48→20:18)
[2022-09-06] MEDS: DOCUSATE SODIUM 100 MG (COLACE) CAP PO SCH ×2 (08:48→20:15)
[2022-09-06] MEDS: APIXABAN 2.5 MG (ELIQUIS) TABLET PO SCH ×2 (08:49→20:15)
[2022-09-06] MEDS: PANTOPRAZOLE 40 MG (PROTONIX) TAB PO SCH (08:49)
[2022-09-06] MEDS: SENNA W/DOCUSATE (SENOKOT S) TABLET PO SCH ×2 (08:49→20:27)
[2022-09-06] MEDS: clonazePAM 0.5 MG (KlonoPIN) TAB PO SCH ×2 (08:49→20:14)
[2022-09-06] MEDS: CLOPIDOGREL 75 MG (PLAVIX) TABLET PO SCH (08:49)
--- NOTE | 2022-09-06 10:16 | Tele-ICU Progress Note ---
Subjective Date Seen by a Provider: Sep 06, 2022 Time Seen by a Provider: 10:16 Subjective/Events-last exam (Tele-ICU Physician , Progress Note ) Service provided via interactive audio and video telecommunications E-CARE system to a patient admitted to ICU bed in [facility]. Patient is seen today due to persistent need of ICU care Available chart/ vitals / labs / Images reviewed Video assessment done using teleICU camera, rest of exam as per RN Discussed with RN Events overnight : Afebrile hemodynamically stable Respiratory - VT I/O = negative Drips: Pressors- no Hospital course: (09/01) 86/F- C.P., Hypoxia, pna on imaging, nstemi, chf, //incr.- trop, gluc. ashly. (09/02) to CCL for successful PTCA to stenosis mid LAD, Rocephin 09/02--30 for UTI 09/03 - VT 40 L 90 % to eat , now on BIPAP 15/8 70 % , rr 22 tv 500 TV 12 L 09.04 - A fib RVR- cardizen gtt , VT 09/05 - VT 40 L 80% BIPAP 15/8 70 % , rr 22 tv 500 TV 12 L , CTch/abd - bilat infiltrates, bilat effusions , - precedex OFF since 11 am , VANCO started , cefepime 09/06- VT 40 L 90% , at night BIPAP 15/8 50% A/P Acute resp failure. hypoxic - suspected pulm edema, in addition 09/05 CTch/abd - bilat infiltrates, bilat effusions , added Vanco 09/05 , cefepime - on VT 40 L 90 % to eat , now on BIPAP 15/8 50 % - C T chest abd 09/05 - bilat infiltrates, bilat effusions -cont diuresis with lasix - precedex prn , OFF 09/05 back on 0.4 09/06 A fib RVR 09/03 - rate controlled cardizem gtt OFF 09/04 - cardizem PO - AC with eliquis CAD, NSTEMI on admission Status postcardiac catheterization and balloon angioplasty to the LAD - card follow -RCA has a patent stent, at the ostium there is 95% lesion which need to be addressed at a later point. - on aspirin and Plavix Congestive heart failure, chronic compensated left ventricular systolic dysfunction ejection fraction. - as per cards - ECHO September 02, 2022 with moderate LVH, hypokinesia at the anterior wall, ejection fraction 45 to 50%, grade 2 diastolic dysfunction, mild to moderate mitral regurgitation, aortic valve sclerosis with no aortic stenosis, PA pressure 35 to 40 mmHg UTI with E coli -Rocephin 09/02--31 DM II - levemir , ISS - po diet CKD - Cr stable Parkinson's - mental status baseline - prn precedex while on BIPAP Nuritions - reasonable Po intake Lines : periph , (Central Line Necessity Reviewed) Flower: + OG: Nutrition: PO Analgesia: Anxiety/ delirium VTE Prophylaxis: elaquis Stress Ulcer Prophylaxis: Plans in collaboration with bedside consultants and IM MDs. Discussed with RN to reach out if any questions or concerns Case and care daily discussed on multidisciplinary rounds ( RN, PharmD, Exotic Dancer , Respiratory Therapy, end worker ) A total of 31 minutes of critical care time was devoted to this patient today, required to treat and/or prevent further deterioration of critical care condition ( as above ) . I am remotely monitoring this patient from another state. I am unable to do the bedside exam, and history/physical and pertinent information is taken from other notes in the computer and bedside staff. Sepsis Event Evaluation Height, Weight, BMI Height: 5'2.00" Weight: 129lbs. 0.0oz. [id number]; 25.07 BMI Method: Focused Exam Time of Focused Exam: 19:00 Exam Exam Patient acknowledged, consented, and participated in this virtual visit which was conducted using real time audio/video Vital Signs Date Time Temp Pulse Resp B/P (MAP) Pulse Ox O2 Delivery O2 Flow Rate FiO2 09/06/22 09:00 60 15 136/59 (108) 98 NIV Bilevel 50.00 09/06/22 08:00 53 16 119/69 (89) 100 NIV Bilevel 50.00 09/06/22 08:00 100 NIV Bilevel 50 09/06/22 07:45 55 21 100 50.00 09/06/22 07:33 36.0 09/06/22 07:00 58 09/06/22 07:00 60 16 140/45 (86) 100 NIV Bilevel 50.00 09/06/22 06:00 60 17 131/45 (73) 100 NIV Bilevel 50.00 09/06/22 05:00 61 17 130/50 (76) 100 NIV Bilevel 50.00 09/06/22 04:00 100 NIV Bilevel 40.00 100 09/06/22 04:00 61 19 125/55 (78) 99 NIV Bilevel 50.00 09/06/22 03:29 36.8 09/06/22 03:06 73 24 94 50.00 09/06/22 03:00 64 19 127/47 (73) 99 NIV Bilevel 50.00 09/06/22 02:00 85 22 147/52 (83) 97 NIV Bilevel 50.00 09/06/22 01:22 86 NIV Bilevel 50.00 09/06/22 01:00 83 09/06/22 01:00 85 19 147/52 (83) 97 Vapotherm 40.00 100.00 09/06/22 00:00 89 18 149/71 (97) 95 Vapotherm 40.00 100.00 09/05/22 23:59 94 NIV Bilevel 40.00 100 09/05/22 23:46 94 Vapotherm 40.00 100.00 09/05/22 23:28 37.7 09/05/22 23:10 84 NIV Bilevel 50.00 09/05/22 23:00 81 24 155/61 (92) 94 Vapotherm 40.00 80.00 09/05/22 22:43 73 28 92 50.00 09/05/22 22:00 79 24 151/56 (87) 93 Vapotherm 40.00 80.00 09/05/22 21:00 73 24 143/53 (83) 92 Vapotherm 40.00 80.00 09/05/22 20:00 85 24 146/54 (84) 95 Vapotherm 40.00 80.00 09/05/22 20:00 95 NIV Bilevel 40.00 50 09/05/22 19:04 36.6 09/05/22 19:00 95 09/05/22 19:00 90 17 152/89 (110) 94 Vapotherm 40.00 80.00 09/05/22 18:55 89 Vapotherm 40.00 100 09/05/22 18:00 86 19 140/56 (84) 90 Vapotherm 40.00 80.00 09/05/22 17:00 86 25 135/57 (83) 90 Vapotherm 40.00 80.00 09/05/22 16:14 78 09/05/22 16:00 114 25 132/87 (102) 92 Vapotherm 40.00 80.00 09/05/22 15:33 93 Vapotherm 40.00 85 09/05/22 15:31 36.6 09/05/22 15:06 93 Vapotherm 40.00 85 09/05/22 15:00 112 20 123/65 (84) 94 Vapotherm 40.00 80.00 09/05/22 14:00 114 18 114/56 (75) 96 Vapotherm 40.00 80.00 09/05/22 13:18 112 09/05/22 13:00 108 24 121/66 (84) 97 Vapotherm 40.00 80.00 09/05/22 12:00 93 Vapotherm 40.00 85 09/05/22 12:00 105 24 104/67 (79) 95 Vapotherm 40.00 80.00 09/05/22 11:00 112 20 110/51 (70) 96 Vapotherm 40.00 80.00 09/05/22 10:58 96 Vapotherm 40.00 85 I & O 09/06/22 07:00 Intake Total 2175 ml Output Total 3025 ml Balance -850 ml Height & Weight Height: 5'2.00" Weight: 129lbs. 0.0oz. 58.476115xa; 25.07 BMI Method: General Appearance: No Apparent Distress, WD/WN HEENT: PERRL/EOMI, Pharynx Normal Neck: Normal Inspection, Supple Respiratory: No Accessory Muscle Use, No Respiratory Distress, Crackles, Other (wearing BiPAP) Cardiovascular: No Murmur, Irregularly Irregular Capillary Refill: Less Than 3 Seconds Gastrointestinal: normal bowel sounds, non tender, soft Extremity: Normal Inspection, No Pedal Edema Neurologic/Psychiatric: Alert, Normal Mood/Affect Skin: Normal Color, Warm/Dry Lymphatic: No Adenopathy Results Lab Laboratory Tests 09/05/22 04:43 09/06/22 05:22 Assessment/Plan Assessment/Plan 1 VASILE MCGEE MD Sep 06, 2022 10:16
--- NOTE | 2022-09-06 14:25 | Progress Note - Hospitalist ---
Subjective HPI/CC On Admission Date Seen by Provider: Sep 06, 2022 Time Seen by Provider: 09:30 Edie Gallo is an 86 year old female with PMH HTN, T2DM, HLD, CAD, hypothyroidism, AFib, HFrEF, who presented with weakness. She had also been feeling fatigued. She had some chest pain. Upon my exam she is no longer having any symptoms. She denies chest pain. She denies shortness of breath. She denies nausea, vomiting, abdominal pain. She has not had any leg swelling. Subjective/Events-last exam She is lying in bed. She is a little short of breath. She has been able to eat and drink. She still has some anxiety. She was able to sleep ok last night. Focused Exam Time of Focused Exam: 19:00 Objective Exam Vital Signs Vital Signs Date Time Temp Pulse Resp B/P (MAP) Pulse Ox O2 Delivery O2 Flow Rate FiO2 09/06/22 13:00 66 11 142/51 (81) 92 Vapotherm 40.00 50.00 09/06/22 12:00 60 09/06/22 12:00 36.8 Capillary Refill : Less Than 3 Seconds General Appearance: No Apparent Distress, WD/WN, Anxious Respiratory: No Respiratory Distress, Decreased Breath Sounds Cardiovascular: No Murmur, Irregularly Irregular Gastrointestinal: Normal Bowel Sounds, Soft Extremity: Normal Inspection, No Pedal Edema Neurologic/Psychiatric: Alert, No Motor/Sensory Deficits Skin: Normal Color, Warm/Dry Results/Procedures Lab Laboratory Tests 09/06/22 05:22 Patient resulted labs reviewed. Imaging: Reviewed Imaging Report Assessment/Plan Assessment and Plan Assess & Plan/Chief Complaint NSTEMI CAD Acute on chronic HFrEF Pulmonary edema Bilateral pleural effusions Acute respiratory failure with hypoxia Acute postoperative respiratory insufficiency Multifocal pneumonia TAMMY on CKD3b HTN HLD AFib with RVR LBBB E coli UTI Cardiology following s/p left heart cath 09/02 with 95% in-stent stenosis of LAD, stent placed Also with 70% stensosis right coronary artery, staged PCI recommended ASA and Plavix Statin TeleICU following Continue Lasix BiPAP as needed, currently on Vapotherm, weaning as able CT chest concerning for multifocal pneumonia Continue Vancomycin and Cefepime T2DM Sliding scale insulin Hypothyroidism GERD Continue home meds DVT prophylaxis: Lovenox Critical Care Critically Ill Patient Diagnosis/Problems Diagnosis/Problems (1) NSTEMI (non-ST elevation myocardial infarction) Status: Acute (2) Acute on chronic HFrEF (heart failure with reduced ejection fraction) Status: Acute (3) Acute postoperative respiratory insufficiency Status: Acute (4) Acute respiratory failure with hypoxia Status: Acute (5) Acute kidney injury superimposed on chronic kidney disease Status: Acute (6) UTI (urinary tract infection) Status: Acute (7) T2DM (type 2 diabetes mellitus) Status: Chronic (8) Coronary artery disease Status: Chronic (9) Hypertension Status: Chronic (10) Hyperlipidemia Status: Chronic (11) Hypothyroidism Status: Chronic (12) Pulmonary edema Status: Acute Qualifiers: Chronicity: acute Qualified Codes: J81.0 - Acute pulmonary edema (13) Multifocal pneumonia KARYNA YAN MD Sep 06, 2022 14:25
[2022-09-06] MEDS: clonazePAM 0.5 MG (KlonoPIN) TAB PO PRN (15:47)
[2022-09-06] MEDS ORDERED: ACETAMINOPHEN 325 MG TABLET PO PRN (16:30)
[2022-09-06] MEDS: VANCOMYCIN 1 GM/NS 250 ML IVPB IV SCH ×2 (19:14)
[2022-09-06] MEDS: OLANZapine 2.5 MG (ZyPREXA) TAB PO SCH (20:14)
[2022-09-06 22:23] VITALS: BP 130/58
[2022-09-07 04:41] LABS: BASOPHILS # (AUTO) 0.1 10^3/uL (0.0-0.1); BASOPHILS % (AUTO) 0 % (0-10); EOSINOPHILS # (AUTO) 0.2 10^3/uL (0.0-0.3); EOSINOPHILS % (AUTO) 1 % (0-10); HEMATOCRIT 25 % (35-52); HEMOGLOBIN 8.5 g/dL (11.5-16.0); LYMPHOCYTES # (AUTO) 0.8 10^3/uL (1.0-4.0); LYMPHOCYTES % (AUTO) 6 % (12-44); MEAN CORPUSCULAR HEMOGLOBIN 31 pg (25-34); MEAN CORPUSCULAR HGB CONC 34 g/dL (32-36); MEAN CORPUSCULAR VOLUME 91 fL (80-99); MEAN PLATELET VOLUME 11.1 fL (9.0-12.2); MONOCYTES # (AUTO) 1.2 10^3/uL (0.0-1.0); MONOCYTES % (AUTO) 9 % (0-12); NEUTROPHILS # (AUTO) 11.2 10^3/uL (1.8-7.8); NEUTROPHILS % (AUTO) 83 % (42-75); PLATELET COUNT 298 10^3/uL (130-400); WHITE BLOOD COUNT 13.5 10^3/uL (4.3-11.0)
[2022-09-07 05:08] LABS: ALBUMIN 2.7 GM/DL (3.2-4.5); BILIRUBIN,TOTAL 0.7 MG/DL (0.1-1.0); CALCIUM 8.6 MG/DL (8.5-10.1); CREATININE SERUM 1.43 MG/DL (0.60-1.30); PHOSPHORUS 2.7 MG/DL (2.3-4.7); POTASSIUM 3.2 MMOL/L (3.6-5.0); TOTAL PROTEIN 6.6 GM/DL (6.4-8.2)
[2022-09-07 05:14] LABS: EOSINOPHILS % (MANUAL) 1 %; LYMPHOCYTES % (MANUAL) 7 %; MONOCYTES % (MANUAL) 5 %; NEUTROPHILS % (MANUAL) 87 %; RBC MORPH NORMAL
[2022-09-07] MEDS: MAGNESIUM 1 GM/100 ML IVPB 100 ML IV SCH (05:24)
[2022-09-07] MEDS: POTASSIUM CL 10MEQ/50ML IVPB 50 ML IV SCH (05:24)
[2022-09-07] MEDS: KCL 20 MEQ TAB (K-DUR) PO SCH ×3 (05:30→09:08)
[2022-09-07] MEDS: FUROSEMIDE 40 MG/4 ML INJ (LASIX) IVP SCH ×2 (06:24→16:47)
[2022-09-07] MEDS: VENlafaxine XR 75 MG (EFFEXOR XR) CAP PO SCH (06:24)
[2022-09-07] MEDS: LEVOTHYROXINE 125 MCG (LEVOTHROID) TABLET PO SCH (06:24)
[2022-09-07] MEDS: inSUlin ASPART (NovoLOG) 1 UNIT/0.01 ML (CHARGE PER UNIT) SC SCH ×4 (06:25→22:06)
[2022-09-07] MEDS: CEFEPIME INJECTION 1,000 MG in NS (IVPB) 50 ML IV SCH ×2 (06:26→18:48)
[2022-09-07] MEDS: clonazePAM 0.5 MG (KlonoPIN) TAB PO SCH ×2 (09:07→21:08)
[2022-09-07] MEDS: SINEMET 25/100 (CARBIDOPA/LEVODOPA) TAB PO SCH ×4 (09:07→21:08)
[2022-09-07] MEDS: GABAPENTIN 100 MG (NEURONTIN) CAP PO SCH ×2 (09:07→21:07)
[2022-09-07] MEDS: SENNA W/DOCUSATE (SENOKOT S) TABLET PO SCH ×2 (09:07→21:00)
[2022-09-07] MEDS: ASPIRIN E.C. 81 MG (ECOTRIN) TAB PO SCH (09:07)
[2022-09-07] MEDS: buPROPion SR 150 MG (WELLBUTRIN SR) TAB PO SCH ×2 (09:07→21:08)
[2022-09-07] MEDS: PANTOPRAZOLE 40 MG (PROTONIX) TAB PO SCH (09:08)
[2022-09-07] MEDS: DOCUSATE SODIUM 100 MG (COLACE) CAP PO SCH ×2 (09:08→21:00)
[2022-09-07] MEDS: CLOPIDOGREL 75 MG (PLAVIX) TABLET PO SCH (09:08)
[2022-09-07] MEDS: APIXABAN 2.5 MG (ELIQUIS) TABLET PO SCH ×2 (09:08→21:07)
[2022-09-07] MEDS: ENTACAPONE 200 MG TABLET PO SCH ×4 (09:09→21:07)
--- NOTE | 2022-09-07 11:54 | Progress Note - Hospitalist ---
Subjective HPI/CC On Admission Date Seen by Provider: Sep 07, 2022 Time Seen by Provider: 10:55 Edie Gallo is an 86 year old female with PMH HTN, T2DM, HLD, CAD, hypothyroidism, AFib, HFrEF, who presented with weakness. She had also been feeling fatigued. She had some chest pain. Upon my exam she is no longer having any symptoms. She denies chest pain. She denies shortness of breath. She denies nausea, vomiting, abdominal pain. She has not had any leg swelling. Subjective/Events-last exam She is tired. She is still short of breath. She denies pain. She has no other complaints. Focused Exam Time of Focused Exam: 19:00 Objective Exam Vital Signs Vital Signs Date Time Temp Pulse Resp B/P (MAP) Pulse Ox O2 Delivery O2 Flow Rate FiO2 09/07/22 11:00 92 14 111/74 (86) 95 Vapotherm 40.00 70.00 09/07/22 08:00 70 09/07/22 08:00 37.3 Capillary Refill : Less Than 3 Seconds General Appearance: No Apparent Distress, WD/WN Respiratory: No Respiratory Distress, Decreased Breath Sounds Cardiovascular: No Murmur, Irregularly Irregular Gastrointestinal: Normal Bowel Sounds, Soft Extremity: Normal Inspection, No Pedal Edema Neurologic/Psychiatric: Alert, Motor Weakness Skin: Normal Color, Warm/Dry Results/Procedures Lab Laboratory Tests 09/07/22 04:18 Patient resulted labs reviewed. Imaging: Reviewed Imaging Report Assessment/Plan Assessment and Plan Assess & Plan/Chief Complaint NSTEMI CAD Acute on chronic HFrEF Pulmonary edema Bilateral pleural effusions Acute respiratory failure with hypoxia Acute postoperative respiratory insufficiency Multifocal pneumonia TAMMY on CKD3b HTN HLD AFib with RVR LBBB E coli UTI Cardiology following s/p left heart cath 09/02 with 95% in-stent stenosis of LAD, stent placed Also with 70% stensosis right coronary artery, staged PCI recommended ASA and Plavix Statin TeleICU following Continue Lasix, BUN/Cr continue to improve BiPAP as needed, currently on Vapotherm, weaning as able CT chest concerning for multifocal pneumonia Continue Vancomycin and Cefepime T2DM Sliding scale insulin Hypothyroidism GERD Continue home meds DVT prophylaxis: Lovenox Critical Care Critically Ill Patient Diagnosis/Problems Diagnosis/Problems (1) NSTEMI (non-ST elevation myocardial infarction) Status: Acute (2) Acute on chronic HFrEF (heart failure with reduced ejection fraction) Status: Acute (3) Acute postoperative respiratory insufficiency Status: Acute (4) Acute respiratory failure with hypoxia Status: Acute (5) Acute kidney injury superimposed on chronic kidney disease Status: Acute (6) UTI (urinary tract infection) Status: Acute (7) T2DM (type 2 diabetes mellitus) Status: Chronic (8) Coronary artery disease Status: Chronic (9) Hypertension Status: Chronic (10) Hyperlipidemia Status: Chronic (11) Hypothyroidism Status: Chronic (12) Pulmonary edema Status: Acute Qualifiers: Chronicity: acute Qualified Codes: J81.0 - Acute pulmonary edema (13) Multifocal pneumonia KARYNA YAN MD Sep 07, 2022 11:54
--- NOTE | 2022-09-07 12:03 | Tele-ICU Progress Note ---
Subjective Date Seen by a Provider: Sep 07, 2022 Time Seen by a Provider: 12:03 Subjective/Events-last exam (Tele-ICU Physician , Progress Note ) Service provided via interactive audio and video telecommunications E-CARE system to a patient admitted to ICU bed in [facility]. Patient is seen today due to persistent need of ICU care Available chart/ vitals / labs / Images reviewed Video assessment done using teleICU camera, rest of exam as per RN Discussed with RN Events overnight : Afebrile hemodynamically stable Respiratory - VT I/O = negative Drips: off Pressors- no Hospital course: (09/01) 86/F- C.P., Hypoxia, pna on imaging, nstemi, chf, //incr.- trop, gluc. ashly. (09/02) to CCL for successful PTCA to stenosis mid LAD, Rocephin 09/02--30 for UTI 09/03 - VT 40 L 90 % to eat , now on BIPAP 15/8 70 % , rr 22 tv 500 TV 12 L 09.04 - A fib RVR- cardizen gtt , VT 09/05 - VT 40 L 80% BIPAP 15/8 70 % , rr 22 tv 500 TV 12 L , CTch/abd - bilat infiltrates, bilat effusions , - precedex OFF since 11 am , VANCO started , cefepime 09/06- VT 40 L 90% , at night BIPAP 15/8 50%, precedex while on bipap 09/07 - 40L 70 %, same bipap/precedex at night A/P Acute resp failure. hypoxic - suspected pulm edema, in addition 09/05 CTch/abd - bilat infiltrates, bilat effusions , added Vanco 09/05 , cefepime - on 40L 70 %, same bipap/precedex at night - C T chest abd 09/05 - bilat infiltrates, bilat effusions -cont diuresis with lasix A fib RVR 09/03 - rate controlled cardizem gtt OFF 09/04 - cardizem PO - AC with eliquis CAD, NSTEMI on admission Status postcardiac catheterization and balloon angioplasty to the LAD - card follow -RCA has a patent stent, at the ostium there is 95% lesion which need to be addressed at a later point. - on aspirin and Plavix Congestive heart failure, chronic compensated left ventricular systolic dysfunction ejection fraction. - as per cards - ECHO September 02, 2022 with moderate LVH, hypokinesia at the anterior wall, ejection fraction 45 to 50%, grade 2 diastolic dysfunction, mild to moderate mitral regurgitation, aortic valve sclerosis with no aortic stenosis, PA pressure 35 to 40 mmHg UTI with E coli -Rocephin 09/02--31 DM II, - ISS - po diet CKD - Cr stable Parkinson's - mental status baseline - prn precedex while on BIPAP Nuritions - reasonable Po intake Lines : periph , (Central Line Necessity Reviewed) Flower: + OG: Nutrition: PO Analgesia: Anxiety/ delirium VTE Prophylaxis: eluiquis Stress Ulcer Prophylaxis: Plans in collaboration with bedside consultants and IM MDs. Discussed with RN to reach out if any questions or concerns Case and care daily discussed on multidisciplinary rounds ( RN, PharmD, Scientific [employer] Blower , Respiratory Therapy, rotary shear worker helper ) A total of 31 minutes of critical care time was devoted to this patient today, required to treat and/or prevent further deterioration of critical care condition ( as above ) . I am remotely monitoring this patient from another state. I am unable to do the bedside exam, and history/physical and pertinent information is taken from other notes in the computer and bedside staff. Sepsis Event Evaluation Height, Weight, BMI Height: 5'2.00" Weight: 129lbs. 0.0oz. 58.937222ys; 25.07 BMI Method: Focused Exam Time of Focused Exam: 19:00 Exam Exam Patient acknowledged, consented, and participated in this virtual visit which was conducted using real time audio/video Vital Signs Date Time Temp Pulse Resp B/P (MAP) Pulse Ox O2 Delivery O2 Flow Rate FiO2 09/07/22 11:53 36.3 09/07/22 11:00 92 14 111/74 (86) 95 Vapotherm 40.00 70.00 09/07/22 10:00 71 18 157/58 (91) 97 Vapotherm 40.00 70.00 09/07/22 09:00 67 18 135/75 (95) 98 Vapotherm 40.00 70.00 09/07/22 08:00 98 Vapotherm 40.00 70 09/07/22 08:00 68 20 124/51 (75) 99 NIV Bilevel 40.00 4/1/23 08:00 37.3 09/07/22 07:00 66 18 141/56 (84) 99 NIV Bilevel 60.00 09/07/22 07:00 71 09/07/22 06:21 65 19 100 40.00 09/07/22 06:00 67 16 139/53 (81) 100 NIV Bilevel 60.00 09/07/22 05:00 101 18 130/58 (82) 99 NIV Bilevel 60.00 09/07/22 04:48 36.8 NIV Bilevel 60.00 09/07/22 04:00 71 17 145/57 (86) 98 NIV Bilevel 60.00 09/07/22 04:00 96 NIV Bilevel 60 09/07/22 03:00 79 14 135/61 (85) 98 NIV Bilevel 60.00 09/07/22 02:28 88 23 96 40.00 09/07/22 02:00 76 18 146/56 (86) 98 NIV Bilevel 60.00 09/07/22 01:00 81 09/07/22 01:00 73 18 142/52 (82) 97 NIV Bilevel 60.00 09/07/22 00:00 111 21 131/82 (98) 96 NIV Bilevel 60.00 09/06/22 23:57 37.0 NIV Bilevel 60.00 09/06/22 23:51 100 NIV Bilevel 60 09/06/22 23:00 99 17 123/69 (87) 97 NIV Bilevel 60.00 09/06/22 22:23 105 19 100 60.00 09/06/22 22:00 101 18 130/58 (82) 99 NIV Bilevel 60.00 09/06/22 21:00 118 19 144/74 (97) 99 NIV Bilevel 60.00 09/06/22 20:27 NIV Bilevel 60.00 09/06/22 20:00 103 15 145/80 (101) 89 Vapotherm 40.00 60.00 09/06/22 19:57 96 Vapotherm 40.00 60 09/06/22 19:55 36.6 09/06/22 19:00 92 16 126/91 (103) 92 Vapotherm 40.00 60.00 09/06/22 19:00 102 09/06/22 18:30 96 Vapotherm 40.00 60 09/06/22 18:00 86 15 144/75 (109) 88 Vapotherm 40.00 60.00 09/06/22 17:00 80 19 153/61 (101) 91 Vapotherm 40.00 60.00 09/06/22 16:15 Vapotherm 40.00 60.00 09/06/22 16:00 79 18 143/65 (84) 91 Vapotherm 40.00 50.00 09/06/22 15:35 92 Vapotherm 40.00 50 09/06/22 15:00 77 9 151/64 (74) 91 Vapotherm 40.00 50.00 09/06/22 14:38 92 Vapotherm 40.00 50 09/06/22 14:00 72 19 145/62 (102) 92 Vapotherm 40.00 50.00 09/06/22 13:00 66 11 142/51 (81) 92 Vapotherm 40.00 50.00 09/06/22 12:51 65 I & O 09/07/22 07:00 Intake Total 1460 ml Output Total 3450 ml Balance -1990 ml Height & Weight Height: 5'2.00" Weight: 129lbs. 0.0oz. 58.953144yf; 25.07 BMI Method: General Appearance: No Apparent Distress, WD/WN HEENT: PERRL/EOMI, Pharynx Normal Neck: Normal Inspection, Supple Respiratory: No Respiratory Distress, Decreased Breath Sounds Cardiovascular: No Murmur, Irregularly Irregular Capillary Refill: Less Than 3 Seconds Gastrointestinal: normal bowel sounds, non tender, soft Extremity: Normal Inspection, No Pedal Edema Neurologic/Psychiatric: Alert, Motor Weakness Skin: Normal Color, Warm/Dry Lymphatic: No Adenopathy Results Lab Laboratory Tests 09/06/22 05:22 09/07/22 04:18 Assessment/Plan Assessment/Plan 1 VASILE MCGEE MD Sep 07, 2022 12:03
--- NOTE | 2022-09-07 13:55 | Progress Note - Cardiology ---
Cardiology SOAP Progress Note Subjective: Gen malaise and weakness present No focal weakness No n/v/d No cp or palp or syncope Shortness of breath with activity Objective: I&O/Vital Signs 09/07/22 09/07/22 09/07/22 09/07/22 02:00 02:28 03:00 04:00 Pulse 76 88 79 Resp 18 23 14 B/P (MAP) 146/56 (86) 135/61 (85) Pulse Ox 98 96 98 96 O2 Delivery NIV Bilevel NIV Bilevel NIV Bilevel O2 Flow Rate 60.00 40.00 60.00 FiO2 60 09/07/22 09/07/22 09/07/22 09/07/22 04:00 04:48 05:00 06:00 Temp 36.8 Pulse 71 101 67 Resp 17 18 16 B/P (MAP) 145/57 (86) 130/58 (82) 139/53 (81) Pulse Ox 98 99 100 O2 Delivery NIV Bilevel NIV Bilevel NIV Bilevel NIV Bilevel O2 Flow Rate 60.00 60.00 60.00 60.00 09/07/22 09/07/22 09/07/22 09/07/22 06:21 07:00 07:00 08:00 Temp 37.3 Pulse 65 71 66 Resp 19 18 B/P (MAP) 141/56 (84) Pulse Ox 100 99 O2 Delivery NIV Bilevel O2 Flow Rate 40.00 60.00 09/07/22 09/07/22 09/07/22 09/07/22 08:00 08:00 09:00 10:00 Pulse 68 67 71 Resp 20 18 18 B/P (MAP) 124/51 (75) 135/75 (95) 157/58 (91) Pulse Ox 99 98 98 97 O2 Delivery NIV Bilevel Vapotherm Vapotherm Vapotherm O2 Flow Rate 40.00 40.00 40.00 40.00 70.00 70.00 FiO2 70 09/07/22 09/07/22 09/07/22 09/07/22 11:00 11:53 12:00 12:00 Temp 36.3 Pulse 92 93 Resp 14 16 B/P (MAP) 111/74 (86) 133/87 (102) Pulse Ox 95 98 94 O2 Delivery Vapotherm Vapotherm Vapotherm O2 Flow Rate 40.00 40.00 40.00 70.00 70.00 FiO2 70 09/07/22 09/07/22 12:57 13:00 Temp 37.9 Pulse 116 09/07/22 00:00 Intake Total 630 ml Output Total 2200 ml Balance -1570 ml Weight (Pounds): 129 Weight (Ounces): 0.0 Weight (Calculated Kilograms): 58.392525 Skin: normal color, warm/dry Results/Procedures: Labs Laboratory Tests 09/06/22 16:04: Glucometer 185H 09/06/22 20:08: Glucometer 230H 09/07/22 04:18: White Blood Count 13.5H, Red Blood Count 2.72L, Hemoglobin 8.5L, Hematocrit 25L, Mean Corpuscular Volume 91, Mean Corpuscular Hemoglobin 31, Mean Corpuscular Hemoglobin Concent 34, Red Cell Distribution Width 12.8, Platelet Count 298, Mean Platelet Volume 11.1, Immature Granulocyte % (Auto) 1, Neutrophils (%) (Auto) 83H, Lymphocytes (%) (Auto) 6L, Monocytes (%) (Auto) 9, Eosinophils (%) (Auto) 1, Basophils (%) (Auto) 0, Neutrophils # (Auto) 11.2H, Lymphocytes # (Auto) 0.8L, Monocytes # (Auto) 1.2H, Eosinophils # (Auto) 0.2, Basophils # (Auto) 0.1, Immature Granulocyte # (Auto) 0.1, Neutrophils % (Manual) 87, Lymphocytes % (Manual) 7, Monocytes % (Manual) 5, Eosinophils % (Manual) 1, Blood Morphology Comment NORMAL, Sodium Level 132L, Potassium Level 3.2L, Chloride Level 99, Carbon Dioxide Level 19L, Anion Gap 14, Blood Urea Nitrogen 38H, Creatinine 1.43H, Estimat Glomerular Filtration Rate 36, BUN/Creatinine Ratio 27, Glucose Level 221H, Calcium Level 8.6, Corrected Calcium 9.6, Phosphorus Level 2.7, Magnesium Level 2.0, Total Bilirubin 0.7, Aspartate Amino Transf (AST/SGOT) 26, Alanine Aminotransferase (ALT/SGPT) 7, Alkaline Phosphatase 64, Total Protein 6.6, Albumin 2.7L 09/07/22 10:30: Glucometer 207H Microbiology 09/06/22 Gram Stain - Final, Resulted 09/06/22 Sputum Culture - Preliminary, Resulted YEAST Usual upper respiratory trina 09/01/22 Blood Culture - Preliminary, Resulted No growth 09/01/22 Urine Culture - Final, Complete Escherichia coli Laboratory Tests 09/06/22 05:22 09/07/22 04:18 A/P: Assessment: NSTEMI - treated with balloon angioplasty to LAD stent restenosis on 09/02/22 Coronary artery disease - Had multiple interventions in [address] [facility] a total of 5 stents, - Cardiac catheterization done in 2014 showing [id number] disease. - Cardiac catheterization done January 27, 2019 revealing multiple stents in the proximal, mid and distal LAD with multiple segment of severe in-stent restenosis successful balloon angioplasty. Mild disease in the distal LAD. Long stent in the mid small nondominant right coronary artery which is patent with mild disease proximal to stent nonobstructive disease. Dominant circumflex artery with [id number] disease nonobstructive disease. - Cardiac catheterization was carried out on September 02, 2022, 95% stenosis within the stent in the mid LAD successful balloon angioplasty using noncompliant balloon 3.5 x 20 mm up to 16 poly with excellent results, no residual stenosis. The right coronary artery has a patent stent, at the ostium there is 95% lesion, I forwarded her cath films to Richie and discussed the with Dr. Mathias. Due to the small to intermediate size of that right coronary artery recommendation is conservative management. Paroxysmal atrial fibrillation, started to have multiple episodes of atrial fibrillation with rapid ventricular response. - On Cardizem for rate control and Eliquis for stroke prophylaxis Acute respiratory failure: pulmonary edema, bilateral pneumonia. 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 Improvement compared to the previous echocardiogram from December 2019 and January 2019. - Maintained on Coreg 25 mg daily and Entresto 45 mg / 51 mg twice daily. - 2D echo was done on September 02, 2022 with moderate LVH, hypokinesia at the anterior wall, ejection fraction 45 to 50%, grade 2 diastolic dysfunction, mild to moderate mitral regurgitation, aortic valve sclerosis with no aortic stenosis, PA pressure 35 to 40 mmHg Hypertension - borderline hypotensive during this admission CKD-4 - stable post contrast for card cath on 09/02/22 Diabetes mellitus II - followed and monitored by primary care physician Diabetic neuropathy - managed and followed by primary care physician Hypothyroidism - managed and followed by primary care physician Hyperlipidemia - maintained on Lipitor 40 mg daily, increased to 80 mg daily Moderate bilateral carotid stenosis per ultrasound was done in October 2021 Anxiety and history of bipolar disorder - managed by pcp Degenerative joint disease - monitored and managed by primary care physician Parkinson's - follows with Dr. Andrews Abnormal EKG with left bundle branch block, chronic Generalized weakness/debility, chronic Mild venous insufficiency - compression stockings Plan: * I interviewed and examined the patient after having reviewed her records of this hospitalization * Continue diuretic as needed and as tolerated * Continue dilt for rate control * Continue apixaban for stroke prophylaxis (dose adjusted to age and renal function) * Continue DAPT for now, but change to single antiplatelet agent in a few days, given that she is also on apixaban * Replenish lytes * Monitor labs * I discussed her CV issues with her and her family DANISHA STEEN MD FACP FAC CCDS Sep 07, 2022 13:55
[2022-09-07] MEDS: RT-ALBUTEROL/IPRATROPIUM 3 ML (DUONEB) VIAL INH PRN (16:31)
[2022-09-07] MEDS: clonazePAM 0.5 MG (KlonoPIN) TAB PO PRN (17:55)
[2022-09-07] MEDS ORDERED: TROUGH ORDER-PHARMACY XX NR (18:00)
[2022-09-07 18:32] VITALS: BP 151/59
[2022-09-07] MEDS: VANCOMYCIN 1 GM/NS 250 ML IVPB IV SCH ×4 (19:19→19:20)
[2022-09-07] MEDS: fentaNYL INJ 100 MCG/2 ML AMP IV PRN (19:20)
[2022-09-07] MEDS: OLANZapine 2.5 MG (ZyPREXA) TAB PO SCH (21:07)
[2022-09-07 22:11] VITALS: BP 147/58
[2022-09-08 02:35] VITALS: BP 121/47
[2022-09-08] MEDS: DexMEDEtomidine 250 ML DRIP 250 ML IV SCH (04:47)
[2022-09-08] MEDS: POTASSIUM CL 10MEQ/50ML IVPB 50 ML IV SCH ×5 (05:58→14:18)
[2022-09-08] MEDS: MAGNESIUM 1 GM/100 ML IVPB 100 ML IV SCH ×2 (05:58→07:48)
[2022-09-08] MEDS: KCL 20 MEQ TAB (K-DUR) PO SCH (05:58)
[2022-09-08 06:07] LABS: BASOPHILS # (AUTO) 0.1 10^3/uL (0.0-0.1); BASOPHILS % (AUTO) 1 % (0-10); EOSINOPHILS # (AUTO) 0.1 10^3/uL (0.0-0.3); EOSINOPHILS % (AUTO) 1 % (0-10); HEMATOCRIT 24 % (35-52); LYMPHOCYTES # (AUTO) 0.9 10^3/uL (1.0-4.0); LYMPHOCYTES % (AUTO) 4 % (12-44); MEAN CORPUSCULAR HEMOGLOBIN 31 pg (25-34); MEAN CORPUSCULAR HGB CONC 34 g/dL (32-36); MEAN CORPUSCULAR VOLUME 93 fL (80-99); MONOCYTES # (AUTO) 1.8 10^3/uL (0.0-1.0); MONOCYTES % (AUTO) 8 % (0-12); NEUTROPHILS # (AUTO) 18.3 10^3/uL (1.8-7.8); NEUTROPHILS % (AUTO) 85 % (42-75); PLATELET COUNT 302 10^3/uL (130-400); WHITE BLOOD COUNT 21.5 10^3/uL (4.3-11.0)
[2022-09-08] MEDS: FUROSEMIDE 40 MG/4 ML INJ (LASIX) IVP SCH ×2 (06:16→17:37)
[2022-09-08] MEDS: CEFEPIME INJECTION 1,000 MG in NS (IVPB) 50 ML IV SCH ×2 (06:17→18:17)
[2022-09-08] MEDS: LEVOTHYROXINE 125 MCG (LEVOTHROID) TABLET PO SCH (06:17)
[2022-09-08] MEDS: VENlafaxine XR 75 MG (EFFEXOR XR) CAP PO SCH (06:17)
[2022-09-08 06:25] LABS: EOSINOPHILS % (MANUAL) 2 %; LYMPHOCYTES % (MANUAL) 4 %; MONOCYTES % (MANUAL) 7 %; NEUTROPHILS % (MANUAL) 87 %; RBC MORPH NORMAL; TOXIC GRANULATION/VACUOLAZATIO 1+
[2022-09-08 06:26] LABS: ALBUMIN 2.7 GM/DL (3.2-4.5); BILIRUBIN,TOTAL 0.9 MG/DL (0.1-1.0); CALCIUM 8.6 MG/DL (8.5-10.1); CREATININE SERUM 1.4 MG/DL (0.60-1.30); MAGNESIUM 1.8 MG/DL (1.6-2.4); PHOSPHORUS 2.8 MG/DL (2.3-4.7); POTASSIUM 3.4 MMOL/L (3.6-5.0); TOTAL PROTEIN 6.2 GM/DL (6.4-8.2)
[2022-09-08] MEDS: inSUlin ASPART (NovoLOG) 1 UNIT/0.01 ML (CHARGE PER UNIT) SC SCH ×4 (06:39→20:51)
[2022-09-08 06:46] VITALS: BP 134/48
--- NOTE | 2022-09-08 07:43 | Diagnostic Imaging Report ---
INDICATION: Possible pneumonia. Hypoxia. EXAMINATION: Chest 09/08/2022 COMPARISON: 09/05/2022. FINDINGS: Heart is unremarkable. There is pulmonary vascular congestion. Scattered infiltrates in the upper lungs and right lung base noted. There is a likely small effusion on the left. No pneumothorax. IMPRESSION: 1. Pulmonary edema with scattered infiltrates 2. Small left effusion. Dictated by: Dictated on workstation # [id number]
--- NOTE | 2022-09-08 07:49 | Tele-ICU Progress Note ---
Subjective Date Seen by a Provider: Sep 08, 2022 Time Seen by a Provider: 07:44 Subjective/Events-last exam Service provided via interactive audio and video telecommunications E-CARE system to a patient admitted to ICU bed in [facility]. Patient is seen today due to persistent need of ICU care Available chart/ vitals / labs / Images reviewed Video assessment done using teleICU camera, rest of exam as per RN Discussed with RN was on BiPAP 15/8, FiO2 30%, Now on vapotherm 30 lpm FIOw 50% CXR today looks only slightly better, On bid Laisx IV 80 mg, Also on IV Vanco, Cefepime WBC went from 13 to 21, Hb stable at 8, On DPT, IV Precedex @ 0.2, Cardizem bid, Apixiban Sepsis Event Evaluation Height, Weight, BMI Height: 5'2.00" Weight: 129lbs. 0.0oz. 58.492648hs; 26.32 BMI Method: Focused Exam Time of Focused Exam: 19:00 Exam Exam Patient acknowledged, consented, and participated in this virtual visit which was conducted using real time audio/video Vital Signs Date Time Temp Pulse Resp B/P (MAP) Pulse Ox O2 Delivery O2 Flow Rate FiO2 09/08/22 07:00 63 09/08/22 06:46 66 18 97 30.00 09/08/22 06:00 68 17 134/48 (76) 97 NIV Bilevel 30.00 09/08/22 05:00 68 18 120/57 (78) 97 NIV Bilevel 30.00 09/08/22 04:47 68 117/43 09/08/22 04:00 98 NIV Bilevel 30 09/08/22 04:00 68 19 117/43 (67) 98 NIV Bilevel 30.00 09/08/22 03:00 69 18 119/44 (69) 89 NIV Bilevel 30.00 09/08/22 02:35 70 22 98 40.00 09/08/22 02:00 70 22 121/47 (71) 98 NIV Bilevel 0.00 40.00 09/08/22 01:05 69 09/08/22 01:00 70 24 139/53 (81) 94 NIV Bilevel 0.00 40.00 09/08/22 00:00 69 22 122/47 (72) 100 NIV Bilevel 0.00 40.00 09/07/22 23:59 96 NIV Bilevel 40 09/07/22 23:00 75 22 132/50 (77) 98 NIV Bilevel 40.00 09/07/22 22:11 78 20 97 40.00 09/07/22 22:00 80 22 147/58 (87) 95 NIV Bilevel 40.00 09/07/22 21:00 72 22 125/61 (82) 98 NIV Bilevel 40.00 09/07/22 20:00 73 21 146/61 (89) 96 NIV Bilevel 40.00 09/07/22 20:00 94 NIV Bilevel 40 09/07/22 19:19 65 09/07/22 19:00 71 17 144/60 (88) 98 NIV Bilevel 40.00 09/07/22 18:32 67 18 100 40.00 09/07/22 18:00 76 20 151/59 (89) 97 Vapotherm 40.00 70.00 09/07/22 17:00 73 13 129/60 (83) 96 Vapotherm 40.00 70.00 09/07/22 16:34 92 Vapotherm 35.00 65 09/07/22 16:00 98 Vapotherm 40.00 70 09/07/22 16:00 66 16 136/61 (86) 92 Vapotherm 40.00 70.00 09/07/22 15:35 35.7 09/07/22 15:00 78 10 139/57 (84) 98 Vapotherm 40.00 70.00 09/07/22 14:50 94 Vapotherm 35.00 65 09/07/22 14:00 96 16 118/59 (78) 100 Vapotherm 40.00 70.00 09/07/22 13:40 37.2 09/07/22 13:00 116 19 131/58 (82) 92 Vapotherm 40.00 70.00 09/07/22 13:00 116 09/07/22 12:57 37.9 09/07/22 12:00 93 16 133/87 (102) 94 Vapotherm 40.00 70.00 09/07/22 12:00 98 Vapotherm 40.00 70 09/07/22 11:53 36.3 09/07/22 11:00 92 14 111/74 (86) 95 Vapotherm 40.00 70.00 09/07/22 10:00 71 18 157/58 (91) 97 Vapotherm 40.00 70.00 09/07/22 09:00 67 18 135/75 (95) 98 Vapotherm 40.00 70.00 09/07/22 08:00 98 Vapotherm 40.00 70 09/07/22 08:00 68 20 124/51 (75) 99 NIV Bilevel 40.00 09/07/22 08:00 37.3 I & O 09/08/22 07:00 Intake Total 2571 ml Output Total 2550 ml Balance 21 ml Height & Weight Height: 5'2.00" Weight: 129lbs. 0.0oz. 58.657208eu; 26.32 BMI Method: General Appearance: No Apparent Distress, WD/WN, Anxious HEENT: PERRL/EOMI, Pharynx Normal Neck: Normal Inspection, Supple Respiratory: No Respiratory Distress, Decreased Breath Sounds Cardiovascular: No Murmur, Irregularly Irregular Capillary Refill: Less Than 3 Seconds Gastrointestinal: normal bowel sounds, non tender, soft Extremity: Normal Inspection, No Pedal Edema Neurologic/Psychiatric: Alert, Motor Weakness Skin: Normal Color, Warm/Dry Lymphatic: No Adenopathy Results Lab Laboratory Tests 09/07/22 04:18 09/08/22 05:54 Assessment/Plan Assessment/Plan CHF, will continue with Cardizem, Apixiban, BID IV Lasix, Na stays low at 131, need to monitor pt full code a fib is under control Critical Care: Critically Ill Patient Time spent with patient (mins): 30 SARBJIT OLIVEIRA MD Sep 08, 2022 07:49
[2022-09-08] MEDS: clonazePAM 0.5 MG (KlonoPIN) TAB PO SCH ×2 (09:01→20:55)
[2022-09-08] MEDS: ENTACAPONE 200 MG TABLET PO SCH ×4 (09:01→20:57)
[2022-09-08] MEDS: POTASSIUM BICARB 20 MEQ (EFFER-K) TABLET PO ONE ×2 (09:05→09:11)
[2022-09-08] MEDS: GABAPENTIN 100 MG (NEURONTIN) CAP PO SCH ×2 (09:08→20:56)
[2022-09-08] MEDS: SENNA W/DOCUSATE (SENOKOT S) TABLET PO SCH ×2 (09:08→21:00)
[2022-09-08] MEDS: buPROPion SR 150 MG (WELLBUTRIN SR) TAB PO SCH ×2 (09:08→20:55)
[2022-09-08] MEDS: DOCUSATE SODIUM 100 MG (COLACE) CAP PO SCH ×2 (09:08→21:00)
[2022-09-08] MEDS: PANTOPRAZOLE 40 MG (PROTONIX) TAB PO SCH (09:08)
[2022-09-08] MEDS: CLOPIDOGREL 75 MG (PLAVIX) TABLET PO SCH (09:09)
[2022-09-08] MEDS: SINEMET 25/100 (CARBIDOPA/LEVODOPA) TAB PO SCH ×4 (09:09→20:53)
[2022-09-08] MEDS: APIXABAN 2.5 MG (ELIQUIS) TABLET PO SCH ×2 (09:09→20:51)
[2022-09-08] MEDS: ASPIRIN E.C. 81 MG (ECOTRIN) TAB PO SCH (09:09)
[2022-09-08] MEDS: NS IV 500 ML 500 ML IV PRN (11:14)
--- NOTE | 2022-09-08 12:08 | Progress Note - Hospitalist ---
Subjective HPI/CC On Admission Date Seen by Provider: Sep 08, 2022 Time Seen by Provider: 10:55 Edie Gallo is an 86 year old female with PMH HTN, T2DM, HLD, CAD, hypothyroidism, AFib, HFrEF, who presented with weakness. She had also been feeling fatigued. She had some chest pain. Upon my exam she is no longer having any symptoms. She denies chest pain. She denies shortness of breath. She denies nausea, vomiting, abdominal pain. She has not had any leg swelling. Subjective/Events-last exam She is feeling tired. She is still short of breath. She denies pain. She got a bit choked with breakfast. Her is at the bedside and was updated on her progress and plan. Focused Exam Time of Focused Exam: 19:00 Objective Exam Vital Signs Vital Signs Date Time Temp Pulse Resp B/P (MAP) Pulse Ox O2 Delivery O2 Flow Rate FiO2 09/08/22 11:59 36.8 09/08/22 11:00 71 17 119/60 (76) 96 Vapotherm 30.00 50.00 09/08/22 04:00 30 Capillary Refill : Less Than 3 Seconds General Appearance: No Apparent Distress, WD/WN, Anxious Respiratory: No Respiratory Distress, Decreased Breath Sounds Cardiovascular: No Murmur, Irregularly Irregular Gastrointestinal: Normal Bowel Sounds, Soft Extremity: Normal Inspection, No Pedal Edema Neurologic/Psychiatric: Alert, Motor Weakness Results/Procedures Lab Laboratory Tests 09/08/22 05:54 Patient resulted labs reviewed. Imaging: Reviewed Imaging Report Assessment/Plan Assessment and Plan Assess & Plan/Chief Complaint NSTEMI CAD Acute on chronic HFrEF Pulmonary edema Bilateral pleural effusions Acute respiratory failure with hypoxia Acute postoperative respiratory insufficiency Multifocal pneumonia TAMMY on CKD3b HTN HLD AFib with RVR LBBB E coli UTI Critial illness myopathy Cardiology following s/p left heart cath 09/02 with 95% in-stent stenosis of LAD, stent placed Also with 70% stensosis right coronary artery, staged PCI recommended ASA and Plavix Statin TeleICU following Continue Lasix, BUN/Cr continue to improve Weaning Vapotherm, 25 L and 50%, close to being able to transition to nasal cannula CT chest concerning for multifocal pneumonia Continue Vancomycin and Cefepime PT/OT ordered for tomorrow Will likely require IRU or SNF on discharge T2DM Sliding scale insulin Hypothyroidism GERD Continue home meds DVT prophylaxis: Lovenox Critical Care Critically Ill Patient Diagnosis/Problems Diagnosis/Problems (1) NSTEMI (non-ST elevation myocardial infarction) Status: Acute (2) Acute on chronic HFrEF (heart failure with reduced ejection fraction) Status: Acute (3) Acute postoperative respiratory insufficiency Status: Acute (4) Acute respiratory failure with hypoxia Status: Acute (5) Acute kidney injury superimposed on chronic kidney disease Status: Acute (6) UTI (urinary tract infection) Status: Acute (7) T2DM (type 2 diabetes mellitus) Status: Chronic (8) Coronary artery disease Status: Chronic (9) Hypertension Status: Chronic (10) Hyperlipidemia Status: Chronic (11) Hypothyroidism Status: Chronic (12) Pulmonary edema Status: Acute Qualifiers: Chronicity: acute Qualified Codes: J81.0 - Acute pulmonary edema (13) Multifocal pneumonia Status: Acute (14) Critical illness myopathy Status: Acute KARYNA YAN MD Sep 08, 2022 12:08
[2022-09-08] MEDS: fentaNYL INJ 100 MCG/2 ML AMP IV PRN (12:11)
--- NOTE | 2022-09-08 16:52 | Progress Note - Cardiology ---
Cardiology SOAP Progress Note Subjective: Gen weakness Shortness of breath still present but improving No n/v/d No focal weakness No swelling No cp or palp or syncope Objective: I&O/Vital Signs 09/08/22 09/08/22 09/08/22 09/08/22 05:00 06:00 06:46 07:00 Pulse 68 68 66 63 Resp 18 17 18 B/P (MAP) 120/57 (78) 134/48 (76) Pulse Ox 97 97 97 O2 Delivery NIV Bilevel NIV Bilevel O2 Flow Rate 30.00 30.00 30.00 09/08/22 09/08/22 09/08/22 09/08/22 07:00 07:49 07:59 08:00 Temp 36.5 Pulse 65 64 Resp 18 21 B/P (MAP) 121/46 (77) 112/69 (89) Pulse Ox 97 99 O2 Delivery NIV Bilevel Vapotherm Vapotherm O2 Flow Rate 30.00 30.00 30.00 50.00 50.00 09/08/22 09/08/22 09/08/22 09/08/22 08:00 09:00 09:11 10:00 Pulse 72 64 72 Resp 18 19 B/P (MAP) 131/51 (80) 112/69 121/46 (76) Pulse Ox 97 95 99 O2 Delivery Vapotherm Vapotherm Vapotherm O2 Flow Rate 30.00 30.00 50.00 50.00 FiO2 50 09/08/22 09/08/22 09/08/22 09/08/22 11:00 11:59 12:00 12:00 Temp 36.8 Pulse 71 80 Resp 17 11 B/P (MAP) 119/60 (76) 126/57 (98) Pulse Ox 96 97 94 O2 Delivery Vapotherm Vapotherm Vapotherm O2 Flow Rate 30.00 30.00 50.00 50.00 FiO2 50 09/08/22 09/08/22 09/08/22 09/08/22 12:59 13:00 14:00 14:23 Pulse 76 72 71 Resp 14 16 B/P (MAP) 110/45 (72) 110/59 (67) Pulse Ox 100 97 97 O2 Delivery Vapotherm Vapotherm Vapotherm O2 Flow Rate 30.00 30.00 25.00 50.00 50.00 FiO2 50 09/08/22 09/08/22 09/08/22 09/08/22 15:00 15:35 16:00 16:00 Temp 36.8 Pulse 69 70 Resp 18 17 B/P (MAP) 116/48 (80) 109/42 (67) Pulse Ox 99 97 100 O2 Delivery Vapotherm Vapotherm Vapotherm O2 Flow Rate 30.00 30.00 50.00 50.00 FiO2 50 09/08/22 00:00 Intake Total 1540 ml Output Total 1750 ml Balance -210 ml Weight (Pounds): 129 Weight (Ounces): 0.0 Weight (Calculated Kilograms): [id number] Constitutional: AAO x 3, well-developed, other (frail) Respiratory: No accessory muscle use; chest expansion is symmetric, chest is bilaterally symmetric, other (fair to good air entry, basal rales) Cardiovascular: regular rate-rhythm, S1 and S2, systolic murmur (soft KHANG at card base) Gastrointestional: No tender; soft; No guarding, No rebound; audible bowel sounds Extremities: No clubbing, No cyanosis, No significant edema Neurologic/Psychiatric: oriented x 3, other (moves all limbs equally) Skin: normal color, warm/dry; No rash, No ulcerations Results/Procedures: Labs Laboratory Tests 09/07/22 18:25: Vancomycin Level Trough 15.3 09/07/22 22:01: Glucometer 183H 09/08/22 05:54: White Blood Count 21.5H, Red Blood Count 2.55L, Hemoglobin 8.0L, Hematocrit 24L, Mean Corpuscular Volume 93, Mean Corpuscular Hemoglobin 31, Mean Corpuscular Hemoglobin Concent 34, Red Cell Distribution Width 12.9, Platelet Count 302, Mean Platelet Volume 11.0, Immature Granulocyte % (Auto) 1, Neutrophils (%) (Auto) 85H, Lymphocytes (%) (Auto) 4L, Monocytes (%) (Auto) 8, Eosinophils (%) (Auto) 1, Basophils (%) (Auto) 1, Neutrophils # (Auto) 18.3H, Lymphocytes # (Auto) 0.9L, Monocytes # (Auto) 1.8H, Eosinophils # (Auto) 0.1, Basophils # (Auto) 0.1, Immature Granulocyte # (Auto) 0.3H, Neutrophils % (Manual) 87, Lymphocytes % (Manual) 4, Monocytes % (Manual) 7, Eosinophils % (Manual) 2, Toxic Granulation 1+, Blood Morphology Comment NORMAL, Sodium Level 131L, Potassium Level 3.4L, Chloride Level 99, Carbon Dioxide Level 17L, Anion Gap 15H , Blood Urea Nitrogen 35H, Creatinine 1.40H, Estimat Glomerular Filtration Rate 37, BUN/Creatinine Ratio 25, Glucose Level 166H, Calcium Level 8.6, Corrected Calcium 9.6, Phosphorus Level 2.8, Magnesium Level 1.8, Total Bilirubin 0.9, Aspartate Amino Transf (AST/SGOT) 21, Alanine Aminotransferase (ALT/SGPT) 7, Alkaline Phosphatase 58, Total Protein 6.2L, Albumin 2.7L 09/08/22 06:34: Glucometer 168H 09/08/22 10:48: Glucometer 205H 09/08/22 15:43: Glucometer 232H Microbiology 09/06/22 Gram Stain - Final, Complete 09/06/22 Sputum Culture - Final, Complete YEAST Usual upper respiratory trina 09/01/22 Blood Culture - Preliminary, Resulted No growth 09/01/22 Urine Culture - Final, Complete Escherichia coli Laboratory Tests 09/07/22 04:18 09/08/22 05:54 A/P: Assessment: NSTEMI - treated with balloon angioplasty to LAD stent restenosis on 09/02/22 Coronary artery disease - Had multiple interventions in 1999 for in [facility] a total of 5 stents, - Cardiac catheterization done in 2014 showing [id number] disease. - Cardiac catheterization done January 27, 2019 revealing multiple stents in the proximal, mid and distal LAD with multiple segment of severe in-stent restenosis successful balloon angioplasty. Mild disease in the distal LAD. Long stent in the mid small nondominant right coronary artery which is patent with mild disease proximal to stent nonobstructive disease. Dominant circumflex artery with wqbi-au-[id number] disease nonobstructive disease. - Cardiac catheterization was carried out on September 02, 2022, 95% stenosis within the stent in the mid LAD successful balloon angioplasty using noncompliant balloon 3.5 x 20 mm up to 16 poly with excellent results, no residual stenosis. The right coronary artery has a patent stent, at the ostium there is 95% lesion, I forwarded her cath films to Richie and discussed the with Dr. Mathias. Due to the small to intermediate size of that right coronary artery recommendation is conservative management. Paroxysmal atrial fibrillation, started to have multiple episodes of atrial fibrillation with rapid ventricular response. - On Cardizem for rate control and Eliquis for stroke prophylaxis Acute respiratory failure: pulmonary edema, bilateral pneumonia. 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 Improvement compared to the previous echocardiogram from December 2019 and January 2019. - Maintained on Coreg 25 mg daily and Entresto 45 mg / 51 mg twice daily. - 2D echo was done on September 02, 2022 with moderate LVH, hypokinesia at the anterior wall, ejection fraction 45 to 50%, grade 2 diastolic dysfunction, mild to moderate mitral regurgitation, aortic valve sclerosis with no aortic stenosis, PA pressure 35 to 40 mmHg Hypertension - borderline hypotensive during this admission CKD-4 - stable post contrast for card cath on 09/02/22 Diabetes mellitus II - followed and monitored by primary care physician Diabetic neuropathy - managed and followed by primary care physician Hypothyroidism - managed and followed by primary care physician Hyperlipidemia - maintained on Lipitor 40 mg daily, increased to 80 mg daily Moderate bilateral carotid stenosis per ultrasound was done in October 2021 Anxiety and history of bipolar disorder - managed by pcp Degenerative joint disease - monitored and managed by primary care physician Parkinson's - follows with Dr. Andrews Abnormal EKG with left bundle branch block, chronic Generalized weakness/debility, chronic Mild venous insufficiency - compression stockings Plan: * Continue diuretic as needed and as tolerated * Continue dilt for rate control * Continue apixaban for stroke prophylaxis (dose adjusted to age and renal function) * Continue DAPT for now, but change to single antiplatelet agent in a few days, given that she is also on apixaban * Replenish lytes * Monitor labs * Consider blood transfusion of H/H fall further DANISHA STEEN MD FACP FAC CCDS Sep 08, 2022 16:52
[2022-09-08] MEDS: OLANZapine 2.5 MG (ZyPREXA) TAB PO SCH (20:55)
[2022-09-09 04:34] LABS: BASOPHILS # (AUTO) 0.1 10^3/uL (0.0-0.1); BASOPHILS % (AUTO) 1 % (0-10); EOSINOPHILS # (AUTO) 0.3 10^3/uL (0.0-0.3); EOSINOPHILS % (AUTO) 2 % (0-10); HEMATOCRIT 22 % (35-52); HEMOGLOBIN 7.4 g/dL (11.5-16.0); LYMPHOCYTES # (AUTO) 1.3 10^3/uL (1.0-4.0); LYMPHOCYTES % (AUTO) 7 % (12-44); MEAN CORPUSCULAR HEMOGLOBIN 31 pg (25-34); MEAN CORPUSCULAR HGB CONC 34 g/dL (32-36); MEAN CORPUSCULAR VOLUME 91 fL (80-99); MEAN PLATELET VOLUME 11.5 fL (9.0-12.2); MONOCYTES # (AUTO) 1.8 10^3/uL (0.0-1.0); MONOCYTES % (AUTO) 9 % (0-12); NEUTROPHILS # (AUTO) 15.2 10^3/uL (1.8-7.8); NEUTROPHILS % (AUTO) 78 % (42-75); PLATELET COUNT 318 10^3/uL (130-400); WHITE BLOOD COUNT 19.5 10^3/uL (4.3-11.0)
[2022-09-09 04:51] LABS: ALBUMIN 2.4 GM/DL (3.2-4.5); BILIRUBIN,TOTAL 0.7 MG/DL (0.1-1.0); CALCIUM 8.4 MG/DL (8.5-10.1); CREATININE SERUM 1.48 MG/DL (0.60-1.30); PHOSPHORUS 2.6 MG/DL (2.3-4.7); POTASSIUM 3.7 MMOL/L (3.6-5.0); TOTAL PROTEIN 6.1 GM/DL (6.4-8.2)
[2022-09-09] MEDS: KCL 20 MEQ TAB (K-DUR) PO SCH (05:35)
[2022-09-09] MEDS: MAGNESIUM 1 GM/100 ML IVPB 100 ML IV SCH (05:35)
[2022-09-09] MEDS: POTASSIUM CL 10MEQ/50ML IVPB 50 ML IV SCH (05:35)
[2022-09-09] MEDS ORDERED: POTASSIUM BICARB 20 MEQ (EFFER-K) TABLET PO ONE (05:45)
[2022-09-09] MEDS: CEFEPIME INJECTION 1,000 MG in NS (IVPB) 50 ML IV SCH ×2 (06:31→18:05)
[2022-09-09] MEDS: inSUlin ASPART (NovoLOG) 1 UNIT/0.01 ML (CHARGE PER UNIT) SC SCH ×4 (06:33→21:16)
[2022-09-09] MEDS: VENlafaxine XR 75 MG (EFFEXOR XR) CAP PO SCH (06:33)
[2022-09-09] MEDS: LEVOTHYROXINE 125 MCG (LEVOTHROID) TABLET PO SCH (06:33)
[2022-09-09] MEDS: FUROSEMIDE 40 MG/4 ML INJ (LASIX) IVP SCH ×2 (06:34→16:00)
[2022-09-09] MEDS: ASPIRIN E.C. 81 MG (ECOTRIN) TAB PO SCH (08:40)
[2022-09-09] MEDS: PANTOPRAZOLE 40 MG (PROTONIX) TAB PO SCH (08:40)
[2022-09-09] MEDS: APIXABAN 2.5 MG (ELIQUIS) TABLET PO SCH ×2 (08:40→21:15)
[2022-09-09] MEDS: GABAPENTIN 100 MG (NEURONTIN) CAP PO SCH ×2 (08:40→21:15)
[2022-09-09] MEDS: ENTACAPONE 200 MG TABLET PO SCH ×4 (08:40→21:15)
[2022-09-09] MEDS: clonazePAM 0.5 MG (KlonoPIN) TAB PO SCH ×2 (08:41→20:26)
[2022-09-09] MEDS: CLOPIDOGREL 75 MG (PLAVIX) TABLET PO SCH (08:41)
[2022-09-09] MEDS: buPROPion SR 150 MG (WELLBUTRIN SR) TAB PO SCH ×2 (08:41→21:15)
[2022-09-09] MEDS: SENNA W/DOCUSATE (SENOKOT S) TABLET PO SCH ×2 (08:42→21:15)
[2022-09-09] MEDS: DOCUSATE SODIUM 100 MG (COLACE) CAP PO SCH ×2 (08:42→21:15)
[2022-09-09] MEDS: SINEMET 25/100 (CARBIDOPA/LEVODOPA) TAB PO SCH ×4 (08:42→21:16)
--- NOTE | 2022-09-09 09:08 | Progress Note - Hospitalist ---
Subjective HPI/CC On Admission Date Seen by Provider: Sep 09, 2022 Edie Gallo is an 86 year old female with PMH HTN, T2DM, HLD, CAD, hypothyroidism, AFib, HFrEF, who presented with weakness. She had also been feeling fatigued. She had some chest pain. Upon my exam she is no longer having any symptoms. She denies chest pain. She denies shortness of breath. She denies nausea, vomiting, abdominal pain. She has not had any leg swelling. Subjective/Events-last exam Pt reports doing a little better today. Sister at bedside. Discussed plan to work with PT today Focused Exam Time of Focused Exam: 19:00 Objective Exam Vital Signs Vital Signs Date Time Temp Pulse Resp B/P (MAP) Pulse Ox O2 Delivery O2 Flow Rate FiO2 09/09/22 08:02 93 Vapotherm 25.00 50 09/09/22 08:00 68 18 104/85 (91) 09/09/22 07:29 36.4 Capillary Refill : Less Than 3 Seconds General Appearance: No Apparent Distress Respiratory: Lungs Clear, No Accessory Muscle Use, Other (on Vapotherm) Cardiovascular: Regular Rate, Rhythm, No Murmur Neurologic/Psychiatric: Alert, Oriented x3 Results/Procedures Lab Laboratory Tests 09/09/22 03:55 Patient resulted labs reviewed. Imaging: Reviewed Imaging Report Assessment/Plan Assessment and Plan Assess & Plan/Chief Complaint NSTEMI CAD Acute on chronic HFrEF Pulmonary edema Bilateral pleural effusions Acute respiratory failure with hypoxia Acute postoperative respiratory insufficiency Multifocal pneumonia TAMMY on CKD3b HTN HLD AFib with RVR LBBB E coli UTI Critial illness myopathy Cardiology following s/p left heart cath 09/02 with 95% in-stent stenosis of LAD, stent placed Also with 70% stensosis right coronary artery Dr Lorenzo discussed with CTS who recommended conservative therapy ASA and Plavix Statin TeleICU following Continue Lasix, BUN/Cr stable Weaning Vapotherm, 25 L and 50%, close to being able to transition to nasal cannula CT chest concerning for multifocal pneumonia Continue Vancomycin and Cefepime PT/OT Will likely require IRU or SNF on discharge T2DM Sliding scale insulin Hypothyroidism GERD Continue home meds DVT prophylaxis: Lovenox Critical Care Critically Ill Patient ZACHARY MITCHELL MD Sep 09, 2022 09:08
--- NOTE | 2022-09-09 09:23 | Cardiology Progress Note ---
Subjective Date Seen by Provider: Sep 09, 2022 Time Seen by Provider: 08:40 Subjective/Events-last exam Patient is sitting up at bedside. Continues to have dyspnea. Denies any chest pain Review of Systems General: No Chills, No Night Sweats; Fatigue, Malaise; No Appetite, No Other HEENT: No Head Aches, No Visual Changes, No Eye Pain, No Ear Pain, No Dysphasia, No Sinus Congestion, No Post Nasal Drip, No Sore Throat, No Other Pulmonary: Dyspnea; No Cough, No Pleuritic Chest Pain, No Other Cardiovascular: No: Chest Pain, Palpitations, Orthopnea, Paroxysmal Noc. Dyspnea, Edema, Lt Headedness, Other Focused Exam Time of Focused Exam: 19:00 Objective-Cardiology Exam Last Set of Vital Signs Vital Signs 09/09/22 09/09/22 09/09/22 07:29 09:00 10:41 Temp 36.4 Pulse 101 Resp 21 Pulse Ox 93 O2 Delivery Vapotherm O2 Flow Rate 25.00 FiO2 60 I&O Intake and Output 09/09/22 00:00 Intake Total 2431 ml Output Total 1575 ml Balance 856 ml Intake Oral 2031 ml IV Total 400 ml Output Urine Total 1575 ml # Bowel Movements 1 General: Alert, Oriented X3, Cooperative HEENT: Atraumatic, PERRLA Neck: Supple, No JVD, No Thyromegaly Lungs: Normal Air Movement, Other (Bilateral rhonchi) Heart: Normal S1, Normal S2, No Murmurs Abdomen: Normal Bowel Sounds, Soft, No Tenderness, No Hepatosplenomegaly, No Masses Extremities: No Clubbing, No Cyanosis, Normal Pulses, No Tenderness/Swelling, Other (Mild edema) Skin: No Rashes, No Breakdown, No Significant Lesion Neuro: Normal Speech, Normal Tone, Sensation Intact Psych/Mental Status: Mental Status NL, Mood NL Results Lab Laboratory Tests 09/09/22 03:55 A/P-Cardiology Admission Diagnosis Non-ST elevation myocardial infarction Coronary artery disease Congestive heart failure, acute on chronic left ventricular systolic dysfunction, dilated cardiomyopathy Acute renal failure Assessment/Plan Status post acute chest pain, non-ST elevation myocardial infarction, underlying left bundle branch block Status post cardiac catheterization and balloon angioplasty to the LAD. Reporting improvement of chest pain Coronary artery disease, Had multiple interventions in 1999 for in [facility] a total of 5 stents, Cardiac catheterization done in 2014 showing [id number] disease. Cardiac catheterization done January 27, 2019 revealing multiple stents in the proximal, mid and distal LAD with multiple segment of severe in-stent restenosis successful balloon angioplasty. Mild disease in the distal LAD. Long stent in the mid small nondominant right coronary artery which is patent with mild disease proximal to stent nonobstructive disease. Dominant circumflex artery with puia-vi-tqloyemx disease nonobstructive disease. Cardiac catheterization was carried out on September 02, 2022, 95% stenosis within the stent in the mid LAD successful balloon angioplasty using noncompliant balloon 3.5 x 20 mm up to 16 poly with excellent results, no residual stenosis. The right coronary artery has a patent stent, at the ostium there is 95% lesion, I forwarded her cath films to Richie and discussed the with Dr. Mathias. Due to the small to intermediate size of that right coronary artery recommendation is conservative management. We will continue maximizing medical therapy. Paroxysmal atrial fibrillation, started to have multiple episodes of atrial fibrillation with rapid ventricular response. Converted to sinus rhythm on Cardizem drip Had few breakthrough atrial fibrillation, maintained on oral Cardizem at this time and tolerating it well. Probably secondary to respiratory failure Started on Eliquis and tolerating it well Acute respiratory failure, pulmonary edema, bilateral pneumonia. CT scan of the chest showing bilateral infiltrate. Receiving Lasix and antibiotics, slowly improving. Managed by medical team Congestive heart failure, chronic compensated left ventricular systolic dysfunction ejection fraction. Maintained on Coreg 25 mg daily and Entresto 45 mg / 51 mg twice daily. 2D echo was done on September 02, 2022 with moderate LVH, hypokinesia at the anterio r wall, ejection fraction 45 to 50%, grade 2 diastolic dysfunction, mild to moderate mitral regurgitation, aortic valve sclerosis with no aortic stenosis, PA pressure 35 to 40 mmHg Receiving diuretics. Continue to monitor Hypertension, continue to monitor blood pressure Acute on chronic renal insufficieny, continue to monitor renal function Anemia, continue to monitor H/H Diabetes mellitus, followed and monitored by primary care physician Diabetic neuropathy, continue to monitor Hypothyroidism, managed and followed by primary care physician Hyperlipidemia, maintained on Lipitor 40 mg daily LDL 111. Increase Lipitor to 80 mg daily Moderate bilateral carotid stenosis, ultrasound was done in October 2021, continue to monitor Anxiety, history of bipolar disorder, Parkinson, patient and family are very anxious, requesting to allow family member to stay with the patient overnight. I discussed it with the ICU tower supervisor Degenerative joint disease, monitored and managed by primary care physician Parkinson's, follows with Dr. Andrews Abnormal EKG with left bundle branch block, chronic, no change from baseline. Continue to monitor Generalized weakness/debility, chronic Has some deterioration yesterday morning Mild venous insufficiency, uses compression stockings Supervisory-Addendum Brief Supervisory Addendum Participated in pt care: history, MDM, physical Personally performed: exam, history, MDM Care discussed with: MAISHA Results interpretation: Verified all documentation Notes: Patient was seen and evaluated with Maira, examination performed, management plan was discussed, agree with the current scribed note, I made few changes to the note using Italic font Patient was seen at bedside, laying down comfortably Still having significant dyspnea, maintained on Vapotherm Receiving large dose of diuretics I will decrease Lasix to 40 mg IV twice daily and monitor tolerance and response Continue on antibiotics. MAIRA DING Sep 09, 2022 09:23 LUISA MEADE MD Sep 09, 2022 10:56
--- NOTE | 2022-09-09 09:52 | Physical Therapy Evaluation ---
PT Evaluation-General Medical Diagnosis Admission Date Sep 01, 2022 at 19:24 Medical Diagnosis: NSTEMI/CHF Onset Date: Sep 01, 2022 Therapy Diagnosis Therapy Diagnosis: generalized weakness/debility Height/Weight Height (Feet): 5 Height (Inches): 2.00 Weight (Pounds): 129 Weight (Ounces): 0.0 Precautions Precautions/Isolations: Standard Precautions Referral Physician: Sandie Reason for Referral: Evaluation/Treatment Medical History Pertinent Medical History: CAD, DM, Heart Failure, HTN, Hypothroidism, Parkinson's Current History ER secondary to chest pain/acute respiratory failure (Vapotherm) Reviewed History: Yes Social History Home: Single Level Current Living Status: Spouse Entry Into Home: Stairs With Railing PT Steps Into Home: 3 Prior Prior Level of Function SCALE: Activities may be completed with or without assistive devices. 5-Tjtqogqyli-sgnsbsk completes the activity by him/herself with no assistance from a helper. 5-Set-up or Clean-up Assistance-helper sets up or cleans up; patient completes activity. [place] assists only prior to or following the activity. 4-Supervision or Touching Assistance-helper provides verbal cues and/or touching/steadying and/or contact guard assistance as patient completes activity. Assistance may be provided throughout the activity or intermittently. 3-Partial/Moderate Assistance-helper does LESS THAN HALF the effort. [place] lifts, holds or supports trunk or limbs, but provides less than half the effort. 2-Substantial/Maximal Assistance-helper does MORE THAN HALF the effort. [place] lifts or holds trunk or limbs and provides more than half the effort. 4-Yocpclfkn-gwbmpe does ALL the effort. Patient does none of the effort to complete the activity. Or, the assistance of 2 or more helpers is required for the patient to complete the activity. If activity was not attempted, code reason: 7-Patient Refused. 9-Not Applicable-not attempted and the patient did not perform the activity before the current illness, exacerbation or injury. 10-Not Attempted due to Environmental Limitations-(lack of equipment, weather restraints, etc.). 88-Not Attempted due to Medical Conditions or Safety Concerns. Bed Mobility: 6 Transfers (B,C,W/C): 6 Gait: 6 Stairs: 4 Indoor Mobility (Ambulation): Independent Stairs: Needed Some Help Prior Devices Use: Walker PT Evaluation-Current Subjective Patient agrees to PT. Objective Patient Orientation: Person, Time, Situation Attachments: Oxygen (vapotherm), Flower Catheter, IV ROM/Strength ROM Lower Extremities bilateral LE WFL Strength Lower Extremities 3-/5 grossly bilateral LE all planes Integumentary/Posture Bowel Incontinence: Yes Bladder Incontinence: Flower Cath Posture WFL Neuromuscular (Tone, Coordination, Reflexes) diminished coordination due to weakness and Parkinson's Sensory Vision: Functional Hearing: Functional Transfers Lying to Sitting/Side of Bed(Q: 3 Sit to Stand (QC): 3 Chair/Ovu-mw-Nupsc Xfer(QC): 3 Toilet Transfer (QC): 3 mod assist with all mobility Gait Does the Patient Walk?: No and Walking Goal IS indicated Mode of Locomotion: Walk Anticipated Mode of Locomotion: Walk Distance: 5 steps Comments/Gait Description PT assist/will utilize FWW with increase in strength and functional endurance Balance Sitting Static: Fair Sitting Dynamic: Fair Standing Static: Poor Standing Dynamic: Poor Assessment/Needs Patient will benefit from skilled PT to address functional strength and mobility to improve current LOF. to safely return to home with spouse at maximum LOF. Rehab Potential: Guarded PT Shelter Goals Greenhouse Technician Goals PT Greenhouse Technician Goals Time Frame: Oct 05, 2022 Roll Left & Right (QC): 5 Sit to Lying (QC): 5 Lying-Sitting on Side/Bed(QC): 5 Sit to Stand (QC): 5 Chair/Eae-pr-Rmdqi Xfer(QC): 5 Toilet Transfer (QC): 5 Walk 10 feet (QC): 5 Walk 50ft with 2 Turns (QC): 5 Walk 150 ft (QC): 5 PT Plan Problem List Problem List: Activity Tolerance, Functional Strength, Safety, Balance, Gait, Transfer, Bed Mobility Treatment/Plan Treatment Plan: Continue Plan of Care Treatment Plan: Bed Mobility, Education, Functional Activity Skyl[place], Functional Strength, Gait, Safety, Therapeutic Exercise, Transfers Treatment Duration: Oct 05, 2022 Frequency: 6 times per week Estimated Hrs Per Day: .25 hour per day Patient and/or Family Agrees t: Yes Time Time In: 840 Time Out: 903 DATE: Sep 09, 2022 Total Billed Treatment Time: 23 Total Billed Treatment 1 visit EVModC 13 min FA 10 min VALENCIA MOMIN PT Sep 09, 2022 09:52
--- NOTE | 2022-09-09 10:48 | Tele-ICU Progress Note ---
Subjective Date Seen by a Provider: Sep 09, 2022 Time Seen by a Provider: 10:47 Subjective/Events-last exam (Tele-ICU Physician , Progress Note ) Service provided via interactive audio and video telecommunications E-CARE system to a patient admitted to ICU bed in [facility]. Patient is seen today due to persistent need of ICU care Available chart/ vitals / labs / Images reviewed Video assessment done using teleICU camera, rest of exam as per RN Discussed with RN Events overnight : Afebrile hemodynamically stable Respiratory - VT I/O = negative Drips: off Pressors- no Hospital course: (09/01) 86/F- C.P., Hypoxia, pna on imaging, nstemi, chf, //incr.- trop, gluc. ashly. (09/02) to CCL for successful PTCA to stenosis mid LAD, Rocephin 09/02--30 for UTI 09/03 - VT 40 L 90 % to eat , now on BIPAP 15/8 70 % , rr 22 tv 500 TV 12 L 09.04 - A fib RVR- cardizen gtt , VT 09/05 - VT 40 L 80% BIPAP 15/8 70 % , rr 22 tv 500 TV 12 L , CTch/abd - bilat infiltrates, bilat effusions , - precedex OFF since 11 am , VANCO started , cefepime 09/06- VT 40 L 90% , at night BIPAP 15/8 50%, precedex while on bipap 09/07 - 40L 70 %, same bipap/precedex at night 09/09 - VT 25 L 50 % bipap/precedex at night A/P Acute resp failure. hypoxic - INITIALLY CHF, NOW WITH PNA - on VT 25 L 50 %, same bipap/precedex at night - C T chest abd 09/05 - bilat infiltrates, bilat effusions - ABX ADDED -cont diuresis with lasix - as per cards PNA - 09/05 CTch/abd - bilat infiltrates, bilat effusions , added Vanco 09/05 , cefepime - to cont A fib RVR 09/03 - rate controlled cardizem gtt OFF 09/04 - cardizem PO - AC with eliquis CAD, NSTEMI on admission Status postcardiac catheterization and balloon angioplasty to the LAD - card follow -RCA has a patent stent, at the ostium there is 95% lesion which need to be addressed at a later point. - on aspirin and Plavix Congestive heart failure, chronic compensated left ventricular systolic dysfunction ejection fraction. - as per cards - ECHO September 02, 2022 with moderate LVH, hypokinesia at the anterior wall, ejection fraction 45 to 50%, grade 2 diastolic dysfunction, mild to moderate mitral regurgitation, aortic valve sclerosis with no aortic stenosis, PA pressure 35 to 40 mmHg UTI with E coli -Rocephin 09/02--31 DM II, - ISS - po diet CKD - Cr stable Parkinson's - mental status baseline - prn precedex while on BIPAP Nuritions - reasonable Po intake Lines : periph , (Central Line Necessity Reviewed) Flower: + OG: Nutrition: PO Analgesia: Anxiety/ delirium VTE Prophylaxis: eluiquis Stress Ulcer Prophylaxis: Plans in collaboration with bedside consultants and IM MDs. Discussed with RN to reach out if any questions or concerns Case and care daily discussed on multidisciplinary rounds ( RN, PharmD, Gallery Intern , Respiratory Therapy, warehouse production worker ) A total of 25 minutes of critical care time was devoted to this patient today, required to treat and/or prevent further deterioration of critical care condition ( as above ) . I am remotely monitoring this patient from another state. I am unable to do the bedside exam, and history/physical and pertinent information is taken from other notes in the computer and bedside staff. Sepsis Event Evaluation Height, Weight, BMI Height: 5'2.00" Weight: 129lbs. 0.0oz. 58.159161eh; 26.04 BMI Method: Focused Exam Time of Focused Exam: 19:00 Exam Exam Patient acknowledged, consented, and participated in this virtual visit which was conducted using real time audio/video Vital Signs Date Time Temp Pulse Resp B/P (MAP) Pulse Ox O2 Delivery O2 Flow Rate FiO2 09/09/22 09:20 Vapotherm 25.00 60.00 09/09/22 09:00 101 21 94 Vapotherm 25.00 50.00 09/09/22 08:02 93 Vapotherm 25.00 50 09/09/22 08:00 68 18 104/85 (91) 90 Vapotherm 25.00 50.00 09/09/22 07:30 75 09/09/22 07:29 36.4 4/3/23 07:00 68 20 121/54 (76) 96 Vapotherm 25.00 50.00 09/09/22 06:00 76 17 127/46 (79) 98 Vapotherm 25.00 50.00 09/09/22 05:00 75 21 120/46 (74) 97 Vapotherm 25.00 50.00 09/09/22 04:00 77 25 119/46 (76) 94 Vapotherm 25.00 50.00 09/09/22 04:00 94 Vapotherm 25.00 50 09/09/22 03:00 74 21 106/42 (70) 97 Vapotherm 25.00 50.00 09/09/22 02:12 97 Vapotherm 25.00 50 09/09/22 02:00 76 25 107/46 (76) 96 Vapotherm 25.00 50.00 09/09/22 01:00 84 09/09/22 01:00 84 15 133/53 (74) 96 Vapotherm 25.00 50.00 09/09/22 00:00 78 26 127/54 (82) 98 Vapotherm 25.00 50.00 09/08/22 23:59 98 Vapotherm 25.00 50 09/08/22 23:00 80 23 114/53 (75) 98 Vapotherm 25.00 50.00 09/08/22 22:00 67 22 120/62 (89) 93 Vapotherm 25.00 50.00 09/08/22 21:39 90 Vapotherm 25.00 50 09/08/22 21:00 78 19 121/65 (89) 95 Vapotherm 25.00 50.00 09/08/22 20:00 98 Vapotherm 25.00 50 09/08/22 20:00 76 21 115/63 (91) 98 Vapotherm 25.00 50.00 09/08/22 19:00 76 16 112/56 (83) 96 Vapotherm 25.00 50.00 09/08/22 19:00 76 09/08/22 18:31 95 Vapotherm 25.00 50 09/08/22 18:00 81 15 121/55 (77) 97 Vapotherm 30.00 50.00 09/08/22 17:00 72 16 120/55 (86) 100 Vapotherm 30.00 50.00 09/08/22 16:00 70 17 109/42 (67) 100 Vapotherm 30.00 50.00 09/08/22 16:00 97 Vapotherm 50 09/08/22 15:35 36.8 09/08/22 15:00 69 18 116/48 (80) 99 Vapotherm 30.00 50.00 09/08/22 14:23 97 Vapotherm 25.00 50 09/08/22 14:00 71 16 110/59 (67) 97 Vapotherm 30.00 50.00 09/08/22 13:00 72 14 110/45 (72) 100 Vapotherm 30.00 50.00 09/08/22 12:59 76 09/08/22 12:00 80 11 126/57 (98) 94 Vapotherm 30.00 50.00 09/08/22 12:00 97 Vapotherm 50 09/08/22 11:59 36.8 09/08/22 11:00 71 17 119/60 (76) 96 Vapotherm 30.00 50.00 I & O 09/09/22 07:00 Intake Total 2541 ml Output Total 2125 ml Balance 416 ml Height & Weight Height: 5'2.00" Weight: 129lbs. 0.0oz. 58.153527yp; 26.04 BMI Method: General Appearance: No Apparent Distress HEENT: PERRL/EOMI, Pharynx Normal Neck: Normal Inspection, Supple Respiratory: Lungs Clear, No Accessory Muscle Use, Other (on Vapotherm) Cardiovascular: Regular Rate, Rhythm, No Murmur Capillary Refill: Less Than 3 Seconds Gastrointestinal: normal bowel sounds, non tender, soft Extremity: Normal Inspection, No Pedal Edema Neurologic/Psychiatric: Alert, Oriented x3 Skin: Normal Color, Warm/Dry Lymphatic: No Adenopathy Results Lab Laboratory Tests 09/08/22 05:54 09/09/22 03:55 Assessment/Plan Assessment/Plan 1 VASILE MCGEE MD Sep 09, 2022 10:48
--- NOTE | 2022-09-09 10:49 | Occupational Therapy Eval ---
OT Evaluation-General/PLF Medical Diagnosis Admission Date Sep 01, 2022 at 19:24 Medical Diagnosis: NSTEMI/CHF Onset Date: Sep 01, 2022 Therapy Diagnosis Therapy Diagnosis: weakness, debility Height/Weight Height (Feet): 5 Height (Inches): 2.00 Weight (Pounds): 129 Weight (Ounces): 0.0 Precautions Precautions/Isolations: Standard Precautions Weight Bear Status Weight Bearing Restriction: Full Weight Bearing Referral Physician: Sandie Referral Reason: Activity Tolerance, Self Care, Evaluation/Treatment Medical History Pertinent Medical History: CAD, DM, Heart Failure, HTN, Hypothroidism, Parkinson's Current History Edie Gallo is an 86 year old female with PMH HTN, T2DM, HLD, CAD, hypothyroidism, AFib, HFrEF, who presented with weakness. She had also been feeling fatigued. She had some chest pain. Upon my exam she is no longer having any symptoms. She denies chest pain. She denies shortness of breath. She denies nausea, vomiting, abdominal pain. She has not had any leg swelling Reviewed History: Yes Social History Home: Single Level Current Living Status: Spouse Entry Into Home: Stairs With Railing Steps Into Home: 3 ADL-Prior Level of Function SCALE: Activities may be completed with or without assistive devices. 0-Zqvrrmmgxo-mtcmvgu completes the activity by him/herself with no assistance from a helper. 5-Set-up or Clean-up Assistance-helper sets up or cleans up; patient completes activity. Troy assists only prior to or following the activity. 4-Supervision or Touching Assistance-helper provides verbal cues and/or touching/steadying and/or contact guard assistance as patient completes activity. Assistance may be provided throughout the activity or intermittently. 3-Partial/Moderate Assistance-helper does LESS THAN HALF the effort. Troy lifts, holds or supports trunk or limbs, but provides less than half the effort. 2-Substantial/Maximal Assistance-helper does MORE THAN HALF the effort. Troy lifts or holds trunk or limbs and provides more than half the effort. 1-Uygmkuvfl-yogkdy does ALL the effort. Patient does none of the effort to complete the activity. Or, the assistance of 2 or more helpers is required for the patient to complete the activity. If activity was not attempted, code reason: 7-Patient Refused. 9-Not Applicable-not attempted and the patient did not perform the activity before the current illness, exacerbation or injury. 10-Not Attempted due to Environmental Limitations-(lack of equipment, weather restraints, etc.). 88-Not Attempted due to Medical Conditions or Safety Concerns. Self Care: Needed Some Help (spouse assists) Functional Cognition: Independent Drive Self: No OT Current Status Subjective UP in chair, too tired and SOA to finish breakfast, provides answers to interview questions, Patient agrees to OT evaluation Mental Status/Objective Patient Orientation: Person, Place, Eyes Open (and closes again), Situation Attachments: Flower Catheter, IV, Oxygen (VASO), Telemetry Current Upper Extremity ROM BUE ROM WFLS Upper Extremity Strength 3/5 grossly, 02 saturation lowers w/ MMT ADL-Treatment ADL-Current 02 levels 76%-88% OT notified RN and 02 ear lobe monitor adjusted, levels sustained 88-92 Eating (QC): 4 Oral Hygiene (QC): 3 Shower/Bathe Self (QC): 88 Upper Body Dressing (QC): 2 Lower Body Dressing (QC): 1 On/Off Footwear (QC): 1 Toileting Hygiene (QC): 1 spouse remains beside patient duration of OT visit Education OT Patient Education: Correct positioning, Disease process, Energy conservation, Modified ADL techniques, Progress toward Goal/Update tx plan, Purpose of tx/functional activities, Reviewed precautions, Rehab process, Safety issues, Transfer techniques, Use of adapted equipment Teaching Recipient: Patient, Family Teaching Methods: Demonstration, Discussion Response to Teaching: Reinforcement Needed OT Lvn Lpn Goals Lvn Lpn Goals Eating (QC): 6 Oral Hygiene (QC): 6 Toileting Hygiene (QC): 4 Shower/Bathe Self (QC): 4 Upper Body Dressing (QC): 4 Lower Body Dressing (QC): 4 On/Off Footwear (QC): 4 1=Demonstrate adherence to instructed precautions during ADL tasks. 2=Patient will verbalize/demonstrate understanding of assistive devices/modifications for ADL. 3=Patient will improve strength/tolerance for activity to enable patient to perform ADL's. OT Education/Plan Problem List/Assessment Assessment: Decreased Activ Tolerance, Decreased UE Strength, Dependent Transfers, Impaired Coordination, Impaired Funct Balance, Impaired Self-Care Skills Discharge Recommendations Plan/Recommendations: Continue POC Treatment Plan/Plan of Care Treatment,Training & Education: Yes Patient would benefit from OT for education, treatment and training to promote independence in ADL's, mobility, safety and/or upper extremity function for ADL's. Plan of Care: ADL Retraining, Functional Mobility, Group Exercise/Act as Ind, UE Funct Exercise/Act, UE Neuromus Re-Ed/Coord Treatment Duration: Sep 14, 2022 Frequency: 3 times per week (3-5 tmes per wqeek) Estimated Hrs Per Day: .25 hour per day Rehab Potential: Guarded remains in recliner, all needs met Time Start Time: 10:30 Stop Time: 10:40 DATE: Sep 09, 2022 Total Time Billed (hr/min): 10 Billed Treatment Time EV 10 min KANDI MEDINA OT Sep 09, 2022 10:49
[2022-09-09] MEDS: clonazePAM 0.5 MG (KlonoPIN) TAB PO PRN ×2 (12:15→17:01)
[2022-09-09] MEDS: VANCOMYCIN 1 GM/NS 250 ML IVPB IV SCH ×2 (18:46)
[2022-09-09] MEDS: RT-ALBUTEROL/IPRATROPIUM 3 ML (DUONEB) VIAL INH PRN (19:20)
[2022-09-09] MEDS: OLANZapine 2.5 MG (ZyPREXA) TAB PO SCH (20:29)
[2022-09-09 21:54] VITALS: BP 127/78
[2022-09-10 05:32] LABS: BASOPHILS # (AUTO) 0.1 10^3/uL (0.0-0.1); BASOPHILS % (AUTO) 0 % (0-10); EOSINOPHILS # (AUTO) 0.2 10^3/uL (0.0-0.3); EOSINOPHILS % (AUTO) 1 % (0-10); HEMATOCRIT 23 % (35-52); HEMOGLOBIN 7.8 g/dL (11.5-16.0); LYMPHOCYTES # (AUTO) 1.1 10^3/uL (1.0-4.0); LYMPHOCYTES % (AUTO) 6 % (12-44); MEAN CORPUSCULAR HEMOGLOBIN 31 pg (25-34); MEAN CORPUSCULAR HGB CONC 35 g/dL (32-36); MEAN CORPUSCULAR VOLUME 89 fL (80-99); MEAN PLATELET VOLUME 11.5 fL (9.0-12.2); MONOCYTES # (AUTO) 1.4 10^3/uL (0.0-1.0); MONOCYTES % (AUTO) 7 % (0-12); NEUTROPHILS # (AUTO) 15.4 10^3/uL (1.8-7.8); NEUTROPHILS % (AUTO) 80 % (42-75); PLATELET COUNT 394 10^3/uL (130-400); WHITE BLOOD COUNT 19.3 10^3/uL (4.3-11.0)
[2022-09-10 05:56] LABS: ALBUMIN 2.5 GM/DL (3.2-4.5); BILIRUBIN,TOTAL 0.5 MG/DL (0.1-1.0); CALCIUM 8.5 MG/DL (8.5-10.1); CREATININE SERUM 1.41 MG/DL (0.60-1.30); MAGNESIUM 1.9 MG/DL (1.6-2.4); PHOSPHORUS 3.2 MG/DL (2.3-4.7); POTASSIUM 3.4 MMOL/L (3.6-5.0); TOTAL PROTEIN 6.3 GM/DL (6.4-8.2)
[2022-09-10] MEDS: CEFEPIME INJECTION 1,000 MG in NS (IVPB) 50 ML IV SCH (06:26)
[2022-09-10] MEDS: inSUlin ASPART (NovoLOG) 1 UNIT/0.01 ML (CHARGE PER UNIT) SC SCH ×4 (06:26→21:57)
[2022-09-10] MEDS: VENlafaxine XR 75 MG (EFFEXOR XR) CAP PO SCH (06:27)
[2022-09-10] MEDS: FUROSEMIDE 40 MG/4 ML INJ (LASIX) IVP SCH ×2 (06:27→17:52)
[2022-09-10] MEDS: LEVOTHYROXINE 125 MCG (LEVOTHROID) TABLET PO SCH (06:27)
[2022-09-10] MEDS: POTASSIUM CL 10MEQ/50ML IVPB 50 ML IV SCH (06:45)
[2022-09-10] MEDS: KCL 20 MEQ TAB (K-DUR) PO SCH (06:46)
[2022-09-10] MEDS: MAGNESIUM 1 GM/100 ML IVPB 100 ML IV SCH ×3 (06:46→10:37)
[2022-09-10] MEDS ORDERED: KCL 20 MEQ TAB (K-DUR) PO NR (07:00)
[2022-09-10] MEDS: clonazePAM 0.5 MG (KlonoPIN) TAB PO SCH ×2 (08:23→21:56)
[2022-09-10] MEDS: PANTOPRAZOLE 40 MG (PROTONIX) TAB PO SCH (08:23)
[2022-09-10] MEDS: CLOPIDOGREL 75 MG (PLAVIX) TABLET PO SCH (08:23)
[2022-09-10] MEDS: buPROPion SR 150 MG (WELLBUTRIN SR) TAB PO SCH ×2 (08:23→21:56)
[2022-09-10] MEDS: APIXABAN 2.5 MG (ELIQUIS) TABLET PO SCH ×2 (08:23→21:56)
[2022-09-10] MEDS: GABAPENTIN 100 MG (NEURONTIN) CAP PO SCH ×2 (08:23→21:56)
[2022-09-10] MEDS: ASPIRIN E.C. 81 MG (ECOTRIN) TAB PO SCH (08:24)
[2022-09-10] MEDS: DOCUSATE SODIUM 100 MG (COLACE) CAP PO SCH ×2 (08:24→21:56)
[2022-09-10] MEDS: SENNA W/DOCUSATE (SENOKOT S) TABLET PO SCH ×2 (08:24→21:56)
[2022-09-10] MEDS: SINEMET 25/100 (CARBIDOPA/LEVODOPA) TAB PO SCH ×4 (08:24→21:56)
[2022-09-10] MEDS: ENTACAPONE 200 MG TABLET PO SCH ×4 (08:25→21:55)
--- NOTE | 2022-09-10 08:27 | Cardiology Progress Note ---
Subjective Date Seen by Provider: Sep 10, 2022 Time Seen by Provider: 08:26 Subjective/Events-last exam Patient was seen at bedside, laying down comfortably, no new complain Review of Systems General: No Chills, No Night Sweats; Fatigue, Malaise; No Appetite, No Other HEENT: No Head Aches, No Visual Changes, No Eye Pain, No Ear Pain, No Dysphasia, No Sinus Congestion, No Post Nasal Drip, No Sore Throat, No Other Pulmonary: Dyspnea, Cough; No Pleuritic Chest Pain, No Other Cardiovascular: No: Chest Pain, Palpitations, Orthopnea, Paroxysmal Noc. Dyspnea, Edema, Lt Headedness, Other Focused Exam Time of Focused Exam: 19:00 Objective-Cardiology Exam Last Set of Vital Signs Vital Signs 09/10/22 09/10/22 09/10/22 09/10/22 06:00 07:01 07:22 07:58 Temp 35.9 Pulse 68 Resp 14 B/P (MAP) 120/47 (71) Pulse Ox 99 O2 Delivery Vapotherm O2 Flow Rate 35.00 FiO2 80 I&O Intake and Output 09/10/22 00:00 Intake Total 1790 ml Output Total 2875 ml Balance -1085 ml Intake Oral 1790 ml Output Urine Total 2875 ml # Bowel Movements 1 General: Alert, Oriented X3, Cooperative HEENT: Atraumatic, PERRLA Neck: Supple, No JVD, No Thyromegaly Lungs: Normal Air Movement, Other (Bilateral rhonchi) Heart: Normal S1, Normal S2, No Murmurs Abdomen: Normal Bowel Sounds, Soft, No Tenderness, No Hepatosplenomegaly, No Masses Extremities: No Clubbing, No Cyanosis, Normal Pulses, No Tenderness/Swelling, Other (Mild edema) Skin: No Rashes, No Breakdown, No Significant Lesion Neuro: Normal Speech, Normal Tone, Sensation Intact Psych/Mental Status: Mental Status NL, Mood NL Results Lab Laboratory Tests 09/10/22 04:31 A/P-Cardiology Admission Diagnosis Non-ST elevation myocardial infarction Coronary artery disease Congestive heart failure, acute on chronic left ventricular systolic dysfunction, dilated cardiomyopathy Acute renal failure Assessment/Plan Acute respiratory failure, pulmonary edema, bilateral pneumonia. CT scan of the chest showing bilateral infiltrate. Receiving Lasix and antibiotics, slowly improving. Managed by medical team Status post acute chest pain, non-ST elevation myocardial infarction, underlying left bundle branch block Status post cardiac catheterization and balloon angioplasty to the LAD. Reporting improvement of chest pain Coronary artery disease, Had multiple interventions in [address] [facility] a total of 5 stents, Cardiac catheterization done in 2014 showing yhab-zo-armujatu disease. Cardiac catheterization done January 27, 2019 revealing multiple stents in the proximal, mid and distal LAD with multiple segment of severe in-stent restenosis successful balloon angioplasty. Mild disease in the distal LAD. Long stent in the mid small nondominant right coronary artery which is patent with mild disease proximal to stent nonobstructive disease. Dominant circumflex artery w ith [id number]-ta-syumbhdm disease nonobstructive disease. Cardiac catheterization was carried out on September 02, 2022, 95% stenosis within the stent in the mid LAD successful balloon angioplasty using noncompliant balloon 3.5 x 20 mm up to 16 poly with excellent results, no residual stenosis. The right coronary artery has a patent stent, at the ostium there is 95% lesion, I forwarded her cath films to Richie and discussed the with Dr. Mathias. Due to the small to intermediate size of that right coronary artery recommendation is conservative management. We will continue maximizing medical therapy. Paroxysmal atrial fibrillation, started to have multiple episodes of atrial fibrillation with rapid ventricular response. Converted to sinus rhythm on Cardizem drip Had few breakthrough atrial fibrillation, maintained on oral Cardizem at this time and tolerating it well. Probably secondary to respiratory failure Started on Eliquis and tolerating it well Congestive heart failure, chronic compensated left ventricular systolic dysfunction ejection fraction. Maintained on Coreg 25 mg daily and Entresto 45 mg / 51 mg twice daily. 2D echo was done on September 02, 2022 with moderate LVH, hypokinesia at the anterior wall, ejection fraction 45 to 50%, grade 2 diastolic dysfunction, mild to moderate mitral regurgitation, aortic valve sclerosis with no aortic stenosis, PA pressure 35 to 40 mmHg Receiving diuretics. Continue to monitor Hypertension, continue to monitor blood pressure Acute on chronic renal insufficieny, continue to monitor renal function Anemia, continue to monitor H/H Diabetes mellitus, followed and monitored by primary care physician Diabetic neuropathy, continue to monitor Hypothyroidism, managed and followed by primary care physician Hyperlipidemia, maintained on Lipitor 40 mg daily LDL 111. Increase Lipitor to 80 mg daily Moderate bilateral carotid stenosis, ultrasound was done in October 2021, continue to monitor Anxiety, history of bipolar disorder, Parkinson, patient and family are very anxious, requesting to allow family member to stay with the patient overnight. I discussed it with the ICU yarding supervisor Degenerative joint disease, monitored and managed by primary care physician Agnes's, follows with Dr. Andrews Abnormal EKG with left bundle branch block, chronic, no change from baseline. Continue to monitor Generalized weakness/debility, chronic Has some deterioration yesterday morning Mild venous insufficiency, uses compression stockings LUISA MEADE MD Sep 10, 2022 08:27
--- NOTE | 2022-09-10 08:45 | Diagnostic Imaging Report ---
INDICATION: Hypoxia. Frontal chest obtained at 04:16 a.m. and compared to 09/08/2022 FINDINGS: There is cardiomegaly. There is worsening infiltrate throughout both lungs compatible with pneumonia. There is no pneumothorax or pleural fluid. IMPRESSION: Worsening bilateral infiltrates throughout both lungs compatible with pneumonia. Dictated by: Dictated on workstation # [id number]
--- NOTE | 2022-09-10 09:25 | Progress Note - Hospitalist ---
Subjective HPI/CC On Admission Date Seen by Provider: Sep 10, 2022 Edie Gallo is an 86 year old female with PMH HTN, T2DM, HLD, CAD, hypothyroidism, AFib, HFrEF, who presented with weakness. She had also been feeling fatigued. She had some chest pain. Upon my exam she is no longer having any symptoms. She denies chest pain. She denies shortness of breath. She denies nausea, vomiting, abdominal pain. She has not had any leg swelling. Subjective/Events-last exam Pt reports doing better today. No complaints. Family at bedside. No concerns or questions. Focused Exam Time of Focused Exam: 19:00 Objective Exam Vital Signs Vital Signs Date Time Temp Pulse Resp B/P (MAP) Pulse Ox O2 Delivery O2 Flow Rate FiO2 09/10/22 08:49 Vapotherm 40.00 100.00 09/10/22 07:58 35.9 09/10/22 07:22 68 09/10/22 07:01 99 80 09/10/22 06:00 14 120/47 (71) Capillary Refill : Less Than 3 Seconds General Appearance: No Apparent Distress, Thin Respiratory: Lungs Clear, No Respiratory Distress Cardiovascular: Regular Rate, Rhythm, No Murmur Neurologic/Psychiatric: Alert, Oriented x3 Results/Procedures Lab Laboratory Tests 09/10/22 04:31 Patient resulted labs reviewed. Imaging: Reviewed Imaging Report Assessment/Plan Assessment and Plan Assess & Plan/Chief Complaint NSTEMI CAD Acute on chronic HFrEF Pulmonary edema Bilateral pleural effusions Acute respiratory failure with hypoxia Acute postoperative respiratory insufficiency Multifocal pneumonia TAMMY on CKD3b HTN HLD AFib with RVR LBBB E coli UTI Critial illness myopathy Cardiology following s/p left heart cath 09/02 with 95% in-stent stenosis of LAD, stent placed Also with 70% stensosis right coronary artery Dr Lorenzo discussed with CTS who recommended conservative therapy ASA and Plavix Statin TeleICU following Continue Lasix, BUN/Cr stable -1085mL yesterday Weaning Vapotherm, was on BiPAP overnight again CT chest concerning for multifocal pneumonia Continue Vancomycin and Cefepime PT/OT Will likely require IRU or SNF on discharge T2DM Sliding scale insulin Resume home long acting insulin Hypothyroidism GERD Continue home meds DVT prophylaxis: Lovenox Critical Care Critically Ill Patient ZACHARY MITCHELL MD Sep 10, 2022 09:25
--- NOTE | 2022-09-10 09:57 | Tele-ICU Progress Note ---
Subjective Date Seen by a Provider: Sep 10, 2022 Time Seen by a Provider: 09:56 Subjective/Events-last exam (Tele-ICU Physician , Progress Note ) Service provided via interactive audio and video telecommunications E-CARE system to a patient admitted to ICU bed in [facility]. Patient is seen today due to persistent need of ICU care Available chart/ vitals / labs / Images reviewed Video assessment done using teleICU camera, rest of exam as per RN Discussed with RN Events overnight : Afebrile hemodynamically stable Respiratory - VT I/O = negative Drips: off Pressors- no Hospital course: (09/01) 86/F- C.P., Hypoxia, pna on imaging, nstemi, chf, //incr.- trop, gluc. ashly. (09/02) to CCL for successful PTCA to stenosis mid LAD, Rocephin 09/02--30 for UTI 09/03 - VT 40 L 90 % to eat , now on BIPAP 15/8 70 % , rr 22 tv 500 TV 12 L . - A fib RVR- cardizen gtt , VT 09/05 - VT 40 L 80% BIPAP 15/8 70 % , rr 22 tv 500 TV 12 L , CTch/abd - bilat infiltrates, bilat effusions , - precedex OFF since 11 am , VANCO started , cefepime 09/06- VT 40 L 90% , at night BIPAP 15/8 50%, precedex while on bipap 09/07 - 40L 70 %, same bipap/precedex at night 09/09 - VT 25 L 50 % bipap/precedex at night , as per cards DECREASED DOSE lasix 09/10 - VT 40 L 100 % BIPAP 40 % AT NIGHT FEW HOURS A/P Acute resp failure. hypoxic - INITIALLY CHF, NOW WITH PNA - on VT 40 L 100 % - worse today , BIPAP 40 % AT NIGHT FEW HOURS - C T chest abd 09/05 - bilat infiltrates, bilat effusions - ABX ADDED -cont diuresis with lasix - as per cards DECREASED DOSE 09/09- but UO same - will cont intermittent BIPAP , cont abx and diuresis , increase protein intake , IS PNA - 09/05 CTch/abd - bilat infiltrates, bilat effusions , added Vanco 3/30 , cefepime - to cont A fib RVR 09/03 - rate controlled cardizem gtt OFF 09/04 - cardizem PO - AC with eliquis CAD, NSTEMI on admission Status postcardiac catheterization and balloon angioplasty to the LAD - card follow -RCA has a patent stent, at the ostium there is 95% lesion which need to be addressed at a later point. - on aspirin and Plavix Congestive heart failure, chronic compensated left ventricular systolic dysfunction ejection fraction. - as per cards - ECHO September 02, 2022 with moderate LVH, hypokinesia at the anterior wall, ejection fraction 45 to 50%, grade 2 diastolic dysfunction, mild to moderate mitral regurgitation, aortic valve sclerosis with no aortic stenosis, PA pressure 35 to 40 mmHg UTI with E coli -Rocephin 09/02--31 DM II, - ISS - po diet CKD - Cr stable Parkinson's - mental status baseline - prn precedex while on BIPAP Nuritions - reasonable Po intake Lines : periph , (Central Line Necessity Reviewed) Flower: + OG: Nutrition: PO Analgesia: Anxiety/ delirium VTE Prophylaxis: eluiquis Stress Ulcer Prophylaxis: Plans in collaboration with bedside consultants and IM MDs. Discussed with RN to reach out if any questions or concerns Case and care daily discussed on multidisciplinary rounds ( RN, PharmD, Vice President Of Customer Service , Respiratory Therapy, connection worker ) A total of 25 minutes of critical care time was devoted to this patient today, required to treat and/or prevent further deterioration of critical care condition ( as above ) . I am remotely monitoring this patient from another state. I am unable to do the bedside exam, and history/physical and pertinent information is taken from other notes in the computer and bedside staff. Sepsis Event Evaluation Height, Weight, BMI Height: 5'2.00" Weight: 129lbs. 0.0oz. 58.669036zg; 26.04 BMI Method: Focused Exam Time of Focused Exam: 19:00 Exam Exam Patient acknowledged, consented, and participated in this virtual visit which was conducted using real time audio/video Vital Signs Date Time Temp Pulse Resp B/P (MAP) Pulse Ox O2 Delivery O2 Flow Rate FiO2 09/10/22 09:00 73 14 139/50 (79) 91 Vapotherm 40.00 100.00 09/10/22 08:49 Vapotherm 40.00 100.00 09/10/22 08:00 79 17 113/66 (82) 89 Vapotherm 35.00 80.00 09/10/22 07:58 35.9 09/10/22 07:22 68 09/10/22 07:01 99 Vapotherm 35.00 80 09/10/22 07:00 62 15 119/52 (74) 100 Vapotherm 35.00 80.00 09/10/22 06:00 63 14 120/47 (71) 97 Vapotherm 35.00 80.00 09/10/22 05:00 65 16 133/50 (80) 98 09/10/22 04:05 Vapotherm 09/10/22 04:00 36.6 63 16 126/44 (73) 95 Vapotherm 35.00 80.00 09/10/22 03:00 64 18 112/46 (81) 97 Vapotherm 35.00 80.00 09/10/22 02:43 92 Vapotherm 30.00 80 09/10/22 02:00 75 19 132/54 (88) 92 Vapotherm 35.00 80.00 09/10/22 01:00 70 09/10/22 01:00 72 18 140/54 (74) 95 Vapotherm 25.00 80.00 09/10/22 00:00 36.5 81 18 132/70 (102) 93 NIV Bilevel 40.00 09/09/22 23:55 NIV Bilevel 40 09/09/22 23:00 78 20 142/84 (111) 94 NIV Bilevel 40.00 09/09/22 22:00 79 20 123/55 (69) 92 NIV Bilevel 40.00 09/09/22 21:54 76 18 91 40.00 09/09/22 21:00 83 21 127/78 (90) 92 NIV Bilevel 40.00 09/09/22 20:28 85 NIV Bilevel 40.00 09/09/22 20:00 90 19 122/83 (100) 88 09/09/22 19:30 37.1 09/09/22 19:30 Vapotherm 30.00 09/09/22 19:30 30.00 80.00 09/09/22 19:15 88 Vapotherm 30.00 80 09/09/22 19:00 91 20 119/81 (88) 86 30.00 80.00 09/09/22 19:00 86 09/09/22 18:29 Vapotherm 30.00 80.00 09/09/22 18:00 91 21 129/68 (88) 92 NIV Bilevel 30.00 09/09/22 17:30 NIV Bilevel 30.00 09/09/22 17:00 120 14 143/74 (97) 90 Vapotherm 30.00 80.00 09/09/22 16:49 90 Vapotherm 30.00 80 09/09/22 16:10 Vapotherm 30.00 80.00 09/09/22 16:00 90 Vapotherm 30.00 80 09/09/22 16:00 101 17 141/69 (93) 90 Vapotherm 25.00 70.00 09/09/22 15:00 80 16 146/67 (93) 90 Vapotherm 25.00 70.00 09/09/22 14:00 85 17 128/69 (88) 90 Vapotherm 25.00 70.00 09/09/22 13:00 86 12 106/73 (84) 92 Vapotherm 25.00 70.00 09/09/22 12:02 104 09/09/22 12:00 90 Vapotherm 25.00 70 09/09/22 12:00 89 12 139/65 (89) 92 Vapotherm 25.00 70.00 09/09/22 12:00 36.0 09/09/22 11:30 Vapotherm 25.00 70.00 09/09/22 10:41 93 Vapotherm 25.00 60 I & O 09/10/22 07:00 Intake Total 1410 ml Output Total 3325 ml Balance -1915 ml Height & Weight Height: 5'2.00" Weight: 129lbs. 0.0oz. 58.600302wp; 26.04 BMI Method: General Appearance: No Apparent Distress, Thin HEENT: PERRL/EOMI, Pharynx Normal Neck: Normal Inspection, Supple Respiratory: Lungs Clear, No Respiratory Distress Cardiovascular: Regular Rate, Rhythm, No Murmur Capillary Refill: Less Than 3 Seconds Gastrointestinal: normal bowel sounds, non tender, soft Extremity: Normal Inspection, No Pedal Edema Neurologic/Psychiatric: Alert, Oriented x3 Skin: Normal Color, Warm/Dry Lymphatic: No Adenopathy Results Lab Laboratory Tests 09/09/22 03:55 4/4/23 04:31 Assessment/Plan Assessment/Plan 1 VASILE MCGEE MD Sep 10, 2022 09:57
--- NOTE | 2022-09-10 10:11 | Physical Therapy Daily Note ---
PT Daily Note-Current Subjective Patient agrees to PT. Family present and very attentive to patient's needs. Pain Section J - Health Conditions 1. Rarely or not at all 2. Occasionally 3. Frequently 4. Almost constantly 8. Unable to answer Pain Effect on Sleep: 2 Pain Interference with Therapy: 2 Pain Interference w/Day-to-Day: 2 Mental Status Patient Orientation: Person, Time, Situation Attachments: Oxygen (vapotherm 100%), Flower Catheter, IV Transfers SCALE: Activities may be completed with or without assistive devices. 3-Idtvkpsnjq-yiuyfjo completes the activity by him/herself with no assistance from a helper. 5-Set-up or Clean-up Assistance-helper sets up or cleans up; patient completes activity. [place] assists only prior to or following the activity. 4-Supervision or Touching Assistance-helper provides verbal cues and/or touching/steadying and/or contact guard assistance as patient completes activity. Assistance may be provided throughout the activity or intermittently. 3-Partial/Moderate Assistance-helper does LESS THAN HALF the effort. [place] lifts, holds or supports trunk or limbs, but provides less than half the effort. 2-Substantial/Maximal Assistance-helper does MORE THAN HALF the effort. [place] lifts or holds trunk or limbs and provides more than half the effort. 0-Yftlakgjw-nqmohj does ALL the effort. Patient does none of the effort to complete the activity. Or, the assistance of 2 or more helpers is required for the patient to complete the activity. If activity was not attempted, code reason: 7-Patient Refused. 9-Not Applicable-not attempted and the patient did not perform the activity before the current illness, exacerbation or injury. 10-Not Attempted due to Environmental Limitations-(lack of equipment, weather restraints, etc.). 88-Not Attempted due to Medical Conditions or Safety Concerns. Lying to Sitting/Side of Bed(Q: 2 Sit to Stand (QC): 2 Chair/Duk-cj-Bvfol Xfer(QC): 2 Assessment Patient performed sit to stand x 3 sets to allow cleansing after BM incontinence. Patient up in recliner with needs met. PT to increase activity as tolerated by patient. PT Accountant Budget Goals Accountant Budget Goals PT Accountant Budget Goals Time Frame: Oct 05, 2022 Roll Left & Right (QC): 5 Sit to Lying (QC): 5 Lying-Sitting on Side/Bed(QC): 5 Sit to Stand (QC): 5 Chair/Pze-jt-Nnsoh Xfer(QC): 5 Toilet Transfer (QC): 5 Walk 10 feet (QC): 5 Walk 50ft with 2 Turns (QC): 5 Walk 150 ft (QC): 5 PT Plan Treatment/Plan Treatment Plan: Continue Plan of Care Treatment Plan: Bed Mobility, Education, Functional Activity Skylar, Functional Strength, Gait, Safety, Therapeutic Exercise, Transfers Treatment Duration: Oct 05, 2022 Frequency: 6 times per week Estimated Hrs Per Day: .25 hour per day Patient and/or Family Agrees t: Yes Time Time In: 925 Time Out: 940 DATE: Sep 10, 2022 Total Billed Treatment Time: 15 Total Billed Treatment 1 visit FA 15 min VALENCIA MOMIN PT Sep 10, 2022 10:11
--- NOTE | 2022-09-10 14:17 | Occupational Ther Daily Note ---
OT Current Status-Daily Note Subjective supine in bed, spouse at bedside, patient is agreeable to OT Mental Status/Objective Patient Orientation: Situation Attachments: Flower Catheter, IV, Oxygen (VASO), Telemetry ADL-Treatment Therapy Code Descriptions/Definitions Functional [place] Measure: 0=Not Assessed/NA 4=Minimal Assistance 1=Total Assistance 5=Supervision or Setup 2=Maximal Assistance 6=Modified [place] 3=Moderate Assistance 7=Complete IndependenceSCALE: Activities may be completed with or without assistive devices. 3-Woeuqvxkxy-oxtpmet completes the activity by him/herself with no assistance from a helper. 5-Set-up or Clean-up Assistance-helper sets up or cleans up; patient completes activity. [place] assists only prior to or following the activity. 4-Supervision or Touching Assistance-helper provides verbal cues and/or touching/steadying and/or contact guard assistance as patient completes activity. Assistance may be provided throughout the activity or intermittently. 3-Partial/Moderate Assistance-helper does LESS THAN HALF the effort. [place] lifts, holds or supports trunk or limbs, but provides less than half the effort. 2-Substantial/Maximal Assistance-helper does MORE THAN HALF the effort. [place] lifts or holds trunk or limbs and provides more than half the effort. 3-Nqqqhbxpi-yhadqt does ALL the effort. Patient does none of the effort to complete the activity. Or, the assistance of 2 or more helpers is required for the patient to complete the activity. If activity was not attempted, code reason: 7-Patient Refused. 9-Not Applicable-not attempted and the patient did not perform the activity before the current illness, exacerbation or injury. 10-Not Attempted due to Environmental Limitations-(lack of equipment, weather restraints, etc.). 88-Not Attempted due to Medical Conditions or Safety Concerns. Eating (QC): 3 (eats 25% of pudding snack w/ OT providing 50 degress angle and bed tray table over bed, placement of snack cup and napkin, Required moderate encouagemtn to reduce patient spouse assistance to feed.) Oral Hygiene (QC): 3 (decreased hand eye coordination for wiping mouth) Shower/Bathe Self (QC): 88 Upper Body Dressing (QC): 2 Lower Body Dressing (QC): 1 On/Off Footwear: 1 Toileting Hygiene (QC): 1 Toilet Transfer (QC): 1 Education OT Patient Education: Exercise program, Modified ADL techniques, Progress toward Goal/Update tx plan, Purpose of tx/functional activities, Reviewed precautions, Rehab process, Safety issues Teaching Recipient: Patient, Family Teaching Methods: Demonstration, Discussion Response to Teaching: Reinforcement Needed OT Group Home Goals Group Home Goals Eating (QC): 6 Oral Hygiene (QC): 6 Toileting Hygiene (QC): 4 Shower/Bathe Self (QC): 4 Upper Body Dressing (QC): 4 Lower Body Dressing (QC): 4 On/Off Footwear (QC): 4 1=Demonstrate adherence to instructed precautions during ADL tasks. 2=Patient will verbalize/demonstrate understanding of assistive devices/modifications for ADL. 3=Patient will improve strength/tolerance for activity to enable patient to perform ADL's. OT Education/Plan Discharge Recommendations Plan/Recommendations: Continue POC Patient/Family Goals Patient remains supine in bed w/ tray table beside bed and spouse in chair, all needs met Treatment Plan/Plan of Care Patient would benefit from OT for education, treatment and training to promote independence in ADL's, mobility, safety and/or upper extremity function for ADL's. Plan of Care: ADL Retraining, Functional Mobility, Group Exercise/Act as Ind, UE Funct Exercise/Act, UE Neuromus Re-Ed/Coord Treatment Duration: Sep 14, 2022 Frequency: 3 times per week (3-5 tmes per wqeek) Estimated Hrs Per Day: .25 hour per day Rehab Potential: Guarded Time Start Time: 13:50 Stop Time: 14:15 DATE: Sep 10, 2022 Total Time Billed (hr/min): 25 Billed Treatment Time ADL 25 min KANDI MEDINA OT Sep 10, 2022 14:17
[2022-09-10 14:30] VITALS: BP 121/109
[2022-09-10] MEDS: clonazePAM 0.5 MG (KlonoPIN) TAB PO PRN (15:44)
[2022-09-10] MEDS: RT-ALBUTEROL/IPRATROPIUM 3 ML (DUONEB) VIAL INH PRN (15:56)
[2022-09-10 15:59] VITALS: BP 121/109
[2022-09-10 18:42] VITALS: BP 141/68
[2022-09-10] MEDS: OLANZapine 2.5 MG (ZyPREXA) TAB PO SCH (21:56)
[2022-09-11 05:09] LABS: BASOPHILS # (AUTO) 0.1 10^3/uL (0.0-0.1); BASOPHILS % (AUTO) 1 % (0-10); EOSINOPHILS # (AUTO) 0.2 10^3/uL (0.0-0.3); EOSINOPHILS % (AUTO) 1 % (0-10); HEMATOCRIT 24 % (35-52); HEMOGLOBIN 8.1 g/dL (11.5-16.0); LYMPHOCYTES # (AUTO) 0.9 10^3/uL (1.0-4.0); LYMPHOCYTES % (AUTO) 4 % (12-44); MEAN CORPUSCULAR HEMOGLOBIN 31 pg (25-34); MEAN CORPUSCULAR HGB CONC 34 g/dL (32-36); MEAN CORPUSCULAR VOLUME 89 fL (80-99); MEAN PLATELET VOLUME 11.2 fL (9.0-12.2); MONOCYTES # (AUTO) 1.5 10^3/uL (0.0-1.0); MONOCYTES % (AUTO) 8 % (0-12); NEUTROPHILS # (AUTO) 16.4 10^3/uL (1.8-7.8); NEUTROPHILS % (AUTO) 82 % (42-75); PLATELET COUNT 423 10^3/uL (130-400); WHITE BLOOD COUNT 20.1 10^3/uL (4.3-11.0)
[2022-09-11 05:30] LABS: ALBUMIN 2.7 GM/DL (3.2-4.5); CHLORIDE 96 MMOL/L (98-107); POTASSIUM 3.5 MMOL/L (3.6-5.0); SODIUM 130 MMOL/L (135-145)
[2022-09-11 05:32] LABS: CALCIUM 8.6 MG/DL (8.5-10.1)
[2022-09-11 05:33] LABS: GLUCOSE 250 MG/DL (70-105); TOTAL PROTEIN 6.5 GM/DL (6.4-8.2)
[2022-09-11 05:34] LABS: CARBON DIOXIDE 21 MMOL/L (21-32)
[2022-09-11 05:35] LABS: BILIRUBIN,TOTAL 0.6 MG/DL (0.1-1.0)
[2022-09-11 05:36] LABS: ALKALINE PHOSPHATASE 79 U/L (40-136); PHOSPHORUS 2.8 MG/DL (2.3-4.7)
[2022-09-11 05:37] LABS: CREATININE SERUM 1.31 MG/DL (0.60-1.30); GFR ESTIMATED 40
[2022-09-11 05:38] LABS: BUN/CREATININE RATIO 24
[2022-09-11 05:39] LABS: ALANINE AMINOTRANSFERASE < 6 U/L (0-55)
[2022-09-11 05:40] LABS: MAGNESIUM 2.2 MG/DL (1.6-2.4)
[2022-09-11] MEDS: LEVOTHYROXINE 125 MCG (LEVOTHROID) TABLET PO SCH (06:04)
[2022-09-11] MEDS: VENlafaxine XR 75 MG (EFFEXOR XR) CAP PO SCH (06:04)
[2022-09-11] MEDS: FUROSEMIDE 40 MG/4 ML INJ (LASIX) IVP SCH ×2 (06:04→17:05)
[2022-09-11] MEDS: inSUlin ASPART (NovoLOG) 1 UNIT/0.01 ML (CHARGE PER UNIT) SC SCH ×4 (06:05→20:24)
[2022-09-11] MEDS: DexMEDEtomidine 250 ML DRIP 250 ML IV SCH (06:14)
[2022-09-11] MEDS: KCL 20 MEQ TAB (K-DUR) PO SCH (06:30)
[2022-09-11] MEDS: MAGNESIUM 1 GM/100 ML IVPB 100 ML IV SCH (06:30)
[2022-09-11] MEDS: POTASSIUM CL 10MEQ/50ML IVPB 50 ML IV SCH (06:30)
[2022-09-11 06:40] VITALS: BP 144/59
--- NOTE | 2022-09-11 08:40 | Cardiology Progress Note ---
Subjective Date Seen by Provider: Sep 11, 2022 Time Seen by Provider: 08:38 Subjective/Events-last exam Patient is in bed, no new complaints. Deterioration in her respiratory failure, currently on BiPAP Review of Systems General: Other (Unable to provide review of system) Focused Exam Time of Focused Exam: 19:00 Objective-Cardiology Exam Last Set of Vital Signs Vital Signs 09/11/22 09/11/22 09/11/22 08:00 10:00 10:26 Pulse 98 Resp 27 B/P (MAP) 109/77 (88) Pulse Ox 87 O2 Delivery NIV Bilevel O2 Flow Rate 60.00 FiO2 50 I&O Intake and Output 09/11/22 00:00 Intake Total 2030 ml Output Total 2850 ml Balance -820 ml Intake Oral 1630 ml IV Total 400 ml Output Urine Total 2850 ml General: Alert, Oriented X3, Cooperative HEENT: Atraumatic, PERRLA Neck: Supple, No JVD, No Thyromegaly Lungs: Normal Air Movement, Other (Bilateral rhonchi) Heart: Normal S1, Normal S2, No Murmurs Abdomen: Normal Bowel Sounds, Soft, No Tenderness, No Hepatosplenomegaly, No Masses Extremities: No Clubbing, No Cyanosis, Normal Pulses, No Tenderness/Swelling, Other (Mild edema) Skin: No Rashes, No Breakdown, No Significant Lesion Neuro: Normal Speech, Normal Tone, Sensation Intact Psych/Mental Status: Mental Status NL, Mood NL Results Lab Laboratory Tests 09/11/22 04:28 A/P-Cardiology Admission Diagnosis Non-ST elevation myocardial infarction Coronary artery disease Congestive heart failure, acute on chronic left ventricular systolic dysfunction, dilated cardiomyopathy Acute renal failure Assessment/Plan Acute respiratory failure, pulmonary edema, bilateral pneumonia. CT scan of the chest showing bilateral infiltrate. Patient has been receiving Lasix She was on cefepime and vancomycin which was discontinued on September 10, 2022. Chest x-ray showed worsening bilateral infiltrate and currently worsening respiratory failure on BiPAP I will repeat COVID test and influenza test, consider viral pneumonia I discussed with the family regarding the possibility of transfer to a tertiary care center Status post acute chest pain, non-ST elevation myocardial infarction, underlying left bundle branch block Status post cardiac catheterization and balloon angioplasty to the LAD. Reporting improvement of chest pain Coronary artery disease, Had multiple interventions in [address] [facility] a total of 5 stents, Cardiac catheterization done in 2014 showing nuvu-uz-drbdbrdj disease. Cardiac catheterization done January 27, 2019 revealing multiple stents in the proximal, mid and distal LAD with multiple segment of severe in-stent restenosis successful balloon angioplasty. Mild disease in the distal LAD. Long stent in the mid small nondominant right coronary artery which is patent with mild disease proximal to stent nonobstructive disease. Dominant circumflex artery with nblh-qq-pkzxejwx disease nonobstructive disease. Cardiac catheterization was carried out on September 02, 2022, 95% stenosis within the stent in the mid LAD successful balloon angioplasty using noncompliant balloon 3.5 x 20 mm up to 16 poly with excellent results, no residual stenosis. The right coronary artery has a patent stent, at the ostium there is 95% lesion, I forwarded her cath films to [facility]ie and discussed the with Dr. Mathias. Due to the small to intermediate size of that right coronary artery recommendation is conservative management. We will continue maximizing medical therapy. Paroxysmal atrial fibrillation, started to have multiple episodes of atrial fibrillation with rapid ventricular response. Converted to sinus rhythm on Cardizem drip Had few breakthrough atrial fibrillation, maintained on oral Cardizem at this time and tolerating it well. Probably secondary to respiratory failure Started on Eliquis and tolerating it well Congestive heart failure, chronic compensated left ventricular systolic dysfunction ejection fraction. Maintained on Coreg 25 mg daily and Entresto 45 mg / 51 mg twice daily. 2D echo was done on September 02, 2022 with moderate LVH, hypokinesia at the anterior wall, ejection fraction 45 to 50%, grade 2 diastolic dysfunction, mild to moderate mitral regurgitation, aortic valve sclerosis with no aortic stenosis, PA pressure 35 to 40 mmHg Receiving diuretics. Continue to monitor Hypertension, continue to monitor blood pressure Acute on chronic renal insufficieny, continue to monitor renal function Anemia, continue to monitor H/H Diabetes mellitus, followed and monitored by primary care physician Diabetic neuropathy, continue to monitor Hypothyroidism, managed and followed by primary care physician Hyperlipidemia, maintained on Lipitor Moderate bilateral carotid stenosis, ultrasound was done in October 2021, continue to monitor Anxiety, history of bipolar disorder, Parkinson Degenerative joint disease, monitored and managed by primary care physician Parkinson's, follows with Dr. Andrews Abnormal EKG with left bundle branch block, chronic, no change from baseline. Continue to monitor Generalized weakness/debility, chronic Mild venous insufficiency, uses compression stockings Supervisory-Addendum Brief Supervisory Addendum Participated in pt care: history, MDM, physical Personally performed: exam, history, MDM Care discussed with: MAISHA Results interpretation: Verified all documentation Notes: Patient was seen and evaluated with Maira, examination performed, management plan was discussed, agree with the current scribed note, I made few changes to the note using Italic font Patient was seen at bedside, currently on BiPAP, lethargic Has been deteriorating, worsening chest x-ray Patient was on antibiotic until yesterday Still receiving Lasix Discussed the possibility of viral pneumonia, patient was tested negative for COVID and influenza, I will repeat the test In addition we discussed the possibility of bronchoscopy and or referral to a tertiary care center MAIRA DING Sep 11, 2022 08:40 LUISA MEADE MD Sep 11, 2022 10:40
[2022-09-11] MEDS ORDERED: KCL 20 MEQ TAB (K-DUR) PO ONE (09:00)
--- NOTE | 2022-09-11 09:25 | Tele-ICU Progress Note ---
Subjective Date Seen by a Provider: Sep 11, 2022 Subjective/Events-last exam This virtual visit was conducted using real time audio/video. Thank you for asking us to see this patient for respiratory insufficiency due to CHF, NSTEMI, possible pna. Also TAMMY, UTI. S/P PTCA 09/02. PE: Appears comfortable on BiPAP. VSS. NSR. O2 sat 92% on BiPAP 21/01. HEENT: No obvious masses, adenopathy or JVD. Chest: coarse on auscultation. CV: RRR S1 S2 No murmur or added sounds. Abd: Non-tender. Bowel sounds Y. : Unremarkable. Flower Y. INTERNATIONAL ACCOUNT MANAGER/psychiatric: Grossly intact. No obvious focal findings. Extremities: No edema. Capillary refill < 3 seconds. Skin: unremarkable. Results: Elevated WCC 20.1, BUN 37, Creat 1.31, BG 250. Decreased Hb 8.1. BG: . CXR: B worsening infilts.. Available chart/ vitals / labs / images reviewed. Video assessment done using teleICU camera, rest of exam as per RN. A/P: Respiratory insufficiency: Continue present management with BiPAP/VT, Prec., Duonebs Monitor for increasing oxygenation needs and/or need for intubation. Critical Care: critically ill patient. Cont. abx, lasix, cardiz., Eliq., ASA, Plavix, PPI, Synth., SSI, levimir. Replace K. Possible LTAC transfer. Discussed with RN RICHA. Asked RN to reach out to eICU if any questions or concerns later. Time spent with patient/coordination of care with other health professionals (mins): 22 Sepsis Event Evaluation Height, Weight, BMI Height: 5'2.00" Weight: 129lbs. 0.0oz. 58.866910cx; 26.04 BMI Method: Focused Exam Time of Focused Exam: 19:00 Exam Exam Patient acknowledged, consented, and participated in this virtual visit which was conducted using real time audio/video Vital Signs Date Time Temp Pulse Resp B/P (MAP) Pulse Ox O2 Delivery O2 Flow Rate FiO2 09/11/22 08:00 75 17 130/54 (79) 93 NIV Bilevel 50.00 09/11/22 08:00 NIV Bilevel 50 09/11/22 07:16 80 09/11/22 07:00 76 16 137/56 (83) 92 NIV Bilevel 50.00 09/11/22 06:40 84 24 87 50.00 09/11/22 06:30 89 NIV Bilevel 50.00 09/11/22 06:23 83 NIV Bilevel 50.00 09/11/22 06:00 75 17 144/59 (87) 99 Vapotherm 40.00 100.00 09/11/22 06:00 74 18 144/59 (105) 99 09/11/22 05:00 102 18 115/83 (94) 95 40.00 100.00 09/11/22 05:00 112 30 115/83 (94) 96 Vapotherm 40.00 100.00 09/11/22 04:15 NIV Bilevel 40 09/11/22 04:00 36.2 90 20 138/65 (88) 96 Vapotherm 40.00 100.00 09/11/22 03:00 77 20 135/71 (82) 97 09/11/22 02:27 95 Vapotherm 40.00 100 09/11/22 02:00 94 19 125/70 (112) 94 Vapotherm 40.00 100.00 09/11/22 01:00 80 18 128/68 (95) 95 09/11/22 01:00 80 09/11/22 00:00 NIV Bilevel 40 09/11/22 00:00 36.9 80 17 108/81 (90) 93 09/10/22 23:10 89 NIV Bilevel 50.00 09/10/22 23:00 101 21 142/60 (89) 92 09/10/22 22:03 91 Vapotherm 40.00 100 09/10/22 22:00 80 21 111/57 (70) 91 Vapotherm 40.00 100.00 09/10/22 21:00 93 23 129/91 (102) 92 09/10/22 20:45 NIV Bilevel 40 09/10/22 20:00 86 23 140/92 (129) 92 09/10/22 19:48 36.8 09/10/22 19:48 36.8 09/10/22 19:00 120 09/10/22 19:00 121 20 139/64 (86) 92 NIV Bilevel 50.00 09/10/22 18:42 118 22 91 50.00 09/10/22 18:00 118 19 141/68 (92) 90 NIV Bilevel 50.00 09/10/22 17:00 120 21 138/70 (92) 95 NIV Bilevel 50.00 09/10/22 16:00 118 23 121/92 (102) 90 NIV Bilevel 50.00 09/10/22 15:59 118 25 91 50.00 09/10/22 15:54 90 NIV Bilevel 50.00 09/10/22 15:40 NIV Bilevel 40 09/10/22 15:00 117 21 132/72 (92) 90 NIV Bilevel 40.00 09/10/22 14:41 NIV Bilevel 40.00 09/10/22 14:30 86 21 91 40.00 09/10/22 14:00 106 16 121/109 (113) 90 Vapotherm 40.00 90.00 09/10/22 13:40 Vapotherm 40.00 90.00 09/10/22 13:00 103 18 138/65 (89) 94 NIV Bilevel 40.00 09/10/22 12:34 91 09/10/22 12:10 NIV Bilevel 40 09/10/22 12:06 36.0 09/10/22 12:05 NIV Bilevel 40.00 09/10/22 12:00 99 17 131/66 (87) 94 Vapotherm 40.00 90.00 09/10/22 11:00 90 16 124/113 (117) 94 Vapotherm 40.00 90.00 09/10/22 10:42 Vapotherm 40.00 90.00 09/10/22 10:00 78 17 143/77 (99) 95 Vapotherm 40.00 100.00 I & O 09/11/22 07:00 Intake Total 2310 ml Output Total 2300 ml Balance 10 ml Height & Weight Height: 5'2.00" Weight: 129lbs. 0.0oz. 58.151222fn; 26.04 BMI Method: General Appearance: No Apparent Distress, Thin HEENT: PERRL/EOMI, Pharynx Normal Neck: Normal Inspection, Supple Respiratory: Lungs Clear, No Respiratory Distress Cardiovascular: Regular Rate, Rhythm, No Murmur Capillary Refill: Less Than 3 Seconds Gastrointestinal: normal bowel sounds, non tender, soft Extremity: Normal Inspection, No Pedal Edema Neurologic/Psychiatric: Alert, Oriented x3 Skin: Normal Color, Warm/Dry Lymphatic: No Adenopathy Results Lab Laboratory Tests 09/10/22 04:31 09/11/22 04:28 Assessment/Plan Assessment/Plan See free text. Critical Care: Critically Ill Patient KEV MURPHY MD Sep 11, 2022 09:25
--- NOTE | 2022-09-11 09:40 | Progress Note - Hospitalist ---
Subjective HPI/CC On Admission Date Seen by Provider: Sep 11, 2022 Edie aGllo is an 86 year old female with PMH HTN, T2DM, HLD, CAD, hypothyroidism, AFib, HFrEF, who presented with weakness. She had also been feeling fatigued. She had some chest pain. Upon my exam she is no longer having any symptoms. She denies chest pain. She denies shortness of breath. She denies nausea, vomiting, abdominal pain. She has not had any leg swelling. Subjective/Events-last exam Pt reports feeling about the same but is on precedex and BiPAP. Discussed possible need for LTACH. Open to informational visit. Focused Exam Time of Focused Exam: 19:00 Objective Exam Vital Signs Vital Signs Date Time Temp Pulse Resp B/P (MAP) Pulse Ox O2 Delivery O2 Flow Rate FiO2 09/11/22 08:00 75 17 130/54 (79) 93 NIV Bilevel 50.00 09/11/22 08:00 50 09/11/22 04:00 36.2 Capillary Refill : Less Than 3 Seconds General Appearance: No Apparent Distress, Chronically ill Cardiovascular: Regular Rate, Rhythm, No Murmur Gastrointestinal: Normal Bowel Sounds, Non Tender, Soft Neurologic/Psychiatric: Alert, Oriented x3 Results/Procedures Lab Laboratory Tests 09/11/22 04:28 Patient resulted labs reviewed. Imaging: Reviewed Imaging Report Assessment/Plan Assessment and Plan Assess & Plan/Chief Complaint NSTEMI CAD Acute on chronic HFrEF Pulmonary edema Bilateral pleural effusions Acute respiratory failure with hypoxia Acute postoperative respiratory insufficiency Multifocal pneumonia TAMMY on CKD3b HTN HLD AFib with RVR LBBB E coli UTI Critial illness myopathy Anxiety Cardiology following s/p left heart cath 09/02 with 95% in-stent stenosis of LAD, stent placed Also with 70% stensosis right coronary artery Dr Lorenzo discussed with CTS who recommended conservative therapy ASA and Plavix Statin TeleICU following Continue Lasix, BUN/Cr stable -820mL yesterday Weaning Vapotherm, was on BiPAP overnight again today LTACH referral CT chest concerning for multifocal pneumonia Completed Vancomycin and Cefepime- monitor off PT/OT Increase Klonopin- wean precedex as able T2DM Sliding scale insulin Increase long acting insulin Hypothyroidism GERD Continue home meds DVT prophylaxis: Lovenox Critical Care Critically Ill Patient ZACHARY MITCHELL MD Sep 11, 2022 09:40
[2022-09-11] MEDS: SINEMET 25/100 (CARBIDOPA/LEVODOPA) TAB PO SCH ×4 (09:43→20:23)
[2022-09-11] MEDS: clonazePAM 0.5 MG (KlonoPIN) TAB PO SCH ×3 (09:43→22:20)
[2022-09-11] MEDS: ASPIRIN E.C. 81 MG (ECOTRIN) TAB PO SCH (09:43)
[2022-09-11] MEDS: buPROPion SR 150 MG (WELLBUTRIN SR) TAB PO SCH ×2 (09:43→20:23)
[2022-09-11] MEDS: CLOPIDOGREL 75 MG (PLAVIX) TABLET PO SCH (09:43)
[2022-09-11] MEDS: APIXABAN 2.5 MG (ELIQUIS) TABLET PO SCH ×2 (09:43→20:23)
[2022-09-11] MEDS: PANTOPRAZOLE 40 MG (PROTONIX) TAB PO SCH (09:43)
[2022-09-11] MEDS: GABAPENTIN 100 MG (NEURONTIN) CAP PO SCH ×2 (09:43→20:22)
[2022-09-11] MEDS: ENTACAPONE 200 MG TABLET PO SCH ×4 (09:44→20:22)
[2022-09-11] MEDS: DOCUSATE SODIUM 100 MG (COLACE) CAP PO SCH ×2 (10:43→20:23)
[2022-09-11] MEDS: SENNA W/DOCUSATE (SENOKOT S) TABLET PO SCH ×2 (10:43→20:23)
[2022-09-11] MEDS: RT-ALBUTEROL/IPRATROPIUM 3 ML (DUONEB) VIAL INH PRN ×4 (11:21→23:12)
[2022-09-11 11:23] VITALS: BP 137/68
--- NOTE | 2022-09-11 12:46 | Physical Therapy Progress Note ---
Therapy Progress Note Nurse requested hold this date as patient is very anxious and O2 sats have been declining. Will attempt treatment again tomorrow and progress per patient tolerance. ANGELA NORWOOD PT Sep 11, 2022 12:46
[2022-09-11 14:02] VITALS: BP 136/58
--- NOTE | 2022-09-11 16:37 | Occ Therapy Progress Note ---
Therapy Progress Note PEr nursing request hold therapy today, patient 02 levels progressed and family chooses to use this time to allow patietn to eat. KANDI MEDINA OT Sep 11, 2022 16:37
[2022-09-11 18:59] VITALS: BP 141/57
[2022-09-11] MEDS: OLANZapine 2.5 MG (ZyPREXA) TAB PO SCH (20:23)
[2022-09-12] MEDS: RT-ALBUTEROL/IPRATROPIUM 3 ML (DUONEB) VIAL INH PRN (03:13)
[2022-09-12 03:21] VITALS: BP 133/59
[2022-09-12] MEDS: clonazePAM 0.5 MG (KlonoPIN) TAB PO PRN (03:28)
[2022-09-12 04:28] LABS: BASOPHILS # (AUTO) 0.1 10^3/uL (0.0-0.1); BASOPHILS % (AUTO) 0 % (0-10); EOSINOPHILS # (AUTO) 0.1 10^3/uL (0.0-0.3); EOSINOPHILS % (AUTO) 1 % (0-10); HEMATOCRIT 22 % (35-52); HEMOGLOBIN 7.5 g/dL (11.5-16.0); LYMPHOCYTES % (AUTO) 6 % (12-44); MEAN CORPUSCULAR HEMOGLOBIN 30 pg (25-34); MEAN CORPUSCULAR HGB CONC 34 g/dL (32-36); MEAN CORPUSCULAR VOLUME 89 fL (80-99); MONOCYTES # (AUTO) 1.4 10^3/uL (0.0-1.0); MONOCYTES % (AUTO) 8 % (0-12); NEUTROPHILS # (AUTO) 15.1 10^3/uL (1.8-7.8); NEUTROPHILS % (AUTO) 82 % (42-75); PLATELET COUNT 412 10^3/uL (130-400); WHITE BLOOD COUNT 18.5 10^3/uL (4.3-11.0)
[2022-09-12 05:13] LABS: ALBUMIN 2.6 GM/DL (3.2-4.5)
[2022-09-12 05:14] LABS: CHLORIDE 95 MMOL/L (98-107); POTASSIUM 3.7 MMOL/L (3.6-5.0); SODIUM 129 MMOL/L (135-145)
[2022-09-12 05:15] LABS: CALCIUM 8.5 MG/DL (8.5-10.1)
[2022-09-12 05:16] LABS: GLUCOSE 302 MG/DL (70-105); TOTAL PROTEIN 6.3 GM/DL (6.4-8.2)
[2022-09-12 05:17] LABS: CARBON DIOXIDE 23 MMOL/L (21-32)
[2022-09-12 05:18] LABS: BILIRUBIN,TOTAL 0.5 MG/DL (0.1-1.0)
[2022-09-12 05:19] LABS: ALKALINE PHOSPHATASE 75 U/L (40-136); PHOSPHORUS 2.4 MG/DL (2.3-4.7)
[2022-09-12 05:20] LABS: CREATININE SERUM 1.38 MG/DL (0.60-1.30); GFR ESTIMATED 38
[2022-09-12 05:21] LABS: BUN/CREATININE RATIO 22
[2022-09-12 05:22] LABS: MAGNESIUM 2.1 MG/DL (1.6-2.4)
[2022-09-12 05:23] LABS: ALANINE AMINOTRANSFERASE < 6 U/L (0-55)
[2022-09-12] MEDS: POTASSIUM CL 10MEQ/50ML IVPB 50 ML IV SCH (05:33)
[2022-09-12] MEDS: KCL 20 MEQ TAB (K-DUR) PO SCH (05:34)
[2022-09-12] MEDS: MAGNESIUM 1 GM/100 ML IVPB 100 ML IV SCH (05:34)
[2022-09-12] MEDS: FUROSEMIDE 40 MG/4 ML INJ (LASIX) IVP SCH ×2 (06:10→17:37)
[2022-09-12] MEDS: LEVOTHYROXINE 125 MCG (LEVOTHROID) TABLET PO SCH (06:11)
[2022-09-12] MEDS: inSUlin ASPART (NovoLOG) 1 UNIT/0.01 ML (CHARGE PER UNIT) SC SCH ×4 (06:11→21:37)
[2022-09-12] MEDS: VENlafaxine XR 75 MG (EFFEXOR XR) CAP PO SCH (06:12)
[2022-09-12 07:03] VITALS: BP 145/70
[2022-09-12] MEDS ORDERED: clonazePAM 0.5 MG (KlonoPIN) TAB PO PRN (08:30)
[2022-09-12] MEDS: DOCUSATE SODIUM 100 MG (COLACE) CAP PO SCH ×2 (08:41→21:35)
[2022-09-12] MEDS: GABAPENTIN 100 MG (NEURONTIN) CAP PO SCH ×2 (08:41→21:36)
[2022-09-12] MEDS: ASPIRIN E.C. 81 MG (ECOTRIN) TAB PO SCH (08:41)
[2022-09-12] MEDS: SINEMET 25/100 (CARBIDOPA/LEVODOPA) TAB PO SCH ×4 (08:41→21:36)
[2022-09-12] MEDS: buPROPion SR 150 MG (WELLBUTRIN SR) TAB PO SCH ×2 (08:41→21:36)
[2022-09-12] MEDS: APIXABAN 2.5 MG (ELIQUIS) TABLET PO SCH (08:41)
[2022-09-12] MEDS: CLOPIDOGREL 75 MG (PLAVIX) TABLET PO SCH (08:42)
[2022-09-12] MEDS: SENNA W/DOCUSATE (SENOKOT S) TABLET PO SCH ×2 (08:42→21:36)
[2022-09-12] MEDS: PANTOPRAZOLE 40 MG (PROTONIX) TAB PO SCH (08:42)
[2022-09-12] MEDS: clonazePAM 0.5 MG (KlonoPIN) TAB PO SCH ×2 (08:44→15:16)
[2022-09-12] MEDS: ENTACAPONE 200 MG TABLET PO SCH ×4 (08:54→21:35)
--- NOTE | 2022-09-12 08:58 | Cardiology Progress Note ---
Subjective Date Seen by Provider: Sep 12, 2022 Time Seen by Provider: 08:57 Subjective/Events-last exam Patient was seen at bedside, currently on BiPAP, back in atrial fibrillation, rate controlled Review of Systems General: No Chills, No Night Sweats; Fatigue, Malaise; No Appetite, No Other HEENT: No Head Aches, No Visual Changes, No Eye Pain, No Ear Pain, No Dyspha violet, No Sinus Congestion, No Post Nasal Drip, No Sore Throat, No Other Pulmonary: Dyspnea; No Cough, No Pleuritic Chest Pain, No Other Cardiovascular: No: Chest Pain, Palpitations, Orthopnea, Paroxysmal Noc. Dyspnea, Edema, Lt Headedness, Other Focused Exam Time of Focused Exam: 19:00 Objective-Cardiology Exam Last Set of Vital Signs Vital Signs 09/12/22 09/12/22 09/12/22 09/12/22 09/12/22 03:30 07:00 07:03 07:15 08:00 Temp 37.0 Pulse 84 Resp 20 B/P (MAP) 145/70 (95) Pulse Ox 97 O2 Delivery NIV Bilevel O2 Flow Rate 80.00 FiO2 100 I&O Intake and Output 09/12/22 00:00 Intake Total 1500 ml Output Total 2700 ml Balance -1200 ml Intake Oral 1300 ml IV Total 200 ml Output Urine Total 2700 ml General: Alert, Cooperative, Moderate Distress HEENT: Atraumatic, PERRLA Neck: Supple, No JVD, No Thyromegaly Lungs: Normal Air Movement, Other (Bilateral rhonchi) Heart: Normal S1, Normal S2, No Murmurs, Other (Atrial fibrillation) Abdomen: Normal Bowel Sounds, Soft, No Tenderness, No Hepatosplenomegaly, No M asses Extremities: No Clubbing, No Cyanosis, Normal Pulses, No Tenderness/Swelling, Other (Mild edema) Skin: No Rashes, No Breakdown, No Significant Lesion Neuro: Normal Speech, Normal Tone, Sensation Intact Psych/Mental Status: Mental Status NL, Mood NL Results Lab Laboratory Tests 09/12/22 04:22 A/P-Cardiology Admission Diagnosis Non-ST elevation myocardial infarction Coronary artery disease Congestive heart failure, acute on chronic left ventricular systolic dysfunction, dilated cardiomyopathy Acute renal failure Assessment/Plan Acute respiratory failure, pulmonary edema, bilateral pneumonia. CT scan of the chest showing bilateral infiltrate. Patient has been receiving Lasix She was on cefepime and vancomycin which was discontinued on September 10, 2022. Chest x-ray showed worsening bilateral infiltrate and currently worsening respiratory failure on BiPAP Repeat COVID test and influenza test were negative Discussed with Dr. Mendosa the management plan, possible transfer to a tertiary care center. I had a long visit with the and daughter and discussed management plan Status post acute chest pain, non-ST elevation myocardial infarction, underlying left bundle branch block Status post cardiac catheterization and balloon angioplasty to the LAD. Reporting improvement of chest pain Coronary artery disease, Had multiple interventions in [address] [facility] a total of 5 stents, Cardiac catheterization done in 2014 showing [id number] disease. Cardiac catheterization done January 27, 2019 revealing multiple stents in the proximal, mid and distal LAD with multiple segment of severe in-stent restenosis successful balloon angioplasty. Mild disease in the distal LAD. Long stent in the mid small nondominant right coronary artery which is patent with mild disease proximal to stent nonobstructive disease. Dominant circumflex artery with [id number] disease nonobstructive disease. Cardiac catheterization was carried out on September 02, 2022, 95% stenosis within the stent in the mid LAD successful balloon angioplasty using noncompliant balloon 3.5 x 20 mm up to 16 poly with excellent results, no residual stenosis. The right coronary artery has a patent stent, at the ostium there is 95% lesion, I forwarded her cath films to Richie and discussed the with Dr. Mathias. Due to the small to intermediate size of that right coronary artery recommendation is conservative management. We will continue maximizing medical therapy. Paroxysmal atrial fibrillation, started to have multiple episodes of atrial fibrillation with rapid ventricular response. Converted to sinus rhythm on Cardizem drip Had few breakthrough atrial fibrillation, maintained on oral Cardizem at this time and tolerating it well. Probably secondary to respiratory failure Started on Eliquis and tolerating it well Congestive heart failure, chronic compensated left ventricular systolic dysfunction ejection fraction. Maintained on Coreg 25 mg daily and Entresto 45 mg / 51 mg twice daily. 2D echo was done on September 02, 2022 with moderate LVH, hypokinesia at the anterior wall, ejection fraction 45 to 50%, grade 2 diastolic dysfunction, mild to moderate mitral regurgitation, aortic valve sclerosis with no aortic st enosis, PA pressure 35 to 40 mmHg Receiving diuretics. Continue to monitor Hypertension, continue to monitor blood pressure Acute on chronic renal insufficieny, continue to monitor renal function Anemia, continue to monitor H/H Diabetes mellitus, followed and monitored by primary care physician Diabetic neuropathy, continue to monitor Hypothyroidism, managed and followed by primary care physician Hyperlipidemia, maintained on Lipitor Moderate bilateral carotid stenosis, ultrasound was done in October 2021, continue to monitor Anxiety, history of bipolar disorder, Parkinson Degenerative joint disease, monitored and managed by primary care physician Parkinson's, follows with Dr. Andrews Abnormal EKG with left bundle branch block, chronic, no change from baseline. Continue to monitor Generalized weakness/debility, chronic Mild venous insufficiency, uses compression stockings LUISA MEADE MD Sep 12, 2022 08:58
[2022-09-12] MEDS ORDERED: KCL 20 MEQ TAB (K-DUR) PO ONE (09:00)
[2022-09-12] MEDS: DexMEDEtomidine 250 ML DRIP 250 ML IV SCH (09:10)
[2022-09-12] MEDS ORDERED: RT-ALBUTEROL/IPRATROPIUM 3 ML (DUONEB) VIAL INH SCH (11:15)
[2022-09-12 11:20] VITALS: BP 125/80
[2022-09-12] MEDS: RT-ALBUTEROL/IPRATROPIUM 3 ML (DUONEB) VIAL INH SCH ×4 (11:20→23:02)
--- NOTE | 2022-09-12 11:49 | Physical Therapy Progress Note ---
Therapy Progress Note Patient on hold on this date per RN and family due to increase in O2 demand. PT will attempt tomorrow. VALENCIA MOMIN PT Sep 12, 2022 11:49
--- NOTE | 2022-09-12 12:45 | Progress Note - Hospitalist ---
Subjective HPI/CC On Admission Date Seen by Provider: Sep 12, 2022 Edie Gallo is an 86 year old female with PMH HTN, T2DM, HLD, CAD, hypothyroidism, AFib, HFrEF, who presented with weakness. She had also been feeling fatigued. She had some chest pain. Upon my exam she is no longer having any symptoms. She denies chest pain. She denies shortness of breath. She denies nausea, vomiting, abdominal pain. She has not had any leg swelling. Subjective/Events-last exam Pt remains sedated on precedex but does open eyes and nods when asked if she is feeling ok. Sister is at bedside. Reports increased Klonopin dose seemed like too much sedated. Discussed plan to go back to normal klonopin and increase frequency of prn if needed while trying to wean off precedex. Also was able to speak with vivian about plan. He states he is unsure of her prognosis and is worried she is getting worse and would not want to live like this. Focused Exam Time of Focused Exam: 19:00 Objective Exam Vital Signs Vital Signs Date Time Temp Pulse Resp B/P (MAP) Pulse Ox O2 Delivery O2 Flow Rate FiO2 09/12/22 12:10 136 09/12/22 12:00 36.8 09/12/22 12:00 NIV Bilevel 100 09/12/22 12:00 19 139/74 (95) 94 80.00 Capillary Refill : Less Than 3 Seconds General Appearance: Chronically ill, Thin Respiratory: Decreased Breath Sounds, Other (on BiPAP) Cardiovascular: Regular Rate, Rhythm, No Murmur Gastrointestinal: Normal Bowel Sounds, Soft Neurologic/Psychiatric: Alert Results/Procedures Lab Laboratory Tests 09/12/22 04:22 Patient resulted labs reviewed. Imaging: Reviewed Imaging Report Assessment/Plan Assessment and Plan Assess & Plan/Chief Complaint NSTEMI CAD Acute on chronic HFrEF Pulmonary edema Bilateral pleural effusions Acute respiratory failure with hypoxia Acute postoperative respiratory insufficiency Multifocal pneumonia TAMMY on CKD3b HTN HLD AFib with RVR LBBB E coli UTI Critial illness myopathy Anxiety Cardiology following s/p left heart cath 09/02 with 95% in-stent stenosis of LAD, stent placed Also with 70% stensosis right coronary artery Dr Lorenoz discussed with CTS who recommended conservative therapy ASA and Plavix Statin TeleICU following Continue Lasix, BUN/Cr stable -1200mL yesterday Alternating between BiPAP and Vapotherm LTACH referral CT chest concerning for multifocal pneumonia Completed Vancomycin and Cefepime- monitor off PT/OT Adjust Klonopin as above Will return to room to have further goals of care talk with this afternoon T2DM Sliding scale insulin Increase long acting insulin Hypothyroidism GERD Continue home meds DVT prophylaxis: Lovenox Critical Care Critically Ill Patient ZACHARY MITCHELL MD Sep 12, 2022 12:45
--- NOTE | 2022-09-12 14:07 | Tele-ICU Progress Note ---
Subjective Date Seen by a Provider: Sep 12, 2022 Time Seen by a Provider: 14:07 Subjective/Events-last exam (Tele-ICU Physician , Progress Note ) Service provided via interactive audio and video telecommunications E-CARE system to a patient admitted to ICU bed in [facility]. Patient is seen today due to persistent need of ICU care Available chart/ vitals / labs / Images reviewed Video assessment done using teleICU camera, rest of exam as per RN Discussed with RN Events overnight : Afebrile hemodynamically stable Respiratory - VT I/O = negative Drips: off Pressors- no Hospital course: (09/01) 86/F- C.P., Hypoxia, pna on imaging, nstemi, chf, //incr.- trop, gluc. ashly. (09/02) to CCL for successful PTCA to stenosis mid LAD, Rocephin 09/02--30 for UTI 09/03 - VT 40 L 90 % to eat , now on BIPAP 15/8 70 % , rr 22 tv 500 TV 12 L . - A fib RVR- cardizen gtt , VT 09/05 - VT 40 L 80% BIPAP 15/8 70 % , rr 22 tv 500 TV 12 L , CTch/abd - bilat infiltrates, bilat effusions , - precedex OFF since 11 am , VANCO started , cefepime 09/06- VT 40 L 90% , at night BIPAP 15/8 50%, precedex while on bipap 09/07 - 40L 70 %, same bipap/precedex at night 09/09 - VT 25 L 50 % bipap/precedex at night , as per cards DECREASED DOSE lasix 09/10 - VT 40 L 100 % BIPAP 40 % AT NIGHT FEW HOURS 09/12 - bipap 20/10 80% RR 23 TV410 mv10L A/P Acute resp failure. hypoxic - INITIALLY CHF, NOW WITH PNA - C T chest abd 09/05 - bilat infiltrates, bilat effusions - ABX ADDED -cont diuresis with lasix - as per cards DECREASED DOSE 09/09- but UO is great bipap 20/10 80% RR 23 [id number] mv10L - WORSENIGN - finished course of abx , good UO - ? progressing to ARDS ? will check PCT , might consider antyfungal coverage , and /or steroids PNA - 09/05 CTch/abd - bilat infiltrates, bilat effusions , added Vanco 09/05 , cefepime - to cont A fib RVR 09/03 - rate controlled cardizem gtt OFF 09/04 - cardizem PO - AC with eliquis CAD, NSTEMI on admission Status postcardiac catheterization and balloon angioplasty to the LAD - card follow -RCA has a patent stent, at the ostium there is 95% lesion which need to be addressed at a later point. - on aspirin and Plavix Congestive heart failure, chronic compensated left ventricular systolic dysfunction ejection fraction. - as per cards - ECHO September 02, 2022 with moderate LVH, hypokinesia at the anterior wall, ejection fraction 45 to 50%, grade 2 diastolic dysfunction, mild to moderate mitral regurgitation, aortic valve sclerosis with no aortic stenosis, PA pressure 35 to 40 mmHg UTI with E coli -Rocephin 09/02--31 DM II, - ISS - po diet CKD - Cr stable Parkinson's - mental status baseline - prn precedex while on BIPAP Nuritions - min Po intake Lines : periph , (Central Line Necessity Reviewed) Flower: + OG: Nutrition: PO Analgesia: Anxiety/ delirium VTE Prophylaxis: eluiquis Stress Ulcer Prophylaxis: Plans in collaboration with bedside consultants and IM MDs, paged Dr Urban Discussed with RN to reach out if any questions or concerns Case and care daily discussed on multidisciplinary rounds ( RN, PharmD, Cook Jelly , Respiratory Therapy, sheet metal layout worker ) A total of31 minutes of critical care time was devoted to this patient today, required to treat and/or prevent further deterioration of critical care condition ( as above ) . I am remotely monitoring this patient from another state. I am unable to do the bedside exam, and history/physical and pertinent information is taken from other notes in the computer and bedside staff. Sepsis Event Evaluation Height, Weight, BMI Height: 5'2.00" Weight: 129lbs. 0.0oz. 58.067097th; 26.04 BMI Method: Focused Exam Time of Focused Exam: 19:00 Exam Exam Patient acknowledged, consented, and participated in this virtual visit which was conducted using real time audio/video Vital Signs Date Time Temp Pulse Resp B/P (MAP) Pulse Ox O2 Delivery O2 Flow Rate FiO2 09/12/22 14:00 122 24 129/83 (98) 94 NIV Bilevel 80.00 09/12/22 13:00 115 24 140/59 (86) 96 NIV Bilevel 80.00 09/12/22 12:10 136 09/12/22 12:00 36.8 09/12/22 12:00 NIV Bilevel 100 09/12/22 12:00 118 19 139/74 (95) 94 NIV Bilevel 80.00 09/12/22 11:20 118 29 94 80.00 09/12/22 11:00 104 18 125/80 (95) 94 NIV Bilevel 80.00 09/12/22 10:00 104 23 115/68 (84) 95 NIV Bilevel 80.00 09/12/22 09:00 85 25 126/100 (109) 87 NIV Bilevel 80.00 09/12/22 08:00 NIV Bilevel 100 09/12/22 08:00 37.0 09/12/22 08:00 95 39 117/69 (85) 96 NIV Bilevel 80.00 09/12/22 07:15 NIV Bilevel 80.00 09/12/22 07:03 84 20 97 90.00 09/12/22 07:00 72 09/12/22 07:00 89 20 145/70 (95) 97 NIV Bilevel 90.00 09/12/22 06:25 NIV Bilevel 90.00 09/12/22 06:00 88 16 145/58 (96) 97 NIV Bilevel 100.00 09/12/22 05:00 90 16 136/55 (88) 98 NIV Bilevel 100.00 09/12/22 04:00 89 18 130/57 (81) 99 Vapotherm 40.00 100.00 09/12/22 04:00 NIV Bilevel 100.00 09/12/22 03:30 NIV Bilevel 100.00 09/12/22 03:30 37.2 09/12/22 03:30 NIV Bilevel 100 09/12/22 03:21 103 20 97 100.00 09/12/22 03:13 96 Vapotherm 40.00 100 09/12/22 03:00 89 17 133/59 (94) 95 Vapotherm 40.00 100.00 09/12/22 02:00 85 18 130/55 (90) 96 09/12/22 01:00 80 14 120/55 (98) 99 4/6/23 01:00 80 09/12/22 00:00 Vapotherm 40.00 100 09/12/22 00:00 36.7 09/12/22 00:00 75 12 122/46 (71) 100 Vapotherm 40.00 100.00 09/11/22 23:12 99 Vapotherm 40.00 100 09/11/22 23:00 79 14 135/62 (86) 99 Vapotherm 40.00 100.00 09/11/22 22:15 Vapotherm 40.00 100.00 09/11/22 22:00 69 14 139/55 (83) 100 NIV Bilevel 100.00 09/11/22 22:00 70 14 139/55 (92) 100 NIV Bilevel 100.00 09/11/22 21:00 69 15 149/58 (96) 100 NIV Bilevel 100.00 09/11/22 20:00 36.4 09/11/22 20:00 70 17 154/60 (101) 100 NIV Bilevel 100.00 09/11/22 19:30 NIV Bilevel 100 09/11/22 19:00 66 18 145/61 (99) 100 NIV Bilevel 100.00 09/11/22 19:00 65 09/11/22 18:59 65 21 100 100.00 09/11/22 18:00 65 17 141/57 (85) 100 NIV Bilevel 100.00 09/11/22 17:00 68 18 141/59 (86) 100 NIV Bilevel 100.00 09/11/22 16:00 72 19 138/56 (83) 99 NIV Bilevel 100.00 09/11/22 15:59 36.7 09/11/22 15:20 NIV Bilevel 100 09/11/22 15:00 74 20 136/55 (82) 100 NIV Bilevel 100.00 I & O 09/12/22 06:59 Intake Total 1450 ml Output Total 2405 ml Balance -955 ml Height & Weight Height: 5'2.00" Weight: 129lbs. 0.0oz. 58.190590so; 26.04 BMI Method: General Appearance: Chronically ill, Thin HEENT: PERRL/EOMI, Pharynx Normal Neck: Normal Inspection, Supple Respiratory: Decreased Breath Sounds, Other (on BiPAP) Cardiovascular: Regular Rate, Rhythm, No Murmur Capillary Refill: Less Than 3 Seconds Gastrointestinal: normal bowel sounds, non tender, soft Extremity: Normal Inspection, No Pedal Edema Neurologic/Psychiatric: Alert Skin: Normal Color, Warm/Dry Lymphatic: No Adenopathy Results Lab Laboratory Tests 09/11/22 04:28 09/12/22 04:22 Assessment/Plan Assessment/Plan 1 VASILE MCGEE MD Sep 12, 2022 14:07
[2022-09-12] MEDS ORDERED: ANIDULAFUNGIN INJECTION 200 MG in NS (IVPB) 250 ML IV ONE (14:30)
[2022-09-12 14:54] VITALS: BP 129/83
[2022-09-12] MEDS ORDERED: LORazepam INJ 2 MG/ML (ATIVAN) VIAL IVP NR (17:30)
[2022-09-12 19:14] VITALS: BP 116/53
[2022-09-12] MEDS: OLANZapine 2.5 MG (ZyPREXA) TAB PO SCH (21:36)
[2022-09-12 23:02] VITALS: BP 124/66
[2022-09-13] MEDS ORDERED: dilTIAZem DRIP PRE-MIX 0 ML IV ONE (00:24)
[2022-09-13] MEDS ORDERED: NS (IVPB) 100 ML ONE (00:32)
[2022-09-13] MEDS ORDERED: dilTIAZem DRIP 125 MG/100 ML NS IV SCH ×2 (00:45)
[2022-09-13] MEDS ORDERED: dilTIAZem DRIP PRE-MIX 125 ML IV SCH (01:00)
[2022-09-13] MEDS: RT-ALBUTEROL/IPRATROPIUM 3 ML (DUONEB) VIAL INH SCH ×4 (03:02→15:01)
[2022-09-13 03:03] VITALS: BP 134/49
[2022-09-13] MEDS: DexMEDEtomidine 250 ML DRIP 250 ML IV SCH ×2 (03:17→14:48)
[2022-09-13] MEDS: inSUlin ASPART (NovoLOG) 1 UNIT/0.01 ML (CHARGE PER UNIT) SC SCH ×2 (05:34→12:02)
[2022-09-13] MEDS: KCL 20 MEQ TAB (K-DUR) PO SCH ×2 (05:34→06:29)
[2022-09-13] MEDS: POTASSIUM CL 10MEQ/50ML IVPB 50 ML IV SCH ×2 (05:34→06:28)
[2022-09-13] MEDS: MAGNESIUM 1 GM/100 ML IVPB 100 ML IV SCH ×2 (05:34→06:28)
[2022-09-13] MEDS: LEVOTHYROXINE 125 MCG (LEVOTHROID) TABLET PO SCH (05:35)
[2022-09-13] MEDS: FUROSEMIDE 40 MG/4 ML INJ (LASIX) IVP SCH (06:08)
[2022-09-13] MEDS: VENlafaxine XR 75 MG (EFFEXOR XR) CAP PO SCH (06:29)
[2022-09-13 06:57] VITALS: BP 129/57
[2022-09-13] MEDS: PANTOPRAZOLE 40 MG (PROTONIX) TAB PO SCH (08:33)
[2022-09-13] MEDS: CLOPIDOGREL 75 MG (PLAVIX) TABLET PO SCH (08:33)
[2022-09-13] MEDS: GABAPENTIN 100 MG (NEURONTIN) CAP PO SCH (08:33)
[2022-09-13] MEDS: SINEMET 25/100 (CARBIDOPA/LEVODOPA) TAB PO SCH ×2 (08:33→13:08)
[2022-09-13] MEDS: clonazePAM 0.5 MG (KlonoPIN) TAB PO SCH (08:33)
[2022-09-13] MEDS: DOCUSATE SODIUM 100 MG (COLACE) CAP PO SCH (08:33)
[2022-09-13] MEDS: ENTACAPONE 200 MG TABLET PO SCH ×2 (08:33→13:07)
[2022-09-13] MEDS: ASPIRIN E.C. 81 MG (ECOTRIN) TAB PO SCH (08:33)
[2022-09-13] MEDS: buPROPion SR 150 MG (WELLBUTRIN SR) TAB PO SCH (08:33)
[2022-09-13] MEDS: SENNA W/DOCUSATE (SENOKOT S) TABLET PO SCH (08:33)
--- NOTE | 2022-09-13 08:59 | Physical Therapy Progress Note ---
Therapy Progress Note Patient on hold on this date per RN and family due to increase in O2 demand. PT will attempt tomorrow. ANGELA NORWOOD PT Sep 13, 2022 08:59
[2022-09-13] MEDS ORDERED: ANIDULAFUNGIN INJECTION 100 MG in NS (IVPB) 100 ML IV SCH (09:00)
--- NOTE | 2022-09-13 09:33 | Cardiology Progress Note ---
Subjective Date Seen by Provider: Sep 13, 2022 Time Seen by Provider: 09:32 Subjective/Events-last exam Patient is laying down in bed, maintained on Cardizem drip Maintained on BiPAP. Review of Systems General: Fatigue, Malaise Pulmonary: Dyspnea Focused Exam Time of Focused Exam: 19:00 Objective-Cardiology Exam Last Set of Vital Signs Vital Signs 09/13/22 09/13/22 09/13/22 00:00 08:00 09:00 Temp 37.1 Pulse 69 Resp 20 B/P (MAP) 133/67 (93) Pulse Ox 96 O2 Delivery NIV Bilevel O2 Flow Rate 80.00 FiO2 85 I&O Intake and Output 09/13/22 00:00 Intake Total 1100 ml Output Total 1520 ml Balance -420 ml Intake Oral 1100 ml Output Urine Total 1520 ml General: Alert, Cooperative, Moderate Distress HEENT: Atraumatic, PERRLA Neck: Supple, No JVD, No Thyromegaly Lungs: Normal Air Movement, Other (Bilateral rhonchi) Heart: Normal S1, Normal S2, No Murmurs, Other (Atrial fibrillation) Abdomen: Normal Bowel Sounds, Soft, No Tenderness, No Hepatosplenomegaly, No Masses Extremities: No Clubbing, No Cyanosis, Normal Pulses, No Tenderness/Swelling, Other (Mild edema) Skin: No Rashes, No Breakdown, No Significant Lesion Neuro: Normal Speech, Normal Tone, Sensation Intact Psych/Mental Status: Mental Status NL, Mood NL A/P-Cardiology Admission Diagnosis Non-ST elevation myocardial infarction Coronary artery disease Congestive heart failure, acute on chronic left ventricular systolic dysfunction, dilated cardiomyopathy Acute renal failure Assessment/Plan Acute respiratory failure, pulmonary edema, bilateral pneumonia. CT scan of the chest showing bilateral infiltrate. Patient has been receiving Lasix She was on cefepime and vancomycin which was discontinued on September 10, 2022. Chest x-ray showed worsening bilateral infiltrate and currently worsening respiratory failure on BiPAP Repeat COVID test and influenza test were negative I visited with the and daughter today, discussed management plan Family are leaning toward comfort care. They have discussed it with the eICU and Dr. Urban Status post acute chest pain, non-ST elevation myocardial infarction, underlying left bundle branch block Status post cardiac catheterization and balloon angioplasty to the LAD. No further episodes of chest pain. No acute EKG changes. Coronary artery disease, Had multiple interventions in [address] [facility] a total of 5 stents, Cardiac catheterization done in 2014 showing [id number] disease. Cardiac catheterization done January 27, 2019 revealing multiple stents in the proximal, mid and distal LAD with multiple segment of severe in-stent restenosis successful balloon angioplasty. Mild disease in the distal LAD. Long stent in the mid small nondominant right coronary artery which is patent with mild di sease proximal to stent nonobstructive disease. Dominant circumflex artery with [id number]-[id number] disease nonobstructive disease. Cardiac catheterization was carried out on September 02, 2022, 95% stenosis within the stent in the mid LAD successful balloon angioplasty using noncompliant balloon 3.5 x 20 mm up to 16 poly with excellent results, no residual stenosis. The right coronary artery has a patent stent, at the ostium there is 95% lesion, I forwarded her cath films to [facility] and discussed the with Dr. Mathias. Due to the small to intermediate size of that right coronary artery recommendation is conservative management. We will continue maximizing medical therapy. Paroxysmal atrial fibrillation, started to have multiple episodes of atrial fibrillation with rapid ventricular response. Converted to sinus rhythm on Cardizem drip Had few breakthrough atrial fibrillation, maintained on oral Cardizem at this time and tolerating it well. Probably secondary to respiratory failure Started on Eliquis and tolerating it well Congestive heart failure, chronic compensated left ventricular systolic dysfunction ejection fraction. Maintained on Coreg 25 mg daily and Entresto 45 mg / 51 mg twice daily. 2D echo was done on September 02, 2022 with moderate LVH, hypokinesia at the anterior wall, ejection fraction 45 to 50%, grade 2 diastolic dysfunction, mild to moderate mitral regurgitation, aortic valve sclerosis with no aortic stenosis, PA pressure 35 to 40 mmHg Receiving diuretics. Continue to monitor Hypertension, continue to monitor blood pressure Acute on chronic renal insufficieny, continue to monitor renal function Anemia, continue to monitor H/H Diabetes mellitus, followed and monitored by primary care physician Diabetic neuropathy, continue to monitor Hypothyroidism, managed and followed by primary care physician Hyperlipidemia, maintained on Lipitor Moderate bilateral carotid stenosis, ultrasound was done in October 2021, continue to monitor Anxiety, history of bipolar disorder, Parkinson Degenerative joint disease, monitored and managed by primary care physician Parkinson's, follows with Dr. Andrews Abnormal EKG with left bundle branch block, chronic, no change from baseline. Continue to monitor Generalized weakness/debility, chronic Mild venous insufficiency, uses compression stockings LUISA MEADE MD Sep 13, 2022 09:33
[2022-09-13 11:17] VITALS: BP 122/50
--- NOTE | 2022-09-13 12:38 | Discharge Summary ---
Diagnosis/Chief Complaint Date of Admission Sep 01, 2022 at 19:24 Date of Discharge Discharge Date: Sep 13, 2022 Admission Diagnosis NSTEMI Primary Care Shaq Brothers MD Discharge Diagnosis (1) NSTEMI (non-ST elevation myocardial infarction) Status: Acute (2) Acute on chronic HFrEF (heart failure with reduced ejection fraction) Status: Acute (3) Acute postoperative respiratory insufficiency Status: Acute (4) Acute respiratory failure with hypoxia Status: Acute (5) Acute kidney injury superimposed on chronic kidney disease Status: Acute (6) UTI (urinary tract infection) Status: Acute (7) T2DM (type 2 diabetes mellitus) Status: Chronic (8) Coronary artery disease Status: Chronic (9) Hypertension Status: Chronic (10) Hyperlipidemia Status: Chronic (11) Hypothyroidism Status: Chronic (12) Pulmonary edema Status: Acute (13) Multifocal pneumonia Status: Acute (14) Critical illness myopathy Status: Acute Discharge Summary Procedures/Consulations Dr. Lorenzo Telemetry ICU Palliative care nurse Discharge Physical Exam Allergies: Coded Allergies: morphine (Verified Allergy, Mild, 09/01/22) hallucinations Vitals & I&Os Vital Signs Date Time Temp Pulse Resp B/P (MAP) Pulse Ox O2 Delivery O2 Flow Rate FiO2 09/13/22 15:02 63 22 100 85.00 09/13/22 15:00 122/51 (77) NIV Bilevel 09/13/22 12:00 85 09/13/22 00:00 37.1 General Appearance: No Apparent Distress, Chronically ill Respiratory: Decreased Breath Sounds, Other (on BiPAP) Cardiovascular: Regular Rate, Rhythm Hospital Course Patient was admitted to the hospital secondary to an NSTEMI. She underwent cardiac cath with intervention done. There was question of need for staged procedure to the RCA but Dr. Lorenzo was able to send the films to cardiothoracic surgery and they recommended conservative management. Following her cath she was given IV fluids due to her chronic kidney disease to prevent contrast- induced nephropathy. She did seem to become fluid overloaded and suffered respiratory failure. She also developed a multifocal pneumonia. She was treated with IV diuretics and IV antibiotics. Despite this she continued to have a respiratory failure necessitating Vapotherm and BiPAP at very high levels of oxygen. Sputum culture ended up showing some yeast and she was started on antifungal coverage as well. She did have known severe anxiety at baseline and given the extensive interventions in an ICU her anxiety was worsened. She was treated with her home Klonopin and as needed Klonopin along with a Precedex drip as needed. Discussions were had with the family regarding goals of care and at first the plan was to transfer to an LTAC for oxygen weaning. Ultimately after respiratory status worsened some and there were decisions concerning intubation family elected to not pursue intubation, change her to a DNR, and pursue comfort measures only in accordance with her wishes. She was discharged to [facility] [place] [facility] where comfort care medicines will be initiated and BiPAP will be removed there. Labs (last 24 hrs) Microbiology 09/06/22 Gram Stain - Final, Complete 09/06/22 Sputum Culture - Final, Complete YEAST Usual upper respiratory trina 09/01/22 Blood Culture - Final, Complete No growth 09/01/22 Urine Culture - Final, Complete Escherichia coli Patient resulted labs reviewed. Pending Labs Imaging: Reviewed Imaging Report Discussion & Recommendations Discharge Planning: >30 minutes discharge planning Discharge Home Medications: Active Scripts Active Reported Cetirizine HCl 10 Mg Tablet 10 Mg PO DAILY Vitamin B Complex 1 Each Tablet 1 Each PO 1200 Calcium + Vit D & K Chew Tab (Ca Carbonate/Vitamin D3/Vit K) 500 Mg Calcium-500 Unit-40 Mcg Tab.chew 2 Each PO 1200 Docusate Sodium 100 Mg Capsule 100 Mg PO 1200 Aspirin EC (Aspirin) 81 Mg Tablet.dr 81 Mg PO HS Fiasp 100 Unit/ml Flextouch (Insulin Aspart (Niacinamide)) 100 Unit/Ml (3 Ml) Insuln.pen Units SC AC USES SLIDING SCALE Entacapone 200 Mg Tablet 200 Mg PO QID Levothyroxine Sodium 125 Mcg Tablet 125 Mcg PO DAILY Bupropion Xl (Bupropion HCl) 300 Mg Tab.er.24h 300 Mg PO DAILY Tresiba Flextouch U-100 (Insulin Degludec) 100 Unit/Ml (3 Ml) Insuln.pen 5 Unit SQ DAILY Venlafaxine HCl ER (Venlafaxine HCl) 75 Mg Cap.er.24h 75 Mg PO DAILY Clopidogrel (Clopidogrel Bisulfate) 75 Mg Tablet 75 Mg PO HS Furosemide 40 Mg Tablet 40 Mg PO DAILY Olanzapine 7.5 Mg Tablet 7.5 Mg PO HS Neurontin (Gabapentin) 300 Mg Capsule 300 Mg PO TID Acetaminophen 500 Mg Tablet 1,000 Mg PO DAILY TAKES 2 (500MG) TABS K-Tab ER (Potassium Chloride) 10 Meq Tablet.er 10 Meq PO DAILY Carbidopa-Levodopa 25-100 Tab (Carbidopa/Levodopa) 25 Mg-100 Mg Tablet 2 Each PO QID Miralax (Polyethylene Glycol 3350) 17 Gram Powd.pack 17 Gm PO 1200 Amlodipine Besylate 5 Mg Tablet 5 Mg PO DAILY Entresto 49 mg-51 mg Tablet (Sacubitril/Valsartan) 49 Mg-51 Mg Tablet 1 Tab PO BID WITH MEALS Pantoprazole Sodium 40 Mg Tablet.dr 40 Mg PO HS Carvedilol 25 Mg Tablet 25 Mg PO BID WITH MEALS Atorvastatin Calcium 80 Mg Tablet 80 Mg PO HS Clonazepam 0.5 Mg Tablet 0.25 Mg PO BID TAKES HALF A OF TABLET ONCE DAILY Instructions to patient/family Please see electronic discharge instructions given to patient. Problem Qualifiers (1) Pulmonary edema: Chronicity: acute Qualified Codes: J81.0 - Acute pulmonary edema ZACHARY MITCHELL MD Sep 13, 2022 12:38
[2022-09-13] MEDS ORDERED: LORazepam INJ 2 MG/ML (ATIVAN) VIAL IVP NR (12:45)
--- NOTE | 2022-09-13 12:53 | Occ Therapy Progress Note ---
Therapy Progress Note Patient on hold until more medically appropriate, OT will monitor KANDI MEIDNA OT Sep 13, 2022 12:53
[2022-09-13 15:02] VITALS: BP 122/61
--- NOTE | 2022-09-16 10:24 | Tele-ICU Progress Note ---
Subjective Date Seen by a Provider: Sep 13, 2022 Time Seen by a Provider: 08:00 Subjective/Events-last exam (Tele-ICU Physician , Progress Note ) Service provided via interactive audio and video telecommunications E-CARE system to a patient admitted to ICU bed in [facility]. Patient is seen today due to persistent need of ICU care Available chart/ vitals / labs / Images reviewed Video assessment done using teleICU camera, rest of exam as per RN Discussed with RN Events overnight : Afebrile hemodynamically stable Respiratory - VT I/O = negative Drips: off Pressors- no Hospital course: (09/01) 86/F- C.P., Hypoxia, pna on imaging, nstemi, chf, //incr.- trop, gluc. ashly. (09/02) to CCL for successful PTCA to stenosis mid LAD, Rocephin 09/02--30 for UTI 09/03 - VT 40 L 90 % to eat , now on BIPAP 15/8 70 % , rr 22 tv 500 TV 12 L . - A fib RVR- cardizen gtt , VT 09/05 - VT 40 L 80% BIPAP 15/8 70 % , rr 22 tv 500 TV 12 L , CTch/abd - bilat infiltrates, bilat effusions , - precedex OFF since 11 am , VANCO started , cefepime 09/06- VT 40 L 90% , at night BIPAP 15/8 50%, precedex while on bipap 09/07 - 40L 70 %, same bipap/precedex at night 09/09 - VT 25 L 50 % bipap/precedex at night , as per cards DECREASED DOSE lasix 09/10 - VT 40 L 100 % BIPAP 40 % AT NIGHT FEW HOURS 09/12 - bipap 20/10 80% RR 23 [id number]- then WORSENINGON 09/12 WITH HEMOPTYSIS AND NEED FOR 100 FIO2 , antifungal cobverage added , PCT 0.8 - DNI , eliquis in hold . 09/13 - bipap 20/10 85% -MV 16L , cardizem gtt A/P Acute resp failure. hypoxic - INITIALLY CHF, NOW WITH PNA - C T chest abd 09/05 - bilat infiltrates, bilat effusions - ABX ADDED -cont diuresis with lasix - as per cards DECREASED DOSE 09/09- but UO is great WORSENINGON 09/12 WITH HEMOPTYSIS AND NEED FOR 100 FIO2 - finished course of abx , good UO - ? progressing to ARDS ? PCT 0.8 - discussed with famdawn - DNI desision was made -today slightly less needs for Fio2 - bipap 20/10 85% -MV 16L PNA - 09/05 CTch/abd - bilat infiltrates, bilat effusions , added Vanco 09/05 , cefepime - finished 09/11 - antifungal coverage 09/12 A fib RVR 09/03 - rate controlled cardizem gtt OFF 09/04 - cardizem PO -- back to cardizemn gtt 09/13 - AC with eliquis CAD, NSTEMI on admission Status postcardiac catheterization and balloon angioplasty to the LAD - card follow -RCA has a patent stent, at the ostium there is 95% lesion which need to be addressed at a later point. - on aspirin and Plavix Congestive heart failure, chronic compensated left ventricular systolic dysfunction ejection fraction. - as per cards - ECHO September 02, 2022 with moderate LVH, hypokinesia at the anterior wall, ejection fraction 45 to 50%, grade 2 diastolic dysfunction, mild to moderate mitral regurgitation, aortic valve sclerosis with no aortic stenosis, PA pressure 35 to 40 mmHg UTI with E coli -Rocephin 09/02--31 DM II, - ISS - po diet CKD - Cr stable Parkinson's - mental status baseline - prn precedex while on BIPAP Nuritions - min Po intake Lines : periph , (Central Line Necessity Reviewed) Flower: + OG: Nutrition: PO Analgesia: Anxiety/ delirium VTE Prophylaxis: eluiquis Stress Ulcer Prophylaxis: Plans in collaboration with bedside consultants and IM MDs, paged Dr Urban Discussed with RN to reach out if any questions or concerns Case and care daily discussed on multidisciplinary rounds ( RN, PharmD, Aco Coordinator , Respiratory Therapy, typing office worker ) A total of 33 minutes of critical care time was devoted to this patient today, required to treat and/or prevent further deterioration of critical care condit ion ( as above ) . I am remotely monitoring this patient from another state. I am unable to do the bedside exam, and history/physical and pertinent information is taken from other notes in the computer and bedside staff. Sepsis Event Evaluation Height, Weight, BMI Height: 5'2.00" Weight: 129lbs. 0.0oz. [id number]; 25.84 BMI Method: Focused Exam Time of Focused Exam: 19:00 Exam Exam Patient acknowledged, consented, and participated in this virtual visit which was conducted using real time audio/video Height & Weight Height: 5'2.00" Weight: 129lbs. 0.0oz. [id number]; 25.84 BMI Method: General Appearance: No Apparent Distress, Chronically ill HEENT: PERRL/EOMI, Pharynx Normal Neck: Normal Inspection, Supple Respiratory: Decreased Breath Sounds, Other (on BiPAP) Cardiovascular: Regular Rate, Rhythm Capillary Refill: Less Than 3 Seconds Gastrointestinal: normal bowel sounds, non tender, soft Extremity: Normal Inspection, No Pedal Edema Neurologic/Psychiatric: Alert Skin: Normal Color, Warm/Dry Lymphatic: No Adenopathy Assessment/Plan Assessment/Plan 1 VASILE MCGEE MD Sep 16, 2022 10:24
== END 2022-09-13 15:47 | disposition hospice, inpatient (51) | DRG 250 ==
LOC: EDUNIT# 17:20 → ER 17:22 → ICU 19:24 → 4TH 09-13 15:35
PROVIDERS: ADMIT Family Medicine; ATTEND Internal Medicine
PROC: 02703ZZ Dilation of Coronary Artery, One Artery, Percutaneous Approach (ICD-10-PCS; principal; 2022-09-02)
PROC: 4A023N7 Measurement of Cardiac Sampling and Pressure, Left Heart, Percutaneous Approach (ICD-10-PCS; 2022-09-02)
PROC: B2111ZZ Fluoroscopy of Multiple Coronary Arteries using Low Osmolar Contrast (ICD-10-PCS; 2022-09-02)
PROC: 5A09457 Assistance with Respiratory Ventilation, 24-96 Consecutive Hours, Continuous Positive Airway Pressure (ICD-10-PCS; 2022-09-12)
DX: I21.4 Non-ST elevation (NSTEMI) myocardial infarction (principal); I50.23 Acute on chronic systolic (congestive) heart failure; J18.9 Pneumonia, unspecified organism; J95.1 Acute pulmonary insufficiency following thoracic surgery; J96.01 Acute respiratory failure with hypoxia; N17.9 Acute kidney failure, unspecified; N39.0 Urinary tract infection, site not specified; I13.0 Hypertensive heart and chronic kidney disease with heart failure and stage 1 through stage 4 chronic kidney disease, or unspecified chronic kidney disease; G72.81 Critical illness myopathy; J90 Pleural effusion, not elsewhere classified; E11.22 Type 2 diabetes mellitus with diabetic chronic kidney disease; I25.10 Atherosclerotic heart disease of native coronary artery without angina pectoris; E03.9 Hypothyroidism, unspecified; B96.20 Unspecified Escherichia coli [E. coli] as the cause of diseases classified elsewhere; G20 Parkinson's disease; Z66 Do not resuscitate; Z51.5 Encounter for palliative care; N18.32 Chronic kidney disease, stage 3b; I44.7 Left bundle-branch block, unspecified; F41.9 Anxiety disorder, unspecified; K21.9 Gastro-esophageal reflux disease without esophagitis; E78.00 Pure hypercholesterolemia, unspecified; M19.90 Unspecified osteoarthritis, unspecified site; F32.A Depression, unspecified; I25.5 Ischemic cardiomyopathy; I48.0 Paroxysmal atrial fibrillation; D64.9 Anemia, unspecified; E11.40 Type 2 diabetes mellitus with diabetic neuropathy, unspecified; I65.23 Occlusion and stenosis of bilateral carotid arteries; R53.81 Other malaise; I87.2 Venous insufficiency (chronic) (peripheral); Z20.822 Contact with and (suspected) exposure to COVID-19
CPT/HCPCS: 36410; 36415; 36600; 51702; 71045; 71250; 76937; 80053; 80061; 80202; 81000; 82150; 82550; 82553; 82805; 82947; 83605; 83690; 83735; 83880; 84100; 84145; 84484; 85007; 85025; 85027; 85347; 85379; 85610; 85730; 87040; 87070; 87077; 87081; 87088; 87186; 87205; 87636; 93005; 93306; 93458; 94640; 94660; 94760; 96361; 96372; 96374; 96375

== ENCOUNTER 2022-09-13 11:52 | Inpatient (IN) | payer MEDICARE ==
[~2022-09-13] VITALS: Ht 157.5 cm; Wt 64.1 kg
[~2022-09-13 11:52] MED LIST changes: +ACET-93 PO; +ASPI-1238 PO; +BUPR300T98 PO; +CA C1TAB66 PO; +CETI10TA17 PO; +DOCU100C37 PO; +ENTA200T6 PO; +FURO40TA4 PO; +GABA300C PO; +INSU100I40 SC; +LEVO125T6 PO; +OLAN7.5T18 PO; +VENL75CA93 PO; +VITA1TAB17 PO
[2022-09-13] MEDS ORDERED: ARTIFICAL TEARS 0.4 ML UNIT DOSE (REFRESH PLUS) OU PRN (12:15)
[2022-09-13] MEDS ORDERED: LORazepam ORAL CONCENTRATE 2 MG/ML 30 ML (ATIVAN) PO PRN (12:15)
[2022-09-13] MEDS ORDERED: SALIVA SUBSTITUTE 60 ML SPRAY(MOUTHKOTE) MM PRN (12:15)
[2022-09-13] MEDS ORDERED: BISACODYL 10 MG SUPP (DULCOLAX) PR PRN (12:15)
[2022-09-13] MEDS ORDERED: ATROPINE 1% OPHTHALMIC SOLN 2 ML SL PRN (12:15)
[2022-09-13] MEDS ORDERED: RT-ALBUTEROL/IPRATROPIUM 3 ML (DUONEB) VIAL INH PRN (12:15)
[2022-09-13] MEDS ORDERED: ONDANSETRON 4 MG/2 ML (SDV) Z0FRAN IVP PRN (12:15)
[2022-09-13] MEDS ORDERED: PROMETHAZINE INJ 25 MG/ML (PHENERGAN) AMP IVP PRN (12:15)
[2022-09-13] MEDS ORDERED: LORazepam 1 MG (ATIVAN) TAB SL PRN (12:15)
[2022-09-13] MEDS ORDERED: ACETAMINOPHEN 650 MG SUPP (TYLENOL) PR PRN (12:15)
--- OUTSIDE RECORDS SUMMARY | 2022-09-13 16:00 | XMS REPORT | Clinical Summary ---
Author Author [facility] Organization [facility] Address Unknown Phone Unavailable Care Team Providers Care Fire Chief Deputy Name Role Phone PCP Unavailable Allergies Not on File Medications Not on file Active Problems Not on file Family History Medical History Relation Name Comments Other Brother 4 Diagnosed with CAD, Other Mother Diagnosed with CAD, Other Sister Diagnosed with CAD, Relation Name Status Comments Brother 1 Cause of was DE at age 55. (Age 55) Brother 2 Cause of was DE at age 65. (Age 65) Brother 3 Cause of was DE at age 75. (Age 75) Brother 4 Father Cause of was Cancer at age 70. (Age 70) Mother Cause of was DE at age 61. (Age 61) Sister Social History Date Tobacco Use Types Packs/Day Years Used Smoking Tobacco: Never Assessed Sex Assigned at Date Recorded Not on file Last Filed Vital Signs Reading Time Taken [...] Health Maintenance Due Date Last Done Comments Td/Tdap# 1935 COVID-19 Vaccine (#1) 03/21/1938 Fall Risk Assessment # 2002 Osteoporosis Screening 2002 Zoster Vaccine# (2 of 3) 08/03/2012 06/08/2012 Pneumococcal Vaccine: 65+ 06/24/2019 06/24/2018 Years (2 - PCV) Advance Care Planning 06/09/2022 Conversation# Social Determinants of 06/09/2022 Health# Influenza Vaccine (Season 03/09/2023 04/02/2018, Ended) 05/14/2017, 05/19/2016, Additional history exists Results Not on filefrom Last 3 Months Advance Directives For more information, please contact: [phone] 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
--- OUTSIDE RECORDS SUMMARY | 2022-09-13 16:00 | XMS REPORT | Clinical Summary ---
Author Author [facility] Organization [facility] Address Unknown Phone Unavailable Care Team Providers Care Senior Software Qa Analyst Name Role Phone Katya Olivares MD Unavailable Shaq Brothers MD PCP Arti Chase RN Unavailable Unavailable Marcela Reyes PA-C Unavailable Source Comments Some departments are not documenting in the electronic medical record. If you d o not see the information that you expected, contact Release of Information in [facility] [employer] Information Management department at [phone] for further assistan ce in locating additional records.[facility] Allergies Comments Active Allergy Reactions Severity Noted [...] capsule by mouth three times daily. Active Uczagygr-Nrdpbyo-Kxpg-Lut Take 1 Tab by 0 ein tab [...] Systolic congestive heart failure 05/01/2015 Cardiomyopathy 05/01/2015 Surgical History Surgery Date Site/Laterality Comments HX APPENDECTOMY CARDIAC SURGERY 2003, 2010 5 stents, 2 stents HIP SURGERY 03/04/2011 Right HX TONSILLECTOMY GALLBLADDER SURGERY PELVIC FRACTURE TX 07/18/2010 CATARACT REMOVAL 2007 Bilateral REVISION TOTAL HIP 10/20/2015 Hip/Right RIGHT MARY ION HIP ARTHROPLASTY performed by ARTHROPLASTY Katya Olivares MD at [facility] OR/Periop Medical devices from this surgery are i n the Medical Devices section. Medical History Medical History Date Comments Arthritis Back pain Heart abnormality Carpal tunnel syndrome DM (diabetes mellitus) (HCC) Osteoarthritis Rheumatoid arthritis (HCC) Thyroid disease Manic depressive disorder (HCC) FRANK on CPAP Hypertension Hyperlipidemia Congestive heart disease (HCC) Cardiomyopathy (HCC) Family History Medical History Relation Name Comments Stroke Brother Cancer Father Stroke Father Relation Name Status Comments Brother Father Social History Date Tobacco Use Types Packs/Day Years Used Smoking Tobacco: Never Smokeless Tobacco: Never Tobacco Cessation: Counseling Given: Yes Comments Alcohol Use Standard Drinks/Week No 0 (1 standard drink = 0.6 o z pure alcohol) Sex Assigned at Date Recorded Not on file Obstetrics History Last Filed Vital Signs Reading Time Taken Comments Vital Sign 112/64 07/10/2016 1:07 PM TEMPERER Blood Pressure 90 07/10/2016 1:07 PM TEMPERER Pulse 36.5 C (97.7 F) 10/24/2015 5:32 AM CDT Temperature - - Respiratory Rate 92% 10/24/2015 1:40 PM CDT Oxygen Saturation - - Inhaled Oxygen Concentration 57.2 kg (126 lb) 07/10/2016 1:07 PM TEMPERER Weight 162.6 cm (5' 4") 07/10/2016 1:07 PM TEMPERER Height 21.63 07/10/2016 1:07 PM TEMPERER Body Mass Index Plan of Treatment Health Maintenance Due Date Last Done Comments MEDICARE ANNUAL WELLNESS 1935 VISIT COVID-19 VACCINE (#1) 03/21/1938 DTAP/TDAP VACCINES (1 - 09/20/1955 Tdap) PHYSICAL (COMPREHENSIVE) 09/20/1955 EXAM SHINGLES RECOMBINANT 09/20/1987 VACCINE (1 of 2) OSTEOPOROSIS 2002 SCREENING/MONITORING PNEUMOCOCCAL VACCINE 65+ 2002 YRS (1 - PCV) INFLUENZA VACCINE (#1) 2022 ADVANCED CARE PLANNING 06/09/2022 DISCUSSION AND DOCUMENTATION Medical Devices Device Identifier Shelf Expiration Date Model / Serial / L ot Implanted Type Area Manufactur er 03/08/2025-140 / NA / [id number] Dis Tap Ivan Hip Right: Hip DEPUY Implanted: Qty: 1 on 10/20/2015 by ORTHOPEDIC Katya Olivares MD at [facility] 08/06/2025 [id number] / NA / [id number] Elmntr Hl Drlc Pncl Hip Mrthn Right: Hip JandJ:D EPU Implanted: Qty: 1 on 10/20/2015 by Y:Katya Pelaez MD at [facility] Results Not on filefrom Last 3 Months Insurance Type Payer Benefit Subscriber ID Effective Phone Address Plan / Dates Group Medicare MEDICARE MEDICARE [id number] 2015- [phone] [place] [address] Medicare BCBS CHANDA BCBS [id number] 2014-P [phone] [address] [place] [id number] Advance Directives Patient Floorman Explanation Type Date Recorded ImageNow Scan Advance 10/20/2015 6:03 AM Directive/DPOA Date Inactivated Comments Code Status Date Activated 10/24/2015 4:21 PM Full Code 10/20/2015 3:01 PM Comments Question Answer Provider has No, discussion not necessar y based on Dx discussed Code Status w/Patient or Family? Care Teams Start Date End Date Senior Software Qa Analyst Relationship Specialty 10/04/15 Shaq Brothers MD PCP - General Internal [address] [place] [address] 04/10/15 Katya Olivares MD Surgery, [address] Orthopedic Ivan [address] [place] [id number] 10/06/15 Arti Chase, RN 11/23/15 Marcela Ryees, PA-C Surgery, [address] [facility] [address] [place] [address]
[2022-09-13] MEDS ORDERED: SCOPOLAMINE 1.5 MG (TRANSDERM-SCOP) PATCH TOP SCH (16:30)
[2022-09-13] MEDS: LORazepam INJ 2 MG/ML (ATIVAN) VIAL IVP PRN ×3 (18:01→22:28)
[2022-09-13] MEDS: fentaNYL INJ 100 MCG/2 ML AMP IVP PRN ×3 (18:02→22:28)
[2022-09-13] MEDS ORDERED: LORazepam INJ 2 MG/ML (ATIVAN) VIAL IVP PRN ×2 (21:30→22:00)
[2022-09-13] MEDS ORDERED: LORazepam INJ 2 MG/ML (ATIVAN) VIAL IVP ONE (22:00)
[2022-09-13] MEDS ORDERED: fentaNYL INJ 100 MCG/2 ML AMP IVP PRN (22:15)
[2022-09-14] MEDS: GLYCOPYRROLATE 0.2 MG/ML (ROBINUL) 2 ML VIAL IV PRN ×4 (00:58→13:49)
[2022-09-14] MEDS: fentaNYL INJ 100 MCG/2 ML AMP IVP PRN ×4 (00:59→13:49)
[2022-09-14] MEDS: LORazepam INJ 2 MG/ML (ATIVAN) VIAL IVP PRN ×2 (01:07→13:49)
[2022-09-14] MEDS ORDERED: fentaNYL PATCH 50 MCG (DURAGESIC) TD SCH (11:00)
--- NOTE | 2022-09-14 11:07 | Progress Note - Hospitalist ---
Subjective HPI/CC On Admission Date Seen by Provider: Sep 14, 2022 Subjective/Events-last exam Pt resting comfortably. Opens eyes but does not speak and quickly closes them again. Two family members at bedside report she is doing ok for the most part but occasionally seems short of breath or restless. Meds working. Discussed plan for trying fentanyl patch to help control symptoms and avoid periods uncontrolled symptoms. They are agreeable to that. Objective Exam Vital Signs Vital Signs Date Time Temp Pulse Resp B/P (MAP) Pulse Ox O2 Delivery O2 Flow Rate FiO2 09/14/22 08:21 Nasal Cannula 5.00 Capillary Refill : General Appearance: No Apparent Distress, Chronically ill Respiratory: Lungs Clear Cardiovascular: Regular Rate, Rhythm Neurologic/Psychiatric: Other (drowsy, opens eyes when spoken to but quickly back asleep) Results/Procedures Lab Patient resulted labs reviewed. Assessment/Plan Assessment and Plan Assess & Plan/Chief Complaint NSTEMI CAD Acute on chronic HFrEF Pulmonary edema Bilateral pleural effusions Acute respiratory failure with hypoxia Acute postoperative respiratory insufficiency Multifocal pneumonia TAMMY on CKD3b HTN HLD AFib LBBB Anxiety Family elected comfort care measures only Admitted to [facility] with [facility] Add fentanyl patch, continue IV for breakthrough Continue Ativan Hospice staff to round as well Palliative Care consulted, appreciate ZACHARY Ragland MD Sep 14, 2022 11:07 am
--- NOTE | 2022-09-14 15:27 | Discharge Summary ---
Discharge Summary Date of Admission Sep 13, 2022 at 15:32 Date of Discharge Comfort Measures/ End of Life Care: Comfort Measures Patient was admitted to hospital for GIP. She had a prolonged hospital stay proceeding this where she suffered an NSTEMI and underwent coronary stenting. She then developed CHF exacerbation and pneumonia. She had acute respiratory failure and was on BiPAP for multople days unable to be weaned. Discussion was had regarding LTACH transfer and instead family and patient elected comfort care measures only. She was on GIP with [place] and treated symptomatically with fentanyl (due to morphine allergy) and ativan. She passed on 09/14 with her family at her bedside. Discharge Diagnosis NSTEMI CAD Acute on chronic HFrEF Pulmonary edema Bilateral pleural effusions Acute respiratory failure with hypoxia Acute postoperative respiratory insufficiency Multifocal pneumonia TAMMY on CKD3b HTN HLD AFib LBBB Anxiety Family elected comfort care measures only Admitted to [facility] with [facility] Add fentanyl patch, continue IV for breakthrough Continue Ativan Hospice staff to round as well Palliative Care consulted, appreciate ZACHARY Ragland MD Sep 14, 2022 3:27 pm
[2022-09-16] MEDS ORDERED: SCOPOLAMINE PATCH REMOVAL TP SCH (16:29)
[2022-09-17] MEDS ORDERED: FENTANYL PATCH REMOVAL TP SCH (08:59)
[2022-09-17] MEDS ORDERED: LORazepam ORAL CONCENTRATE 2 MG/ML 30 ML (ATIVAN) PO PRN (14:00)
== END 2022-09-18 16:10 | disposition expired | DRG 951 ==
LOC: 4TH 15:32
PROVIDERS: ADMIT Family Medicine; ATTEND Family Medicine
DX: Z51.5 Encounter for palliative care (principal); I21.4 Non-ST elevation (NSTEMI) myocardial infarction; I50.23 Acute on chronic systolic (congestive) heart failure; J96.01 Acute respiratory failure with hypoxia; J18.9 Pneumonia, unspecified organism; J90 Pleural effusion, not elsewhere classified; N17.9 Acute kidney failure, unspecified; I13.0 Hypertensive heart and chronic kidney disease with heart failure and stage 1 through stage 4 chronic kidney disease, or unspecified chronic kidney disease; Z66 Do not resuscitate; N18.32 Chronic kidney disease, stage 3b; E78.5 Hyperlipidemia, unspecified; I48.91 Unspecified atrial fibrillation; I44.7 Left bundle-branch block, unspecified; F41.9 Anxiety disorder, unspecified